=== PATIENT | female | born 1950 | race Caucasian/White ===

== ENCOUNTER → 2016-06-28 | Outpatient (CLI) | payer OTHER ==
[~2016-06-28] MED LIST: ACET325T96 PO; ALBU18002 INH; ASPI81TA28 PO; Armour Thyroid PO; CHOL2000 PO; CITA40TA4 PO; CLX20 PO; DOCU-94 PO; DULO60CA44 PO; FLUT0.15 NAE; HYDR-5688 PO; IBUP-103 PO; IBUP-1459 PO; JET ALERT PO; MOML PO; NRN/100 PO; NXM/40 PO; OXYC-106 PO; PRAV20TA PO; THY/30 PO; TRD10 PO
[2016-06-28 12:56] LABS: BASO % 0.4 %; BASO ABS # 0.02 K/uL (0-0.2); COMPLETE YES; EOS % 6.6 %; HEMATOCRIT 35.7 % (37-47); LYMPH ABS # 1.48 K/uL (1.2-3.4); MEAN CELL VOLUME 91.3 fL (80-100); MEAN CORPUSCULAR HEMOGLOBIN 30.9 pg (25-34); MEAN CORPUSCULAR HGB CONC 33.9 g/dl (32-36); MEAN PLATELET VOLUME 10.4 fL (7.4-10.4); MONO % 6.9 %; NEUT % 59.1 %; PLATELET COUNT 283 K/uL (130-400); RED BLOOD COUNT 3.91 M/uL (4.2-5.4); WHITE BLOOD COUNT 5.48 K/uL (4.8-10.8)
--- NOTE | 2016-07-03 13:16 | CODING QUERY MEDICAL NECESSITY ---
SUPPORTING DIAGNOSIS NEEDED A supporting diagnosis is required for the test/procedure performed on this patient in order for us to be reimbursed by the patient's insurance. Please provide a supporting diagnosis for the following test/procedure listed below next to the test name along with your signature. *If there is no additional diagnosis for this patient that would support the following test/procedure please document that below next to the test/procedure. Test(s)/Procedure(s) that require a supporting diagnosis: DOS 06/28/16 * Vitamin B12 DIAGNOSIS: Provider Signature: Date: Thank you Mitra Woodward Health Information Management Once completed, please kindly fax back to [phone] For questions please call [phone]
== END | disposition home or self-care (01) ==
LOC: C.LAB 12:01
PROVIDERS: ATTEND Family Medicine
DX: D64.9 Anemia, unspecified (principal)

== ENCOUNTER → 2016-08-24 | Outpatient (CLI) | payer OTHER ==
--- NOTE | 2016-08-24 15:37 | MAMMOGRAPHY REPORT ---
BILATERAL DIGITAL SCREENING MAMMOGRAM WITH CAD: 08/24/2016 CLINICAL HISTORY: Routine screening. Patient has no complaints. TECHNIQUE: Current study was also evaluated with a Computer Aided Detection (CAD) system. Bilatera l CC and MLO views were obtained. COMPARISON: Comparison is made to exams dated: 08/23/2015 mammogram, 08/17/2014 mammogram, 03/03/2015 ma mmogram, 08/14/2013 mammogram, 08/13/2012 mammogram, and 08/08/2011 mammogram - [facility] enter. BREAST COMPOSITION: The tissue of both breasts is almost entirely fatty. FINDINGS: No suspicious masses, calcifications, or areas of architectural distortion are noted in e ither breast. There has been no significant interval change compared to prior exams. Bilateral jeanine gn-appearing calcifications are again noted. IMPRESSION: ACR BI-RADS CATEGORY 2: BENIGN There is no mammographic evidence of malignancy. A 1 year screening mammogram is recommended. The p atient will receive written notification of the results. Approximately 10% of breast cancers are not detected with mammography. A negative mammographic repor t should not delay biopsy if a clinically suggestive mass is present. Demetria Collins M.D. ah/:08/24/2016 13:52:26 [employer] Agent: Marnie BURCIAGA(R)(M), [facility] letter sent: Normal 1/2 BI-RADS Code: ACR BI-RADS Category 2: Benign
== END | disposition home or self-care (01) ==
LOC: C.MAMM 12:57
PROVIDERS: ATTEND Obstetrics & Gynecology
DX: Z12.31 Encounter for screening mammogram for malignant neoplasm of breast (principal)

== ENCOUNTER → 2016-08-28 | Outpatient (CLI) | payer OTHER ==
[~2016-08-28] VITALS: Ht 172.7 cm; Wt 128.0 kg
[2016-08-28 13:07] VITALS: BP 129/85; PULSE 81; Ht 172.7 cm; Wt 128.0 kg
== END | disposition home or self-care (01) ==
LOC: C.NEUR 12:52
PROVIDERS: ATTEND Internal Medicine Pulmonary Disease
DX: G47.30 Sleep apnea, unspecified (principal)

== ENCOUNTER 2016-11-02 05:23 | Inpatient (IN) | payer OTHER ==
[2016-10-25 11:15] VITALS: BMI 43.0
--- NOTE | 2016-10-25 11:50 | PAT Medication Instructions ---
Service Date October 25, 2016. Current Home Medication List Albuterol Sulfate (Proair Respiclick), 1-2 PUFFS INH Q4-6H Aspirin (Aspirin Ec), 81 MG PO HS Cholecalciferol (Vitamin D3), 1 CAP PO QAM Citalopram (Celexa *), 40 MG PO HS Esomeprazole Magnesium (Nexium), 40 MG PO HS Fluticasone Propionate (Nasal) (Flonase Allergy Relief), 2 SPRAYS KATIANA PRN Hydrocodone/Acetaminophen 5MG/325MG ([place] 5MG/325MG), 1-2 TABLET PO Q4-6H PRN for Pain Ibuprofen Tab (Advil), 400 MG PO PRN Pravastatin (Pravachol ), 20 MG PO HS [[place] Thyroid], 30 MG PO DAILY [Jet Alert], 1 TAB PO PRN Medication Instructions For Your Scheduled Surgery Albuterol Sulfate (Proair Respiclick), 1-2 PUFFS INH Q4-6H (only takes with bronchitis) Aspirin (Aspirin Ec), 81 MG PO HS (patient self held 10 days prior to surgery- only takes prophylactically- can check with surgeon for instructions) Ibuprofen Tab (Advil), 400 MG PO PRN (patient will check with surgeon for instructions) - Hold the following medications the morning of surgery: Jet Alert 1 TAB PO PRN Cholecalciferol (Vitamin D3), 1 CAP PO QAM - Take the following medications the morning of surgery with a sip of water: [place] Thyroid 30 MG PO DAILY Hydrocodone/Acetaminophen 5MG/325MG ([place] 5MG/325MG), 1-2 TABLET PO Q4-6H PRN for Pain (can take up to four hours prior to surgery if needed) Fluticasone Propionate (Nasal) (Flonase Allergy Relief), 2 SPRAYS KATIANA PRN ( if needed) - Take the following medications as scheduled the night before surgery: Pravastatin (Pravachol ), 20 MG PO HS Hydrocodone/Acetaminophen 5MG/325MG ([place] 5MG/325MG), 1-2 TABLET PO Q4-6H PRN for Pain Esomeprazole Magnesium (Nexium), 40 MG PO HS Citalopram (Celexa *), 40 MG PO HS If you have any questions please call us at [phone] or [phone] ( [place]) or [phone]
--- NOTE | 2016-10-25 12:30 | DIAGNOSTIC IMAGING REPORT ---
CHEST PREADMISSION(PA/LAT) CLINICAL HISTORY: Preoperative evaluation. COMPARISON STUDY: Chest radiograph July 24, 2014. FINDINGS: A 1 level vertebral augmentation is noted within the thoracic spine. There is no pneumothorax or pleural effusion. Calcified right lung nodules are noted. There is no evidence of pulmonary edema. Cardiomediastinal silhouette is normal. There is no evidence of pulmonary edema. Left lower lobe nodular density is unchanged since CT of January 14, 2009. IMPRESSION: No acute cardiopulmonary findings. Electronically signed by: Paulo Blank M.D. 10/25/2016 12:29 PM Dictated Date/Time: 10/25/2016 12:27 PM
[2016-10-25 12:40] LABS: BASO % 0.6 %; BASO ABS # 0.03 K/uL (0-0.2); COMPLETE YES; EOS % 5.1 %; HEMATOCRIT 37.1 % (37-47); IG% 0.2 %; LYMPH ABS # 1.54 K/uL (1.2-3.4); MEAN CELL VOLUME 92.3 fL (80-100); MEAN CORPUSCULAR HEMOGLOBIN 30.6 pg (25-34); MEAN CORPUSCULAR HGB CONC 33.2 g/dl (32-36); MEAN PLATELET VOLUME 10.1 fL (7.4-10.4); MONO % 8.8 %; NEUT % 55.3 %; PLATELET COUNT 297 K/uL (130-400); RED BLOOD COUNT 4.02 M/uL (4.2-5.4); WHITE BLOOD COUNT 5.14 K/uL (4.8-10.8)
[2016-10-25 12:41] LABS: URINE APPEARANCE CLEAR (CLEAR); URINE BILIRUBIN NEG (NEG); URINE COLOR YELLOW; URINE NITRITE NEG (NEG); URINE PH 7.5 (4.5-7.5); URINE SPECIFIC GRAVITY 1.012 (1.000-1.030); UROBILINOGEN NEG (NEG)
[2016-10-25 12:45] LABS: MANUAL MICROSCOPIC REQUIRED? NO; REVIEW REQ? NO
[2016-10-25 12:53] LABS: PARTIAL THROMBOPLASTIN RATIO 1.2; PROTHROMBIN TIME (PATIENT) 11.1 SECONDS (9.0-12.0)
[2016-10-25 13:18] LABS: BUN/CREATININE RATIO 13.1 (10-20); CALCIUM 9.2 mg/dl (8.5-10.1); CREATININE 0.98 mg/dl (0.60-1.20); POTASSIUM 4.5 mmol/L (3.5-5.1)
--- NOTE | 2016-11-01 22:05 | HISTORY & PHYSICAL EXAMINATION ---
DATE OF ADMISSION: 11/02/2016 CHIEF COMPLAINT: Lower extremity difficulty, paresthesias, weakness to the quadriceps region and back pain, as well. She has a difficulty with a worked up for spinal stenosis that is legitimately tight at L3-4, and also at L2-3 to a modest degree. She has significant spinal stenosis. She has tried conservative care, she is failing miserably and needs some help. We have offered her surgical intervention. PAST SURGICAL HISTORY: Includes cholecystectomy, bilateral knee, carpal tunnel, plantar fascial release, lumbar spinal surgery. MEDICATIONS: Nexium, Celexa, pravastatin, aspirin. ALLERGIES: AMOXICILLIN. SOCIAL HISTORY: Nonsmoker, non-ETOH user. PAST MEDICAL HISTORY: She denies any kidney, liver disease. No history of carcinoma. No difficulty with anesthesia. Does have arthritis, spine and neck problems. She is hypothyroid. She does have some sleep apnea. She has high cholesterol. No myocardial infarction, diabetes mellitus. REVIEW OF SYSTEMS: She denies any blurred vision, double vision, tinnitus, vertigo. Denies any chest pain, angina. No asthma, wheezing, no shortness of breath. Denies nausea, vomiting constipation. No urgency, frequency, dysuria. Her major positive review is her lower extremity difficulty. OBJECTIVE: GENERAL: She is 5 feet 8 inches, she is 270 pounds. She is in distress. She has difficulty with ambulation. VITAL SIGNS: Blood pressure 130/80, pulse of 80, respiration rate 16, 97.7 temperature. HEENT: Pupils react to light and accommodation. Ear, nose and throat clear. CARDIAC: Normal S1, S2, no S3. LUNGS: Clear to auscultation. No asthma, wheezing, no rhonchi. ABDOMEN: Soft and nontender. She is obese, but good bowel sounds. NEUROLOGIC: No cranial nerve function abnormality, no upper motor neuron pathology. She has weakness of quadriceps bilaterally along with a decreased Achilles reflex bilaterally. IMPRESSION: Spinal stenosis, lumbar spine L2-3, L3-4. DISPOSITION: Includes a laminectomy and fusion, L2-3, L3-4 with removal of old implants, lumbar spine.
[~2016-11-02] VITALS: Ht 172.7 cm; Wt 127.7 kg
[2016-11-02] VITALS (9 sets, daily range): BP systolic 90–148; BP diastolic 55–78; PULSE 78–105; TEMP 36.3–36.8; O2SAT 92–98; Ht 172.7 cm; Wt 127.7 kg
[~2016-11-02 05:23] MED LIST changes: -ACET325T96 PO; -ALBU18002 INH; -ASPI81TA28 PO; -CHOL2000 PO; -CITA40TA4 PO; -DOCU-94 PO; -DULO60CA44 PO; -FLUT0.15 NAE; -IBUP-103 PO; -IBUP-1459 PO; -MOML PO; -NRN/100 PO; -NXM/40 PO; -OXYC-106 PO; -PRAV20TA PO; -THY/30 PO; -TRD10 PO
[2016-11-02] MEDS ORDERED: LACTATED RINGER'S 1000ML 1,000 ML IV SCH (06:00)
[2016-11-02] MEDS ORDERED: NSS 1000ML IV SCH (06:00)
[2016-11-02] MEDS ORDERED: CLINDAMYCIN 600 MG/54 ML D5W 54 ML IV SCH (06:00)
[2016-11-02] MEDS ORDERED: MIDAZOLAM HCL 1 MG/ML 2ML VIAL ONE (06:59)
[2016-11-02] MEDS ORDERED: FENTANYL CITRATE INJ 50 MCG/1 ML 2 ML VIAL ONE (06:59)
[2016-11-02] MEDS ORDERED: HYDROmorphone INJ 2 MG/ML SYR/VIAL ONE (07:00)
[2016-11-02] MEDS ORDERED: KETAMINE HCL INJ 50 MG/ML 10 ML VIAL ONE (07:00)
[2016-11-02] MEDS ORDERED: GELATIN SPONGE SZ 100 ONE ×3 (07:01→09:15)
[2016-11-02] MEDS ORDERED: THROMBIN FOR SOLN 20000 UNIT KIT ONE (07:01)
[2016-11-02] MEDS ORDERED: BACITRACIN 50000 UNIT VIAL ONE (07:02)
[2016-11-02] MEDS ORDERED: VANCOMYCIN HCL 1000MG/20ML VIAL ONE (07:02)
[2016-11-02] MEDS ORDERED: BUPIVACAINE/EPINEPHRINE 0.5% MPF 1:200,000 30 ML VIAL ONE (07:02)
--- NOTE | 2016-11-02 07:11 | History & Physical Bridge Note ---
H&P Re-Evaluation Bridge Note: I have examined the patient, reviewed the History & Physical and in the interval since the performance of the History & Physical I have noted the following changes of clinical significance: No changes noted
[2016-11-02] MEDS ORDERED: CISATRACURIUM BESYLATE IV SOLN 2 MG/ML 10 ML VIAL ONE (08:50)
[2016-11-02] MEDS ORDERED: PROPOFOL IV EMULSION 10 MG/ML 20 ML VIAL IV ONE (08:50)
[2016-11-02] MEDS ORDERED: CLINDAMYCIN PHOS 150 MG/ML 2 ML VIAL ONE (08:50)
[2016-11-02] MEDS ORDERED: EpHEDrine SULFATE 50MG/5ML SYR ONE (08:50)
[2016-11-02] MEDS ORDERED: ONDANSETRON INJ 2 MG/ML 2 ML VIAL ONE (08:50)
[2016-11-02] MEDS ORDERED: DEXAMETHASONE SOD INJ 4 MG/ML VIAL ONE (08:50)
[2016-11-02] MEDS ORDERED: LIDOCAINE HCL 2% 2 ML VIAL (20MG/ML) ONE (08:50)
[2016-11-02] MEDS ORDERED: SODIUM CHLORIDE 0.9% INJ 10 ML VIAL ONE (08:54)
[2016-11-02] MEDS ORDERED: NEOSTIGMINE METHYLSULFATE 5 MG/5 ML SYR ONE (10:02)
[2016-11-02] MEDS ORDERED: GLYCOPYRROLATE INJ 0.2 MG/ML VIAL ONE (10:02)
[2016-11-02] MEDS ORDERED: PHENYLEPHRINE HCL INJ 10 MG/ML VIAL ONE (10:02)
[2016-11-02] MEDS ORDERED: PROMETHAZINE HCL INJ 12.5 MG in SODIUM CHLORIDE 0.9% 50ML 50 ML IV PRN ×2 (11:15→11:45)
[2016-11-02] MEDS ORDERED: NALOXONE HCL 0.4 MG/1 ML VIAL/CARP IV PRN ×2 (11:15→11:45)
[2016-11-02] MEDS ORDERED: JET ALERT PO SCH (11:15)
[2016-11-02] MEDS ORDERED: SODIUM CHLORIDE 0.9% 1000ML 1,000 ML IV SCH (11:15)
[2016-11-02] MEDS ORDERED: LORAZEPAM 1 MG TAB PO PRN (11:15)
[2016-11-02] MEDS ORDERED: MAGNESIUM HYDROXIDE SUSP 30 ML UDC PO PRN (11:15)
[2016-11-02] MEDS ORDERED: METOCLOPRAMIDE HCL INJ 5 MG/ML 2 ML VIAL IV PRN (11:15)
[2016-11-02] MEDS ORDERED: FLUTICASONE PROPIONATE NA SPR 16 GM BTL NAE PRN (11:15)
[2016-11-02] MEDS ORDERED: ACETAMINOPHEN 325 MG TAB PO PRN (11:15)
[2016-11-02] MEDS ORDERED: LORAZEPAM INJ 1 MG in SYRINGE 0.5 ML IV PRN (11:15)
[2016-11-02] MEDS ORDERED: ONDANSETRON INJ 2 MG/ML 2 ML VIAL IV PRN ×2 (11:15→11:45)
--- NOTE | 2016-11-02 11:17 | [facility] Operative Report ---
Operative Report Operative Date November 02, 2016. Pre-Operative Diagnosis Spinal Stenosis Lumbar Spine L2-3, L3-4, Previous Fusion L4-L5, L5-S1 Procedure(s) Performed Laminectomy L204. Instrumentation and fusion L2-l5 Sur[address] Munguia Aboriginal Liaison Officer Surgeon(s) DELROY Ridley Estimated Blood Loss 700 ml Findings severe stenosis L2-L4, instability Specimens A. Removed Hardware L4-L5, L5-S1 Complication(s) None Disposition Recovery Room / PACU I attest to the content of the Intraoperative Record and any orders documented therein. Any exceptions are noted below.
--- NOTE | 2016-11-02 11:20 | DIAGNOSTIC IMAGING REPORT ---
INTRAOPERATIVE LUMBAR SPINE SINGLE VIEW CLINICAL HISTORY: L2-4 LAMINECTOMY/FUSION/REMOVE HARDWARE COMPARISON STUDY: No previous studies for comparison. FINDINGS: A single lateral fluoroscopic spot images provided for interpretation. 9.2 seconds of fluoroscopic time was utilized. Given the limited [id number], accurate numbering is not possible. Pedicle screws are visualized for consecutive levels. IMPRESSION: Intraoperative fluoroscopic spot image demonstrating pedicle screws at 4 consecutive levels Electronically signed by: Michael Jarquin M.D. 11/02/2016 11:19 AM Dictated Date/Time: 11/02/2016 11:18 AM
[2016-11-02] MEDS ORDERED: HYDROmorphone HCL 0.5MG/ML 50 ML CASSETTE ONE (11:30)
[2016-11-02] MEDS ORDERED: ATROPINE SULFATE 0.1 MG/ML 5ML SYR IV PRN (11:45)
[2016-11-02] MEDS ORDERED: EpHEDrine SULFATE INJ 50 MG/ML AMP IV PRN (11:45)
[2016-11-02] MEDS ORDERED: FLUMAZENIL 0.1 MG/1 ML 10 ML VIAL IV PRN (11:45)
[2016-11-02] MEDS ORDERED: LABETALOL HCL IV 5 MG/ML 20ML IV PRN (11:45)
[2016-11-02] MEDS ORDERED: HYDROmorphone INJ 1 MG/ML SYR IV PRN (11:45)
[2016-11-02 11:49] LABS: HEMATOCRIT 32.8 % (37-47)
--- NOTE | 2016-11-02 12:32 | Anesthesiology Progress Note ---
Anesthesia Post Op Note Date & Time November 02, 2016 at 12:31 Vital Signs Pain Intensity: 5 Vital Signs Past 12 Hours Date Time Temp Pulse Resp B/P Pulse Ox O2 Delivery O2 Flow Rate FiO2 11/02/16 12:21 103/56 11/02/16 12:20 78 13 11/02/16 12:20 77 13 96 11/02/16 12:17 36.4 90 16 103/56 93 Nasal Cannula 4 Arterial Line 11/02/16 12:16 101/48 11/02/16 12:15 89 13 33/-50 92 11/02/16 12:15 89 13 11/02/16 12:14 95 17 11/02/16 12:14 94 17 114/59 93 11/02/16 12:11 112/51 11/02/16 12:09 97 19 11/02/16 12:09 102 19 70/38 92 11/02/16 12:06 99/56 11/02/16 12:04 93 20 96/55 92 11/02/16 12:04 91 20 11/02/16 12:01 99/52 11/02/16 11:59 72 2 11/02/16 11:59 70 2 94/51 93 11/02/16 11:56 100/66 11/02/16 11:54 93 105/62 92 11/02/16 11:53 89 11 11/02/16 11:53 91 11 114/64 96 11/02/16 11:53 89 11 11/02/16 11:53 91 11 114/64 96 11/02/16 11:51 113/66 11/02/16 11:51 113/66 11/02/16 11:48 93 19 119/60 97 17 11:48 93 19 11/02/16 11:48 93 19 17 11:48 93 19 119/60 97 17 11:46 117/78 17 11:46 117/78 11/02/17 11:43 86 11 18/17 11:43 86 11 168/40 97 18/17 11:43 86 11 168/40 97 11/02/17 11:43 86 11 17 11:41 124/67 18/17 11:41 124/67 11/02/16 11:38 88 13 129/60 96 11/02/16 11:38 87 13 11/02/16 11:38 88 13 129/60 96 11/02/16 11:38 87 13 11/02/16 11:36 115/79 11/02/16 11:36 115/79 11/02/16 11:33 84 15 11/02/16 11:33 84 15 104/63 95 11/02/16 11:33 84 15 104/63 95 11/02/16 11:33 84 15 11/02/16 11:31 135/61 11/02/16 11:31 135/61 11/02/16 11:28 80 15 11/02/16 11:28 80 15 11/02/16 11:28 79 15 121/60 98 11/02/16 11:28 79 15 121/60 98 11/02/16 11:26 132/82 11/02/16 11:26 132/82 11/02/16 11:23 84 15 107/53 98 11/02/16 11:23 84 15 11/02/16 11:23 84 15 107/53 98 11/02/16 11:23 84 15 11/02/16 11:21 120/71 11/02/16 11:21 120/71 11/02/16 11:19 120/76 11/02/16 11:19 120/76 11/02/16 11:18 36.4 74 16 120/76 100 Mask 10 129/58 11/02/16 11:18 78 13 11/02/16 11:18 78 13 11/02/16 11:18 74 13 109/0 99 11/02/16 11:18 74 13 109/0 99 11/02/16 05:49 36.4 78 16 148/78 Room Air 96 Notes Mental Status: alert / awake / arousable, participated in evaluation Pt Amnestic to Procedure: Yes Nausea / Vomiting: adequately controlled Pain: adequately controlled Airway Patency, RR, SpO2: stable & adequate BP & HR: stable & adequate Hydration State: stable & adequate Anesthetic Complications: no major complications apparent
--- NOTE | 2016-11-02 12:34 | OPERATIVE REPORT ---
DATE OF OPERATION: 11/02/2016 PREOPERATIVE DIAGNOSIS: Severe stenosis lumbar spine L2-3, L3-4; instability L2-3, L3-4; old implants and old fusion L4 to the sacrum. SURGEON: Sorin Munguia DO VICE PRESIDENT OF BUSINESS DEVELOPMENT: Stanley Orona PA-C ANESTHESIA: General. COMPLICATIONS: Zero. BLOOD LOSS: 700 mL. PROCEDURE: Laminectomy L2-3, L3-4; fusion, instrumentation L2, L3, L4 and L5; posterior lateral fusion L2, L3 and L4. DESCRIPTION OF PROCEDURE: The patient was taken to the operating room and general intubated anesthetic provided to the patient, placed prone, prepped and draped sterile. We scrubbed her first with Betadine, prepped with DuraPrep and positioned her carefully. We used a skin incision from L2-5 of the lumbar spine dissecting the soft tissue in the same plane. We put in a deep self-retaining retractor. The patient was quite obese and the retractors were 4 inches in length just to get to the facet joints. We decompressed the neural elements safely getting pressure off the nerve root of severe stenosis using all sort of revision techniques to try to get rid of the bone encroachment and ligamentum flavum hypertrophy. I was pleased with the decompression. I was impressed with the amount of bone formation. Each nerve roots were probed free of obstruction. We then safely instrumented the spine. We were able to get pedicle screws in the L2, L3, L4, and L5 bilaterally, instrumenting the spine and stabilizing the spine. The instruments used were from the [employer]. We then bone grafted L2, L3 and L4 lumbar spine to complete the fusion. We irrigated with about a liter of fluid. We debrided any questionable soft tissue. We closed in a [id number] with #1 Vicryl over the Hemovac drain, 2-0 in the subcuticular layer, 3-0 nylon on the skin. Sterile dressings applied. We also closed over Hemovac drain and over vancomycin powder. There were no apparent interoperative complications. No apparent problems. Sponge and needle count correct at the close of the procedure. No surgical complications. I attest to the content of the Intraoperative Record and any orders documented therein. Any exceptio ns are noted below.
[2016-11-02] MEDS: HYDROmorphone HCL 0.5MG/ML 50 ML CASSETTE IV PRN ×3 (13:03→23:00)
[2016-11-02] MEDS: SODIUM CHLORIDE 0.9% 1000ML 1,000 ML IV SCH ×2 (13:25→23:22)
--- NOTE | 2016-11-02 14:46 | Medical Consult ---
Consultation Date of Consultation: November 02, 2016. Attending Physician: Sorin Munguia DO History of Present Illness 66 y/o F Hx Lumbar stenosis - post laminectomy and fusion, L2-3, L3-4 with removal of previous implants. Pt has some post-op discomfort - denies additional symptoms such as CP, SOB, N/V. 02 sat is occasionally marginal however she does not exhibit distress or related complaints and has a history of RADHA and obesity. We are asked to see her for post-operative medical management. Past Medical/Surgical History 1) HPL 2) RADHA - CPAP Surgical Problems: (1) Hx of cholecystectomy Status: Acute Family History Cancer Gallbladder disease Heart disease Hypertension Lung disease Social History Smoking Status: Never Smoker Marital Status: Housing Status: lives with significant other Occupation Status: unemployed Allergies Coded Allergies: Erythromycin (Verified Allergy, Unknown, per PCP note , 11/02/16) Fish Oil (Verified Allergy, Unknown, sweat, nausea, dizzy, 10/25/16) Penicillins (Verified Allergy, Unknown, RED RASH ITCHING, 10/25/16) Rofecoxib (Verified Allergy, Unknown, UNKNOWN, 10/25/16) Tramadol (Verified Allergy, Unknown, rash/hives, 10/25/16) Current Inpatient Medications Current Inpatient Medications Medications (Trade) Dose Ordered Sig/Emilie Route Start Time Stop Time Status Last Admin Dose Admin Clindamycin Phosphate (Cleocin 600mg/ 54ml D5W) 54 ml @ 100 mls/hr PREOP IV 11/02/16 06:00 11/02/16 18:00 11/02/16 07:29 100 MLS/HR Diphenhydramine HCl (Benadryl Cap) 25 mg Q6H PRN PO 11/02/16 11:15 12/02/16 11:14 Magnesium Hydroxide (Milk Of Magnesia Susp) 30 ml DAILY PRN PO 11/02/16 11:15 12/02/16 11:14 Bisacodyl (Dulcolax Supp) 10 mg DAILY PRN NM 11/03/16 06:00 12/03/16 05:59 Bisacodyl (Dulcolax Tab) 5 mg DAILY PRN PO 11/03/16 06:00 12/03/16 05:59 Polyethylene 17 gm 17 gm DAILY PO 11/03/16 09:00 12/03/16 08:59 Lorazepam/Syringe (Ativan Inj/ Syringe) 1 ml @ 1 mls/min Q6H PRN IV 11/02/16 11:15 12/02/16 11:14 Lorazepam (Ativan Tab) 1 mg Q6H PRN PO 11/02/16 11:15 12/02/16 11:14 Metoclopramide HCl (Reglan Inj) 10 mg Q6H PRN IV 11/02/16 11:15 12/02/16 11:14 Ondansetron HCl 4 mg 4 mg Q6H PRN IV 11/02/16 11:15 12/02/16 11:14 Promethazine HCl/ Sodium Chloride (Phenergan Inj/ Nss 50ml) 50.5 ml @ 202 mls/hr Q6H PRN IV 11/02/16 11:15 12/02/16 11:14 Ketorolac Tromethamine (Toradol Inj) 15 mg Q6H IV. 11/02/16 16:00 11/07/16 15:59 Hydromorphone HCl (Dilaudid Inj) 1.5 mg Q3H PRN IV 11/03/16 08:00 11/17/16 07:59 Oxycodone/ Acetaminophen (Percocet 5-325mg Tab) 2 tab Q4H PRN PO 11/03/16 08:00 11/17/16 07:59 Hydromorphone HCl (Dilaudid Inj) 1 mg Q3H PRN IV 11/03/16 08:00 11/17/16 07:59 Oxycodone/ Acetaminophen (Percocet 5-325mg Tab) 1 tab Q4H PRN PO 11/03/16 08:00 11/17/16 07:59 Miscellaneous Information (Discontinue MANAGER HEART FAILURE) 1 ea TODAY@0800 N/A 11/03/16 08:00 11/03/16 08:01 Acetaminophen 650 mg 650 mg Q6H PRN PO 11/02/16 11:15 12/02/16 11:14 Clindamycin Phosphate 600 mg/ Dextrose 54 ml @ 100 mls/hr Q8H IV 11/02/16 16:00 11/03/16 00:33 Dexamethasone Sodium Phosphate 10 mg/Syringe 2.5 ml @ 1 mls/min Q8H IV 11/02/16 17:00 11/04/16 01:03 Sodium Chloride (Nss 1000ml) 1,000 ml @ 80 mls/hr [id number] IV 11/02/16 11:15 12/02/16 11:14 11/02/16 13:25 80 MLS/HR Aspirin (Ecotrin Tab) 81 mg HS PO 11/02/16 21:00 12/02/16 20:59 Citalopram Hydrobromide (celeXA TAB) 40 mg HS PO 11/02/16 21:00 12/02/16 20:59 Fluticasone Propionate (Flonase Nasal [place]) 2 sprays DAILY PRN KATIANA 11/02/16 11:15 12/02/16 11:14 Pravastatin Sodium (Pravachol Tab) 20 mg HS PO 11/02/16 21:00 12/02/16 20:59 Cholecalciferol (Vitamin D Tab) 2,000 inter.unit QAM PO 11/03/16 09:00 12/03/16 08:59 Pantoprazole Sodium (Protonix Tab) 40 mg HS PO 11/02/16 21:00 12/02/16 20:59 Thyroid ([place] Thyroid Tab) 30 mg DAILYBB PO 11/03/16 06:00 12/03/16 06:59 Naloxone HCl (Narcan Inj) 0.1 mg Q5M PRN IV 11/02/16 11:15 11/03/16 08:00 Hydromorphone HCl 25 mg 25 mg PRN PRN IV 11/02/16 11:15 11/03/16 23:59 11/02/16 13:03 25 MG Sodium Chloride (Nss 1000ml) 1,000 ml @ 15 mls/hr Q24H IV 11/02/16 11:15 11/03/16 08:00 Hydromorphone HCl (Dilaudid Inj) 0.2 mg Q5M PRN IV 11/02/16 11:45 11/02/16 16:45 Naloxone HCl (Narcan Inj) 0.2 mg Q2M PRN IV 11/02/16 11:45 11/02/16 16:45 Flumazenil (Romazicon Inj) 0.2 mg Q2M PRN IV 11/02/16 11:45 11/02/16 16:45 Ondansetron HCl 4 mg 4 mg ONE PRN IV 11/02/16 11:45 11/02/16 16:45 Promethazine HCl/ Sodium Chloride (Phenergan Inj/ Nss 50ml) 50.5 ml @ 202 mls/hr ONE PRN IV 11/02/16 11:45 11/02/16 16:45 Labetalol HCl (Normodyne IV) 5 mg Q5M PRN IV 11/02/16 11:45 11/02/16 16:45 Ephedrine Sulfate (EpHEDrine SULFATE INJ) 5 mg Q5M PRN IV 11/02/16 11:45 11/02/16 16:45 Atropine Sulfate (Atropine Sulfate 0.1MG/Ml Inj) 0.5 mg Q1M PRN IV 11/02/16 11:45 11/02/16 16:45 Review of Systems Constitutional: No chills, No fever, No sweats Eyes: No eye pain, No worsening of vision ENT: No hearing loss, No nasal symptoms, No unusual epistaxis Respiratory: No cough, No sputum, No wheezing Cardiovascular: No PND, No chest pain, No orthopnea Abdomen: No nausea, No pain, No vomiting Musculoskeletal: + problem reported (post-op pain at the surgical site) Genitourinary - Female: No dysuria, No urinary frequency, No urinary urgency Neurologic: + weakness, No memory loss Psychiatric: No depression symptoms Endocrine: No fatigue Hematologic / Lymphatic: No abnormal bleeding/bruising Integumentary: No rash Allergic / Immunologic: No environmental allergies Physical Exam Date Time Temp Pulse Resp B/P Pulse Ox O2 Delivery O2 Flow Rate FiO2 11/02/16 14:03 80 16 90/61 96 4.0 11/02/16 13:44 92 Nasal Cannula 4.0 11/02/16 13:36 92 Nasal Cannula 4.0 11/02/16 13:29 36.4 83 18 90/55 93 Nasal Cannula 4.0 11/02/16 12:47 80 12 95 11/02/16 12:47 79 12 11/02/16 12:42 76 10 91 11/02/16 12:42 75 10 11/02/16 12:37 81 9 91 11/02/16 12:37 78 12 11/02/16 12:32 73 10 11/02/16 12:32 72 10 92 5/18/17 12:27 69 12 91 518/17 12:27 69 12 5/18/17 12:22 90 12 92 518/17 12:22 89 12 5/18/17 12:21 103/56 518/17 12:20 78 13 5/18/17 12:20 77 13 96 5/18/17 12:17 36.4 90 16 103/56 93 Nasal Cannula 4 Arterial Line 17 12:16 101/48 518/17 12:15 89 13 33/-50 92 518/17 12:15 89 13 518/17 12:14 95 17 518/17 12:14 94 17 114/59 93 518/17 12:11 112/51 518/17 12:09 97 19 518/17 12:09 102 19 70/38 92 518/17 12:06 99/56 518/17 12:04 93 20 96/55 92 518/17 12:04 91 20 518/17 12:01 99/52 518/17 11:59 72 2 5/18/17 11:59 70 2 94/51 93 5/18/17 11:56 100/66 5/18/17 11:54 93 105/62 92 5/18/17 11:53 89 11 5/18/17 11:53 91 11 114/64 96 5/18/17 11:53 89 11 5/18/17 11:53 91 11 114/64 96 5/18/17 11:51 113/66 5/18/17 11:51 113/66 5/18/17 11:48 93 19 119/60 97 5/18/17 11:48 93 19 5/18/17 11:48 93 19 5/18/17 11:48 93 19 119/60 97 5/18/17 11:46 117/78 5/18/17 11:46 117/78 5/18/17 11:43 86 11 5/18/17 11:43 86 11 168/40 97 5/18/17 11:43 86 11 168/40 97 5/18/17 11:43 86 11 5/18/17 11:41 124/67 5/18/17 11:41 124/67 5/18/17 11:38 88 13 129/60 96 5/18/17 11:38 87 13 11/02/16 11:38 88 13 129/60 96 11/02/16 11:38 87 13 11/02/16 11:36 115/79 11/02/16 11:36 115/79 11/02/16 11:33 84 15 11/02/16 11:33 84 15 104/63 95 11/02/16 11:33 84 15 104/63 95 11/02/16 11:33 84 15 11/02/16 11:31 135/61 11/02/16 11:31 135/61 11/02/16 11:28 80 15 11/02/16 11:28 80 15 11/02/16 11:28 79 15 121/60 98 11/02/16 11:28 79 15 121/60 98 11/02/16 11:26 132/82 11/02/16 11:26 132/82 11/02/16 11:23 84 15 107/53 98 11/02/16 11:23 84 15 11/02/16 11:23 84 15 107/53 98 11/02/16 11:23 84 15 11/02/16 11:21 120/71 11/02/16 11:21 120/71 11/02/16 11:19 120/76 11/02/16 11:19 120/76 11/02/16 11:18 36.4 74 16 120/76 100 Mask 10 129/58 11/02/16 11:18 78 13 11/02/16 11:18 78 13 11/02/16 11:18 74 13 109/0 99 11/02/16 11:18 74 13 109/0 99 11/02/16 05:49 36.4 78 16 148/78 Room Air 96 General Appearance: WD/WN, no apparent distress, + obese Head: normocephalic, atraumatic Eyes: normal inspection, EOMI ENT: normal ENT inspection, pharynx normal Neck: supple, no JVD Respiratory/Chest: chest non-tender, lungs clear, normal breath sounds, no respiratory distress, no accessory muscle use Cardiovascular: regular rate, rhythm, no edema, no gallop, no JVD, no murmur, normal peripheral pulses Abdomen/GI: normal bowel sounds, non tender, soft Back: + pertinent finding (A drain is in place - ROM not tested) Extremities/Musculoskelatal: normal inspection, no calf tenderness, normal capillary refill, + pedal edema Neurologic/Psych: + pertinent finding (exam is limited in the immeduate post- op period due t anesthetic effect) Skin: normal color, warm/dry, no rash Laboratory Results Last 24 Hours Test 11/02/16 05:45 11/02/16 11:42 Bedside Glucose 97 mg/dl Hemoglobin 10.9 g/dL Hematocrit 32.8 % Assessment & Plan 66 y/o F Hx Lumbar stenosis - post laminectomy and fusion, L2-3, L3-4 with removal of previous implants. Pt has some post-op discomfort - denies additional symptoms such as CP, SOB, N/V. 02 sat is occasionally marginal however she does not exhibit distress or related complaints and has a history of RADHA and obesity. 1) Post-op - pain control is currently adequate - maintain hydration - PT timing per ortho - Hb reflects expected blood loss - no discernible complications at present 2) RADHA - Pt has brought her CPAP - can be used daytime post-op as well if her sat is not adequately maintained 3) HPL - continue statin therapy Total time for this consult including review of ortho notes, labs, records - discussion with pt 28 min
[2016-11-02] MEDS: KETOROLAC TROMETHAMINE 15 MG/ML VIAL IV. SCH ×2 (16:11→21:49)
[2016-11-02] MEDS: CLINDAMYCIN IV 600 MG in DEXTROSE 5% ADD-VANTAGE 50ML 50 ML IV SCH ×2 (16:11→23:22)
[2016-11-02] MEDS: DEXAMETHASONE INJ 10 MG in SYRINGE 0 ML IV SCH (16:22)
[2016-11-02] MEDS: PRAVASTATIN SOD 20 MG TAB PO SCH (20:56)
[2016-11-02] MEDS: ASPIRIN 81 MG ECTAB PO SCH (20:56)
[2016-11-02] MEDS: PANTOprazole SOD 40 MG TAB PO SCH (20:56)
[2016-11-02] MEDS: CITALOPRAM 20 MG TAB PO SCH (20:56)
[2016-11-03] MEDS: DEXAMETHASONE INJ 10 MG in SYRINGE 0 ML IV SCH ×3 (01:24→19:50)
[2016-11-03 03:29] VITALS: BP 118/78; PULSE 87; TEMP 36.5; O2SAT 92
[2016-11-03] MEDS: KETOROLAC TROMETHAMINE 15 MG/ML VIAL IV. SCH ×4 (03:50→22:01)
[2016-11-03] MEDS: ARMOUR THYROID 30 MG TAB PO SCH (05:54)
[2016-11-03 05:56] LABS: HEMATOCRIT 27.4 % (37-47)
[2016-11-03] MEDS ORDERED: BISACODYL 10 MG SUPP PR PRN (06:00)
[2016-11-03] MEDS ORDERED: BISACODYL 5 MG TABEC PO PRN (06:00)
[2016-11-03 06:48] VITALS: BP 101/66; PULSE 90; TEMP 36.8; O2SAT 96
[2016-11-03] MEDS: HYDROmorphone HCL 0.5MG/ML 50 ML CASSETTE IV PRN (07:13)
--- NOTE | 2016-11-03 07:38 | Anesthesiology Progress Note ---
Anesthesia Post Op Note Date & Time November 03, 2016 at 07:37 Vital Signs Pain Intensity: 1.0 Vital Signs Past 12 Hours Date Time Temp Pulse Resp B/P Pulse Ox O2 Delivery O2 Flow Rate FiO2 11/03/16 06:48 36.8 90 16 101/66 96 Room Air 11/03/16 03:29 36.5 87 16 118/78 92 Room Air 11/02/16 23:15 36.8 88 16 125/57 92 CPAP 11/02/16 23:15 Room Air CPAP Notes Mental Status: alert / awake / arousable, participated in evaluation Pt Amnestic to Procedure: Yes Nausea / Vomiting: adequately controlled Pain: adequately controlled Airway Patency, RR, SpO2: stable & adequate BP & HR: stable & adequate Hydration State: stable & adequate Anesthetic Complications: no major complications apparent
[2016-11-03] MEDS ORDERED: HYDROmorphone INJ 1 MG/ML SYR IV PRN (08:00)
[2016-11-03] MEDS ORDERED: DC PCA SCH (08:00)
[2016-11-03] MEDS ORDERED: HYDROmorphone INJ 2 MG/ML SYR/VIAL IV PRN (08:00)
[2016-11-03] MEDS: POLYETHYLENE (MIRALAX) 17 GM PACK PO SCH (08:33)
[2016-11-03] MEDS: CHOLECALCIFEROL 1000 INTER.UNIT TAB PO SCH (08:33)
[2016-11-03] MEDS ORDERED: NURSING VERBAL MED ORDER ONE (10:30)
[2016-11-03] MEDS: OXYCODONE/ACETAMINOPHEN 5-325 TAB PO PRN ×3 (10:32→20:02)
[2016-11-03 12:06] VITALS: BP 116/72; PULSE 87; TEMP 36.6; O2SAT 94
[2016-11-03 12:11] VITALS: BP 133/82; PULSE 79; TEMP 36.6; O2SAT 99
[2016-11-03 15:20] VITALS: BP 111/71; PULSE 91; TEMP 36.6; O2SAT 94
--- NOTE | 2016-11-03 15:51 | Discharge Instructions ---
Discharge Instructions Date of Service November 03, 2016. Admission Reason for Admission: Spinal Stenosis Discharge Discharge Diagnosis / Problem: as above Discharge Goals Goal(s): Improve function Activity Recommendations Activity Limitations: as noted below Lifting Limitations: gradually increase as tolerated Exercise/Sports Limitations: until after follow-up appointment May Resume Sexual Activity: after follow-up appointment Shower/Bathe: keep incision dry . Instructions / Follow-Up Instructions / Follow-Up MEDICATIONS: Please take your prescriptions as instructed at your pre-op appointment. SPECIAL CARE: The following information is intended to answer some of the common questions and concerns regarding your surgery. Each patient is an individual and receives individual counselling throughout the course of treatment, from diagnosis to surgery all the way through recovery. What follows is not an exhaustive list, but should be a useful guide to some of the common questions and concerns patients have regarding their surgeries. These are not provided to keep you from calling us; rather, they give you something accurate and concrete to reference as you recover from your procedure. If you need us, we are available to you. As always, if you are not sure about something, call us at [phone]. MEDICAL EMERGENCIES: For these conditions, call 911 or go to your local hospital-based Emergency Department - not [facility] or equivalent. * Paralysis * Severe chest pain or difficulty breathing * Swelling or redness of either leg Spine procedures can be rather complex and though complications are rare, they do occur. In such cases, effective advice regarding emergency situations cannot always be addressed over the telephone. You may be referred to the emergency department for more effective management of your problem. Activity Limitations: It is important to give your body time to heal, so please limit your activities : * In general, don't do anything that moves your spine too much. You should avoid contact sports, twisting or heavy lifting while you recover. * 5-10 pounds is all you should attempt to lift. * You should not plan on driving for approximately 3 weeks and you should avoid traveling more than 30-45 minutes at a time. Longer trips should be broken down with walking breaks spaced appropriately. * Physical therapy is not usually required. * Walking and good posture practices will help you recover and regain your function. * Avoid straining or sudden changes in position. * In general, the goal is to take it easy and recover. Don't cause any new problems. Just relax. Showers: * Do not take a bath, use a Jacuzzi or hot tub or otherwise submerge your incision. * It is usually safe to take a shower 4-5 days after your surgery. * Your incision does not require any special creams or ointments. * Simply clean it with soap and water, dry and re-dress with a clean bandage afterwards. Incision: * Keep incision clean, dry and protected until your first follow-up appointment. * Some amount of drainage and redness is normal. Any drainage should be fairly clear and not have a foul odor. * If you feel anything is wrong or you have excessive drainage, please call us. * Your stitches and alexandra will be removed 10-14 days after your surgery. At the time of your first post-op visit. * Neck surgeries are typically closed with a suture underneath the skin. The steri-strips over the incision should be maintained until we see you in the office. Bracing: * You may be provided with a back or neck brace to encourage good posture and prevent injury. It will remind you not to do too much as you heal and will alert others to the fact that you have had a surgery. * Back braces may be removed for showers and when you are resting at home. They must be worn when you are walking around for any period of time or for travel. * For neck surgery, you will likely be provided with two cervical collars. The soft collar ([place] or foam rubber) is worn most commonly throughout the day and while sleeping. The plastic collar (provided at the hospital) is for showering/bathing. * Except while eating, collars should remain in place. More specifically, bracing is provided for a purpose and should be worn. * Please obtain your brace or collars prior to your operation and bring them to the hospital with you on the day of surgery. * You should also bring your collars to your post-op appointment with Dr. Munguia. You should always take good care of your body and practice healthy habits, especially following surgery. You should: * Follow your doctor's treatment plan * Sit and stand properly with good posture (ears over shoulders, shoulders over hips) Don't slouch * Learn to lift correctly * Exercise regularly (low-impact aerobic exercise is especially good, but check with your doctor first) * Generally, be up and walking for 5-10 minutes at a time at least 3-4 times per day from the day you get home * Increasing walking to tolerance until you can walk for 20-30 minutes at a time * Attain and maintain a healthy body weight * Eat healthy foods ( a well-balanced, low-fat diet rich in fruits and vegetables) and get enough calcium * Avoid excessive use of alcohol When to call our office - If you notice any of the following: * Increased pain not relieve by pain medicine * Fevers greater then 100 degrees F, chills or flu symptoms * Increased redness around incision * Drainage from the incision that is not clear * Any foul smelling drainage * Swelling or fluid collection beneath the skin Miscellaneous: * In the hospital, you may be given a walker or cane for support while walking. These are temporary needs and are intended to prevent injuries due to falls. You may discontinue them when you feel strong and steady enough on your feet. * Sleep in a comfortable position. We find that many patients find a lounge chair or recliner with several pillows to be beneficial in the early post-operative period. * The support stockings should be used for 7-10 days and may be discontinued when you are back to walking more and conducting usual household activities. No problem is insignificant. We are here to help you and get you well. Contact us at [phone]. Definitions: Foraminotomy: If part of the disc or a bone spur (osteophyte) is pressing on a nerve as it leaves the vertebra (through an exit called the foramen), a foraminotomy may be done. Otomy means "to make an opening." A foraminotomy is making the opening of the foramen larger, so the nerve can exit without being compressed. Laminotomy: Similar to the foraminotomy, a laminotomy makes a larger opening, this time in your bony plate protecting your spinal canal and spinal cord (the lamina). The lamina may be pressing on your nerve, so the surgeon may make more room for the nerves using a laminotomy. Laminectomy: Sometimes, a laminotomy is not sufficient. The surgeon may need to remove all or part of the lamina. This procedure is called a laminectomy. This can often be done at many levels without any harmful effects. Current Hospital Diet Patient's current hospital diet: Regular Diet Discharge Diet Recommended Diet: Regular Diet Procedures Procedures Performed: Laminectomy L2-L3, L3-L4 and Fusion L2-S1 with Removal of Hardware L4-L5, L5-S1 Pending Studies Studies pending at discharge: no Medical Emergencies . Who to Call and When: Medical Emergencies: If at any time you feel your situation is an emergency, please call 911 immediately. . Non-Emergent Contact Non-Emergency issues call your: Surgeon Call Non-Emergent contact if: your pain is not controlled, you have any medication questions . "Provider Documentation" section prepared by Sorin Munguia. . VTE Core Measure Inpt VTE Proph given/why not?: Treatment not indicated
--- NOTE | 2016-11-03 16:20 | OPERATIVE REPORT ---
DATE OF OPERATION: 11/03/2016 ADDENDUM From yesterday's surgery the . REASON FOR DICTATION: SECURITY CONTROLS ASSESSOR: Stanley Orona PA-C. Mr. Stanley Orona was absolutely needed for surgical intervention, he was instrumental in the positioning, retraction, protection of nerves and vascular structures on the spinal canal enclosing as well along with the 2-3 hours' surgical procedure, instrumental in every aspect of the case. I attest to the content of the Intraoperative Record and any orders documented therein. Any exceptio ns are noted below.
--- NOTE | 2016-11-03 16:53 | Progress Note ---
Subjective Date of Service: November 03, 2016. Subjective Pt evaluation today including: conversation w/ patient, physical exam, chart review, lab review, review of inpatient medication list seen in f/u not much of any pain no complaints in general feels like she's doing pretty well ros otherwise negative except for as above no weak/lightheaded/dizzy Problem List Surgical Problems: (1) Hx of cholecystectomy Status: Acute Review of Systems ros otherwise negative except for as above Objective Vital Signs Date Time Temp Pulse Resp B/P Pulse Ox O2 Delivery O2 Flow Rate FiO2 11/03/16 15:20 36.6 91 18 111/71 94 Room Air 11/03/16 12:11 36.6 79 16 133/82 99 Room Air 11/03/16 12:06 36.6 87 16 116/72 94 11/03/16 07:07 Room Air 11/03/16 06:48 36.8 90 16 101/66 96 Room Air 11/03/16 03:29 36.5 87 16 118/78 92 Room Air 11/02/16 23:15 36.8 88 16 125/57 92 CPAP 11/02/16 23:15 Room Air CPAP 11/02/16 19:30 36.5 88 16 91/60 98 Nasal Cannula 1.0 Physical Exam General Appearance: no apparent distress Eyes: EOMI ENT: hearing grossly normal Neck: trachea midline Respiratory/Chest: no respiratory distress, no accessory muscle use Extremities: normal range of motion 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
[2016-11-03] MEDS: PRAVASTATIN SOD 20 MG TAB PO SCH (20:39)
[2016-11-03] MEDS: CITALOPRAM 20 MG TAB PO SCH (20:39)
[2016-11-03] MEDS: PANTOprazole SOD 40 MG TAB PO SCH (20:39)
[2016-11-03] MEDS: ASPIRIN 81 MG ECTAB PO SCH (20:39)
[2016-11-03 23:36] VITALS: BP 148/81; PULSE 66; TEMP 36.4; O2SAT 96
[2016-11-04] MEDS: DEXAMETHASONE INJ 10 MG in SYRINGE 0 ML IV SCH (01:04)
[2016-11-04] MEDS: KETOROLAC TROMETHAMINE 15 MG/ML VIAL IV. SCH ×3 (03:36→10:55)
[2016-11-04 05:40] LABS: HEMATOCRIT 26.7 % (37-47)
[2016-11-04] MEDS: ARMOUR THYROID 30 MG TAB PO SCH (05:55)
[2016-11-04 06:32] VITALS: BP 144/82; PULSE 70; TEMP 36.6; O2SAT 98
[2016-11-04] MEDS: OXYCODONE/ACETAMINOPHEN 5-325 TAB PO PRN ×2 (07:38→10:59)
[2016-11-04] MEDS: CHOLECALCIFEROL 1000 INTER.UNIT TAB PO SCH (07:39)
[2016-11-04] MEDS: POLYETHYLENE (MIRALAX) 17 GM PACK PO SCH (07:40)
[2016-11-04 08:28] VITALS: BP 120/70; PULSE 90; TEMP 36.5; O2SAT 98
[2016-11-04] MEDS ORDERED: CHOLECALCIFEROL 1000 INTER.UNIT TAB PO SCH (09:00)
--- NOTE | 2016-11-04 09:24 | DISCHARGE SUMMARY ---
DATE OF DISCHARGE: 11/04/2016. SUBJECTIVE: Minimal complaints of pain. Alert, oriented. No chest pain, shortness of breath, confusion. OBJECTIVE: Afebrile 36.5 temperature, 120/70 blood pressure, 26.7 hematocrit HCT. ASSESSMENT: Status post reconstructive spine surgery, improved, stable. DISPOSITION: Will discharge her home later on this morning. She has a brace, prescriptions, walker all at home. Instructions and precautions provided.
[2016-11-04 10:30] VITALS: O2SAT 98
[2016-11-04 11:05] VITALS: BP 120/70; PULSE 90; TEMP 36.5; O2SAT 98
--- NOTE | 2016-11-04 16:00 | Progress Note ---
Subjective Date of Service: November 04, 2016. 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 pt denies Cp, SOB, dizziness, palpitation and LOC. pt denies fever, chills, rigors and sweats. Pt is medically clear for discharge. Problem List Surgical Problems: (1) Hx of cholecystectomy Status: Acute Review of Systems All Other Systems: Reviewed and Negative Objective Vital Signs Date Time Temp Pulse Resp B/P Pulse Ox O2 Delivery O2 Flow Rate FiO2 11/04/16 11:05 36.5 90 12 98 Room Air 11/04/16 10:30 98 Room Air 11/04/16 09:46 CPAP 11/04/16 08:28 36.5 90 12 120/70 98 Room Air 11/04/16 07:30 Room Air 11/04/16 06:32 36.6 70 19 144/82 98 Room Air 11/03/16 23:36 36.4 66 18 148/81 96 Room Air 11/03/16 22:00 Room Air CPAP Physical Exam General Appearance: WD/WN, no apparent distress Neck: supple Respiratory/Chest: lungs clear, normal breath sounds, no respiratory distress Cardiovascular: regular rate, rhythm, no edema, no murmur Abdomen: normal bowel sounds, soft Neurologic/Psychiatric: alert, normal mood/affect, oriented x 3 Lymphatic: no adenopathy Laboratory Results Last 24 Hours Test 11/04/16 05:12 Hemoglobin 8.8 g/dL Hematocrit 26.7 % Assessment and Plan s/p spine surgery - per ortho, pain control, discharge as per ortho.medically clear for discharge to follow with PCP as outpatient. DVT proph - per ortho vitamin D deficiency - replace hypothyroid - despite being on armour, her prior TSH's have been reviewed and almost all at goal - continue home meds and f/u as outpt hyperlipid - continue home meds GERD - continue home meds anemia - asymptomatic - continue to follow Discharge planning: home with home health
[2016-11-17] MEDS ORDERED: NXM/40 PO (01:35)
[2016-11-17] MEDS ORDERED: TRD10 PO (02:05)
[2016-11-17] MEDS ORDERED: CITA40TA4 PO (02:05)
[2016-11-17] MEDS ORDERED: THY/30 PO (02:06)
[2016-11-17] MEDS ORDERED: CHOL2000 PO (11:13)
[2016-11-17] MEDS ORDERED: ALBU18002 INH (11:13)
[2016-11-17] MEDS ORDERED: FLUT0.15 NAE (11:13)
[2016-11-17] MEDS ORDERED: IBUP-103 PO (11:14)
[2017-02-07] MEDS ORDERED: HYDR-5688 PO (08:38)
[2017-02-07] MEDS ORDERED: DULO60CA44 PO (08:38)
[2017-05-15] MEDS ORDERED: CITA40TA12 PO (09:44)
[2017-05-15] MEDS ORDERED: FERR143T5 PO (09:44)
[2017-05-23] MEDS ORDERED: ASPEC325 PO (21:16)
[2017-05-23] MEDS ORDERED: ACET-24 PO (21:16)
[2017-05-23] MEDS ORDERED: RXC5 PO (21:17)
== END 2016-11-04 11:30 | disposition home or self-care (01) | DRG 460 ==
LOC: ENRESERVDT → ENRESERVTM → C.ACU 05:23 → C.3E 08:00
PROVIDERS: ADMIT Orthopaedic Surgery Orthopaedic Surgery of the Spine; ATTEND Orthopaedic Surgery Orthopaedic Surgery of the Spine
PROC: 0SP004Z Removal of Internal Fixation Device from Lumbar Vertebral Joint, Open Approach (ICD-10-PCS; principal; 2016-11-02 07:30)
PROC: 0SG1071 Fusion of 2 or more Lumbar Vertebral Joints with Autologous Tissue Substitute, Posterior Approach, Posterior Column, Open Approach (ICD-10-PCS; principal; 2016-11-02 07:30)
PROC: 0SP304Z Removal of Internal Fixation Device from Lumbosacral Joint, Open Approach (ICD-10-PCS; principal; 2016-11-02 07:30)
DX: M48.06 Spinal stenosis, lumbar region (principal); Z68.41 Body mass index [BMI] 40.0-44.9, adult; M53.2X6 Spinal instabilities, lumbar region; E55.9 Vitamin D deficiency, unspecified; D64.9 Anemia, unspecified; J44.9 Chronic obstructive pulmonary disease, unspecified; E78.00 Pure hypercholesterolemia, unspecified; E78.5 Hyperlipidemia, unspecified; K21.9 Gastro-esophageal reflux disease without esophagitis; E03.9 Hypothyroidism, unspecified; R73.03 Prediabetes; M19.90 Unspecified osteoarthritis, unspecified site; F32.9 Major depressive disorder, single episode, unspecified; E66.01 Morbid (severe) obesity due to excess calories; G47.33 Obstructive sleep apnea (adult) (pediatric); Z99.89 Dependence on other enabling machines and devices; Z98.1 Arthrodesis status; Z79.82 Long term (current) use of aspirin; Z79.891 Long term (current) use of opiate analgesic; Z79.899 Other long term (current) drug therapy

== ENCOUNTER 2016-11-06 23:28 | Inpatient (IN) | payer OTHER ==
[~2016-11-06] VITALS: Ht 172.7 cm; Wt 126.0 kg
[2016-11-06] MEDS ORDERED: HYDROmorphone INJ 1 MG/ML SYR IV STA (23:47)
[2016-11-06] MEDS ORDERED: SODIUM CHLORIDE 0.9% 1000ML 1,000 ML IV STA (23:47)
--- NOTE | 2016-11-06 23:52 | EMERGENCY ROOM VISIT NOTE ---
History Report prepared by Keli: Haroon Rubin Under the Supervision of: Dr. Blayne Schmitt M.D. First contact with patient: 23:41 Chief Complaint: HIP PAIN Stated Complaint: LF HIP & RT HIP/DOWN LEG PAIN,SPINAL FUSION 11-02 History of Present Illness The patient is a 66 year old female who presents to the Emergency Room with complaints of bilateral hip pain that began 2 days ago. She rates her pain severe in severity. The patient has a history of a spinal fusion surgery that occurred give days ago. She was released two days ago. Whenever she tries to stand or walk, her pain worsens significantly. Her pain also radiates down her left leg when this occurs. Sitting alleviates some of her pain. She denies any fevers, loss of sensation in her legs, or loss of her bowels/bladder. She has been taking Vicodin and Toradol with no relief in her symptoms. Source of History: patient Onset: 2 days ago Position: other (Bilateral hip) Symptom Intensity: severe Quality: sharp Timing: constant Modifying Factors (Worsening): exertion, movement Modifying Factors (Relieving): rest Associated Symptoms: No fevers, No numbness, No urinary symptoms Note: She has unilateral leg pain. Review of Systems See HPI for pertinent positives & negatives. A total of 10 systems reviewed and were otherwise negative. Past Medical & Surgical Medical Problems: (1) Bone marrow fibrosis (2) Depressive Disorder Nec (3) Esophageal Reflux (4) Hyperlipidemia Nec/Nos (5) Lumbar stenosis (6) Osteoarthros Nos-Unspec (7) Spondylolisthesis (8) Thoracic Spondylosis (9) Tietze's Disease Family History Cancer Gallbladder disease Heart disease Hypertension Lung disease Social History Smoking Status: Never Smoker Alcohol Use: none Marital Status: Housing Status: lives with significant other Occupation Status: unemployed Current/Historical Medications Scheduled Aspirin (Aspirin Ec), 81 MG PO HS Cholecalciferol (Vitamin D3), 1 CAP PO QAM Citalopram (Citalopram Hydrobromide), 40 MG PO DAILY Esomeprazole Magnesium (Nexium), 40 MG PO HS Pravastatin (Pravachol ), 20 MG PO HS Thyroid ([place] Thyroid), 30 MG PO DAILY Scheduled PRN Albuterol Sulfate (Proair Respiclick), 1-2 PUFFS INH Q4-6H PRN for SOB/Wheezing Fluticasone Propionate (Nasal) (Flonase Allergy Relief), 2 SPRAYS KATIANA UD PRN for ALLERGY SX Hydrocodone/Acetaminophen 5MG/325MG ([place] 5MG/325MG), 1-2 TABLET PO Q4-6H PRN for Pain Ibuprofen Tab (Advil), 400 MG PO UD PRN for Pain Ketorolac Tromethamine (Ketorolac Tromethamine), 10 MG PO UD PRN for Pain Allergies Coded Allergies: Erythromycin (Verified Allergy, Unknown, per PCP note , 11/02/16) Fish Oil (Verified Allergy, Unknown, sweat, nausea, dizzy, 10/25/16) Penicillins (Verified Allergy, Unknown, RED RASH ITCHING, 10/25/16) Rofecoxib (Verified Allergy, Unknown, UNKNOWN, 10/25/16) Tramadol (Verified Allergy, Unknown, rash/hives, 10/25/16) Physical Exam Vital Signs Date Time Temp Pulse Resp B/P Pulse Ox O2 Delivery O2 Flow Rate FiO2 11/06/16 23:37 36.7 79 20 159/90 97 Room Air Physical Exam GENERAL: Patient is very uncomfortable appearing and in severe acute distress. Crying. HEENT: No acute trauma, normocephalic atraumatic, mucous membranes moist, no nasal congestion, no scleral icterus. NECK: No stridor, no adenopathy, no meningismus, trachea is midline. LUNGS: No dyspnea. Clear to auscultation and equal bilaterally. No wheeze, no rhonchi. HEART: Regular rate and rhythm. No murmurs, rubs, gallops appreciated. ABDOMEN: Soft, nontender, bowel sounds positive, no masses appreciated, no peritonitis. BACK: There is a large vertical lumbar incision scar, sutured, no drainage or erythema, no fluctuance appreciated. Tenderness to palpation of the left lower back extending onto the buttock. EXTREMITIES: Normal motion all extremities, no cyanosis, no edema. NEUROLOGIC: Alert and oriented, no acute motor or sensory deficits, no focal weakness, cranial nerves grossly intact. SKIN: No rash, no jaundice, no diaphoresis. Medical Decision & Procedures Laboratory Results 11/07/16 00:05 Red Blood Count 3.51, Mean Corpuscular Volume 92.3, Mean Corpuscular Hemoglobin 30.2, Mean Corpuscular Hemoglobin Concent 32.7, Mean Platelet Volume 10.0, Neutrophils (%) (Auto) 63.7, Lymphocytes (%) (Auto) 26.3, Monocytes (%) (Auto) 7.2, Eosinophils (%) (Auto) 1.8, Basophils (%) (Auto) 0.1, Neutrophils # (Auto) 6.36, Lymphocytes # (Auto) 2.63, Monocytes # (Auto) 0.72, Eosinophils # (Auto) 0.18, Basophils # (Auto) 0.01 11/07/16 00:05 Test 11/07/16 00:05 White Blood Count 9.99 K/uL (4.8-10.8) Red Blood Count 3.51 M/uL (4.2-5.4) Hemoglobin 10.6 g/dL (12.0-16.0) Hematocrit 32.4 % (37-47) Mean Corpuscular Volume 92.3 fL (80-100) Mean Corpuscular Hemoglobin 30.2 pg (25-34) Mean Corpuscular Hemoglobin Concent 32.7 g/dl (32-36) Platelet Count 357 K/uL (130-400) Mean Platelet Volume 10.0 fL (7.4-10.4) Neutrophils (%) (Auto) 63.7 % Lymphocytes (%) (Auto) 26.3 % Monocytes (%) (Auto) 7.2 % Eosinophils (%) (Auto) 1.8 % Basophils (%) (Auto) 0.1 % Neutrophils # (Auto) 6.36 K/uL (1.4-6.5) Lymphocytes # (Auto) 2.63 K/uL (1.2-3.4) Monocytes # (Auto) 0.72 K/uL (0.11-0.59) Eosinophils # (Auto) 0.18 K/uL (0-0.5) Basophils # (Auto) 0.01 K/uL (0-0.2) RDW Standard Deviation 47.0 fL (36.4-46.3) RDW Coefficient of Variation 14.2 % (11.5-14.5) Immature Granulocyte % (Auto) 0.9 % Immature Granulocyte # (Auto) 0.09 K/uL (0.00-0.02) Anion Gap 8.0 mmol/L (3-11) Est Creatinine Clear Calc Drug Dose 63.7 ml/min Estimated GFR () 54.2 Estimated GFR (Non- 46.7 BUN/Creatinine Ratio 17.7 (10-20) Calcium Level 8.6 mg/dl (8.5-10.1) Chemistry Specimen Hemolysis Laboratory results as reviewed by me. Medications Administered Medications (Trade) Dose Ordered Sig/Emilie Route Start Time Stop Time Status Last Admin Dose Admin Hydromorphone HCl 1 mg 1 mg NOW STAT IV 11/06/16 23:47 11/06/16 23:49 DC 11/07/16 00:12 1 MG Sodium Chloride (Nss 1000ml) 1,000 ml @ 75 mls/hr [id number] STAT IV 11/06/16 23:47 11/07/16 03:47 DC 11/06/16 00:12 75 MLS/HR ED Course 2341: The patient was evaluated in room B4B. A complete history and physical exam was performed. 2347: Ordered Sodium Chloride 1000 ml @ 75 mls/hr IV, Dilaudid Inj 1 mg IV 0030: The patient is still uncomfortable with movement. As long as she stays still, she states she is okay. She does not feel comfortable with going home. 0052: Upon reevaluation, the patient is resting. Discussed results and treatment plan with the patient. She verbalized understanding and agreement with the treatment plan. The patient will be evaluated by Dr. Munguia - Orthopedics, for further management. He requested a CT of her lumbar spine without contrast. 0102: Ordered Dilaudid Inj 1 mg IV Medical Decision Differentials include post op hemorrhage or infection, nerve inflammation, and intractable pain. 66 yr old female arrives with severe left low back pain radiating to left leg 5 days post op from extensive lumbar reconstructive surgery. Taking max therapy Vicodin as outpatient with rapidly worsening pain. No neuro deficits on examination. Labs look good. Surgical site looks good. Ordered CT Lumbar at request of surgeon. She is too uncomfortable to go home and is failing outpatient therapy for pain control. Dr Munguia to bring in for further management. Impression Primary Impression: Post-operative pain Scribe Attestation The scribe's documentation has been prepared under my direction and personally reviewed by me in its entirety. I confirm that the note above accurately reflects all work, treatment, procedures, and medical decision making performed by me. Departure Information Dispostion Being Evaluated By Hospitalist Referrals Lina Jones DO (PCP) Patient Instructions My [facility]
[2016-11-07 00:16] LABS: BASO % 0.1 %; BASO ABS # 0.01 K/uL (0-0.2); COMPLETE YES; EOS % 1.8 %; HEMATOCRIT 32.4 % (37-47); IG% 0.9 %; LYMPH % 26.3 %; LYMPH ABS # 2.63 K/uL (1.2-3.4); MEAN CELL VOLUME 92.3 fL (80-100); MEAN CORPUSCULAR HEMOGLOBIN 30.2 pg (25-34); MEAN CORPUSCULAR HGB CONC 32.7 g/dl (32-36); MONO % 7.2 %; NEUT % 63.7 %; PLATELET COUNT 357 K/uL (130-400); RED BLOOD COUNT 3.51 M/uL (4.2-5.4); WHITE BLOOD COUNT 9.99 K/uL (4.8-10.8)
[2016-11-07 00:44] LABS: BUN/CREATININE RATIO 17.7 (10-20); CALCIUM 8.6 mg/dl (8.5-10.1); CREATININE 1.2 mg/dl (0.60-1.20); POTASSIUM 4.2 mmol/L (3.5-5.1)
[2016-11-07] MEDS ORDERED: HYDROmorphone INJ 1 MG/ML SYR IV STA (01:02)
[2016-11-07] MEDS ORDERED: NURSING VERBAL MED ORDER ONE (01:15)
[2016-11-07 03:38] VITALS: BP 124/76; PULSE 93; TEMP 36.4; O2SAT 92
[2016-11-07 03:40] VITALS: BP 124/76; PULSE 93; TEMP 36.4; Ht 172.7 cm; Wt 126.0 kg
[2016-11-07] MEDS ORDERED: ONDANSETRON INJ 2 MG/ML 2 ML VIAL IV PRN (04:00)
[2016-11-07] MEDS: HYDROmorphone INJ 1 MG/ML SYR IV PRN ×2 (04:58→21:55)
[2016-11-07] MEDS: OXYCODONE/ACETAMINOPHEN 5-325 TAB PO PRN ×4 (06:07→21:48)
[2016-11-07] MEDS ORDERED: IV FLUIDS COMPLETED PRN (07:15)
[2016-11-07 07:36] VITALS: BP 111/57; PULSE 79; TEMP 36.9; O2SAT 97
--- NOTE | 2016-11-07 07:43 | DIAGNOSTIC IMAGING REPORT ---
CT LUMBAR SPINE WITHOUT CT DOSE: 1985.51 mGy.cm CLINICAL HISTORY: Low back pain status post fusion. TECHNIQUE: Axial images of the lumbar spine were obtained without IV contrast. Sagittal and coronal reconstructions were viewed. COMPARISON STUDY: Lumbar spine MRI June 28, 2016 and lumbar spine fluoroscopic images November 02, 2016. FINDINGS: For purposes of numbering on this exam, the L5-S1 disc space is assigned to axial image 294 of 347. Slight anterolisthesis of L4 and L5 is similar to MRI June 28, 2016. S1 pedicle screws have been removed. There is a posterior decompression with laminectomy with bilateral pedicle screws at the L2, L3, L4 and L5 levels. Hardware is intact. There is gas within the laminectomy bed as expected in the early postoperative setting. There is also a subcutaneous fluid collection of the lumbar spine. There may also be a laminectomy bed fluid collection which is difficult to assess on this exam given CT technique and artifact from hardware. Measurements of the collections are difficult to obtain given the artifact. There is a possible nondisplaced fracture through the left articulating facet of L5. This is difficult to assess due to artifact. No additional fractures are identified on since exam. The central canal and neural foramen are suboptimally assessed due to artifact. IMPRESSION: 1. Status post laminectomy and bilateral pedicle screw fusion from L2 through L5. Previous L4-L5 and L5-S1 discectomies. 2. Gas within the laminectomy bed. Subcutaneous fluid collection which is not unexpected in the early postoperative setting. Possible laminectomy bed fluid collection which is difficult to assess given CT technique and artifact from hardware. 3. Possible acute nondisplaced fracture of the left articular facet of L5. 4. Nondiagnostic evaluation of the lumbar canal given CT technique. Electronically signed by: Paulo Blank M.D. 11/07/2016 7:42 AM Dictated Date/Time: 11/07/2016 7:29 AM
[2016-11-07] MEDS ORDERED: HYDROCODONE/ACETAMOPHEN 5/325MG TAB PO PRN (08:00)
[2016-11-07] MEDS ORDERED: FLUTICASONE PROPIONATE NA SPR 16 GM BTL NAE PRN (08:00)
[2016-11-07] MEDS ORDERED: IBUPROFEN 200 MG TAB PO PRN (08:00)
[2016-11-07] MEDS: CITALOPRAM 40 MG TAB PO SCH (09:02)
[2016-11-07] MEDS: BISACODYL 5 MG TABEC PO SCH ×2 (09:02→21:47)
--- NOTE | 2016-11-07 09:07 | HISTORY & PHYSICAL EXAMINATION ---
DATE OF ADMISSION: 11/07/2016 CHIEF COMPLAINT: Left hip pain, radicular left lower extremity difficulty. HISTORY OF PRESENT ILLNESS: Juanita a delightful patient. She is 66. She had recent lumbar spinal stenosis surgery, correction of the deformity, revision strategies, approximately 3 hour 4 days ago. She was discharged home on Sunday, the 04 of November. She was improved, stable and had minimal complaints and over the weekend, she had increasing left hip pain that she described no pain with sitting, no pain with being supine, but increasing pain with standing. When she stands, she can somewhat ambulate. The pain escalated yesterday the . She called our office. We placed her on some medication. We are going to see her in the office this morning. Through the evening hours, her pain intensified. She made an emergency visit to the Emergency Room for evaluation and treatment. The patient had inability to stand, pain excruciating 10/10 on pain scale. Fortunately, no bowel and bladder complaints. We ordered a CT scan and I admitted her to my service for pain control for thorough evaluation. REVIEW OF SYSTEMS: Denies any blurred vision, double vision, tinnitus, vertigo. Denies chest pain, orthopnea. Denies nausea, vomiting, urgency, frequency. She has not had a bowel movement in approximately 1 week. Extremities demonstrate 5/5 motor strength, good sensation, motor ability, there is no deficit to motion. Her hip examination as well was normal. Good flexion and extension of the hip, side bending. No significant pain over the greater trochanter. Vascular structures intact. PHYSICAL EXAMINATION: VITAL SIGNS: Blood pressure 130/80, pulse of 80, respiratory rate 16. IMAGING DATA: CT scan was evaluated read off by the radiologist through the evening hours. She has post-laminectomy pedicle screws L2 through S1. There is some fluid collection which is not unexpected in the postoperative period. There is a possibility of a fracture of left articular facet at L5 which could be pressing on the associated nerve root. I looked at the images myself. There is possibility of the left L5 screw has broken through with may possibility of fracture and is not well contained in the vertebral body. ASSESSMENT: Nerve root irritation lumbar spine. DISPOSITION: We are going to get her medically optimized today and evaluated. I will be checking on her about every 12 hours. There is a possibility of surgical intervention. We will not wait long. If I was pushed into surgery, I would more than likely remove the old pedicle screw at L5 which is not totally needed at this point in time either. So we are optimistic that we have a nice expeditious solution for our patient; otherwise, we will medically manage. We are also going to get her bowel movement functioning appropriately as well. At this condition, she is stable and not in pain in the supine position. Her condition is somewhat tedious at this point in time and she is in no condition to go home.
[2016-11-07] MEDS: ARMOUR THYROID 30 MG TAB PO SCH (11:20)
[2016-11-07] MEDS ORDERED: BISACODYL 10 MG SUPP PR PRN (11:45)
--- NOTE | 2016-11-07 13:38 | DIAGNOSTIC IMAGING REPORT ---
LUMBAR SPINE 2 VIEWS CLINICAL HISTORY: Low back pain. History of lumbar spine surgery. FINDINGS: AP and lateral standing views of the lumbar spine are compared to study dated 04/05/[address] scan of lumbar spine performed the same day 11/07/2016. The skeletal structures are osteopenic. Vertebral body height and alignment are maintained throughout the lumbar spine. No fracture or malalignment is observed. Anterior osteophytes are seen throughout. There are postoperative changes from laminectomy and posterior fusion with interposition bone graft from L2 through L5. Interpedicular screws are present at all levels. The orthopedic hardware appears intact. There has been hardware removal at S1. There is evidence of discectomy at L4-L5 and L5-S1. Moderate disc space narrowing is seen at the remaining lumbar levels. The visualized bony pelvis appears intact. Sclerotic change is noted in the sacroiliac joints. Numerous phleboliths are observed in the pelvis. There is a nonobstructed abdominal bowel gas pattern. IMPRESSION: 1. No acute bony abnormality is seen involving the lumbosacral spine. 2. Osteopenia, postoperative change, and spondylotic change as above. Dictated: 11/07/2016 11:12 AM Transcribed: 11/07/2016 1:38 PM Frantz Electronically signed by: Mathew Heath M.D. 11/07/2016 2:32 PM Dictated Date/Time: 11/07/2016 11:12 AM
[2016-11-07 15:53] VITALS: BP 124/79; PULSE 80; TEMP 36.8; O2SAT 99
--- NOTE | 2016-11-07 19:27 | HISTORY & PHYSICAL EXAMINATION ---
DATE OF ADMISSION: 11/07/2016 SUBJECTIVE: Juanita remains about the same. She is ____ left lower extremity difficulty, buttock pain, leg pain, paresthesias. Pain free lying supine, some pain sitting, excruciating pain when standing. OBJECTIVE: NEUROLOGIC: Fortunately, intact with no deficits. IMAGES: Reviewed including a CT scan from earlier this morning ____ plain x-ray. Assessment: I think she has fracture of the pedicle, the L5 pedicle on the left hand side along with the facet joint on the left hand side. IMPRESSION: Facet fracture pedicle left hand side with nerve root compression from the L5 pedicle screw. DISPOSITION: I have explained this to our patient tonight and tomorrow as well. We are planning on screw removal tomorrow under general anesthetic. I studied the stability of her spine, I do not think she will need a reinsertion of the screw and I am optimistic that we can alleviate her significant pain. Surgery is scheduled for tomorrow around 3:00, should take approximately 60 minutes and probably get her home, and/or Sunday.
[2016-11-07] MEDS: ASPIRIN 81 MG ECTAB PO SCH (21:47)
[2016-11-07] MEDS: PRAVASTATIN SOD 20 MG TAB PO SCH (21:47)
[2016-11-07] MEDS ORDERED: CYCLOBENZAPRINE HCL 10 MG TAB PO ONE (23:00)
[2016-11-07 23:25] VITALS: BP 101/65; PULSE 90; TEMP 36.9; O2SAT 92
[2016-11-08] VITALS (9 sets, daily range): BP systolic 100–120; BP diastolic 62–77; PULSE 73–84; TEMP 36.4–37; O2SAT 92–100
[2016-11-08] MEDS: OXYCODONE/ACETAMINOPHEN 5-325 TAB PO PRN ×2 (06:36→11:06)
[2016-11-08] MEDS: ARMOUR THYROID 30 MG TAB PO SCH (07:01)
[2016-11-08] MEDS: BISACODYL 5 MG TABEC PO SCH ×2 (08:55→21:17)
[2016-11-08] MEDS: CITALOPRAM 40 MG TAB PO SCH (08:55)
[2016-11-08] MEDS ORDERED: SODIUM CHLOR 0.45% + 20MEQ KCL 1,000 ML IV SCH (09:00)
[2016-11-08] MEDS ORDERED: ROCURONIUM BROMIDE 10 MG/ML 5 ML VIAL ONE (12:30)
[2016-11-08] MEDS ORDERED: LIDOCAINE HCL 2% 2 ML VIAL (20MG/ML) ONE (12:30)
[2016-11-08] MEDS ORDERED: DEXAMETHASONE SOD INJ 4 MG/ML VIAL ONE (12:30)
[2016-11-08] MEDS ORDERED: PROPOFOL IV EMULSION 10 MG/ML 20 ML VIAL IV ONE (12:30)
[2016-11-08] MEDS ORDERED: ONDANSETRON INJ 2 MG/ML 2 ML VIAL ONE (12:30)
[2016-11-08] MEDS ORDERED: MIDAZOLAM HCL 1 MG/ML 2ML VIAL ONE (12:31)
[2016-11-08] MEDS ORDERED: FENTANYL CITRATE INJ 50 MCG/1 ML 2 ML VIAL ONE ×2 (12:31)
[2016-11-08] MEDS ORDERED: THROMBIN FOR SOLN 20000 UNIT KIT ONE (15:21)
[2016-11-08] MEDS ORDERED: GELATIN SPONGE SZ 100 ONE (15:21)
[2016-11-08] MEDS ORDERED: BACITRACIN 50000 UNIT VIAL ONE (15:22)
[2016-11-08] MEDS ORDERED: BUPIVACAINE/EPINEPHRINE 0.5% MPF 1:200,000 30 ML VIAL ONE (15:22)
[2016-11-08] MEDS ORDERED: VANCOMYCIN HCL 1000MG/20ML VIAL ONE (15:22)
[2016-11-08] MEDS ORDERED: CLINDAMYCIN 600 MG/54 ML D5W IV ONE (15:31)
[2016-11-08] MEDS ORDERED: NURSING VERBAL MED ORDER ONE (15:45)
[2016-11-08] MEDS ORDERED: CLINDAMYCIN IV 900 MG in DEXTROSE 5% ADD-VANTAGE 100ML 100 ML IV SCH (16:00)
[2016-11-08] MEDS ORDERED: CLINDAMYCIN PHOS 150 MG/ML 2 ML VIAL ONE (16:34)
[2016-11-08] MEDS ORDERED: EpHEDrine SULFATE 50MG/5ML SYR ONE (16:35)
[2016-11-08] MEDS ORDERED: ATROPINE SULFATE 0.1 MG/ML 5ML SYR IV PRN (16:45)
[2016-11-08] MEDS ORDERED: EpHEDrine SULFATE INJ 50 MG/ML AMP IV PRN (16:45)
[2016-11-08] MEDS ORDERED: ONDANSETRON INJ 2 MG/ML 2 ML VIAL IV PRN ×2 (16:45→17:30)
[2016-11-08] MEDS ORDERED: HYDROmorphone INJ 1 MG/ML SYR IV PRN ×2 (16:45→17:30)
[2016-11-08] MEDS ORDERED: METOCLOPRAMIDE HCL INJ 5 MG/ML 2 ML VIAL IV PRN (17:30)
[2016-11-08] MEDS ORDERED: KETOROLAC TROMETHAMINE 10 MG TAB PO PRN (17:30)
[2016-11-08] MEDS ORDERED: LORAZEPAM 1 MG TAB PO PRN (17:30)
[2016-11-08] MEDS ORDERED: HYDROmorphone INJ 2 MG/ML SYR/VIAL IV PRN (17:30)
[2016-11-08] MEDS ORDERED: OXYCODONE/ACETAMINOPHEN 5-325 TAB PO PRN (17:30)
[2016-11-08] MEDS ORDERED: PROMETHAZINE HCL INJ 12.5 MG in SODIUM CHLORIDE 0.9% 50ML 50 ML IV PRN (17:30)
[2016-11-08] MEDS ORDERED: MAGNESIUM HYDROXIDE SUSP 30 ML UDC PO PRN (17:30)
[2016-11-08] MEDS ORDERED: ACETAMINOPHEN 325 MG TAB PO PRN (17:30)
[2016-11-08] MEDS ORDERED: LORAZEPAM INJ 1 MG in SYRINGE 0 ML IV PRN (17:30)
--- NOTE | 2016-11-08 17:32 | [facility] Post Operative Brief Note ---
Immediate Operative Summary Operative Date November 08, 2016. Pre-Operative Diagnosis Fracture of Pedicle L2, L5. Post-Operative Diagnosis Incision and Drainage of Lumbar Spine Wound, Removal of Pedicle Screws L2, L5 bilaterally. Procedure(s) Performed Evacuation of Hematoma, Removal of L5 Pedicle Screw and L2 pedicle screws , bilaterally Surgeon Dr. Sorin Munguia Boilermaker Surgeon(s) Stanley Orona PA-C Estimated Blood Loss 50mL Findings Broken/fracture of L5 and L2 pedicles Specimens A. Explanted Hardware Complication(s) None Disposition Recovery Room / PACU
[2016-11-08] MEDS: FENTANYL CITRATE INJ 50 MCG/1 ML 2 ML VIAL IV PRN ×2 (17:43→17:56)
--- NOTE | 2016-11-08 18:05 | Anesthesiology Progress Note ---
Anesthesia Post Op Note Date & Time November 08, 2016 at 18:06 Vital Signs Pain Intensity: 3 Vital Signs Past 12 Hours Date Time Temp Pulse Resp B/P Pulse Ox O2 Delivery O2 Flow Rate FiO2 11/08/16 17:55 84 14 115/66 93 Nasal Cannula 3 11/08/16 17:45 89 15 103/67 98 Mask 10 11/08/16 17:35 94 22 111/72 97 Mask 10 11/08/16 17:29 36.5 99 20 138/76 96 Mask 10 11/08/16 15:10 36.8 72 16 136/74 95 Room Air 11/08/16 13:30 36.9 76 18 112/77 93 Room Air 11/08/16 08:00 Room Air 11/08/16 07:30 36.9 78 18 102/66 92 Room Air Notes Mental Status: alert / awake / arousable, participated in evaluation Pt Amnestic to Procedure: Yes Nausea / Vomiting: adequately controlled Pain: adequately controlled Airway Patency, RR, SpO2: stable & adequate BP & HR: stable & adequate Hydration State: stable & adequate Anesthetic Complications: no major complications apparent
[2016-11-08] MEDS: SODIUM CHLORIDE 0.9% 1000ML 1,000 ML IV SCH (19:49)
--- NOTE | 2016-11-08 20:27 | OPERATIVE REPORT ---
DATE OF OPERATION: 11/08/2016 PREOPERATIVE DIAGNOSIS: Lumbar spine radiculopathy with fracture of the facet and pedicle left hand side at L5 with nerve root impingement and severe pain. POSTOPERATIVE DIAGNOSES: Same and including possible fracture and a definitely loose pedicle L2, bilaterally. PROCEDURE: I\T\D of the wound which was more serosanguineous along with removal of the prior jacqueline, removal of the loose pedicle screw at 2 loose pedicle screw at L5 bilaterally. There was no reinsertion of any pedicle screws. We did reinsert a smaller jacqueline 45 mm in length between 4 and 3. SURGEON: Dr. Sorin Munguia. MARKETING DEVELOPMENT REPRESENTATIVE: Stanley Orona PA-C. DESCRIPTION OF PROCEDURE: The patient was taken to the operating room, a general intubated anesthetic provided to the patient, placed prone, scrubbed first, prepped second, and draped sterile. We made an old incision, opened up the skin incision, the subfascial layer, the fascial layer, subcuticular layer and we put in a deep self-retaining retractor. We could visualize all structures. Once again we were impressed with the size of the patient and the obesity of the patient. We then sequentially removed the caps on the pedicle screw in the jacqueline and removed the long jacqueline. It was evident to me that she had fractured out through the pedicle of L5 on the left and a very loose pedicle screw on the left at L2. I feel this was absolutely because of some of her nerve root pain. We probed the interspace. I looked at her CT scan, I felt that the right pedicle screw was questionable and I thought I was not needed for stability that was also removed. We then reinserted a small jacqueline securing the L3-L4 interspace. We then irrigated thoroughly of approximately 500 mL of fluid. We placed a Hemovac deep to the wound, Gelfoam over the dural structures, vancomycin as well. Closed fascia to fascia with #1 Vicryl suture, 2-0 on the subcuticular layer, 3-0 nylon on skin, sterile dressing applied. The patient returned to PACU in improved stable condition. Sponge count correct. Needle count correct as well. There were no apparent complications medical, surgical or anesthetic. ADDENDUM: Stanley Orona PA-C, EDC was instrumental in the entire case. He was needed for positioning, nerve root retraction and protection of neurovascular structures. I attest to the content of the Intraoperative Record and any orders documented therein. Any exceptio ns are noted below.
[2016-11-08] MEDS ORDERED: KETOROLAC TROMETHAMINE 15 MG/ML VIAL IV PRN (21:00)
[2016-11-08] MEDS: ASPIRIN 81 MG ECTAB PO SCH (21:17)
[2016-11-08] MEDS: PANTOprazole SOD 40 MG TAB PO SCH (21:17)
[2016-11-08] MEDS: PRAVASTATIN SOD 20 MG TAB PO SCH (21:17)
[2016-11-08] MEDS: CLINDAMYCIN IV 600 MG in DEXTROSE 5% ADD-VANTAGE 50ML 50 ML IV SCH (22:49)
[2016-11-08] MEDS: DEXAMETHASONE INJ 6 MG in SYRINGE 0 ML IV SCH (23:54)
[2016-11-09] MEDS: OXYCODONE/ACETAMINOPHEN 5-325 TAB PO PRN ×5 (00:51→23:50)
[2016-11-09 03:30] VITALS: BP 130/71; PULSE 83; TEMP 36.6; O2SAT 95
[2016-11-09 05:07] LABS: HEMATOCRIT 26.5 % (37-47)
[2016-11-09] MEDS ORDERED: BISACODYL 10 MG SUPP PR PRN (06:00)
[2016-11-09] MEDS ORDERED: BISACODYL 5 MG TABEC PO PRN (06:00)
[2016-11-09] MEDS: SODIUM CHLORIDE 0.9% 1000ML 1,000 ML IV SCH (06:11)
[2016-11-09] MEDS: CLINDAMYCIN IV 600 MG in DEXTROSE 5% ADD-VANTAGE 50ML 50 ML IV SCH ×2 (06:11→14:34)
[2016-11-09] MEDS: DEXAMETHASONE INJ 6 MG in SYRINGE 0 ML IV SCH ×4 (06:11→23:39)
[2016-11-09 07:30] VITALS: BP 159/77; PULSE 77; TEMP 36.6; O2SAT 99
[2016-11-09] MEDS: CITALOPRAM 40 MG TAB PO SCH (08:55)
[2016-11-09] MEDS: BISACODYL 5 MG TABEC PO SCH ×2 (08:56→20:49)
[2016-11-09] MEDS: CHOLECALCIFEROL 1000 INTER.UNIT TAB PO SCH (08:56)
[2016-11-09] MEDS: POLYETHYLENE (MIRALAX) 17 GM PACK PO SCH (09:04)
[2016-11-09] MEDS ORDERED: NURSING DECISION MEDICATION ORDER SCH (10:15)
[2016-11-09] MEDS: ARMOUR THYROID 30 MG TAB PO SCH (11:19)
[2016-11-09 11:45] VITALS: BP 101/61; PULSE 83; TEMP 36.7; O2SAT 94
[2016-11-09 14:49] VITALS: BP 109/66; PULSE 75; TEMP 37; O2SAT 95
--- NOTE | 2016-11-09 16:56 | Discharge Instructions ---
Discharge Instructions Date of Service November 09, 2016. Admission Reason for Admission: Intractable Back Pain Discharge Discharge Diagnosis / Problem: broken pedicle ,loose screw Discharge Goals Goal(s): Improve function Activity Recommendations Activity Limitations: as noted below Lifting Limitations: no more than 5 pounds Exercise/Sports Limitations: until after follow-up appointment May Resume Sexual Activity: after follow-up appointment Shower/Bathe: keep incision dry Driving or Machine Use: . Instructions / Follow-Up Instructions / Follow-Up MEDICATIONS: Please take your prescriptions as instructed at your pre-op appointment. SPECIAL CARE: The following information is intended to answer some of the common questions and concerns regarding your surgery. Each patient is an individual and receives individual counselling throughout the course of treatment, from diagnosis to surgery all the way through recovery. What follows is not an exhaustive list, but should be a useful guide to some of the common questions and concerns patients have regarding their surgeries. These are not provided to keep you from calling us; rather, they give you something accurate and concrete to reference as you recover from your procedure. If you need us, we are available to you. As always, if you are not sure about something, call us at [phone]. MEDICAL EMERGENCIES: For these conditions, call 911 or go to your local hospital-based Emergency Department - not [facility] or equivalent. * Paralysis * Severe chest pain or difficulty breathing * Swelling or redness of either leg Spine procedures can be rather complex and though complications are rare, they do occur. In such cases, effective advice regarding emergency situations cannot always be addressed over the telephone. You may be referred to the emergency department for more effective management of your problem. Activity Limitations: It is important to give your body time to heal, so please limit your activities : * In general, don't do anything that moves your spine too much. You should avoid contact sports, twisting or heavy lifting while you recover. * 5-10 pounds is all you should attempt to lift. * You should not plan on driving for approximately 3 weeks and you should avoid traveling more than 30-45 minutes at a time. Longer trips should be broken down with walking breaks spaced appropriately. * Physical therapy is not usually required. * Walking and good posture practices will help you recover and regain your function. * Avoid straining or sudden changes in position. * In general, the goal is to take it easy and recover. Don't cause any new problems. Just relax. Showers: * Do not take a bath, use a Jacuzzi or hot tub or otherwise submerge your incision. * It is usually safe to take a shower 4-5 days after your surgery. * Your incision does not require any special creams or ointments. * Simply clean it with soap and water, dry and re-dress with a clean bandage afterwards. Incision: * Keep incision clean, dry and protected until your first follow-up appointment. * Some amount of drainage and redness is normal. Any drainage should be fairly clear and not have a foul odor. * If you feel anything is wrong or you have excessive drainage, please call us. * Your stitches and alexandra will be removed 10-14 days after your surgery. At the time of your first post-op visit. * Neck surgeries are typically closed with a suture underneath the skin. The steri-strips over the incision should be maintained until we see you in the office. Bracing: * You may be provided with a back or neck brace to encourage good posture and prevent injury. It will remind you not to do too much as you heal and will alert others to the fact that you have had a surgery. * Back braces may be removed for showers and when you are resting at home. They must be worn when you are walking around for any period of time or for travel. * For neck surgery, you will likely be provided with two cervical collars. The soft collar (M[place]croft or foam rubber) is worn most commonly throughout the day and while sleeping. The plastic collar (provided at the hospital) is for showering/bathing. * Except while eating, collars should remain in place. More specifically, bracing is provided for a purpose and should be worn. * Please obtain your brace or collars prior to your operation and bring them to the hospital with you on the day of surgery. * You should also bring your collars to your post-op appointment with Dr. Munguia. You should always take good care of your body and practice healthy habits, especially following surgery. You should: * Follow your doctor's treatment plan * Sit and stand properly with good posture (ears over shoulders, shoulders over hips) Don't slouch * Learn to lift correctly * Exercise regularly (low-impact aerobic exercise is especially good, but check with your doctor first) * Generally, be up and walking for 5-10 minutes at a time at least 3-4 times per day from the day you get home * Increasing walking to tolerance until you can walk for 20-30 minutes at a time * Attain and maintain a healthy body weight * Eat healthy foods ( a well-balanced, low-fat diet rich in fruits and vegetables) and get enough calcium * Avoid excessive use of alcohol When to call our office - If you notice any of the following: * Increased pain not relieve by pain medicine * Fevers greater then 100 degrees F, chills or flu symptoms * Increased redness around incision * Drainage from the incision that is not clear * Any foul smelling drainage * Swelling or fluid collection beneath the skin Miscellaneous: * In the hospital, you may be given a walker or cane for support while walking. These are temporary needs and are intended to prevent injuries due to falls. You may discontinue them when you feel strong and steady enough on your feet. * Sleep in a comfortable position. We find that many patients find a lounge chair or recliner with several pillows to be beneficial in the early post-operative period. * The support stockings should be used for 7-10 days and may be discontinued when you are back to walking more and conducting usual household activities. No problem is insignificant. We are here to help you and get you well. Contact us at [phone]. Definitions: Foraminotomy: If part of the disc or a bone spur (osteophyte) is pressing on a nerve as it leaves the vertebra (through an exit called the foramen), a foraminotomy may be done. Otomy means "to make an opening." A foraminotomy is making the opening of the foramen larger, so the nerve can exit without being compressed. Laminotomy: Similar to the foraminotomy, a laminotomy makes a larger opening, this time in your bony plate protecting your spinal canal and spinal cord (the lamina). The lamina may be pressing on your nerve, so the surgeon may make more room for the nerves using a laminotomy. Laminectomy: Sometimes, a laminotomy is not sufficient. The surgeon may need to remove all or part of the lamina. This procedure is called a laminectomy. This can often be done at many levels without any harmful effects. Current Hospital Diet MEDICATIONS: Please take your prescriptions as instructed at your pre-op appointment. SPECIAL CARE: The following information is intended to answer some of the common questions and concerns regarding your surgery. Each patient is an individual and receives individual counselling throughout the course of treatment, from diagnosis to surgery all the way through recovery. What follows is not an exhaustive list, but should be a useful guide to some of the common questions and concerns patients have regarding their surgeries. These are not provided to keep you from calling us; rather, they give you something accurate and concrete to reference as you recover from your procedure. If you need us, we are available to you. As always, if you are not sure about something, call us at [phone]. MEDICAL EMERGENCIES: For these conditions, call 911 or go to your local hospital-based Emergency Department - not [facility] or equivalent. * Paralysis * Severe chest pain or difficulty breathing * Swelling or redness of either leg Spine procedures can be rather complex and though complications are rare, they do occur. In such cases, effective advice regarding emergency situations cannot always be addressed over the telephone. You may be referred to the emergency department for more effective management of your problem. Activity Limitations: It is important to give your body time to heal, so please limit your activities : * In general, don't do anything that moves your spine too much. You should avoid contact sports, twisting or heavy lifting while you recover. * 5-10 pounds is all you should attempt to lift. * You should not plan on driving for approximately 3 weeks and you should avoid traveling more than 30-45 minutes at a time. Longer trips should be broken down with walking breaks spaced appropriately. * Physical therapy is not usually required. * Walking and good posture practices will help you recover and regain your function. * Avoid straining or sudden changes in position. * In general, the goal is to take it easy and recover. Don't cause any new problems. Just relax. Showers: * Do not take a bath, use a Jacuzzi or hot tub or otherwise submerge your incision. * It is usually safe to take a shower 4-5 days after your surgery. * Your incision does not require any special creams or ointments. * Simply clean it with soap and water, dry and re-dress with a clean bandage afterwards. Incision: * Keep incision clean, dry and protected until your first follow-up appointment. * Some amount of drainage and redness is normal. Any drainage should be fairly clear and not have a foul odor. * If you feel anything is wrong or you have excessive drainage, please call us. * Your stitches and alexandra will be removed 10-14 days after your surgery. At the time of your first post-op visit. * Neck surgeries are typically closed with a suture underneath the skin. The steri-strips over the incision should be maintained until we see you in the office. Bracing: * You may be provided with a back or neck brace to encourage good posture and prevent injury. It will remind you not to do too much as you heal and will alert others to the fact that you have had a surgery. * Back braces may be removed for showers and when you are resting at home. They must be worn when you are walking around for any period of time or for travel. * For neck surgery, you will likely be provided with two cervical collars. The soft collar ([place]croft or foam rubber) is worn most commonly throughout the day and while sleeping. The plastic collar (provided at the hospital) is for showering/bathing. * Except while eating, collars should remain in place. More specifically, bracing is provided for a purpose and should be worn. * Please obtain your brace or collars prior to your operation and bring them to the hospital with you on the day of surgery. * You should also bring your collars to your post-op appointment with Dr. Munguia. You should always take good care of your body and practice healthy habits, especially following surgery. You should: * Follow your doctor's treatment plan * Sit and stand properly with good posture (ears over shoulders, shoulders over hips) Don't slouch * Learn to lift correctly * Exercise regularly (low-impact aerobic exercise is especially good, but check with your doctor first) * Generally, be up and walking for 5-10 minutes at a time at least 3-4 times per day from the day you get home * Increasing walking to tolerance until you can walk for 20-30 minutes at a time * Attain and maintain a healthy body weight * Eat healthy foods ( a well-balanced, low-fat diet rich in fruits and vegetables) and get enough calcium * Avoid excessive use of alcohol When to call our office - If you notice any of the following: * Increased pain not relieve by pain medicine * Fevers greater then 100 degrees F, chills or flu symptoms * Increased redness around incision * Drainage from the incision that is not clear * Any foul smelling drainage * Swelling or fluid collection beneath the skin Miscellaneous: * In the hospital, you may be given a walker or cane for support while walking. These are temporary needs and are intended to prevent injuries due to falls. You may discontinue them when you feel strong and steady enough on your feet. * Sleep in a comfortable position. We find that many patients find a lounge chair or recliner with several pillows to be beneficial in the early post-operative period. * The support stockings should be used for 7-10 days and may be discontinued when you are back to walking more and conducting usual household activities. No problem is insignificant. We are here to help you and get you well. Contact us at [phone]. Definitions: Foraminotomy: If part of the disc or a bone spur (osteophyte) is pressing on a nerve as it leaves the vertebra (through an exit called the foramen), a foraminotomy may be done. Otomy means "to make an opening." A foraminotomy is making the opening of the foramen larger, so the nerve can exit without being compressed. Laminotomy: Similar to the foraminotomy, a laminotomy makes a larger opening, this time in your bony plate protecting your spinal canal and spinal cord (the lamina). The lamina may be pressing on your nerve, so the surgeon may make more room for the nerves using a laminotomy. Laminectomy: Sometimes, a laminotomy is not sufficient. The surgeon may need to remove all or part of the lamina. This procedure is called a laminectomy. This can often be done at many levels without any harmful effects.Patient's current hospital diet: Regular Diet Discharge Diet Recommended Diet: Regular Diet Procedures Procedures Performed: Incision and Drainage of Lumbar Spine wound, Removal of Pedicle screws L2, L5 bilaterally. Pending Studies Studies pending at discharge: no Medical Emergencies . Who to Call and When: Medical Emergencies: If at any time you feel your situation is an emergency, please call 911 immediately. . Non-Emergent Contact Non-Emergency issues call your: Surgeon . "Provider Documentation" section prepared by Sorin Munguia. . VTE Core Measure Inpt VTE Proph given/why not?: Treatment not indicated
--- NOTE | 2016-11-09 17:43 | PROGRESS NOTE ---
DATE: 11/09/2016 SUBJECTIVE: Minimal to moderate complaints of pain. Lower extremity difficulties has been eradicated. She has no nausea, vomiting. She is alert, oriented. OBJECTIVE: Vital signs stable. 26.5 hematocrit. Wound protected. ASSESSMENT: Status post revision surgery for a fracture of the pedicle of the L5 screw on the left hand side and a dislodgement of the L2 pedicle screw on the left hand side as well. DISPOSITION: Instructions, precautions, education here today. We are still not out of the au so to speak. We still need to heal up, get drain removed and see how the patient performs. She needs a walker. She needs to get home. Hopefully get her discharged home tomorrow, which is Sunday. Instructions, precautions, education. She must be very careful to not reinjure herself.
[2016-11-09] MEDS: ASPIRIN 81 MG ECTAB PO SCH (20:49)
[2016-11-09] MEDS: PRAVASTATIN SOD 20 MG TAB PO SCH (20:49)
[2016-11-09] MEDS: PANTOprazole SOD 40 MG TAB PO SCH (20:49)
[2016-11-09 22:53] VITALS: BP 150/80; PULSE 71; TEMP 36.7; O2SAT 96
[2016-11-10] MEDS: DEXAMETHASONE INJ 6 MG in SYRINGE 0 ML IV SCH (05:44)
[2016-11-10] MEDS: OXYCODONE/ACETAMINOPHEN 5-325 TAB PO PRN ×2 (05:46→10:13)
[2016-11-10] MEDS ORDERED: ARMOUR THYROID 30 MG TAB PO SCH (06:00)
[2016-11-10 08:11] VITALS: BP 113/75; PULSE 69; TEMP 36.6; O2SAT 99
[2016-11-10] MEDS: CITALOPRAM 40 MG TAB PO SCH (09:00)
[2016-11-10] MEDS: BISACODYL 5 MG TABEC PO SCH (09:00)
[2016-11-10] MEDS: CHOLECALCIFEROL 1000 INTER.UNIT TAB PO SCH (09:01)
[2016-11-10] MEDS: POLYETHYLENE (MIRALAX) 17 GM PACK PO SCH (09:01)
[2016-11-10 10:19] VITALS: BP 113/75; PULSE 69; TEMP 36.6; O2SAT 99
--- NOTE | 2016-11-11 01:08 | DISCHARGE SUMMARY ---
SUBJECTIVE: Moderate complaints of back and buttock pain. No confusion, no shortness of breath, no radicular lower extremity difficulty. OBJECTIVE: Afebrile. Vital signs stable. Moves all 4 extremities. Wound protected. ASSESSMENT: Status post reconstructive spine surgery. DISPOSITION: Will discharge her home later on today. Her dressing will be removed. We just see her back in the office in approximately 10 days. She does have an appointment for this coming Sunday, but that should be moved out 1 week. She has prescriptions on her chart for Dulcolax for bowels along with Percocet for pain, Soma as a muscle relaxant. Instructions, precautions and education provided to our patient.
[2016-11-17] MEDS ORDERED: NXM/40 PO (01:35)
[2016-11-17] MEDS ORDERED: TRD10 PO (02:05)
[2016-11-17] MEDS ORDERED: CITA40TA4 PO (02:05)
[2016-11-17] MEDS ORDERED: THY/30 PO (02:06)
[2016-11-17] MEDS ORDERED: CHOL2000 PO (11:13)
[2016-11-17] MEDS ORDERED: FLUT0.15 NAE (11:13)
[2016-11-17] MEDS ORDERED: ALBU18002 INH (11:13)
[2016-11-17] MEDS ORDERED: IBUP-103 PO (11:14)
[2017-02-07] MEDS ORDERED: HYDR-5688 PO (08:38)
[2017-02-07] MEDS ORDERED: DULO60CA44 PO (08:38)
[2017-05-15] MEDS ORDERED: CITA40TA12 PO (09:44)
[2017-05-15] MEDS ORDERED: FERR143T5 PO (09:44)
[2017-05-23] MEDS ORDERED: ASPEC325 PO (21:16)
[2017-05-23] MEDS ORDERED: ACET-24 PO (21:16)
[2017-05-23] MEDS ORDERED: RXC5 PO (21:17)
== END 2016-11-10 10:45 | disposition home or self-care (01) | DRG 516 ==
LOC: ENRESERVDT → ENRESERVTM → C.EDB 23:29 → C.3E 11-07 00:58 → OBSVTOIN 11-07 11:35
PROVIDERS: ADMIT Orthopaedic Surgery Orthopaedic Surgery of the Spine; ATTEND Orthopaedic Surgery Orthopaedic Surgery of the Spine
PROC: 0SP004Z Removal of Internal Fixation Device from Lumbar Vertebral Joint, Open Approach (ICD-10-PCS; principal; 2016-11-08 07:30)
DX: M96.69 Fracture of other bone following insertion of orthopedic implant, joint prosthesis, or bone plate (principal); Z68.41 Body mass index [BMI] 40.0-44.9, adult; T84.038A Mechanical loosening of other internal prosthetic joint, initial encounter; Y83.4 Other reconstructive surgery as the cause of abnormal reaction of the patient, or of later complication, without mention of misadventure at the time of the procedure; Y79.2 Prosthetic and other implants, materials and accessory orthopedic devices associated with adverse incidents; J44.9 Chronic obstructive pulmonary disease, unspecified; K21.9 Gastro-esophageal reflux disease without esophagitis; D64.9 Anemia, unspecified; F32.9 Major depressive disorder, single episode, unspecified; G47.33 Obstructive sleep apnea (adult) (pediatric); E66.01 Morbid (severe) obesity due to excess calories; Z98.1 Arthrodesis status; Z99.89 Dependence on other enabling machines and devices; Z79.82 Long term (current) use of aspirin; Z79.891 Long term (current) use of opiate analgesic; Z79.899 Other long term (current) drug therapy

== ENCOUNTER 2016-11-17 14:46 | Emergency (ER) | payer OTHER ==
[~2016-11-17] VITALS: Ht 172.7 cm; Wt 129.1 kg
[~2016-11-17 14:46] MED LIST changes: +ALBU18002 INH; -Armour Thyroid PO; +CHOL2000 PO; +CITA40TA4 PO; -CLX20 PO; +FLUT0.15 NAE; +IBUP-103 PO; -JET ALERT PO; +NXM/40 PO; +THY/30 PO; +TRD10 PO
[2016-11-17 14:50] VITALS: TEMP 36.3; Ht 172.7 cm; Wt 129.1 kg
--- NOTE | 2016-11-17 15:36 | EMERGENCY ROOM VISIT NOTE ---
History Report prepared by Keli: Dm Fraire Under the Supervision of: Dr. Adrienne Orozco D.O. First contact with patient: 15:08 Chief Complaint: SWELLING TO EXTREMITY Stated Complaint: SWELLING L FOOT/ANKLE, BACK SX X2 IN 2 WKS History of Present Illness The patient is a 66 year old female who presents to the Emergency Room with complaints of persistent swelling of the left foot that she noticed when she woke up earlier today. The patient had hardware replaced on 11/02 as well as laminectomy. The patient was doing well initially after the surgery and was even able to ambulate without a walker. She started to develop pain in the left hip for which she came to the ED and was ultimately admitted. The patient required a second surgery because there were two loose screw. She also had an L5 fracture. The patient hasn't been able to ambulate without a walker since the second surgery. Today she noticed the swelling in the left foot. She called Dr. Munguia (Orthopedics), and was told to call her PCP and take a full strength aspirin. The patient called her PCP's office and was referred to the ED.The patient has Toradol, Percocet, and a muscle relaxer at home. She does not have Gabapentin. The patient denies fevers, chills, urinary symptoms, numbness, or tingling. She has been dealing with constipation since surgery but did have a small bowel movement today. Source of History: patient Onset: earlier today Position: foot (left) Quality: other (swelling) Timing: other (persistent) Associated Symptoms: No fevers, No chills, No urinary symptoms, No numbness Review of Systems See HPI for pertinent positives & negatives. A total of 10 systems reviewed and were otherwise negative. 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 Family History Cancer Gallbladder disease Heart disease Hypertension Lung disease Social History Smoking Status: Never Smoker Alcohol Use: none Marital Status: Housing Status: lives with significant other Occupation Status: unemployed Current/Historical Medications Scheduled Aspirin (Aspirin Ec), 81 MG PO HS Cholecalciferol (Vitamin D3), 1 CAP PO QAM Citalopram (Citalopram Hydrobromide), 40 MG PO HS Docusate Sodium (Colace), 1 CAP PO TID Esomeprazole Magnesium (Nexium), 40 MG PO HS Magnesium Hydroxide (Milk Of Magnesia), 30-45 ML PO PRN Pravastatin (Pravachol ), 20 MG PO HS Thyroid ([place] Thyroid), 30 MG PO DAILY Scheduled PRN Albuterol Sulfate (Proair Respiclick), 1-2 PUFFS INH Q4-6H PRN for SOB/Wheezing Fluticasone Propionate (Nasal) (Flonase Allergy Relief), 2 SPRAYS KATIANA UD PRN for ALLERGY SX Gabapentin (Neurontin), 100 MG PO TID PRN for Pain Ibuprofen Tab (Advil), 400 MG PO UD PRN for Pain Ketorolac Tromethamine (Ketorolac Tromethamine), 10 MG PO UD PRN for Pain Oxycodone/Acetaminophen 10MG/325MG (Percocet 10MG/325MG), 1 TAB PO Q4 PRN for Pain Allergies Coded Allergies: Erythromycin (Verified Allergy, Unknown, per PCP note , 11/02/16) Fish Oil (Verified Allergy, Unknown, sweat, nausea, dizzy, 10/25/16) Penicillins (Verified Allergy, Unknown, RED RASH ITCHING, 10/25/16) Rofecoxib (Verified Allergy, Unknown, UNKNOWN, 10/25/16) Tramadol (Verified Allergy, Unknown, rash/hives, 10/25/16) Physical Exam Vital Signs Date Time Temp Pulse Resp B/P (MAP) Pulse Ox O2 Delivery O2 Flow Rate FiO2 11/17/16 18:35 150/89 11/17/16 17:25 78 16 119/66 100 Room Air 11/17/16 14:50 36.3 75 18 147/85 98 Room Air Physical Exam GENERAL: alert, well appearing, well nourished, no distress, non-toxic EYE EXAM: normal conjunctiva. OROPHARYNX: no exudate, no erythema, lips, buccal mucosa, and tongue normal and mucous membranes are moist NECK: supple, no nuchal rigidity, no adenopathy, non-tender LUNGS: Clear to auscultation. Normal chest wall mechanics, no increased work of breathing., HEART: no murmurs, S1 normal and S2 normal ABDOMEN: abdomen soft, non-tender. BACK: Vertical incision lumbar spine, stitches in place, no erythema or drainage , appears to be well-healed. SKIN: no rashes and no bruising UPPER EXTREMITIES: upper extremities are grossly normal. LOWER EXTREMITIES: 1+ pedal edema bilaterally slightly worse on the right, normal pulses, good capillary refill, normal sensation. NEURO EXAM: Normal sensorium, cranial nerves II-XII grossly intact, normal speech, no gross weakness of arms, no gross weakness of legs. Gross sensation intact. Medical Decision & Procedures ER Provider Diagnostic Interpretation: Radiology results have been interpreted by the radiologist and reviewed by me. ULTRASOUND BILATERAL LOWER EXTREMITY VENOUS CLINICAL HISTORY: Lower extremity edema. COMPARISON STUDY: No priors. TECHNIQUE: Real-time, grayscale, and color Doppler sonography of the deep veins of the right and left lower extremity was performed from the inguinal crease to the calf. Compression and augmentation were utilized. FINDINGS: There is no sonographic evidence of deep venous thrombosis identified in the right or left lower extremity. The common femoral, superficial femoral, and popliteal veins are patent and normally compressible bilaterally. The greater saphenous vein and the profunda femoris vein at the junction with the common femoral vein are clear in both legs. The visualized calf veins are patent bilaterally. A right popliteal cyst measures 6.4 x 1.0 x 2.0 cm. IMPRESSION: 1. There is no sonographic evidence of deep venous thrombosis identified in the right or left lower extremity. 2. Right-sided Rey's cyst. Electronically signed by: Mathew Heath M.D. 11/17/2016 5:06 PM Dictated Date/Time: 11/17/2016 5:05 PM Laboratory Results 11/17/16 15:42 Red Blood Count 2.81, Mean Corpuscular Volume 94.3, Mean Corpuscular Hemoglobin 30.6, Mean Corpuscular Hemoglobin Concent 32.5, Mean Platelet Volume 8.7, Neutrophils (%) (Auto) 66.7, Lymphocytes (%) (Auto) 22.7, Monocytes (%) (Auto) 6.7, Eosinophils (%) (Auto) 3.4, Basophils (%) (Auto) 0.0, Neutrophils # (Auto) 5.07, Lymphocytes # (Auto) 1.73, Monocytes # (Auto) 0.51, Eosinophils # (Auto) 0.26, Basophils # (Auto) 0.00 11/17/16 15:42 Test 11/17/16 15:42 White Blood Count 7.61 K/uL (4.8-10.8) Red Blood Count 2.81 M/uL (4.2-5.4) Hemoglobin 8.6 g/dL (12.0-16.0) Hematocrit 26.5 % (37-47) Mean Corpuscular Volume 94.3 fL (80-100) Mean Corpuscular Hemoglobin 30.6 pg (25-34) Mean Corpuscular Hemoglobin Concent 32.5 g/dl (32-36) Platelet Count 308 K/uL (130-400) Mean Platelet Volume 8.7 fL (7.4-10.4) Neutrophils (%) (Auto) 66.7 % Lymphocytes (%) (Auto) 22.7 % Monocytes (%) (Auto) 6.7 % Eosinophils (%) (Auto) 3.4 % Basophils (%) (Auto) 0.0 % Neutrophils # (Auto) 5.07 K/uL (1.4-6.5) Lymphocytes # (Auto) 1.73 K/uL (1.2-3.4) Monocytes # (Auto) 0.51 K/uL (0.11-0.59) Eosinophils # (Auto) 0.26 K/uL (0-0.5) Basophils # (Auto) 0.00 K/uL (0-0.2) RDW Standard Deviation 48.9 fL (36.4-46.3) RDW Coefficient of Variation 14.2 % (11.5-14.5) Immature Granulocyte % (Auto) 0.5 % Immature Granulocyte # (Auto) 0.04 K/uL (0.00-0.02) Hypersegmented Polys 1+ Red Blood Cell Morphology Unremarkable D-Dimer 4070 ug/L FEU (0-500) Anion Gap 4.0 mmol/L (3-11) Est Creatinine Clear Calc Drug Dose 77.5 ml/min Estimated GFR () 67.5 Estimated GFR (Non- 58.3 BUN/Creatinine Ratio 10.3 (10-20) Calcium Level 8.2 mg/dl (8.5-10.1) Pro-B-Type Natriuretic Peptide 89 pg/ml (0-900) Laboratory results per my review. Medications Administered Medications (Trade) Dose Ordered Sig/Emilie Route Start Time Stop Time Status Last Admin Dose Admin Gabapentin (Neurontin Cap) 100 mg NOW STAT PO 11/17/16 17:50 11/17/16 17:51 DC 11/17/16 18:26 100 MG ECG Indication: other (edema) Rate (beats per minute): 80 Rhythm: normal sinus Findings: no acute ischemic change, no ectopy, other (normal axis normal intervals) ED Course 1520: The patient was evaluated in room C3. A complete history and physical exam was performed. 1750: Gabapentin 100 mg PO. 1744: Reassessed the patient. Discussed everything with her. She will be discharged. Medical Decision Differential diagnosis: Etiologies such as DVT, musculoskeletal, infection, joint effusion, trauma, lymphedema, idiopathic, CHF, as well as others were entertained. Blood pressure screening: Patient was found to have an elevated blood pressure and was referred to their primary doctor for recheck and further treatment. Medication Reconciliation: I attest that I have personally reviewed the patient' s current medication list. Anemia stable compared to prior. Pt with b/l LE edema, neg dopplers and reassuring labs. Dimer likely still elevated from two recent procedures. Pt concerned about constipation from narcotics also. Discussed bowel regimen, discussed use of gabapentin which she has taken previously. Discussed f/u with PCP despite negative evaluation here. Discussed sx to watch/return for, she verbalized understanding and was agreeable with plan. Pt with no current sx to suggest PE, mesenteric ischemia, dissection. Did not feel warranted additional imaging of chest/abd/pelvis at this time. No evidence of incisional infection, doubt epidural abscess/hematoma, hardware infection at this time. Impression Primary Impression: Bilateral lower extremity edema Additional Impression: Bakers cyst Scribe Attestation The scribe's documentation has been prepared under my direction and personally reviewed by me in its entirety. I confirm that the note above accurately reflects all work, treatment, procedures, and medical decision making performed by me. Departure Information Dispostion Home / Self-Care Prescriptions Gabapentin (Neurontin) 100 Mg Cap 100 MG PO TID Y for Pain, #30 CAP Prov: Adrienne Orozco, DO 11/17/16 Referrals No Doctor, Assigned (PCP) Forms HOME CARE DOCUMENTATION FORM, IMPORTANT VISIT INFORMATION, WORK / SCHOOL INSTRUCTIONS Patient Instructions My TwitChat Additional Instructions Please continue regular medications as prescribed. You may use the gabapentin as prescribed as needed also. Please follow-up with your Back Specialist and continue your postoperative instructions. Please: Follow up with her family doctor to regarding the swelling you have noted. Please continue taking her aspirin daily. If you develop any worsening swelling, develop fevers, chest pain, palpitations, trouble breathing, or you've any other new concerns, please return the emergency room. Problem Qualifiers Additional Impression: Bakers cyst Laterality: right Qualified Codes: M71.21 - Synovial cyst of popliteal space [Rey], right knee
[2016-11-17 15:54] LABS: EOS % 3.4 %; HEMATOCRIT 26.5 % (37-47); IG% 0.5 %; LYMPH % 22.7 %; LYMPH ABS # 1.73 K/uL (1.2-3.4); MEAN CELL VOLUME 94.3 fL (80-100); MEAN CORPUSCULAR HEMOGLOBIN 30.6 pg (25-34); MEAN CORPUSCULAR HGB CONC 32.5 g/dl (32-36); MEAN PLATELET VOLUME 8.7 fL (7.4-10.4); MONO % 6.7 %; NEUT % 66.7 %; PLATELET COUNT 308 K/uL (130-400); RED BLOOD COUNT 2.81 M/uL (4.2-5.4); WHITE BLOOD COUNT 7.61 K/uL (4.8-10.8)
[2016-11-17] MEDS ORDERED: OXYC-106 PO (15:56)
[2016-11-17] MEDS ORDERED: MOML PO (15:56)
[2016-11-17] MEDS ORDERED: DOCU-94 PO (15:56)
[2016-11-17] MEDS ORDERED: ASPI81TA28 PO (15:57)
[2016-11-17 16:11] LABS: BUN/CREATININE RATIO 10.3 (10-20); CALCIUM 8.2 mg/dl (8.5-10.1); POTASSIUM 3.9 mmol/L (3.5-5.1)
[2016-11-17 16:36] LABS: COMPLETE YES
--- NOTE | 2016-11-17 17:07 | DIAGNOSTIC IMAGING REPORT ---
ULTRASOUND BILATERAL LOWER EXTREMITY VENOUS CLINICAL HISTORY: Lower extremity edema. COMPARISON STUDY: No priors. TECHNIQUE: Real-time, grayscale, and color Doppler sonography of the deep veins of the right and left lower extremity was performed from the inguinal crease to the calf. Compression and augmentation were utilized. FINDINGS: There is no sonographic evidence of deep venous thrombosis identified in the right or left lower extremity. The common femoral, superficial femoral, and popliteal veins are patent and normally compressible bilaterally. The greater saphenous vein and the profunda femoris vein at the junction with the common femoral vein are clear in both legs. The visualized calf veins are patent bilaterally. A right popliteal cyst measures 6.4 x 1.0 x 2.0 cm. IMPRESSION: 1. There is no sonographic evidence of deep venous thrombosis identified in the right or left lower extremity. 2. Right-sided Rey's cyst. Electronically signed by: aMthew Heath M.D. 11/17/2016 5:06 PM Dictated Date/Time: 11/17/2016 5:05 PM
[2016-11-17 17:25] VITALS: PULSE 78; O2SAT 100
[2016-11-17] MEDS ORDERED: GABAPENTIN 100 MG CAP PO STA (17:50)
[2016-11-17] MEDS ORDERED: NRN/100 PO (18:05)
[2016-11-17 18:35] VITALS: BP 150/89
[2016-11-17] MEDS ORDERED: PRAV20TA PO (19:19)
[2016-11-18 08:04] LABS: HYPERSEGMENTED POLYS 1+
[2017-02-07] MEDS ORDERED: DULO60CA44 PO (08:38)
[2017-02-07] MEDS ORDERED: HYDR-5688 PO (08:38)
[2017-05-15] MEDS ORDERED: FERR143T5 PO (09:44)
[2017-05-15] MEDS ORDERED: CITA40TA12 PO (09:44)
[2017-05-23] MEDS ORDERED: ASPEC325 PO (21:16)
[2017-05-23] MEDS ORDERED: ACET-24 PO (21:16)
[2017-05-23] MEDS ORDERED: RXC5 PO (21:17)
== END 2016-11-17 18:29 | disposition home or self-care (01) ==
LOC: C.EDB 14:48 → C.EDC 18:29
DX: R60.0 Localized edema (principal); M71.21 Synovial cyst of popliteal space [Baker], right knee; E78.5 Hyperlipidemia, unspecified; M99.73 Connective tissue and disc stenosis of intervertebral foramina of lumbar region; M19.90 Unspecified osteoarthritis, unspecified site; M43.10 Spondylolisthesis, site unspecified; M47.894 Other spondylosis, thoracic region; M94.0 Chondrocostal junction syndrome [Tietze]; Z82.49 Family history of ischemic heart disease and other diseases of the circulatory system; Z79.82 Long term (current) use of aspirin

== ENCOUNTER → 2017-01-17 | Outpatient (CLI) | payer OTHER ==
[~2017-01-17] MED LIST changes: +ASPI81TA28 PO; +DOCU-94 PO; +DULO60CA44 PO; +MOML PO; +NRN/100 PO; +OXYC-106 PO; +PRAV20TA PO
[2017-01-17 12:51] LABS: BASO % 0.6 %; BASO ABS # 0.03 K/uL (0-0.2); COMPLETE YES; EOS % 5.7 %; HEMATOCRIT 34.2 % (37-47); IG% 0.2 %; LYMPH % 32.9 %; LYMPH ABS # 1.68 K/uL (1.2-3.4); MEAN CELL VOLUME 91.4 fL (80-100); MEAN CORPUSCULAR HEMOGLOBIN 29.1 pg (25-34); MEAN CORPUSCULAR HGB CONC 31.9 g/dl (32-36); MEAN PLATELET VOLUME 10.3 fL (7.4-10.4); MONO % 9.2 %; NEUT % 51.4 %; PLATELET COUNT 327 K/uL (130-400); RED BLOOD COUNT 3.74 M/uL (4.2-5.4)
[2017-01-17 13:06] LABS: ALT/SGPT 15 U/L (12-78); AST/SGOT 13 U/L (15-37); BLOOD UREA NITROGEN 14 mg/dl (7-18); BUN/CREATININE RATIO 14.6 (10-20); CALCIUM 8.8 mg/dl (8.5-10.1); CARBON DIOXIDE 26 mmol/L (21-32); CHLORIDE 111 mmol/L (98-107); CREATININE 0.93 mg/dl (0.60-1.20); GLUCOSE 96 mg/dl (70-99); POTASSIUM 3.8 mmol/L (3.5-5.1); SODIUM 143 mmol/L (136-145)
[2017-01-17 13:15] LABS: ALB/GLOB RATIO 1.1 (0.9-2); ALKALINE PHOSPHATASE 102 U/L (45-117); CHOLESTEROL 165 mg/dl (0-200); CHOLESTEROL/HDL RATIO 4.3; HDL CHOLESTEROL 38 mg/dl; LDL CHOLESTEROL CALCULATED 78 mg/dl; TRIGLYCERIDES 244 mg/dl (0-150); VERY LOW DENSITY LIPOPROT CALC 49 mg/dl
[2017-01-17 13:35] LABS: ESTIMATED AVERAGE GLUCOSE 111 mg/dl; HA1C FLAG Normal (Normal)
== END | disposition home or self-care (01) ==
LOC: C.LABPBG 08:00
PROVIDERS: ATTEND Family Medicine
DX: Z00.00 Encounter for general adult medical examination without abnormal findings (principal); E78.00 Pure hypercholesterolemia, unspecified; R73.03 Prediabetes; E03.9 Hypothyroidism, unspecified

== ENCOUNTER → 2017-02-13 | Day surgery (SDC) | payer OTHER ==
[2017-02-07 08:40] VITALS: BMI 41.0
[~2017-02-13] VITALS: Ht 172.7 cm; Wt 123.2 kg
[~2017-02-13] MED LIST changes: -CITA40TA4 PO; -DOCU-94 PO; +LIDOCAINE HCL 2% 2 ML VIAL (20MG/ML) ONE; -MOML PO; -NRN/100 PO; -OXYC-106 PO; +PROPOFOL IV EMULSION 10 MG/ML 20 ML VIAL IV ONE; +SODIUM CHLORIDE 0.9% 500ML 500 ML IV ONE; -TRD10 PO
[2017-02-13 11:53] VITALS: Ht 172.7 cm; Wt 123.2 kg
[2017-02-13 12:09] VITALS: TEMP 36.7
--- NOTE | 2017-02-13 12:35 | Endo History and Physical ---
History & Physical Date of Service: Feb 13, 2017. Chief Complaint: anemia, gerd Referring Physician: Dr. Jones History of Present Illness 66 yo CF who presents for EGD and Colonoscopy secondary to GERD and Anemia. Past Surgical History Hx Cardiac Surgery: No Hx Internal Defibrillator: No Hx Pacemaker: No Hx Abdominal Surgery: Yes (ISIDRO, APPY) Hx of Implantable Prosthesis: No Hx Post-Op Nausea and Vomiting: No Hx Cancer Surgery: No Hx Thoracic Surgery: No Hx Orthopedic: Yes (LUMBAR FUSION, RT/LT CTR, BLT PLANTAR FASCITIITIS, LAMINECTOMY REVISION X2) Hx Urinary Tract Surgery: No Family History None Social History Smoking Status: Never Smoker Hx Substance Use: No Hx Alcohol Use: No Allergies Coded Allergies: Erythromycin (Verified Allergy, Unknown, RASH, 02/07/17) Fish Oil (Verified Allergy, Unknown, sweat, nausea, dizzy, 02/07/17) Penicillins (Verified Allergy, Unknown, RED RASH ITCHING, 02/07/17) Tramadol (Verified Allergy, Unknown, rash/hives, 02/07/17) Current Medications Reported Home Medications Medications Dose Route/Sig Max Daily Dose Days Date Category Dose Instructions [place] 5MG/325MG (Acetaminophen/Hydrocodone Bitart) Tab 1 Tablet PO Q4 PRN 02/07/17 Reported PRN PAIN Cymbalta (Duloxetine Hcl) 60 Mg Cap 60 Mg PO HS 02/07/17 Reported [place] Thyroid (Thyroid) 30 Mg Tab 30 Mg PO QAM 11/07/16 Reported Advil (Ibuprofen) 200 Mg Tab 400 Mg PO UD PRN 10/25/16 Reported Proair Respiclick (Albuterol Sulfate) 108 Mcg/Act Aer 1-2 Puffs INH Q4-6H PRN 10/25/16 Reported Vitamin D3 (Cholecalciferol) 2,000 Unit Cap 1 Cap PO QAM 10/25/16 Reported Flonase Allergy Relief (Fluticasone Propionate (Nasal)) 50 Mcg/Act Spr 2 Sprays KATIANA UD PRN 10/25/16 Reported Aspirin Ec (Aspirin) 81 Mg Tab 81 Mg PO HS 08/03/14 Reported Pravachol (Pravastatin Sodium) 20 Mg Tab 20 Mg PO HS 06/11/11 Reported Nexium (Esomeprazole Magnesium) 40 Mg Capcr 40 Mg PO HS 01/17/09 Reported Vital Signs Weight (Kilograms): 123.18 Height (Feet): 5 Height (Inches): 8 Date Time Temp Pulse Resp B/P (MAP) Pulse Ox O2 Delivery O2 Flow Rate FiO2 02/13/17 12:09 36.7 85 18 /134 (90) 97 Room Air Physical Exam General Appearance: WD/WN, no apparent distress Respiratory/Chest: Auscultation: breath sounds normal Cardiovascular: Heart Auscultation: RRR Abdomen: Bowel Sounds: normal Inspection & Palpation: soft, non-distended, no tenderness, guarding & rebound Assessment and Plan Assessment: 66 yo CF who presents for EGD and Colonoscopy secondary to GERD and Anemia. Plan: Proceed with colonoscopy.
--- NOTE | 2017-02-13 13:59 | GI REPORT ---
Procedure Date: 02/13/2017 1:27 PM Procedure: Upper GI endoscopy Indications: Gastro-esophageal reflux disease Medicines: Monitored Anesthesia Care Complications: No immediate complications. Estimated Blood Loss: Estimated blood loss: none. Procedure: Pre-Anesthesia Assessment: - Prior to the procedure, a History and Physical was performed, and patient medications and allergies were reviewed. The patient's tolerance of previous anesthesia was also reviewed. The risks and benefits of the procedure and the sedation options and risks were discussed with the patient. All questions were answered, and informed consent was obtained. Prior Anticoagulants: The patient has taken no previous anticoagulant or antiplatelet agents. ASA Grade Assessment: III - A patient with severe systemic disease. After reviewing the risks and benefits, the patient was deemed in satisfactory condition to undergo the procedure. After obtaining informed consent, the endoscope was passed under direct vision. Throughout the procedure, the patient's blood pressure, pulse, and oxygen saturations were monitored continuously. The On-site loaner was introduced through the mouth, and advanced to the second part of duodenum. The upper GI endoscopy was accomplished without difficulty. The patient tolerated the procedure well. Findings: The esophagus was normal. A medium-sized hiatus hernia was present. The examined duodenum was normal. Impression: - Normal esophagus. - Medium-sized hiatus hernia. - Normal examined duodenum. - No specimens collected. Recommendation: - Resume previous diet. - Continue present medications. - Return to primary care physician as previously scheduled. Jose Arvizu, DO 02/13/2017 1:58:20 PM This report has been signed electronically. Note Initiated On: 02/13/2017 1:27 PM I attest to the content of the Intraoperative Record and orders documented therein, exceptions below
--- NOTE | 2017-02-13 14:03 | GI REPORT ---
Procedure Date: 02/13/2017 1:41 PM Procedure: Colonoscopy Indications: Iron deficiency anemia Medicines: Monitored Anesthesia Care Complications: No immediate complications. Estimated Blood Loss: Estimated blood loss: none. Procedure: Pre-Anesthesia Assessment: - Prior to the procedure, a History and Physical was performed, and patient medications and allergies were reviewed. The patient's tolerance of previous anesthesia was also reviewed. The risks and benefits of the procedure and the sedation options and risks were discussed with the patient. All questions were answered, and informed consent was obtained. Prior Anticoagulants: The patient has taken no previous anticoagulant or antiplatelet agents. ASA Grade Assessment: III - A patient with severe systemic disease. After reviewing the risks and benefits, the patient was deemed in satisfactory condition to undergo the procedure. After I obtained informed consent, the scope was passed under direct vision. Throughout the procedure, the patient's blood pressure, pulse, and oxygen saturations were monitored continuously. The On-site loaner was introduced through the anus and advanced to the terminal ileum. The colonoscopy was performed without difficulty. The patient tolerated the procedure well. The quality of the bowel preparation was good. The terminal ileum, ileocecal valve, appendiceal orifice, and rectum were photographed. Findings: Multiple small-mouthed diverticula were found in the sigmoid colon. Non-bleeding internal hemorrhoids were found during retroflexion. The hemorrhoids were small. Impression: - Diverticulosis in the sigmoid colon. - Non-bleeding internal hemorrhoids. - No specimens collected. Recommendation: - Resume previous diet. - Continue present medications. - Repeat colonoscopy in 10 years for surveillance. - Return to primary care physician as previously scheduled. Jose Arvizu, 02/13/2017 2:02:06 PM This report has been signed electronically. Note Initiated On: 02/13/2017 1:41 PM I attest to the content of the Intraoperative Record and orders documented therein, exceptions below
--- NOTE | 2017-02-13 14:16 | Discharge Instructions ---
Endoscopy Patient Instructions Date / Procedure(s) Performed Feb 13, 2017. Colonoscopy, EGD Allergy Information Coded Allergies: Erythromycin (Verified Allergy, Unknown, RASH, 02/07/17) Fish Oil (Verified Allergy, Unknown, sweat, nausea, dizzy, 02/07/17) Penicillins (Verified Allergy, Unknown, RED RASH ITCHING, 02/07/17) Tramadol (Verified Allergy, Unknown, rash/hives, 02/07/17) Discharge Date / Findings Feb 13, 2017. EGD: Hiatal hernia Colonoscopy: Diverticulosis and Internal hemorrhoids Medication Instructions OK to resume all medications today as prescribed Reported Home Medications Medications Dose Route/Sig Max Daily Dose Days Date Category Dose Instructions [place] 5MG/325MG (Acetaminophen/Hydrocodone Bitart) Tab 1 Tablet PO Q4 PRN 02/07/17 Reported PRN PAIN Cymbalta (Duloxetine Hcl) 60 Mg Cap 60 Mg PO HS 02/07/17 Reported [place] Thyroid (Thyroid) 30 Mg Tab 30 Mg PO QAM 11/07/16 Reported Advil (Ibuprofen) 200 Mg Tab 400 Mg PO UD PRN 10/25/16 Reported Proair Respiclick (Albuterol Sulfate) 108 Mcg/Act Aer 1-2 Puffs INH Q4-6H PRN 10/25/16 Reported Vitamin D3 (Cholecalciferol) 2,000 Unit Cap 1 Cap PO QAM 10/25/16 Reported Flonase Allergy Relief (Fluticasone Propionate (Nasal)) 50 Mcg/Act Spr 2 Sprays KATIANA UD PRN 10/25/16 Reported Aspirin Ec (Aspirin) 81 Mg Tab 81 Mg PO HS 08/03/14 Reported Pravachol (Pravastatin Sodium) 20 Mg Tab 20 Mg PO HS 06/11/11 Reported Nexium (Esomeprazole Magnesium) 40 Mg Capcr 40 Mg PO HS 01/17/09 Reported Provider Instructions Activity Restrictions - No exercising or heavy lifting for 24 hours. - Do not drink alcohol the day of the procedure. - Do not drive a car or operate machinery until the day after the procedure. - Do not make any important decisions or sign important papers in 24 hours after the procedure. Following Day: - Return to full activity which may include returning to work/school. Diet Start your diet with liquids and light foods (jello, soup, juice, toast). Then eat your usual diet if not nauseated. Treatment For Common After Affects For mild abdominal pain, bloating, or excessive gas: - Rest - Eat lightly - Lie on right side Follow-Up Information Follow-up with Dr. Jones as scheduled Anesthesia Information What You Should Know You have had a procedure that required some medicine to reduce anxiety and discomfort. This treatment is called moderate sedation. After receiving the treatment, you may be sleepy, but you will be able to breathe on your own. The effects of the treatment may last for several hours. Follow these instructions along with Activity/Diet recommendations noted above: * Do NOT do anything where dizziness or clumsiness would be dangerous. * Rest quietly at home today, then you can be up and about tomorrow. * Have a responsible person stay with you the rest of today. * You may have had an I.V. today. If so, you may take the dressing off later today. Recommendations Call your doctor if: * Trouble breathing * Continuous vomiting for more than 24 hours * Temperature above 101 degrees * Severe abdominal pain or bloating * Pain not relieved by pain medicine ordered * There is increased drainage or redness from any incision * A large amount of rectal bleeding greater than 2-3 tablespoons. (If you had a polyp/s removed or have hemorrhoids, a small amount of blood - from the rectum is to be expected.) * You have any unanswered questions or concerns. IN THE EVENT OF A SERIOUS EMERGENCY, GO TO THE NEAREST EMERGENCY ROOM Your discharge instructions were prepared by provider Jose Arvizu. Patient Instructions Signature Page Juanita Hawley Patient (or Guardian) Signature/Date: I have read and understand the instructions given to me by my caregivers. Caregiver/RN/Doctor Signature/Date: The above-named patient and/or guardian has received patient instructions on this date. + Original Patient Signature Page (only) stays with chart. Please make copy for patient.
[2017-02-13 14:30] VITALS: BP 134/90; PULSE 79; O2SAT 97
--- NOTE | 2017-02-13 14:38 | Anesthesiology Progress Note ---
Anesthesia Post Op Note Date & Time Feb 13, 2017 at 14:38 Vital Signs Pain Intensity: 0 Vital Signs Past 12 Hours Date Time Temp Pulse Resp B/P (MAP) Pulse Ox O2 Delivery O2 Flow Rate FiO2 02/13/17 14:30 79 18 134/90 (105) 97 Room Air 02/13/17 14:15 84 18 132/91 (105) 99 Room Air 02/13/17 14:00 85 18 127/80 (96) 96 Room Air 02/13/17 12:09 36.7 85 18 /134 (90) 97 Room Air Notes Mental Status: alert / awake / arousable, participated in evaluation Pt Amnestic to Procedure: Yes Nausea / Vomiting: adequately controlled Pain: adequately controlled Airway Patency, RR, SpO2: stable & adequate BP & HR: stable & adequate Hydration State: stable & adequate Anesthetic Complications: no major complications apparent
== END | disposition home or self-care (01) ==
LOC: C.GI 11:33
PROVIDERS: ATTEND Internal Medicine
DX: D50.9 Iron deficiency anemia, unspecified (principal); K21.9 Gastro-esophageal reflux disease without esophagitis; K57.30 Diverticulosis of large intestine without perforation or abscess without bleeding; K64.8 Other hemorrhoids; K44.9 Diaphragmatic hernia without obstruction or gangrene; Z90.49 Acquired absence of other specified parts of digestive tract; Z90.89 Acquired absence of other organs; Z98.1 Arthrodesis status; Z79.82 Long term (current) use of aspirin; J45.909 Unspecified asthma, uncomplicated; G47.33 Obstructive sleep apnea (adult) (pediatric); M19.90 Unspecified osteoarthritis, unspecified site; E03.9 Hypothyroidism, unspecified; F32.9 Major depressive disorder, single episode, unspecified; E66.9 Obesity, unspecified

== ENCOUNTER → 2017-02-20 | Outpatient (CLI) | payer OTHER ==
[~2017-02-20] MED LIST changes: -LIDOCAINE HCL 2% 2 ML VIAL (20MG/ML) ONE; -PROPOFOL IV EMULSION 10 MG/ML 20 ML VIAL IV ONE; -SODIUM CHLORIDE 0.9% 500ML 500 ML IV ONE
[2017-02-20 12:12] LABS: BASO % 0.2 %; BASO ABS # 0.01 K/uL (0-0.2); COMPLETE YES; HEMATOCRIT 35.1 % (37-47); IG% 0.2 %; LYMPH % 28.6 %; LYMPH ABS # 1.36 K/uL (1.2-3.4); MEAN CELL VOLUME 87.8 fL (80-100); MEAN CORPUSCULAR HEMOGLOBIN 28.5 pg (25-34); MEAN CORPUSCULAR HGB CONC 32.5 g/dl (32-36); MEAN PLATELET VOLUME 10.8 fL (7.4-10.4); MONO % 8.2 %; NEUT % 57.8 %; PLATELET COUNT 334 K/uL (130-400); WHITE BLOOD COUNT 4.76 K/uL (4.8-10.8)
--- NOTE | 2017-02-26 09:58 | CODING QUERY MEDICAL NECESSITY ---
SUPPORTING DIAGNOSIS NEEDED Dr. Jones, A supporting diagnosis is required for the test/procedure performed on this patient in order for us to be reimbursed by the patient's insurance. Please provide a supporting diagnosis for the following test/procedure listed below next to the test name along with your signature. *If there is no additional diagnosis for this patient that would support the following test/procedure please document that below next to the test/procedure. Test(s)/Procedure(s) that require a supporting diagnosis: * ([id number]) B12 VITAMIN LEVEL DIAGNOSIS: DATE OF SERVICE: 02/20/17 Provider Signature: Date: Thank you [facility] Information Management Once completed, please kindly fax back to [phone] For questions please call [phone]
== END | disposition home or self-care (01) ==
LOC: C.LABPBG 08:56
PROVIDERS: ATTEND Family Medicine
DX: D64.9 Anemia, unspecified (principal)

== ENCOUNTER → 2017-03-12 | Outpatient (CLI) | payer OTHER ==
[2017-03-12 17:49] LABS: BASO % 0.2 %; BASO ABS # 0.01 K/uL (0-0.2); COMPLETE YES; EOS % 2.1 %; HEMATOCRIT 38.1 % (37-47); IG% 0.3 %; LYMPH ABS # 1.91 K/uL (1.2-3.4); MEAN CELL VOLUME 88.2 fL (80-100); MEAN CORPUSCULAR HEMOGLOBIN 28.2 pg (25-34); MEAN PLATELET VOLUME 10.9 fL (7.4-10.4); MONO % 8.5 %; NEUT % 59.9 %; PLATELET COUNT 324 K/uL (130-400); RED BLOOD COUNT 4.32 M/uL (4.2-5.4); WHITE BLOOD COUNT 6.58 K/uL (4.8-10.8)
[2017-03-12 18:00] LABS: ALT/SGPT 18 U/L (12-78); AST/SGOT 10 U/L (15-37); BLOOD UREA NITROGEN 13 mg/dl (7-18); CALCIUM 8.8 mg/dl (8.5-10.1); CARBON DIOXIDE 26 mmol/L (21-32); CHLORIDE 109 mmol/L (98-107); CREATININE 0.84 mg/dl (0.60-1.20); GLUCOSE 105 mg/dl (70-99); POTASSIUM 3.7 mmol/L (3.5-5.1); SODIUM 142 mmol/L (136-145)
[2017-03-12 18:10] LABS: ALKALINE PHOSPHATASE 120 U/L (45-117)
== END | disposition home or self-care (01) ==
LOC: C.LABPBG 12:17
PROVIDERS: ATTEND Family Medicine
DX: E03.9 Hypothyroidism, unspecified (principal); R10.9 Unspecified abdominal pain; R11.0 Nausea

== ENCOUNTER → 2017-03-15 | Outpatient (CLI) | payer OTHER ==
[2017-03-15 18:15] LABS: ALKALINE PHOSPHATASE 113 U/L (45-117); ALT/SGPT 19 U/L (12-78); AST/SGOT 17 U/L (15-37)
== END | disposition home or self-care (01) ==
LOC: C.LABPBG 13:39
PROVIDERS: ATTEND Family Medicine
DX: R74.8 Abnormal levels of other serum enzymes (principal)

== ENCOUNTER → 2017-03-16 | Outpatient (CLI) | payer OTHER ==
--- NOTE | 2017-03-16 10:51 | DIAGNOSTIC IMAGING REPORT ---
ABDOMINAL ULTRASOUND, RIGHT UPPER QUADRANT HISTORY: R10.9 generalized Abdominal painR11.0 [id number]. COMPARISON: Abdomen and pelvis CT 08/03/2014. FINDINGS: Pancreas: The pancreatic tail is obscured by overlying bowel gas. The remaining portions of the pancreas are within normal limits. Liver: The liver is echogenic consistent with fatty change. Gallbladder: The gallbladder is surgically absent. CBD: 1 cm. Right kidney: No hydronephrosis. Mild cortical renal scarring/thinning. A 9 x 8 x 5 mm hyperechoic focus within the right kidney. This favors a small angiomyolipoma IMPRESSION: 1. Cholecystectomy. 2. Hepatic steatosis. 3. A 9 x 8 x 5 mm hyperechoic focus within the right kidney. This favors a small angiomyolipoma. Electronically signed by: Vj Hutchinson M.D. 03/16/2017 10:50 AM Dictated Date/Time: 03/16/2017 10:45 AM
== END | disposition home or self-care (01) ==
LOC: C.ULTR 09:59
PROVIDERS: ATTEND Family Medicine
DX: R11.0 Nausea (principal); R10.9 Unspecified abdominal pain

== ENCOUNTER → 2017-05-18 | Outpatient (CLI) | payer OTHER ==
[~2017-05-18] MED LIST changes: +ACET-24 PO; +ASPEC325 PO; +CITA40TA12 PO; -DULO60CA44 PO; +FERR143T5 PO; -HYDR-5688 PO; +RXC5 PO
[2017-05-18 17:15] LABS: BASO % 0.5 %; BASO ABS # 0.03 K/uL (0-0.2); COMPLETE YES; EOS % 4.2 %; HEMATOCRIT 36.5 % (37-47); IG% 0.2 %; LYMPH % 33.7 %; LYMPH ABS # 1.92 K/uL (1.2-3.4); MEAN CELL VOLUME 91.3 fL (80-100); MEAN CORPUSCULAR HEMOGLOBIN 29.3 pg (25-34); MEAN CORPUSCULAR HGB CONC 32.1 g/dl (32-36); MEAN PLATELET VOLUME 10.4 fL (7.4-10.4); MONO % 8.3 %; NEUT % 53.1 %; PLATELET COUNT 309 K/uL (130-400); WHITE BLOOD COUNT 5.69 K/uL (4.8-10.8)
[2017-05-18 17:38] LABS: ALT/SGPT 16 U/L (12-78); BLOOD UREA NITROGEN 15 mg/dl (7-18); BUN/CREATININE RATIO 13.8 (10-20); CALCIUM 8.9 mg/dl (8.5-10.1); CARBON DIOXIDE 26 mmol/L (21-32); CHLORIDE 106 mmol/L (98-107); CREATININE 1.05 mg/dl (0.60-1.20); GLUCOSE 110 mg/dl (70-99); POTASSIUM 3.4 mmol/L (3.5-5.1); SODIUM 140 mmol/L (136-145)
[2017-05-18 17:42] LABS: ALB/GLOB RATIO 1.1 (0.9-2); ALKALINE PHOSPHATASE 101 U/L (45-117); AST/SGOT 13 U/L (15-37); FERRITIN 23.3 ng/ml (8.0-388.0)
== END | disposition home or self-care (01) ==
LOC: C.LABPBG 15:46
PROVIDERS: ATTEND Family Medicine
DX: D50.9 Iron deficiency anemia, unspecified (principal)

== ENCOUNTER 2017-05-22 08:32 | Inpatient (IN) | payer OTHER ==
[2017-05-15 09:44] VITALS: Ht 171.4 cm; Wt 119.0 kg
--- NOTE | 2017-05-15 10:19 | PAT Medication Instructions ---
Service Date May 15, 2017. Current Home Medication List Albuterol Sulfate (Proair Respiclick), 1-2 PUFFS INH Q4-6H PRN for SOB/Wheezing Aspirin (Aspirin Ec), 81 MG PO HS Cholecalciferol (Vitamin D3), 1 CAP PO QAM Citalopram Hydrobromide (Celexa), 40 MG PO HS Esomeprazole Magnesium (Nexium), 40 MG PO HS Ferrous Sulfate (Iron Slow Release), 1 TAB PO QAM Fluticasone Propionate (Nasal) (Flonase Allergy Relief), 2 SPRAYS KATIANA UD PRN for ALLERGY SX Ibuprofen Tab (Advil), 400 MG PO UD PRN for Pain Pravastatin (Pravachol ), 20 MG PO HS Thyroid ([place] Thyroid), 30 MG PO QAM Medication Instructions For Your Scheduled Surgery - Hold the following medications 10 days prior to surgery: Ibuprofen Tab (Advil), 400 MG PO UD PRN for Pain - Hold the following medications the morning of surgery: Ferrous Sulfate (Iron Slow Release), 1 TAB PO QAM Cholecalciferol (Vitamin D3), 1 CAP PO QAM - Take the following medications the morning of surgery with a sip of water: Thyroid ([place] Thyroid), 30 MG PO QAM Fluticasone Propionate (Nasal) (Flonase Allergy Relief), 2 SPRAYS KATIANA UD PRN for ALLERGY SX (if needed) Albuterol Sulfate (Proair Respiclick), 1-2 PUFFS INH Q4-6H PRN for SOB/Wheezing (if needed) - Take the following medications as scheduled the night before surgery: Pravastatin (Pravachol ), 20 MG PO HS Fluticasone Propionate (Nasal) (Flonase Allergy Relief), 2 SPRAYS KATIANA UD PRN for ALLERGY SX (if needed) Citalopram Hydrobromide (Celexa), 40 MG PO HS Esomeprazole Magnesium (Nexium), 40 MG PO HS Albuterol Sulfate (Proair Respiclick), 1-2 PUFFS INH Q4-6H PRN for SOB/Wheezing (if needed) Aspirin (Aspirin Ec), 81 MG PO HS If you have any questions please call us at [phone] or [phone] or [phone]
[2017-05-15 10:42] LABS: BASO % 0.4 %; BASO ABS # 0.02 K/uL (0-0.2); COMPLETE YES; EOS % 4.9 %; HEMATOCRIT 35.2 % (37-47); IG% 0.2 %; LYMPH % 27.8 %; LYMPH ABS # 1.48 K/uL (1.2-3.4); MEAN CELL VOLUME 91.4 fL (80-100); MEAN CORPUSCULAR HEMOGLOBIN 29.9 pg (25-34); MEAN CORPUSCULAR HGB CONC 32.7 g/dl (32-36); MEAN PLATELET VOLUME 9.9 fL (7.4-10.4); MONO % 8.3 %; NEUT % 58.4 %; PLATELET COUNT 247 K/uL (130-400); RED BLOOD COUNT 3.85 M/uL (4.2-5.4); WHITE BLOOD COUNT 5.33 K/uL (4.8-10.8)
[2017-05-15 10:54] LABS: PARTIAL THROMBOPLASTIN RATIO 1.2; PROTHROMBIN TIME (PATIENT) 11.1 SECONDS (9.0-12.0)
[2017-05-15 14:02] LABS: BUN/CREATININE RATIO 14.5 (10-20); CALCIUM 8.7 mg/dl (8.5-10.1); CREATININE 0.96 mg/dl (0.60-1.20)
--- NOTE | 2017-05-19 09:13 | HISTORY & PHYSICAL EXAMINATION ---
DATE OF ADMISSION: 05/22/2017 CHIEF COMPLAINT: Bilateral knee pain, left side greater than right. 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 She has got a long history of bilateral knee pain and discomfort, left side greater than right. The pain has just gradually gotten worse and at this time, it is going on. She describes a global pain in both knees. It is increased with walking and particularly going up and down stairs. She has been through extensive conservative treatment over the years including injections, which helped initially, but it became less successful over time. Knees are limiting her activity level. She would like to proceed with surgical treatment. Of note, the patient did recently have some back surgery by Dr. Munguia and she recovered from that pretty nicely and doing well. PAST MEDICAL HISTORY: Includes: 1. Elevated cholesterol. 2. Sleep apnea with CPAP machine. 3. Hypothyroidism. 4. Arthritis. 5. Hiatal hernia. 6. Gastroesophageal reflux disease. 7. Obesity with a BMI of 41. PAST SURGICAL HISTORY: Includes: 1. Spinal fusion x2. 2. Cholecystectomy. 3. Knee arthroscopy. 4. Carpal tunnel release x2. 5. Plantar fascia surgery. ALLERGIES: 1. AMOXICILLIN, WHICH CAUSES RASH ONLY. No respiratory problems. 2. FISH OIL. 3. ERYTHROMYCIN. CURRENT MEDICATIONS: 1. Nexium 40 mg a day. 2. Celexa 40 mg a day. 3. Pravastatin 40 mg a day. 4. Aspirin 81 mg a day. SOCIAL HISTORY: A 67-year-old white female. 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 She is . Rare alcohol intake. Does not smoke. FAMILY HISTORY: Significant for COPD and heart disease. REVIEW OF SYSTEMS: Negative for diabetes. Denies any shortness of breath. No history of DVT or PE. No known bleeding problems. PHYSICAL EXAMINATION: GENERAL: Reveals a healthy pleasant, middle-aged female. She looks to be in reasonably good health. HEENT: Benign. NECK: Supple. No lymphadenopathy. LUNGS: Clear to auscultation. HEART: Regular rate and rhythm. ABDOMEN: Soft, nontender, nondistended. EXTREMITIES: Grossly neurovascularly intact except as follows: Examination of both knees reveals the patient walks with a little bit of a waddling gait. Examination of both knees reveals minimal knee effusion, but pretty symmetric. Range of motion is symmetric with full extension and 125 degrees of flexion. She does have crepitance with knee motion. She is tender over the medial joint line and anterior medial aspect of the knee diffusely. No pain with hip motion on either side. X-RAYS: X-rays of both knees were reviewed. It shows advanced bilateral knee patellofemoral arthritis and moderate tibiofemoral arthritis. She does have some chondrocalcinosis. ASSESSMENT: A 67-year-old white female with bilateral knee pain and discomfort, unresponsive to conservative care with advanced patellofemoral arthritis. She has left advanced tibiofemoral disease. She has failed conservative treatment. PLAN: We talked about treatment options. She has failed conservative care. She would like to have her knees replaced. With her patellofemoral disease, we talked about treatment and the predictability of knee arthroplasty. I told her it is a 70% chance knee replacement will help her significantly and a 30% chance it may not help a whole lot. She would like to proceed with left knee replacement. I do not think it is a good idea to do both knees at the same time. I would like to do one and make sure she is happy with that before proceeding with any other. We will take her to the operating room and do a left total knee replacement. The risks and benefits of this procedure were explained to the patient including but not limited to DVT, PE, , infection, neurological injury, vascular injury, bleeding problem, pain, limited range of motion, stiffness, failure to relieve symptoms, incomplete relief of symptoms, need for further surgery in the future, fracture, leg length inequality, nerve palsy, etc. I did tell her specifically that knee replacement is less predictable for patellofemoral arthritis than tibiofemoral arthritis and she is aware and would like to proceed. We did talk about bringing her CPAP machine to the hospital. She has PENICILLIN ALLERGY, but it is not a true anaphylaxis, we will give her Ancef. She is planning to be discharged to home using [facility] home health program.
[~2017-05-22] VITALS: Ht 171.4 cm; Wt 119.0 kg
[~2017-05-22 08:32] MED LIST changes: -ACET-24 PO; +ACETAMINOPHEN 500 MG TAB PO SCH; -ASPEC325 PO; +BUPIVACAINE 0.25% 30 ML VIAL ONE; +BUPIVACAINE 0.5 % 5 MG/1 ML PF 10ML VIAL ONE; +BUPIVACAINE LIPOSOME 266 MG, BUPIVACAINE/EPINEPHRINE INJ 50 ML, SODIUM CHLORIDE 0.9% PF... INFIL SCH; +CEFAZOLIN 2000MG IV PUSH 10 ML IV SCH; +DEXAMETHASONE SOD INJ 4 MG/ML VIAL ONE; +EpINEphrine INJ 1MG/ML AMP 1 MG/ML AMP ONE; +FAMOTIDINE 20 MG TAB PO SCH; +GABAPENTIN 300 MG CAP PO SCH; +LACTATED RINGER'S 1000ML 1,000 ML IV SCH; +LACTATED RINGER'S 1000ML 500 ML IV ONE; +LACTATED RINGER'S 1000ML IV SCH; +METOCLOPRAMIDE HCL 10 MG TAB PO SCH; -RXC5 PO; +SCOPOLAMINE 1.5 MG TDSY TD SCH; +TRANEXAMIC ACID INJ 1,000 MG in SYRINGE 0 ML IV SCH
[2017-05-22 09:17] VITALS: BP 143/93; PULSE 72; TEMP 36.6; O2SAT 95
[2017-05-22] MEDS ORDERED: FENTANYL CITRATE INJ 50 MCG/1 ML 2 ML VIAL ONE (09:41)
[2017-05-22] MEDS ORDERED: MIDAZOLAM HCL 1 MG/ML 2ML VIAL ONE (09:42)
[2017-05-22] MEDS ORDERED: PROPOFOL IV EMULSION 10 MG/ML 20 ML VIAL IV ONE (10:40)
[2017-05-22] MEDS ORDERED: BACITRACIN 50000 UNIT VIAL ONE (11:00)
[2017-05-22] MEDS ORDERED: BUPIVACAINE/EPINEPHRINE 0.25% 1:200,000 30 ML VIAL ONE (11:00)
[2017-05-22] MEDS ORDERED: BUPIVACAINE LIPOSOME 1/3% 266 MG/20 ML VIAL INFIL ONE (11:00)
[2017-05-22] MEDS ORDERED: SODIUM CHLORIDE 0.9% PF 50 ML VIAL ONE (11:00)
[2017-05-22] MEDS ORDERED: EpHEDrine SULFATE INJ 50 MG/ML AMP IV PRN (11:30)
[2017-05-22] MEDS ORDERED: ATROPINE SULFATE 0.1 MG/ML 5ML SYR IV PRN (11:30)
[2017-05-22] MEDS ORDERED: FENTANYL CITRATE INJ 50 MCG/1 ML 2 ML VIAL IV PRN (11:30)
[2017-05-22] MEDS ORDERED: ONDANSETRON INJ 2 MG/ML 2 ML VIAL IV PRN ×2 (11:30→13:00)
[2017-05-22] MEDS ORDERED: ONDANSETRON INJ 2 MG/ML 2 ML VIAL ONE (12:04)
[2017-05-22] MEDS ORDERED: DEXAMETHASONE SOD INJ 4 MG/ML VIAL ONE (12:04)
[2017-05-22] MEDS ORDERED: ZOLPIDEM TARTRATE 5 MG TAB PO PRN (13:00)
[2017-05-22] MEDS ORDERED: METOCLOPRAMIDE HCL INJ 5 MG/ML 2 ML VIAL IV PRN (13:00)
[2017-05-22] MEDS ORDERED: SILVER SULFADIAZINE 1% CR 50 GM JAR EXT PRN (13:00)
[2017-05-22] MEDS ORDERED: BISACODYL 10 MG SUPP PR PRN (13:00)
[2017-05-22] MEDS ORDERED: FLUTICASONE PROPIONATE NA SPR 16 GM BTL NAE PRN (13:00)
[2017-05-22] MEDS ORDERED: ALUMINUM/MAGNESIUM/SIMETH (MAALOX MAX) 30 ML UDC PO PRN (13:00)
[2017-05-22] MEDS ORDERED: CEFAZOLIN IV 2,000 MG in DEXTROSE 5% 50ML 50 ML IV SCH (13:00)
[2017-05-22] MEDS ORDERED: ALBUTEROL SULFATE INH PRN (13:00)
[2017-05-22] MEDS ORDERED: MAGNESIUM HYDROXIDE SUSP 30 ML UDC PO PRN (13:00)
--- NOTE | 2017-05-22 13:00 | [facility] Post Operative Brief Note ---
Immediate Operative Summary Operative Date May 22, 2017. Pre-Operative Diagnosis Advanced Left Knee DJD Patellofemoral Arthritis Left Knee Post-Operative Diagnosis Advanced Left Knee DJD Patellofemoral Arthritis Left Knee Procedure(s) Performed Left Total Knee Arthroplasty Surgeon Dr. Murguia Worship Pastor Surgeon(s) DELROY Dos Santos Estimated Blood Loss 50 ml Findings Left Knee DJD Fluids (cc crystalloids) 1600 cc Specimens A. Left Knee Bone and Tissue Drains None Anesthesia Spinal Complication(s) None Disposition Recovery Room / PACU
[2017-05-22] MEDS ORDERED: HYDROmorphone INJ 0.5 MG/0.5 ML SYR IV PRN (13:15)
--- NOTE | 2017-05-22 13:46 | Anesthesiology Progress Note ---
Anesthesia Post Op Note Date & Time May 22, 2017 at 13:46 Vital Signs Pain Intensity: 0 Vital Signs Past 12 Hours Date Time Temp Pulse Resp B/P (MAP) Pulse Ox O2 Delivery O2 Flow Rate FiO2 05/22/17 13:35 36.4 74 15 135/73 98 Nasal Cannula 2 05/22/17 13:25 68 14 114/66 96 Nasal Cannula 2 05/22/17 13:15 71 14 118/75 96 Nasal Cannula 2 05/22/17 13:05 36.0 77 12 111/66 94 Nasal Cannula 2 05/22/17 09:17 36.6 72 18 143/93 95 Room Air Notes Mental Status: alert / awake / arousable, participated in evaluation Pt Amnestic to Procedure: Yes Nausea / Vomiting: adequately controlled Pain: adequately controlled Airway Patency, RR, SpO2: stable & adequate BP & HR: stable & adequate Hydration State: stable & adequate Neuraxial Anesthesia: was administered, sensory block is resolving Anesthetic Complications: no major complications apparent
--- NOTE | 2017-05-22 13:51 | DIAGNOSTIC IMAGING REPORT ---
L KNEE 1 OR 2 VIEWS ROUTINE CLINICAL HISTORY: Left knee degenerative joint disease. COMPARISON: Left knee radiographs April 30, 2017. FINDINGS: Alignment of the total left knee arthroplasty is anatomic. There is no periprosthetic fracture or unexpected radiopaque foreign body. Skin alexandra are present. Tibial component is cemented. IMPRESSION: Expected findings following total left knee arthroplasty. Electronically signed by: Paulo Blank M.D. 05/22/2017 1:50 PM Dictated Date/Time: 05/22/2017 1:49 PM
[2017-05-22 14:00] VITALS: BP 123/78; PULSE 71; TEMP 36.6; O2SAT 99
[2017-05-22 15:00] VITALS: BP 117/76; PULSE 70; O2SAT 98
[2017-05-22] MEDS ORDERED: ALBUTEROL HFA 8 GM INHALER INH PRN (15:30)
[2017-05-22] MEDS: D5W AND 1/2NSS + 20MEQ KCL 1,000 ML IV SCH ×2 (15:33→21:14)
[2017-05-22] MEDS: CHECK SCOPOLAMINE PATCH PLACEMENT SCH ×2 (15:34→23:13)
[2017-05-22] MEDS: ACETAMINOPHEN 500 MG TAB PO SCH ×2 (15:36→23:13)
[2017-05-22] MEDS: KETOROLAC TROMETHAMINE 15 MG/ML VIAL IV. SCH ×2 (15:36→21:14)
[2017-05-22 16:00] VITALS: BP 127/80; PULSE 75; TEMP 36.5; O2SAT 98
[2017-05-22] MEDS ORDERED: KETOROLAC TROMETHAMINE 30 MG/ML VIAL IV. SCH (16:00)
[2017-05-22 17:04] VITALS: BP 108/69; PULSE 73; TEMP 36.8; O2SAT 95
[2017-05-22] MEDS: FERROUS GLUCONATE 324 MG TAB PO SCH (17:50)
[2017-05-22] MEDS ORDERED: TRANEXAMIC ACID INJ 1,000 MG in SODIUM CHLORIDE 0.9% 100ML 100 ML IV SCH (19:00)
[2017-05-22] MEDS: CEFAZOLIN IV 2,000 MG in SYRINGE 0 ML IV SCH (20:11)
--- NOTE | 2017-05-22 20:22 | OPERATIVE REPORT ---
DATE OF OPERATION: 05/22/2017 SURGEON: Lavon Murguia MD. RISK CONTROL PRODUCT LIABILITY DIRECTOR: DELROY Gresham. PREOPERATIVE DIAGNOSIS: Left knee degenerative joint disease. POSTOPERATIVE DIAGNOSIS: Same. PROCEDURE PERFORMED: Left cemented posterior stabilized total knee arthroplasty. COMPLICATIONS: None. ESTIMATED BLOOD LOSS: 50 mL. FLUID REPLACEMENT: 1600 mL crystalloid fluid replacement. TOURNIQUET TIME: 53 minutes at 300 mmHg. ANESTHESIA: Spinal with adductor canal blocks. DRAINS: None. SPECIMENS: Left knee sent for pathology. 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 She has been through extensive conservative care which became minimally effective over time. X-rays revealed advanced knee arthritis primarily in the patellofemoral compartment, but also with significant change in the tibial femoral compartment. She elected to do total knee arthroplasty. I did explain to her in depth that knee arthroplasty for more patellofemoral disease is less predictable but her only real option. We elected to proceed along this course. OPERATIVE FINDINGS: Operative findings revealed advanced left knee DJD. She had extensive grade 4 changes of the patella and trochlea with eburnation on both surfaces. She had grade 3 changes throughout the medial and lateral compartments. She had a large knee joint effusion. She has large osteophytes in the patellofemoral compartment. OPERATIVE IMPLANTS: Operative implants consisted of: 1. Biomet Vanguard size 67.5 left posterior stabilized femoral component. 2. Biomet size 71 tibial tray. 3. A 10 mm posterior stabilized polyethylene insert. 4. A 31 x 8 all poly patella. OPERATIVE PROCEDURE: The patient was taken to the operating room, identified and placed on the operating table in supine position. All contact areas were appropriately padded. IV antibiotics were provided by the anesthesia team. A spinal anesthetic and adductor canal block had been provided in the holding area. Carbajal catheter was placed in sterile fashion. A left thigh tourniquet was then placed and left lower extremity was then prepped and draped in the usual sterile fashion. The left leg was elevated and exsanguinated with Esmarch and tourniquet was placed at 300 mmHg. An anterior approach to the left knee was then performed through a longitudinal incision centered over the patella. Sharp dissection was carried out through the subcutaneous tissues down to the level of the extensor mechanism. A medial parapatellar arthrotomy incision was made. Some subperiosteal dissection was carried out medially. The fat pad was resected from beneath the patellar tendon. The lateral patellofemoral ligament was released. The patella was everted and the knee was flexed. The osteophytes were taken off the distal femur. The ACL and PCL were then released from the distal femur and the tibia subluxated anteriorly. The external tibial alignment jig was then placed in the anterior face of the tibia and adjusted 14 mm medially. Proximal tibial cut was made to remove about 3-4 mm of bone from the medial side. We did take a little more bone as there was not excessive wear. The tibia was then sized to a size 71. Attention was then drawn to the femur. The distal femur was entered with a sharp drill bit. Intramedullary canal was suctioned. A left 5 degree valgus cutting guide was placed. Distal femoral cutting block was pinned in place. Distal femoral cut was made to take an additional 3 mm of bone off the distal femur. The femur was then sized to a size 67.5. The AP cutting block was pinned parallel to the epicondylar axis, which was 7 degrees of external rotation. The anterior cut, anterior chamfer cut, posterior cut, posterior chamfer cuts were made. Box cutting guide was placed and adjusted slightly lateral and the box cut was made. The knee was flexed. The remnants of the medial and lateral menisci were excised. I did release the popliteus in order to equalize the flexion gap. The trial femoral component was placed. Tibial tray was pinned in maximum external rotation and drill and stem punch were used to create defect in proximal tibia for the tibial tray. The knee was then trialed and the 10 mm insert fit most appropriately. Attention was then drawn to the patella. The patella was cleaned of all soft tissues. Patella was quite thin and measured at 20 mm in thickness. It was cut down to 13. It was sized to a size 31 patella. The lug holes were drilled for a 31 patella. Lateral osteophyte was removed. Patella button was placed. Knee was taken through range of motion and the patella tracked nicely with no thumbs test. Attention was then drawn toward placement of the permanent components. All trial components were removed. Bone plug was placed in the distal femur to limit blood loss. A double batch of Palacos G cement was mixed. A left size 67.5 posterior stabilized femoral component, size 71 tibial tray, 10 mm posterior stabilized polyethylene insert, and a 31 x 8 all poly patella were then cemented in place. The knee was brought out into full extension until the cement hardened. A final cement check was then performed. Pericapsular tissues were injected with total of 100 mL of a combination of 20 mL of Exparel, 30 mL of normal saline, 50 mL of 0.25% Marcaine with epinephrine. The patient did receive 1 gram of tranexamic acid. The tourniquet was then let down for final tourniquet time of 53 minutes. Hemostasis was assured using electrocautery. The wound was once again irrigated. The extensor mechanism was then closed with a combination of #1 PDS suture and #1 Vicryl suture in a [id number] fashion. Extensor mechanism was checked and found to be intact. Subcutaneous tissues were then closed with 2-0 Dexon suture in a buried interrupted fashion. Skin was closed with skin alexandra. The leg was then cleaned and dried and a sterile dressing with Xeroform, 4 x 4, sterile cast padding and Paul bandage were applied. The patient was then transferred to the recovery room in stable condition. The patient tolerated the procedure well without complications. All needle and sponge counts were correct at the end of the operation. I attest to the content of the Intraoperative Record and any orders documented therein. Any exception s are noted below.
[2017-05-22] MEDS ORDERED: NON-FORMULARY MEDICATION (Esomeprazole Magnesium (Nexium) 40 MG) PO SCH (21:00)
[2017-05-22] MEDS: TAPENTADOL ER 50 MG TABCR PO SCH (21:13)
[2017-05-22] MEDS: CITALOPRAM 40 MG TAB PO SCH (21:13)
[2017-05-22] MEDS: DOCUSATE SODIUM 100 MG CAP PO SCH (21:14)
[2017-05-22] MEDS: SENNA 8.6 MG TAB PO SCH (21:14)
[2017-05-22] MEDS: PRAVASTATIN SOD 20 MG TAB PO SCH (21:14)
[2017-05-22] MEDS: ASPIRIN 325 MG ECTAB PO SCH (21:14)
[2017-05-22 22:55] VITALS: BP 102/53; PULSE 76; TEMP 36.6; O2SAT 99
[2017-05-23] VITALS (8 sets, daily range): BP systolic 107–146; BP diastolic 62–86; PULSE 63–84; TEMP 36.4–36.7; O2SAT 92–99
[2017-05-23] MEDS: CEFAZOLIN IV 2,000 MG in SYRINGE 0 ML IV SCH (03:36)
[2017-05-23] MEDS: KETOROLAC TROMETHAMINE 15 MG/ML VIAL IV. SCH ×4 (03:37→22:43)
[2017-05-23] MEDS: D5W AND 1/2NSS + 20MEQ KCL 1,000 ML IV SCH ×2 (03:37→11:33)
[2017-05-23 06:32] LABS: HEMATOCRIT 31.4 % (37-47); MEAN CELL VOLUME 91.5 fL (80-100); MEAN CORPUSCULAR HEMOGLOBIN 29.7 pg (25-34); MEAN CORPUSCULAR HGB CONC 32.5 g/dl (32-36); PLATELET COUNT 245 K/uL (130-400); RED BLOOD COUNT 3.43 M/uL (4.2-5.4); WHITE BLOOD COUNT 12.86 K/uL (4.8-10.8)
[2017-05-23 07:10] LABS: BUN/CREATININE RATIO 14.3 (10-20); CALCIUM 8.6 mg/dl (8.5-10.1); CREATININE 1.07 mg/dl (0.60-1.20); POTASSIUM 4.4 mmol/L (3.5-5.1)
[2017-05-23] MEDS: CHECK SCOPOLAMINE PATCH PLACEMENT SCH ×2 (08:26→16:27)
[2017-05-23] MEDS: FERROUS GLUCONATE 324 MG TAB PO SCH ×3 (08:26→17:45)
[2017-05-23] MEDS: ACETAMINOPHEN 500 MG TAB PO SCH ×2 (08:26→16:29)
[2017-05-23] MEDS: MULTIVITAMIN TAB PO SCH (08:28)
[2017-05-23] MEDS: DOCUSATE SODIUM 100 MG CAP PO SCH ×2 (08:28→21:34)
[2017-05-23] MEDS: ASPIRIN 325 MG ECTAB PO SCH ×2 (08:28→21:34)
[2017-05-23] MEDS: ARMOUR THYROID 30 MG TAB PO SCH (08:29)
[2017-05-23] MEDS: PANTOprazole SOD 40 MG TAB PO SCH (08:29)
[2017-05-23] MEDS: CHOLECALCIFEROL 1000 INTER.UNIT TAB PO SCH (08:30)
[2017-05-23] MEDS: TAPENTADOL ER 50 MG TABCR PO SCH ×2 (08:32→21:35)
--- NOTE | 2017-05-23 13:19 | PROGRESS NOTE ---
DATE: 05/23/2017 DATE: 05/23/2017 SUBJECTIVE: A 67-year-old white female postop day 1 from a left knee replacement. She is doing pretty well. Pain has been manageable. She is getting around pretty well and therapy went well this morning. No chest pain or shortness of breath. Not feeling dizzy or lightheaded. OBJECTIVE: VITAL SIGNS: Temperature 36.6. Vital signs stable. PHYSICAL EXAMINATION: GENERAL: Reveals a pleasant, middle-aged female. She was walking to and from the bathroom when I visited her this morning. She is doing pretty well with a walker. LUNGS: Clear to auscultation. HEART: Regular rate and rhythm. ABDOMEN: Soft, nontender, nondistended. EXTREMITY EXAMINATION: Grossly neurovascularly intact except as follows: Examination of the left leg reveals the dressing to be clean, dry and intact. She can dorsiflex and plantarflex her foot appropriately. Her dressing is clean, dry and intact. LABORATORY DATA: Hemoglobin is 10.2. Hematocrit 31.4. White cell count 12.86. Electrolytes are stable. ASSESSMENT: A 67-year-old white female postop day 1 from left knee replacement, doing pretty well. Pain is controlled. She is neurologically intact. PLAN: 1. DVT prophylaxis including thigh-high TEDs, SCDs, and aspirin twice a day. 2. PT/OT. Weight bear as tolerated. Left total knee protocol. 3. Pain control. Doing well with current pain regimen. 4. Disposition. Plan to discharge to home likely with some home health once adequately recovered.
--- NOTE | 2017-05-23 14:18 | Anesthesiology Progress Note ---
Anesthesia Post Op Note Date & Time May 23, 2017 at 14:17 Vital Signs Vital Signs Past 12 Hours Date Time Temp Pulse Resp B/P (MAP) Pulse Ox O2 Delivery O2 Flow Rate FiO2 05/23/17 11:30 36.6 84 16 110/78 (89) 97 Room Air 05/23/17 10:37 81 98 05/23/17 08:22 92 Room Air 05/23/17 07:44 36.6 78 16 128/86 (100) 92 Room Air 05/23/17 07:20 Room Air 05/23/17 06:40 36.7 63 18 107/62 (77) 93 Room Air 05/23/17 03:55 36.5 68 16 107/67 (80) 96 Room Air Notes Mental Status: alert / awake / arousable, participated in evaluation Pt Amnestic to Procedure: Yes Nausea / Vomiting: adequately controlled Pain: adequately controlled Airway Patency, RR, SpO2: stable & adequate BP & HR: stable & adequate Hydration State: stable & adequate Neuraxial Anesthesia: was administered, sensory block resolved Anesthetic Complications: no major complications apparent
[2017-05-23] MEDS ORDERED: ACET-24 PO (21:16)
[2017-05-23] MEDS ORDERED: ASPEC325 PO (21:16)
[2017-05-23] MEDS ORDERED: RXC5 PO (21:17)
--- NOTE | 2017-05-23 21:20 | Discharge Instructions ---
Discharge Instructions Date of Service May 23, 2017. Admission Reason for Admission: Left Knee Degenerative Joint Disease Discharge Discharge Diagnosis / Problem: Left Knee Replacement Discharge Goals Goal(s): Decrease discomfort, Improve function, Increase independence, Improve disease control, Therapeutic intervention Activity Recommendations Activity Limitations: per Instructions/Follow-up section . Instructions / Follow-Up Instructions / Follow-Up ACTIVITY RECOMMENDATIONS: Physical Therapy: * You will go to physical therapy three times each week for four to six weeks after your surgery in order to regain your knee range of motion and to retrain your knee to work properly. * It is just as important to make sure you are getting your knee perfectly straight as it is to regain your knee bend. * Taking a pain pill an hour before therapy can help you have a more productive and comfortable therapy session. Home Exercise: * You were shown a series of exercises (heel props, heel slides, etc.) in the hospital. Do these exercises three to four times each day including the exercises you were shown in physical therapy. Walking: * Get up and walk several times each day. For the first four weeks, try not to stand or walk for more than one hour at a time. If you do stand or walk for more than one hour, you will not hurt anything, but your knee and leg will likely swell. * As you feel comfortable, you may change from the walker or crutches to a cane and then to independent walking. MEDICATIONS: New Medicine: * You will likely be taking one or more of these medications: 1. Oxycodone - A quick and shorter-acting pain medication. Take one to two tablets every four to six hours to lessen your pain. 2. Iron Sulfate - Take to help you replace the blood lost during surgery. 3. Aspirin - Thins your blood to lessen the chance of forming a blood clot. * The most common side effects of pain medicine and iron are nausea and constipation. If nausea or constipation is too much of a problem or if you have any questions about your new medicines or doses, call [facility] at [phone]. We will try to help you manage these issues. VERY IMPORTANT TO READ AND REVIEW" Pain: * The immediate post-operative period after knee replacement surgery is often quite painful. * You are given a prescription for pain medicine. You should take it, as directed, when you need it, especially before physical therapy and before going to bed. Pain that interferes with sleep is very common and can last several months. * You will likely need pain medicine for the first four to six weeks. It will not stop all of the pain. The pain will lessen and as you feel better, you may change to milder pain medicine such as Tylenol. * The most common side effects of pain medicine are nausea and constipation, so don't take more than you need. SPECIAL CARE INSTRUCTIONS: TEDs/Elastic Stockings: * The white elastic stockings help limit swelling and prevent blood clots from forming in your legs. The more you wear them, the more they work. * Wear them for six weeks after knee replacement surgery and four weeks after partial knee replacement. Prevention of Infection: * Take antibiotics one hour before any dental cleaning, dental work, urological procedure, gastrointestinal procedure or any invasive surgery in order to prevent your new joint from getting infected. * You may get the antibiotics from the doctor performing the procedure or you may call our office at before and we will call in a prescription to the pharmacy of your choice. Things to Watch For: * Drainage from the incision site that occurs more than one week after your surgery. * Severely increased knee/leg pain or swelling. * Increased redness at the incision site. * Fever above 102 degrees Fahrenheit. * Unusual chest pain or shortness of breath. * Unusual pain or burning with urination. Call [facility] at with any of the above problems or if you have any questions about your medicines or recovery. FOLLOW UP VISIT: Make an appointment to see your doctor for approximately two weeks after surgery for a progress check and staple removal by calling the office at . Current Hospital Diet Patient's current hospital diet: Regular Diet Discharge Diet Recommended Diet: Regular Diet Procedures Procedures Performed: Left Total Knee Arthroplasty Pending Studies Studies pending at discharge: no Medical Emergencies . Who to Call and When: Medical Emergencies: If at any time you feel your situation is an emergency, please call [phone] immediately. . Non-Emergent Contact Non-Emergency issues call your: Surgeon . "Provider Documentation" section prepared by Lavon Murguia. . VTE Core Measure Inpt VTE Proph given/why not?: Other Anticoagulation, T.E.D. Stockings, SCD's
[2017-05-23] MEDS: PRAVASTATIN SOD 20 MG TAB PO SCH (22:37)
[2017-05-23] MEDS: OXYCODONE HCL IR 5 MG TAB (IMMEDIATE RELEASE) PO PRN (22:37)
[2017-05-23] MEDS: CITALOPRAM 40 MG TAB PO SCH (22:38)
[2017-05-23] MEDS: SENNA 8.6 MG TAB PO SCH (22:38)
[2017-05-24] MEDS: ACETAMINOPHEN 500 MG TAB PO SCH ×2 (01:21→08:45)
[2017-05-24] MEDS: KETOROLAC TROMETHAMINE 15 MG/ML VIAL IV. SCH ×2 (04:08→09:53)
[2017-05-24 07:14] VITALS: BP 112/75; PULSE 79; TEMP 37.2; O2SAT 97
--- NOTE | 2017-05-24 07:58 | PROGRESS NOTE ---
DATE: 05/24/2017 SUBJECTIVE: A 67-year-old white female postop day 2 from a left knee replacement. The knee is a little bit more sore this morning after therapy yesterday. She denies any new chest pain or shortness of breath. Not feeling dizzy or lightheaded. OBJECTIVE: VITAL SIGNS: Temperature 37.2. Vital signs stable. GENERAL: Reveals a pleasant middle-aged female patient. She is lying in bed, looks pretty comfortable. EXTREMITIES: Examination of the left leg reveals the leg to be well aligned. Dressing is clean, dry and intact. Fairly minimal swelling. Calf is soft and supple. She is neurologically intact. ASSESSMENT: A 67-year-old white female postop day 2 from a left knee replacement, doing pretty well. A little bit more pain today, but not out of the ordinary. PLAN: 1. DVT prophylaxis including thigh-high TEDs, SCDs, and aspirin twice a day. 2. PT and OT. Weight bear as tolerated. Left total knee protocol. 3. Pain control. She has done reasonably well with current pain regimen. 4. Disposition: Plan to discharge to home with some home health later today.
[2017-05-24] MEDS: CHECK SCOPOLAMINE PATCH PLACEMENT SCH ×2 (08:00)
[2017-05-24] MEDS: FERROUS GLUCONATE 324 MG TAB PO SCH (08:30)
[2017-05-24] MEDS: PANTOprazole SOD 40 MG TAB PO SCH (08:46)
[2017-05-24] MEDS: MULTIVITAMIN TAB PO SCH (08:46)
[2017-05-24] MEDS: ARMOUR THYROID 30 MG TAB PO SCH (08:46)
[2017-05-24] MEDS: CHOLECALCIFEROL 1000 INTER.UNIT TAB PO SCH (08:47)
[2017-05-24] MEDS: TAPENTADOL ER 50 MG TABCR PO SCH (08:53)
[2017-05-24] MEDS: DOCUSATE SODIUM 100 MG CAP PO SCH (09:19)
[2017-05-24] MEDS: ASPIRIN 325 MG ECTAB PO SCH (09:19)
[2017-05-24] MEDS: OXYCODONE HCL IR 5 MG TAB (IMMEDIATE RELEASE) PO PRN (09:52)
[2017-05-24 11:15] VITALS: BP 112/75; PULSE 79; TEMP 37.2; O2SAT 97
== END 2017-05-24 12:07 | disposition home health service (06) | DRG 470 ==
LOC: C.ACU 08:32 → C.3E 09:00 → ENRESERV 13:38
PROVIDERS: ADMIT Orthopaedic Surgery Sports Medicine; ATTEND Orthopaedic Surgery Sports Medicine
PROC: 0SRD0J9 Replacement of Left Knee Joint with Synthetic Substitute, Cemented, Open Approach (ICD-10-PCS; principal; 2017-05-22 10:50)
DX: M17.12 Unilateral primary osteoarthritis, left knee (principal); Z68.41 Body mass index [BMI] 40.0-44.9, adult; D50.9 Iron deficiency anemia, unspecified; E78.00 Pure hypercholesterolemia, unspecified; G47.33 Obstructive sleep apnea (adult) (pediatric); E03.9 Hypothyroidism, unspecified; K21.9 Gastro-esophageal reflux disease without esophagitis; F32.9 Major depressive disorder, single episode, unspecified; E66.01 Morbid (severe) obesity due to excess calories; Z98.1 Arthrodesis status; Z79.82 Long term (current) use of aspirin; Z79.899 Other long term (current) drug therapy; Z88.0 Allergy status to penicillin; Z88.1 Allergy status to other antibiotic agents; Z82.5 Family history of asthma and other chronic lower respiratory diseases; Z82.49 Family history of ischemic heart disease and other diseases of the circulatory system

== ENCOUNTER → 2017-06-14 | Outpatient (CLI) | payer OTHER ==
[~2017-06-14] MED LIST changes: +ACET-24 PO; -ACETAMINOPHEN 500 MG TAB PO SCH; +ASPEC325 PO; -ASPI81TA28 PO; -BUPIVACAINE 0.25% 30 ML VIAL ONE; -BUPIVACAINE 0.5 % 5 MG/1 ML PF 10ML VIAL ONE; -BUPIVACAINE LIPOSOME 266 MG, BUPIVACAINE/EPINEPHRINE INJ 50 ML, SODIUM CHLORIDE 0.9% PF... INFIL SCH; -CEFAZOLIN 2000MG IV PUSH 10 ML IV SCH; -DEXAMETHASONE SOD INJ 4 MG/ML VIAL ONE; -EpINEphrine INJ 1MG/ML AMP 1 MG/ML AMP ONE; -FAMOTIDINE 20 MG TAB PO SCH; -GABAPENTIN 300 MG CAP PO SCH; -LACTATED RINGER'S 1000ML 1,000 ML IV SCH; -LACTATED RINGER'S 1000ML 500 ML IV ONE; -LACTATED RINGER'S 1000ML IV SCH; -METOCLOPRAMIDE HCL 10 MG TAB PO SCH; +RXC5 PO; -SCOPOLAMINE 1.5 MG TDSY TD SCH; -TRANEXAMIC ACID INJ 1,000 MG in SYRINGE 0 ML IV SCH
--- NOTE | 2017-06-14 15:59 | DIAGNOSTIC IMAGING REPORT ---
VENOUS DOPP LOWER EXT UNILAT CLINICAL HISTORY: 67 years-old Female presenting with CALF PAIN AND SWELLING. TECHNIQUE: Real-time grayscale and color and spectral Doppler ultrasound imaging of the veins of the left lower extremity was performed. Compression and augmentation were also utilized. COMPARISON: 11/17/2016. FINDINGS: Left: Common femoral vein: Patent. Greater saphenous vein: Patent. Deep femoral vein: Patent. Femoral vein: Patent. Popliteal vein: Patent. Calf veins: Limited visualization. Other: None. IMPRESSION: No evidence of deep venous thrombosis. Electronically signed by: Vini Marina M.D. 06/14/2017 3:58 PM Dictated Date/Time: 06/14/2017 3:57 PM
== END | disposition home or self-care (01) ==
LOC: C.ULTR 14:52
PROVIDERS: ATTEND Orthopaedic Surgery Sports Medicine
DX: Z96.652 Presence of left artificial knee joint (principal); M79.662 Pain in left lower leg; M79.89 Other specified soft tissue disorders

== ENCOUNTER → 2017-07-27 | Outpatient (CLI) | payer OTHER ==
[2017-07-27 13:04] LABS: HEMATOCRIT 37.1 % (37-47); HEMOGLOBIN 12.1 g/dL (12.0-16.0); MEAN CELL VOLUME 93.5 fL (80-100); MEAN CORPUSCULAR HEMOGLOBIN 30.5 pg (25-34); MEAN CORPUSCULAR HGB CONC 32.6 g/dl (32-36); MEAN PLATELET VOLUME 10.3 fL (7.4-10.4); PLATELET COUNT 292 K/uL (130-400); RED CELL DISTRIBUTION WIDTH SD 47.9 fL (36.4-46.3)
[2017-07-27 13:32] LABS: HEMOGLOBIN A1C 5.6 % (4.5-5.6)
[2017-07-27 14:05] LABS: ALBUMIN 3.6 gm/dl (3.4-5.0); ALT/SGPT 14 U/L (12-78); AST/SGOT 12 U/L (15-37); BLOOD UREA NITROGEN 18 mg/dl (7-18); CALCIUM 8.8 mg/dl (8.5-10.1); CARBON DIOXIDE 27 mmol/L (21-32); CREATININE 0.99 mg/dl (0.60-1.20); GLUCOSE 92 mg/dl (70-99); POTASSIUM 4.1 mmol/L (3.5-5.1); SODIUM 141 mmol/L (136-145)
[2017-07-27 14:17] LABS: ALKALINE PHOSPHATASE 85 U/L (45-117); CHOLESTEROL 170 mg/dl (0-200); LDL CHOLESTEROL CALCULATED 92 mg/dl; TOTAL PROTEIN 7.3 gm/dl (6.4-8.2)
== END | disposition home or self-care (01) ==
LOC: C.LABPBG 08:55
PROVIDERS: ATTEND Family Medicine
DX: E78.00 Pure hypercholesterolemia, unspecified (principal); R73.03 Prediabetes; E03.9 Hypothyroidism, unspecified; E53.8 Deficiency of other specified B group vitamins

== ENCOUNTER → 2017-08-27 | Outpatient (CLI) | payer OTHER ==
--- NOTE | 2017-08-28 15:15 | MAMMOGRAPHY REPORT ---
BILATERAL DIGITAL SCREENING MAMMOGRAM TOMOSYNTHESIS WITH CAD: 08/27/2017 CLINICAL HISTORY: Routine screening examination. TECHNIQUE: Breast tomosynthesis in addition to standard 2D mammography was performed. Current study was also evaluated with a Computer Aided Detection (CAD) system. COMPARISON: Comparison is made to exams dated: 08/24/2016 mammogram, 08/23/2015 mammogram, 03/03/2015 [place], 08/25/2014 mammogram, 08/17/2014 mammogram, and 08/14/2013 mammogram - [facility]. BREAST COMPOSITION: The tissue of both breasts is almost entirely fatty. FINDINGS: There are benign coarse calcifications in the 11:00 and 12:00 right breast. No suspicious mass, architectural distortion or cluster of microcalcifications is seen. IMPRESSION: ACR BI-RADS CATEGORY 1: NEGATIVE There is no mammographic evidence of malignancy. A 1 year screening mammogram is recommended. The pa tient will receive written notification of the results. Approximately 10% of breast cancers are not detected with mammography. A negative mammographic report should not delay biopsy if a clinically suggestive mass is present. Grace Chester M.D. ay/:08/27/2017 16:50:47 Extension Service Supervisor: Marnie BURCIAGA(Najma)(M), [facility] letter sent: Normal 1/2 BI-RADS Code: ACR BI-RADS Category 1: Negative
== END | disposition home or self-care (01) ==
LOC: C.MAMM 11:43
PROVIDERS: ATTEND Family Medicine
DX: Z12.31 Encounter for screening mammogram for malignant neoplasm of breast (principal)

== ENCOUNTER → 2017-09-10 | Outpatient (CLI) | payer OTHER ==
[2017-09-10 14:10] LABS: BASO % 0.4 %; BASO ABS # 0.03 K/uL (0-0.2); EOS % 3.8 %; EOS ABS # 0.28 K/uL (0-0.5); HEMOGLOBIN 13.6 g/dL (12.0-16.0); IG# 0.03 K/uL (0.00-0.02); LYMPH % 25.6 %; LYMPH ABS # 1.88 K/uL (1.2-3.4); MEAN CELL VOLUME 91.1 fL (80-100); MEAN CORPUSCULAR HEMOGLOBIN 30.2 pg (25-34); MEAN CORPUSCULAR HGB CONC 33.2 g/dl (32-36); MEAN PLATELET VOLUME 10.6 fL (7.4-10.4); MONO % 10.2 %; MONO ABS # 0.75 K/uL (0.11-0.59); NEUT % 59.6 %; NEUT ABS # 4.36 K/uL (1.4-6.5); PLATELET COUNT 318 K/uL (130-400); RED CELL DISTRIBUTION WIDTH CV 14.1 % (11.5-14.5); RED CELL DISTRIBUTION WIDTH SD 47.3 fL (36.4-46.3); WHITE BLOOD COUNT 7.33 K/uL (4.8-10.8)
[2017-09-10 14:36] LABS: ALBUMIN 3.7 gm/dl (3.4-5.0); ALT/SGPT 23 U/L (12-78); BLOOD UREA NITROGEN 21 mg/dl (7-18); CALCIUM 8.8 mg/dl (8.5-10.1); CARBON DIOXIDE 25 mmol/L (21-32); CREATININE 0.97 mg/dl (0.60-1.20); GLUCOSE 87 mg/dl (70-99); POTASSIUM 3.7 mmol/L (3.5-5.1); SODIUM 139 mmol/L (136-145)
[2017-09-10 14:41] LABS: ALKALINE PHOSPHATASE 96 U/L (45-117); AST/SGOT 13 U/L (15-37); TOTAL PROTEIN 7.3 gm/dl (6.4-8.2)
== END | disposition home or self-care (01) ==
LOC: C.LABPBG 10:56
PROVIDERS: ATTEND Internal Medicine Hematology & Oncology
DX: D50.9 Iron deficiency anemia, unspecified (principal)

== ENCOUNTER → 2017-09-24 | Outpatient (CLI) | payer OTHER ==
--- NOTE | 2017-09-26 16:58 | POLYSOMNOGRAPH REPORT ---
CLINICAL DATA: A 67-year-old female with history of sleep apnea. She lost 25 pounds and wanted reevaluation for sleep apnea. Her [place] sleepiness scale score is 5/24. On the evening of 09/24/2017 a home sleep apnea test was performed using Jose type 3 monitor. Her BMI is 42.12. RECORDING RESULTS: Total recording time was 7 hours. The patient's monitoring time and estimated sleep time was 6.9 hours. RESPIRATORY DATA: Mild sleep apnea was documented. The JANET was 10.1. There were 13 obstructive apneic episodes and 57 hypopneic episodes. The longest respiratory event was 30 seconds. OXIMETRY DATA: Nocturnal hypoxemia was seen. Oxygen ashly was 82%. Mean saturation was 92%. Time below 89% was 13 minutes. HEART RATE DATA: Heart rates ranged from 63-71 beats per minute. SNORING DATA: Snoring was recorded intermittently throughout the night. IMPRESSION: Mild sleep apnea/hypopnea with JANET of 10.1 with mild nocturnal hypoxemia. RECOMMENDATIONS: The patient may benefit from reinstitution of CPAP or use of an oral appliance if symptomatic. Clinical correlation is needed. MARIA FERNANDA
== END | disposition home or self-care (01) ==
LOC: C.NEUR 10:16
PROVIDERS: ATTEND Physician Assistant Medical
DX: G47.30 Sleep apnea, unspecified (principal); E66.9 Obesity, unspecified

== ENCOUNTER → 2018-01-22 | Outpatient (CLI) | payer OTHER ==
[~2018-01-22] MED LIST changes: +GABA-1219 PO
[2018-01-22 16:49] LABS: BASO % 0.4 %; BASO ABS # 0.02 K/uL (0-0.2); EOS % 4.1 %; HEMATOCRIT 37.3 % (37-47); HEMOGLOBIN 12.5 g/dL (12.0-16.0); IG# 0.01 K/uL (0.00-0.02); LYMPH % 32.1 %; LYMPH ABS # 1.58 K/uL (1.2-3.4); MEAN CELL VOLUME 92.3 fL (80-100); MEAN CORPUSCULAR HEMOGLOBIN 30.9 pg (25-34); MEAN CORPUSCULAR HGB CONC 33.5 g/dl (32-36); MEAN PLATELET VOLUME 10.2 fL (7.4-10.4); MONO % 7.9 %; MONO ABS # 0.39 K/uL (0.11-0.59); NEUT % 55.3 %; NEUT ABS # 2.72 K/uL (1.4-6.5); PLATELET COUNT 252 K/uL (130-400); WHITE BLOOD COUNT 4.92 K/uL (4.8-10.8)
== END | disposition home or self-care (01) ==
LOC: C.LABPBG 15:26
PROVIDERS: ATTEND Internal Medicine Hematology & Oncology
DX: D50.9 Iron deficiency anemia, unspecified (principal)

== ENCOUNTER 2019-01-10 14:52 | Inpatient (IN) ==
[2019-01-10] MEDS ORDERED: ONDANSETRON INJ 2 MG/ML 2 ML VIAL IV STA (15:13)
[2019-01-10] MEDS ORDERED: OXYCODONE HCL IR 5 MG TAB (IMMEDIATE RELEASE) PO STA (15:13)
[2019-01-10] MEDS ORDERED: ACETAMINOPHEN 500 MG TAB PO STA (15:13)
[2019-01-10 15:39] LABS: Basophils # (auto) 0.01 K/uL (0-0.2); Basophils % (auto) 0.1 %; Eosinophils # (auto) 0.28 K/uL (0-0.5); Hematocrit (blood only) 35.1 % (37-47); Hemoglobin 11.6 g/dL (12.0-16.0); Immature Granulocytes # (auto) 0.05 K/uL (0.00-0.02); Immature Granulocytes % (auto) 0.5 %; Lymphocytes # (auto) 1.77 K/uL (1.2-3.4); Lymphocytes % (auto) 19.2 %; Mean Corpuscular Volume 91.2 fL (80-100); Mean Platelet Volume 10.2 fL (7.4-10.4); Monocytes # (auto) 0.75 K/uL (0.11-0.59); Monocytes % (auto) 8.1 %; Neutrophils # (auto) 6.35 K/uL (1.4-6.5); Neutrophils % (auto) 69.1 %; Platelet Count 265 K/uL (130-400); RDW Coefficient of Variation 13.1 % (11.5-14.5); RDW Standard Deviation 43.6 fL (36.4-46.3); Red Blood Count 3.85 M/uL (4.2-5.4); White Blood Count 9.21 K/uL (4.8-10.8)
[2019-01-10 15:46] LABS: BUN Creatinine Ratio 15.3 (10-20); Calcium 8.8 mg/dl (8.5-10.1); Creatinine Clr Calc Pharmacy 74.3 ml/min; Est GFR (African American) 67.4; Est GFR (Non-African American) 58.1; Potassium 3.5 mmol/L (3.5-5.1)
[2019-01-10] MEDS ORDERED: MoRPHine SULFATE 4 MG/ML 1 ML CARP\\VIAL ONE (15:49)
--- NOTE | 2019-01-10 16:37 | XRay Report ---
XR chest 1V portable HISTORY: 68 years-old Female weakness acute weakness status post fall COMPARISON: Chest radiographs 10/25/2016 TECHNIQUE: Portable AP view of the chest FINDINGS: Cardiac silhouette is enlarged, unchanged. Calcified granulomata of the lung bases again noted.. No p neumothorax, pleural effusion, focal airspace consolidation or overt pulmonary edema. Degenerative ch anges of the shoulders and spine. IMPRESSION: No acute process. The above report was generated using voice recognition software. It may contain grammatical, syntax o r spelling errors. Electronically signed by: Angel Delgado M.D. 01/10/2019 4:36 PM
--- NOTE | 2019-01-10 16:39 | CT Scan Report ---
CT SCAN OF THE LUMBAR SPINE WITHOUT IV CONTRAST CLINICAL HISTORY: Fall. Low back pain. COMPARISON STUDY: CT of the lumbar spine dated 02/06/2018. TECHNIQUE: CT scan of the lumbar spine is performed from the lower thoracic spine to the sacrum. Imag es are reviewed in the axial, sagittal, and coronal planes. IV contrast was not administered for this examination. A dose lowering technique was utilized adhering to the principles of ALARA. The examina tion is degraded by streak artifact from metallic spinal orthopedic hardware. CT DOSE: 1021.20 mGy.cm FINDINGS: The skeletal structures are heterogeneously osteopenic. There is a horizontally oriented fr acture through the superior endplate of T12, with widening between the anterior aspect of the T11 and T12 vertebral bodies. Fracture involves the T11-T12 disc space, and also involves the right pedicle of T12 (axial image #74). Fracture also extends through the spinous processes of T11 and T12. There a re nondistracted right transverse process fractures of L1 and L2. Paravertebral edema is noted. Verte bral body height is maintained throughout the lumbar spine. There is minimal anterolisthesis at L4-L5 . Alignment is otherwise preserved. Anterior and lateral marginal osteophytes are seen throughout. Th ere is postoperative change from laminectomy and posterior fusion seen from L3 -S1. Interpedicular sc rews are present at L3 and L4. Orthopedic hardware has been removed at L5 and S1. There has been disc ectomy at L4-L5 and L5-S1. There is moderate disc space narrowing seen at L2-L3 and L3-L4. There is n o evidence of large disc herniation or high-grade central canal stenosis by CT. There is no spondylol ysis. No lytic or blastic lesion is seen. The visualized sacrum and bony pelvis appear intact. There is a nondisplaced right posterior 12th rib fractures seen on image #125. There is fatty atrophy of t he paraspinous and iliopsoas musculature. Mild atherosclerotic calcification is noted in the abdomina l aorta. No retroperitoneal lymphadenopathy is identified. IMPRESSION: 1. There is a horizontally oriented fracture through the superior aspect of the T12 vertebral body. T his extends through the T11-T12 disc space, and also involves the posterior elements (right pedicle o f T12, spinous processes of T11 and T12). There is widening anteriorly between the bodies of T11 and T12 indicating ligamentous injury, and this fracture is likely unstable. 2. There are nondistracted right transverse process fractures of L1 and L2. 3. There is a nondistracted fracture of the right posterior 12th rib. 4. No additional fracture is identified. 5. Osteopenia with spondylotic and postoperative changes as above. Findings were discussed with Dr. Hall in the emergency department at the time of interpretation. Electronically signed by: Mathew Heath M.D. 01/10/2019 4:37 PM
[2019-01-10] MEDS ORDERED: DIAZEPAM 5 MG/ML INJ 10ML VIAL IV STA (16:49)
[2019-01-10] MEDS ORDERED: HYDROmorphone INJ 1 MG/ML SYRINGE IV STA (18:08)
[2019-01-10] MEDS ORDERED: HYDROmorphone INJ 2 MG/ML SYR/VIAL IV PRN (18:54)
--- NOTE | 2019-01-10 18:59 | Emergency Department Note ---
Entered by Reema Villarreal acting as a scribe for Ganesh Hall MD History of Present Illness General Chief complaint: Fall Time Seen by Provider: 01/10/19 14:59 Source: patient History of Present Illness Provider complaint: Fall Onset (ago): hour(s) (1.5) Location: back Pain Consistency: + constant Maximum Pain Intensity: 3 Quality: + aching Associated symptoms: + nausea/vomiting (nausea) and + other (Positive: Back claire n) The patient is a 68 year old white female w/ PMHx of cervicalgia, cervical disc herniation, sleep apnea, hyperlipidemia, depression, EGD, who presents to the ED w/ CC of an episode of a fall beginning an hour and a half ago. The patient repots she was at a medical center when her shoes got caught on the rug leading her to trip and fall forward. She notes she has lower back pain that she describes as achy. The patient states she got fentanyl in route. She reports she has history of back surgery. The patient notes she is nauseas Home Medications Home Medications Medication Instructions Recorded Confirmed Type ProAir RespiClick 1 - 2 inh INHALATION Q4 PRN 03/07/18 01/10/19 History acetaminophen [Acetaminophen Extra 1,000 mg PO DAILY PRN 03/07/18 01/10/19 History Strength] aspirin [Aspirin Low Dose] 81 mg PO HS 03/07/18 01/10/19 History hydrocodone 5 mg-acetaminophen 325 1 tab PO Q6H PRN #20 tab 11/18/18 01/10/19 Rx mg tablet citalopram 40 mg tablet 40 mg PO DAILY #90 tab 11/29/18 01/10/19 Rx esomeprazole magnesium 20 mg 20 mg PO HS #30 cap 12/03/18 01/10/19 Rx capsule,delayed release fluticasone propionate 50 2 spray INTRANASAL UD PRN #16 gm 12/03/18 01/10/19 Rx mcg/actuation nasal spray,suspension thyroid (pork) 60 mg tablet 60 mg PO QAM #90 tab 12/03/18 01/10/19 Rx calcium carbonate 600 mg calcium 1,200 mg PO QAM tab 12/06/18 01/10/19 History (1,500 mg) tablet pravastatin 20 mg tablet 20 mg PO HS #90 tab 12/09/18 01/10/19 Rx Allergies Allergy/AdvReac Type Severity Reaction Status Date / Time erythromycin base Allergy Unknown RASH Verified 01/10/19 15:42 fish oil Allergy Unknown sweat, Verified 01/10/19 15:42 nausea, dizzy Penicillins Allergy Unknown RED RASH Verified 01/10/19 15:42 ITCHING tramadol Allergy Unknown rash/hives Verified 01/10/19 15:42 Past Med/Surg History Medical History Sleep apnea (Chronic) NO DEVICES Hyperlipidemia (Chronic) Depression (Chronic) Hypothyroidism (Chronic) GERD (gastroesophageal reflux disease) (Chronic) Spinal stenosis (Chronic) Osteoarthritis (Chronic) Periodic limb movement disorder (Chronic) Allergic rhinitis (Chronic) Anxiety (Chronic) B12 deficiency (Chronic) Cervical disc disease (Chronic) Chronic back pain (Chronic) Degeneration, intervertebral disc, thoracic (Chronic) Depression with anxiety (Chronic) Diverticulosis (Chronic) GERD without esophagitis (Chronic) Hypercholesterolemia (Chronic) Iron deficiency anemia (Chronic) Mild sleep apnea (Chronic) Nocturnal hypoxia (Chronic) Prediabetes (Chronic) Primary osteoarthritis, unspecified hand (Chronic) Thoracic disc disease (Chronic) Vitamin D deficiency (Chronic) Surgical History History of tooth extraction (Resolved) ALL TEETH History of appendectomy (Resolved) History of cholecystectomy (Resolved) History of esophagogastroduodenoscopy (EGD) (Resolved) History of colonoscopy (Resolved) History of lumbar spinal fusion (Resolved) X2 History of back surgery (Resolved) REPAIR OF FUSION--REMOVED 2 SCREWS History of kyphoplasty (Resolved) History of total left knee replacement (TKR) (Resolved) History of arthroplasty of left knee (Resolved) History of arthroplasty of right knee (Resolved) S/P foot surgery, right (Resolved) RELEASE OF PLANTAR FASCIITIS S/P foot surgery, left (Resolved) RELEASE OF PLANTAR FASCIITIS History of carpal tunnel release of both wrists (Resolved) History of dilatation and curettage (Resolved) Family History Other Cancer Hypertension Social History Preferred Language: Croatian Communication Ability: Effective Beliefs That Will Affect Care: None Current Living Situation: Spouse Feels Safe at Home: Yes Smoking Status: Never smoker Second Hand Exposure: Yes (PARENTS SMOKED) Hx Alcohol Use: No Hx Substance Use: No Review of Systems See HPI for pertinent positives & negatives. and A total of 10 systems reviewed and were otherwise negative Physical Exam Vital Signs Vital Signs - 24 hr 01/10/19 15:00 Temperature 36.7 C Temperature Source Oral Sepsis Recent Fever Within 48 Hours No Sepsis Action Taken by Nursing No Action Required Pulse Rate 60 Pulse Rhythm Regular Pulse Strength Normal Respiratory Rate 16 Respiratory Effort / Characteristics Non-Labored Respiratory Depth Normal Respiratory Pattern Regular Blood Pressure 125/79 Blood Pressure Mean 94 Blood Pressure Position Lying Pulse Oximetry 95 Oxygen Delivery Method Room Air GENERAL: Mildly uncomfortable in appearance, well nourished, non-toxic. EYE EXAM: Normal conjunctiva. PERRL, no anisocoria and EOM's grossly intact w/o pain. OROPHARYNX: Moist mucous membranes. Grossly normal dentition. NECK: Supple, no nuchal rigidity, no adenopathy, non-tender. No signs of meningismus. LUNGS: Clear to auscultation. Normal chest wall mechanics. HEART: NSR, no MRG. ABDOMEN: Abdomen soft, non-tender, normo-active bowel sounds, no masses, no rebound or guarding. Multiple well-heeled surgical scars. BACK: No CVA TTP. Paraspinal lower lumbar pain. Midline well-heeled lower back scar SKIN: No rashes and no bruising. UPPER EXTREMITIES: Upper extremities are grossly normal. LOWER EXTREMITIES: No pitting edema. No calf pain. in distal. Good flection and extension to hips, knees, and ankles. No sata anesthesia NEURO EXAM: A&O x3, cranial nerves II-XII grossly intact, normal speech, moves all 4 extremities on command w/o issue. Course 1506: The patient was evaluated in room A9B. A complete history and physical exam was performed. 1645: I checked on the patient. 1648: I discussed the patient's case with Dr. Munguia, Orthopedic Surgery. He will evaluate the patient for further management. 1658: Upon reevaluation, the patient is resting comfortably. I discussed laboratory and radiographic results with her. The patient verbalized agreement of the treatment plan. The patient will be evaluated for further management and care. Administered Medications Discontinued Medications Acetaminophen (Tylenol) 1,000 mg PO NOW STA Stop: 01/10/19 15:14 Last Admin: 01/10/19 15:25 Dose: 1,000 mg Documented by: [id number] Diazepam (Valium) 5 mg IV NOW STA Stop: 01/10/19 16:50 Last Admin: 01/10/19 17:14 Dose: 5 mg Documented by: [id number] Hydromorphone HCl (Dilaudid) 1 mg IV NOW STA Stop: 01/10/19 18:09 Last Admin: 01/10/19 18:14 Dose: 1 mg Documented by: [id number] Morphine Sulfate (Morphine Sulfate) Confirm Administered Dose 4 mg .ROUTE .[facility] Stop: 01/10/19 15:50 Last Admin: 01/10/19 16:04 Dose: 4 mg Documented by: [id number] Ondansetron HCl (Zofran) 4 mg IV NOW STA Stop: 01/10/19 15:14 Last Admin: 01/10/19 15:25 Dose: 4 mg Documented by: [id number] Oxycodone HCl (Roxicodone Immediate Rel) 5 mg PO NOW STA Stop: 01/10/19 15:14 Last Admin: 01/10/19 15:24 Dose: 5 mg Documented by: [id number] Medical Decision Making Differential Diagnosis Differential diagnosis: Etiologies such as muscular strain, fracture, metastatic disease, disc herniation, sciatica, epidural abscess, vertebral osteomyelitis, discitis, spinal epidural hematoma, cord compression, cauda equina/conus medullaris syndrome, aortic disease, infection, shingles, renal colic, gastrointestinal, acute exacerbation of chronic back pain, as well as others were entertained. Medical Records Attestation: I reviewed the patient's medical records. Home Medications Current Medication List: was personally reviewed by me Laboratory Data Attestation: I reviewed the patient's lab results. Result diagrams: 01/10/19 15:08 01/10/19 15:08 Lab Results 01/10/19 01/10/19 Range/Units 15:08 15:08 WBC 9.21 (4.8-10.8) K/uL RBC 3.85 L (4.2-5.4) M/uL Hgb 11.6 L (12.0-16.0) g/dL Hct 35.1 L (37-47) % MCV 91.2 (80-100) fL MCH 30.1 (25-34) pg MCHC 33.0 (32-36) g/dL RDW Std Deviation 43.6 (36.4-46.3) fL RDW Coeff of Too 13.1 (11.5-14.5) % Plt Count 265 (130-400) K/uL MPV 10.2 (7.4-10.4) fL Immature Gran % (Auto) 0.5 % Neut % (Auto) 69.1 % Lymph % (Auto) 19.2 % Castro % (Auto) 8.1 % Eos % (Auto) 3.0 % Baso % (Auto) 0.1 % Immature Gran # (Auto) 0.05 H (0.00-0.02) K/uL Neut # (Auto) 6.35 (1.4-6.5) K/uL Lymph # (Auto) 1.77 (1.2-3.4) K/uL Castro # (Auto) 0.75 H (0.11-0.59) K/uL Eos # (Auto) 0.28 (0-0.5) K/uL Baso # (Auto) 0.01 (0-0.2) K/uL Sodium 143 (136-145) mmol/L Potassium 3.5 (3.5-5.1) mmol/L Chloride 111 H (98-107) mmol/L Carbon Dioxide 25 (21-32) mmol/L Anion Gap 7.0 (3-11) BUN 15 (7-18) mg/dl Creatinine 0.99 (0.6-1.2) mg/dl Est Cr Clr Drug Dosing 74.3 ml/min Est GFR ( Amer) 67.4 Est GFR (Non-Af Amer) 58.1 BUN/Creatinine Ratio 15.3 (10-20) Glucose 114 H (70-99) mg/dl Calcium 8.8 (8.5-10.1) mg/dl Imaging Data Radiologist's Impression: Radiology results as stated below per my review and the radiologist's interpretation: XR chest 1V portable HISTORY: 68 years-old Female weakness acute weakness status post fall COMPARISON: Chest radiographs 10/25/2016 TECHNIQUE: Portable AP view of the chest FINDINGS: Cardiac silhouette is enlarged, unchanged. Calcified granulomata of the lung bases again noted.. No pneumothorax, pleural effusion, focal airspace consolidation or overt pulmonary edema. Degenerative changes of the shoulders and spine. IMPRESSION: No acute process. The above report was generated using voice recognition software. It may contain grammatical, syntax or spelling errors. Electronically signed by: Angel Delgado M.D. 01/10/2019 4:[address] SCAN OF THE LUMBAR SPINE WITHOUT IV CONTRAST CLINICAL HISTORY: Fall. Low back pain. COMPARISON STUDY: CT of the lumbar spine dated 02/06/2018. TECHNIQUE: CT scan of the lumbar spine is performed from the lower thoracic spine to the sacrum. Images are reviewed in the axial, sagittal, and coronal planes. IV contrast was not administered for this examination. A dose lowering technique was utilized adhering to the principles of ALARA. The examination is degraded by streak artifact from metallic spinal orthopedic hardware. CT DOSE: 1021.20 mGy.cm FINDINGS: The skeletal structures are heterogeneously osteopenic. There is a horizontally oriented fracture through the superior endplate of T12, with widening between the anterior aspect of the T11 and T12 vertebral bodies. Fracture involves the T11-T12 disc space, and also involves the right pedicle of T12 (axial image #74). Fracture also extends through the spinous processes of T11 and T12. There are nondistracted right transverse process fractures of L1 and L2. Paravertebral edema is noted. Vertebral body height is maintained throughout the lumbar spine. There is minimal anterolisthesis at L4-L5. Alignment is otherwise preserved. Anterior and lateral marginal osteophytes are seen throughout. There is postoperative change from laminectomy and posterior fusion seen from L3 -S1. Interpedicular screws are present at L3 and L4. Orthopedic hardware has been removed at L5 and S1. There has been discectomy at L4-L5 and L5-S1. There is moderate disc space narrowing seen at L2-L3 and L3-L4. There is no evidence of large disc herniation or high-grade central canal stenosis by CT. There is no spondylolysis. No lytic or blastic lesion is seen. The visualized sacrum and bony pelvis appear intact. There is a nondisplaced right posterior 12th rib fractures seen on image #125. There is fatty atrophy of the paraspinous and iliopsoas musculature. Mild atherosclerotic calcification is noted in the abdominal aorta. No retroperitoneal lymphadenopathy is identified. IMPRESSION: 1. There is a horizontally oriented fracture through the superior aspect of the T12 vertebral body. This extends through the T11-T12 disc space, and also involves the posterior elements (right pedicle of T12, spinous processes of T11 and T12). There is widening anteriorly between the bodies of T11 and T12 indicating ligamentous injury, and this fracture is likely unstable. 2. There are nondistracted right transverse process fractures of L1 and L2. 3. There is a nondistracted fracture of the right posterior 12th rib. 4. No additional fracture is identified. 5. Osteopenia with spondylotic and postoperative changes as above. Findings were discussed with Dr. Hall in the emergency department at the time of interpretation. Electronically signed by: Mathew Heath M.D. 01/10/2019 4:37 PM Blood Pressure Blood Pressure Findings: Normal blood pressure Blood Pressure Disposition: did not require urgent referral MDM Narrative The patient is a 68 year old white female w/ PMHx of cervicalgia, cervical disc herniation, sleep apnea, hyperlipidemia, depression, EGD, who presents to the ED w/ CC of an episode of a fall beginning an hour and a half ago. Patient was seen and evaluated the bedside. The patient did suffer a mechanical fall to where she fell forward and essentially experienced a hyper extension injury of her lower back. The patient does have pain. The patient is able to move her bilateral lower extremities and does not any sensory deficits. The patient did have blood work completed along with CT of the lumbar spine. I did receive a call from radiology was concerned concerned about the possibility of an unstable T11-T12 fracture. There may be some associated ligamentous injury. The patient did receive additional pain medication. I did speak with the on- call orthopedic casework specialist Dr. Munguia who did know the patient and subsequently would admit the patient. Patient's pain was mildly improved. The patient's blood work did show some mild anemia. The patient has a stable blood pressure and heart rate. I do not believe that she requires additional imaging given the fairly low height of the fall and reassuring vital signs. I believe the reason that the trauma was caused was due to the fact that the patient had fallen with her rate going forward to being stop by the door causing her hyperextension type injury. Patient was admitted to Dr. Munguia's service. Impression & Plan Closed T12 fracture, Right rib fracture, Fracture of transverse process of lumbar vertebra, Fall Discharge Plan Visit Data *Final* Discharge Date/Time: 01/10/19 18:51 Chief Complaint: Fall ED Provider: Ganesh Hall Discharge Problem: Closed T12 fracture, Right rib fracture, Fracture of transverse process of lumbar vertebra, Fall Patient Disposition: Admitted As Inpatient Discharge Instructions Interventions: ED Discharge Assessment Last Done: 01/10/19 18:51 Discharge Problem: Closed T12 fracture Qualifiers: Encounter type: initial encounter Fracture morphology: unspecified fracture morphology Qualified Code(s): S22.089A - Unspecified fracture of T11-T12 vertebra, initial encounter for closed fracture Right rib fracture Qualifiers: Encounter type: initial encounter Rib fracture type: single rib Fracture type: closed Qualified Code(s): S22.31XA - Fracture of one rib, right side, initial encounter for closed fracture Fracture of transverse process of lumbar vertebra Qualifiers: Encounter type: initial encounter Fracture type: closed Qualified Code(s): S32.009A - Unspecified fracture of unspecified lumbar vertebra, initial encounter for closed fracture Fall Qualifiers: Encounter type: initial encounter Qualified Code(s): W19.XXXA - Unspecified fall, initial encounter The scribe's documentation has been prepared under my direction and personally reviewed by me in its entirety. I confirm that the note above accurately reflects all work, treatment, procedures, and medical decision making performed by me.
[2019-01-10] MEDS ORDERED: FLUTICASONE PROPIONATE NA SPR 16 GM BTL PRN (19:30)
[2019-01-10] MEDS ORDERED: Nursing to Pharmacy Communication ONE (19:37)
[2019-01-10] MEDS ORDERED: ONDANSETRON INJ 2 MG/ML 2 ML VIAL IV SCH (20:00)
[2019-01-10] MEDS ORDERED: ONDANSETRON INJ 2 MG/ML 2 ML VIAL IV PRN (20:17)
[2019-01-10] MEDS ORDERED: ACETAMINOPHEN 500 MG TAB PO PRN (20:17)
[2019-01-10] MEDS: PANTOprazole 40 MG TAB PO SCH (20:58)
[2019-01-10] MEDS: PRAVASTATIN SOD 20 MG TAB PO SCH (20:58)
[2019-01-10] MEDS: ASPIRIN 81 MG ECTAB PO SCH (20:58)
[2019-01-10] MEDS: KETOROLAC TROMETHAMINE 15 MG/ML VIAL IV SCH (20:58)
[2019-01-11] MEDS: HYDROCODONE/ACETAMOPHEN 5/325MG TAB PO PRN ×2 (00:38→06:32)
[2019-01-11] MEDS: KETOROLAC TROMETHAMINE 15 MG/ML VIAL IV SCH ×2 (01:45→09:14)
[2019-01-11] MEDS: ARMOUR THYROID 30 MG TAB PO SCH (06:09)
--- NOTE | 2019-01-11 08:51 | History and Physical Report ---
DATE OF ADMISSION: 01/10/2019 HISTORY OF PRESENT ILLNESS: Juanita is delightful. I have known her for several years. She had a fall, suffered an injury yesterday at a medical center up in [place]. She fell, tripped forward, hit a door, fell back, suffered an assortment of injuries to her ribs and thoracolumbar spine. PAST MEDICAL HISTORY: Positive for sleep apnea, depression, hypothyroid, GERD, stenosis, arthritis, obesity. PAST SURGICAL HISTORY: Includes colonoscopy, tooth extraction, appendectomy, cholecystectomy, spinal surgery, kyphoplasty, knee replacements and foot surgery. FAMILY HISTORY: Carcinoma, hypertension. SOCIAL HISTORY: She lives with her spouse at home. Feels safe. No smoking, no alcohol. REVIEW OF SYSTEMS: She denies any blurred vision, double vision, head trauma. Denies any fevers, sweats, chills. Admits to occasional chest pain with inhalation. Denies any palpitations. Denies nausea, vomiting, urgency, frequency, dysuria. PHYSICAL EXAMINATION: GENERAL: She is 5 feet 7 inches, 120 kilograms, BMI 41.4. VITAL SIGNS: Blood pressure 132/73, pulse 70, respiratory rate 16, afebrile, 94% on O2 sat. HEENT: Pupils react to light and accommodation. Ear, nose and throat clear. CARDIAC: Normal S1, S2. No S3. LUNGS: Clear. ABDOMEN: Soft, nontender. NEUROLOGICAL: Intact. Does move all extremities. No weakness. No associated paresthesias, numbness, or tingling. She does have mechanical back pain and pain with palpation, pain with percussion, pain with log rolling. IMAGING: Images reviewed. There was a CT scan ordered. I could not it perfectly, but the radiologist did a great job of interpreting it. Appears to be a fracture horizontal through the superior endplate of T12. There are some spinous process issues. There is some ligamentous possibility as well, it is likely an unstable injury. She has a nondisplaced transverse process fractures and some rib fractures. IMPRESSION: Delightful patient with a T11-T12 fracture and some rib fractures with assortment of other comorbidities dictated upon. PLAN: 1. At this point in time, risk on log roll her and control her pain. 2. I am ordering some plain films to get a better delineation of her pathology. There is an outside chance of surgery. I think we will able to brace her and get her stabilized. There would not be anything done urgently over the weekend, we will try to get her pain under control.
[2019-01-11] MEDS ORDERED: CITALOPRAM 40 MG TAB PO SCH (09:00)
--- NOTE | 2019-01-11 09:11 | XRay Report ---
THORACIC SPINE 3 VIEWS CLINICAL HISTORY: Fall. Thoracic back pain. FINDINGS: AP, lateral, and swimmer's views of the thoracic spine are compared to study dated 5 and correlated with lumbar spine CT dated 01/10/2019. The skeletal structures are osteopenic. There is a mild compression deformity of T7 with evidence of previous vertebroplasty. Vertebral body height is otherwise maintained throughout the imaged thoracic spine. Small anterior osteophytes are seen th roughout. T12 is not visualized on this examination. The transverse processes and pedicles are grossl y intact as seen on the frontal view. Multilevel degenerative disc space narrowing is noted. The lung parenchyma is clear as imaged. IMPRESSION: 1. No acute bony abnormality is identified. 2. T12 and the patient's known fracture are not visualized on this examination. 3. There is a mild chronic compression wedging of T7 with evidence of previous vertebroplasty. Electronically signed by: Mathew Heath M.D. 01/11/2019 9:10 AM
[2019-01-11] MEDS: CALCIUM 600MG + VIT D 400 IU TAB PO SCH (09:12)
--- NOTE | 2019-01-11 09:15 | XRay Report ---
LUMBAR SPINE 3 VIEWS CLINICAL HISTORY: Fracture. FINDINGS: AP, lateral, and cone-down views of the lumbar spine are compared to study dated 11/07/2016 and correlated with lumbar spine CT dated 01/10/2019. The skeletal structures are osteopenic. Again se en is a horizontally oriented fracture through the superior endplate of T12. There is widening anteri nancy between the bodies of T11 and T12. Vertebral body height and alignment are maintained throughout the lumbar spine. Anterior and lateral marginal osteophytes are seen throughout. Again seen is posto perative change from laminectomy and posterior fusion from L3 -S1. Interpedicular screws are present at L2 and L3. The orthopedic hardware appears intact. There has been discectomy at L4-L5 and L5-S1. D egenerative disc space narrowing seen at the remaining lumbar levels. The subtle transverse and spino us process fractures seen by CT are not apparent on x-ray. The bony pelvis is intact as imaged. There is no bowel obstruction. Moderate colonic fecal retention is observed. IMPRESSION: 1. There is unchanged alignment of a horizontally oriented fracture through the vertebral body of T12 and the T11-T12 disc space. 2. There is persistent widening between the anterior bodies of T11 and T12. 3. Additional small transverse and spinous process fractures seen by CT are not apparent by x-ray. 4. Osteopenia with postoperative and spondylotic change as above. Electronically signed by: Mathew Heath M.D. 01/11/2019 9:14 AM
[2019-01-11] MEDS: HYDROCODONE/ACETAMINOPHEN 10/325 TAB PO PRN ×2 (13:51→21:40)
[2019-01-11] MEDS: KETOROLAC TROMETHAMINE 10 MG TABLET PO SCH ×3 (16:12→18:02)
[2019-01-11] MEDS ORDERED: Nursing to Pharmacy Communication ONE (16:51)
[2019-01-11] MEDS ORDERED: ALBUTEROL HFA 8 GM INHALER INH PRN (20:21)
[2019-01-11] MEDS: DOCUSATE SODIUM 100 MG CAP PO SCH (21:37)
[2019-01-11] MEDS: CITALOPRAM 40 MG TAB PO SCH (21:38)
[2019-01-11] MEDS: PRAVASTATIN SOD 20 MG TAB PO SCH (21:38)
[2019-01-11] MEDS: PANTOprazole 40 MG TAB PO SCH (21:38)
[2019-01-11] MEDS: ASPIRIN 81 MG ECTAB PO SCH (21:38)
[2019-01-12] MEDS: KETOROLAC TROMETHAMINE 10 MG TABLET PO SCH ×4 (00:39→23:43)
[2019-01-12] MEDS: ARMOUR THYROID 30 MG TAB PO SCH (06:10)
--- NOTE | 2019-01-12 08:59 | Progress Note ---
DATE: 01/12/2019 SUBJECTIVE: She is alert, oriented. Pain is slightly better. OBJECTIVE: Vital signs stable. Neurologically intact. Taking p.o. Carbajal catheter still in place. X-rays reviewed. ASSESSMENT: She does have a closed fracture, T12 vertebrae, it is an interesting cervical distraction type injury and hyperextension. She has a lot of bony canal support and osteophyte formation. It placed into the fact and I believe it is relatively stable enough to be treated without surgical intervention. PLAN: We will get her fitted for a thoracolumbosacral orthosis brace. I think an [id number] variety would be appropriate. We will try to advance her activity. Optimistically, we can get her home in 24-48 hours.
[2019-01-12] MEDS: CALCIUM 600MG + VIT D 400 IU TAB PO SCH (09:20)
[2019-01-12] MEDS: SENNA 8.6 MG TAB PO SCH (09:21)
[2019-01-12] MEDS: DOCUSATE SODIUM 100 MG CAP PO SCH ×2 (09:21→20:12)
[2019-01-12] MEDS: HYDROCODONE/ACETAMINOPHEN 10/325 TAB PO PRN (11:17)
[2019-01-12] MEDS: HYDROmorphone INJ 0.5 MG/0.5 ML SYR IV PRN ×3 (12:37→20:05)
[2019-01-12] MEDS: ASPIRIN 81 MG ECTAB PO SCH (20:12)
[2019-01-12] MEDS: CITALOPRAM 40 MG TAB PO SCH (20:12)
[2019-01-12] MEDS: PRAVASTATIN SOD 20 MG TAB PO SCH (20:12)
[2019-01-12] MEDS: PANTOprazole 40 MG TAB PO SCH (20:12)
[2019-01-13] MEDS: ARMOUR THYROID 30 MG TAB PO SCH (05:42)
[2019-01-13] MEDS: HYDROCODONE/ACETAMINOPHEN 10/325 TAB PO PRN ×2 (05:43→15:53)
[2019-01-13] MEDS: SENNA 8.6 MG TAB PO SCH (08:54)
[2019-01-13] MEDS: DOCUSATE SODIUM 100 MG CAP PO SCH ×2 (08:54→20:20)
[2019-01-13] MEDS: KETOROLAC TROMETHAMINE 10 MG TABLET PO SCH ×3 (08:54→23:26)
[2019-01-13] MEDS: CALCIUM 600MG + VIT D 400 IU TAB PO SCH (08:54)
[2019-01-13] MEDS: HYDROmorphone INJ 0.5 MG/0.5 ML SYR IV PRN ×2 (13:19→13:49)
--- NOTE | 2019-01-13 15:10 | Progress Note ---
DATE: 01/13/2019 SUBJECTIVE: She is alert, oriented this afternoon, seen on rounds approximately 2:00 p.m. on 13 of January. She is about the same, says that her major complaint today is more of abdominal discomfort than low back pain. She has been out of bed to dangle her feet. OBJECTIVE: She is neurologically intact. Her abdomen, although obese is slightly distended. She also complains of nose difficulty and nasal pain. X-rays demonstrate a relatively stable T12 distraction fracture. Abdominal distention, depression, sleep apnea, obesity and possible nasal fracture. PLAN: We will order an x-ray of her nose to make sure there is no associated fracture. We are getting our medicine on board because of her abdominal distention. We are re-writing for a brace for support. She will be managed nonoperatively. We are getting a brace called a thoracolumbar sacral orthosis that should be worn when sitting, ambulatory, out of bed, does not need to be worn when stationary and supine and I will follow her daily, hopefully get her home next 24-48 hours.
--- NOTE | 2019-01-13 17:15 | Hospitalist Consultation ---
Date of Consultation January 13, 2019 Assessment & Plan (1) Abdominal pain: Her abdominal pain started immediately following her fall. Her 11th/12th rib fractures on the right are likely causing much of her pain. I ordered CT abd/pelvis this evening and no solid organ injury was seen. She does have constipation and perhaps a minimal amount of ileus which could be contributing to her pain. However, again, much of her pain is RUQ and thus the rib fractures are the likely big players. See below in "Rib fracture" re: Rx plan. Present on Admission?: Yes (2) Right rib fracture: I believe that the 12th rib Fx on right is the cause of much of her upper abdominal discomfort. An additional 11th rib Fx was seen on CT abd/pelvis tonight and could also be contributing to her pain. CT abd/pelvis did NOT demonstrate any solid organ injury (no liver lac, splenic injury, etc was seen). Add k-pad heating pad. Add lidoderm patches. Agree w/ toradol TID and narcotics prn pain. Present on Admission?: Yes (3) Constipation: acute/chronic. agree with senna daily. add miralax daily. dulcolax suppos x 1 now. Present on Admission?: Yes (4) Ileus: minimal/mild - likely related more so to constipation and narcotic usage. check K/mag in am. bowel regimen. ambulate. limit narcotics, if possible. (5) Hypothyroidism: TSH early 2018 was normal. Cont current thyroid med. Present on Admission?: Yes (6) Hyperlipidemia: Cont statin agent. Present on Admission?: Yes (7) Sleep apnea: Caution with narcotic usage especially since her RADHA is not treated as she would be at risk of CO2 retention. Present on Admission?: Yes (8) Fall: accidental. no preceding syncope, presyncope, or other CV symptoms. B12 level in recent past normal. PT, OT evals. Present on Admission?: Yes (9) B12 deficiency: h/o such, but B12 level in 07/2018 was about 600. resolved. Thank you for this consult. Will follow with you. Present on Admission?: No History of Present Illness Reason for Consultation: abdominal distension & pain Requesting Physician: Dr. Sorin Munguia Attending Physician: Sorin Munguia, DO History of Present Illness 68yo female with history of morbid obesity, hypothyroidism, prediabetes, and RADHA who presented after having had a fall at a medical office in [place] on 01/10/19. Patient states she was walking across the lobby and tripped on the carpet. She fell forwards into a door, striking her head (eyes/chin/etc) on the door, and then falling backwards. She did not lose consciousness. As a result of the fall she fractured her T12 vertebrae. Since the fall she has also had abdominal discomfort in multiple locations but particularly the RUQ region. Movement makes the pain worse. Eating does not make it worse. She has not had a bowel movement since Sunday. She is passing flatus. Had nausea Sunday and Sunday but this has resolved. Appetite has been poor since the fall. No vomiting. No chest pain. No dyspnea. She reports all of the various pain meds she is taking are not helpful. Has history of cervical herniated disc but denies any worsening of her pain and denies radicular symptoms in her arms. Allergies Allergy/AdvReac Type Severity Reaction Status Date / Time erythromycin base Allergy Unknown RASH Verified 01/10/19 15:42 fish oil Allergy Unknown sweat, Verified 01/10/19 15:42 nausea, dizzy Penicillins Allergy Unknown RED RASH Verified 01/10/19 15:42 ITCHING tramadol Allergy Unknown rash/hives Verified 01/10/19 15:42 Home Medications Home Medications Medication Instructions Recorded Confirmed Type ProAir RespiClick 1 - 2 inh INHALATION Q4 PRN 03/07/18 01/10/19 History acetaminophen [Acetaminophen Extra 1,000 mg PO DAILY PRN 03/07/18 01/10/19 History Strength] aspirin [Aspirin Low Dose] 81 mg PO HS 03/07/18 01/10/19 History hydrocodone 5 mg-acetaminophen 325 1 tab PO Q6H PRN #20 tab 11/18/18 01/10/19 Rx mg tablet citalopram 40 mg tablet 40 mg PO DAILY #90 tab 11/29/18 01/10/19 Rx esomeprazole magnesium 20 mg 20 mg PO HS #30 cap 12/03/18 01/10/19 Rx capsule,delayed release fluticasone propionate 50 2 spray INTRANASAL UD PRN #16 gm 12/03/18 01/10/19 Rx mcg/actuation nasal spray,suspension thyroid (pork) 60 mg tablet 60 mg PO QAM #90 tab 12/03/18 01/10/19 Rx calcium carbonate 600 mg calcium 1,200 mg PO QAM tab 12/06/18 01/10/19 History (1,500 mg) tablet pravastatin 20 mg tablet 20 mg PO HS #90 tab 12/09/18 01/10/19 Rx Patient History Medical History Sleep apnea (Chronic) NO DEVICES Hyperlipidemia (Chronic) Depression (Chronic) Hypothyroidism (Chronic) GERD (gastroesophageal reflux disease) (Chronic) Spinal stenosis (Chronic) Osteoarthritis (Chronic) Periodic limb movement disorder (Chronic) Allergic rhinitis (Chronic) Anxiety (Chronic) B12 deficiency (Chronic) Cervical disc disease (Chronic) Chronic back pain (Chronic) Degeneration, intervertebral disc, thoracic (Chronic) Depression with anxiety (Chronic) Diverticulosis (Chronic) GERD without esophagitis (Chronic) Hypercholesterolemia (Chronic) Iron deficiency anemia (Chronic) Mild sleep apnea (Chronic) Nocturnal hypoxia (Chronic) Prediabetes (Chronic) Primary osteoarthritis, unspecified hand (Chronic) Thoracic disc disease (Chronic) Vitamin D deficiency (Chronic) Surgical History History of tooth extraction (Resolved) ALL TEETH History of appendectomy (Resolved) History of cholecystectomy (Resolved) open History of esophagogastroduodenoscopy (EGD) (Resolved) History of colonoscopy (Resolved) History of lumbar spinal fusion (Resolved) X2 History of back surgery (Resolved) REPAIR OF FUSION--REMOVED 2 SCREWS History of kyphoplasty (Resolved) History of total left knee replacement (TKR) (Resolved) History of arthroplasty of left knee (Resolved) History of arthroplasty of right knee (Resolved) S/P foot surgery, right (Resolved) RELEASE OF PLANTAR FASCIITIS S/P foot surgery, left (Resolved) RELEASE OF PLANTAR FASCIITIS History of carpal tunnel release of both wrists (Resolved) History of dilatation and curettage (Resolved) Family History Mother , age 84 Pulmonary fibrosis Cancer of kidney Father , age 80 COPD (chronic obstructive pulmonary disease) Other Cancer Hypertension Social History Preferred Language: Maltese Communication Ability: Effective Stamper Blocker Required: No Beliefs That Will Affect Care: None marital status: marital status details: lives in [place] Current Living Situation: Spouse current occupational status: retired current occupation: worked at [employer] Other Information That Helps Us Care for You: No other: 2 daughters Feels Safe at Home: Yes Safety Concerns: Feels Safe At This Time Smoking Status: Never smoker Second Hand Exposure: Yes (PARENTS SMOKED) Hx Alcohol Use: No Hx Substance Use: No Review of Systems Constitutional: + anorexia; no fever, no chills and no weight loss Eyes: no worsening vision Ear, Nose, Mouth, Throat: no sore throat Respiratory: no cough and no dyspnea Cardiovascular: no chest pain Gastrointestinal: + abdominal pain, + nausea and + constipation; no vomiting Genitourinary: no dysuria Musculoskeletal: + back pain Integumentary: no rash Neurologic: + falls (had another fall 1 month ago fracturing left foot & right elbow); no paralysis and no numbness Psychiatric: + depression (but controlled) Endocrine: no diabetes Physical Exam Constitutional: + acute distress (uncomfortable in back) and + morbidly obese; no altered mental status Eyes: PERRL ENMT: external ear and nose normal, oropharynx normal Neck: trachea midline, no thyromegaly Respiratory: normal respiratory effort, lungs clear to auscultation Cardiovascular: Rate/Rhythm: regular rate and regular rhythm Heart Sounds: normal S1 and normal S2; no murmur Vessels: posterior tibial pulses present and dorsalis pedis pulses present; no JVD Extremities: no edema Gastrointestinal (Abdomen): Inspection/Auscultation: + abdomen distended (mild) and normal bowel sounds; Pugh-Carmona sign absent Percussion/Palpation: + abdomen tender (RUQ - near costal margin; minimal LUQ discomfort); no guarding, abdomen not rigid, no hepatosplenomegaly and not tympanic to percussion Musculoskeletal: Spine: thoracic spine normal to inspection, + thoracic spinal tenderness (lower T-spine) and + paraspinal tenderness; no cervical muscular tenderness and + lumbar spine abnormal to inspection (scar present) Skin: 2 small ecchymoses over abdominal wall; ecchymoses over both eyes/orbits Neurologic: deep tendon reflexes 2+ bilaterally and moves all extremities; no focal motor deficits Psychiatric: A+Ox3, euthymic affect Lymphatic: no cervical lymphadenopathy Results & Data Vital Signs (Past 12 Hours) Vital Signs Temp Pulse Pulse Resp BP BP Pulse Ox 01/13/19 15:27 36.5 C 72 20 144/84 H 98 01/13/19 08:12 37.5 C 71 19 126/82 93 Diagnostic Findings recent L-spine imaging noted. nasal bone imaging noted. abd x-rays noted. PG Care Time/CCT Total # of Minutes Spent Total Time Spent with Patient: Total time spent is greater than 50% in c oordination of care (as documented) at patient's floor/unit and/or counseling patient: (1) Right rib fracture Encounter type: initial encounter Fracture type: closed Rib fracture type: single rib Qualified Code(s): S22.31XA - Fracture of one rib, right side, initial encounter for closed fracture (2) Constipation Constipation type: other constipation type Qualified Code(s): K59.09 - Other constipation (3) Abdominal pain Abdominal location: right upper quadrant Qualified Code(s): R10.11 - Right upper quadrant pain (4) Hypothyroidism Hypothyroidism type: acquired Qualified Code(s): E03.9 - Hypothyroidism, unspecified (5) Hyperlipidemia Hyperlipidemia type: mixed hyperlipidemia Qualified Code(s): E78.2 - Mixed hyperlipidemia (6) Sleep apnea Sleep apnea type: unspecified type Qualified Code(s): G47.30 - Sleep apnea, unspecified (7) Fall Encounter type: initial encounter Qualified Code(s): W19.XXXA - Unspecified fall, initial encounter
--- NOTE | 2019-01-13 17:40 | XRay Report ---
XR nasal bones min 3V CLINICAL HISTORY: nasal pain / nasal deformity COMPARISON STUDY: No previous studies for comparison. FINDINGS: No nasal bone fractures are visualized. There is mild S-shaped nasal septal deviation. IMPRESSION: No nasal bone fractures identified on conventional radiographic imaging Electronically signed by: Michael Jarquin M.D. 01/13/2019 5:39 PM
--- NOTE | 2019-01-13 17:44 | XRay Report ---
XR abdomen min 2V CLINICAL HISTORY: Abdominal distention COMPARISON STUDY: None FINDINGS: There are gas filled colonic and small bowel loops. There are no transition zones to indica te bowel obstruction. No free air is visualized. There are scattered air-fluid levels on the decubitu s study. Postsurgical changes are present within the spine. There are moderate degenerative changes. IMPRESSION: No conventional radiographic evidence of bowel obstruction or free air. Possible mild il eus. Electronically signed by: Michael Jarquin M.D. 01/13/2019 5:43 PM
[2019-01-13] MEDS: ASPIRIN 81 MG ECTAB PO SCH (20:19)
[2019-01-13] MEDS: PANTOprazole 40 MG TAB PO SCH (20:19)
[2019-01-13] MEDS: PRAVASTATIN SOD 20 MG TAB PO SCH (20:20)
[2019-01-13] MEDS: CITALOPRAM 40 MG TAB PO SCH (20:20)
--- NOTE | 2019-01-13 20:21 | CT Scan Report ---
CT SCAN OF THE ABDOMEN AND PELVIS WITHOUT CONTRAST CLINICAL HISTORY: Abdominal pain status post trauma. Question liver laceration. Question rib fracture . COMPARISON STUDY: August 03, 2014 TECHNIQUE: CT scan of the abdomen and pelvis was performed from the lung bases to the proximal femurs . Images are reviewed in the axial, sagittal, and coronal planes. IV contrast was not administered fo r this examination. A dose lowering technique was utilized adhering to the principles of ALARA. CT DOSE: 1582.81 mGy.cm FINDINGS: Lower chest: There are bilateral calcified granulomas. There are [id number] bilateral pleural effusions. Liver: There is no evidence for acute hepatic injury given the limitations of a noncontrast examinati on. Gallbladder: Not visualized and presumed surgically absent Spleen: Normal in size and attenuation. Pancreas: Unremarkable. Adrenal glands: Unremarkable. Kidneys: No renal, ureteral, or bladder calculi are visualized. There are no perinephric fluid collec tions. Bowel: There are no transition zones indicate bowel obstruction. There is colonic diverticulosis. The re are no acute peridiverticular inflammatory changes. There is moderate right colonic stool. By hist ory the appendix is surgically absent. Peritoneum: There is no free air. There is trace free pelvic fluid. Vasculature: The abdominal aorta is normal in course and caliber. Adenopathy: None. Pelvic viscera: There is a 33 mm cystic left ovarian lesion. There is an indwelling Carbajal catheter. Skeletal structures: There is bilateral SI joint sclerosis. There are postsurgical changes present wi thin the lumbar spine. There is a right L2 transverse process fracture. There are age-indeterminate f ractures of the right 11th and 12th ribs IMPRESSION: 1. No evidence of solid organ injury, given the limitations of a noncontrast study 2. Age-indeterminate fractures of the right L2 transverse process, and right 11th and 12th ribs 3. 33 mm cystic left ovarian lesion 4. No evidence of bowel obstruction. No evidence of free air 5. Bilateral pleural effusions Electronically signed by: Michael Jarquin M.D. 01/13/2019 8:18 PM
[2019-01-13] MEDS ORDERED: BISACODYL 10 MG SUPP PR ONE (21:15)
[2019-01-13] MEDS: LIDOCAINE 5% 1 PATCH TD SCH (21:54)
[2019-01-14] MEDS: ARMOUR THYROID 30 MG TAB PO SCH (05:48)
[2019-01-14] MEDS: HYDROCODONE/ACETAMINOPHEN 10/325 TAB PO PRN ×3 (07:19→21:33)
[2019-01-14 07:22] LABS: Hematocrit (blood only) 30.8 % (37-47); Hemoglobin 10.5 g/dL (12.0-16.0); Mean Corpuscular Hgb Conc 34.1 g/dL (32-36); Mean Corpuscular Volume 89.3 fL (80-100); Mean Platelet Volume 9.6 fL (7.4-10.4); Platelet Count 230 K/uL (130-400); RDW Coefficient of Variation 12.6 % (11.5-14.5); RDW Standard Deviation 40.8 fL (36.4-46.3); Red Blood Count 3.45 M/uL (4.2-5.4); White Blood Count 5.07 K/uL (4.8-10.8)
[2019-01-14 07:53] LABS: BUN Creatinine Ratio 15.2 (10-20); Calcium 8.7 mg/dl (8.5-10.1); Creatinine Clr Calc Pharmacy 87.9 ml/min; Est GFR (African American) 85.9; Est GFR (Non-African American) 74.1; Magnesium 2.1 mg/dl (1.8-2.4)
[2019-01-14] MEDS: CALCIUM 600MG + VIT D 400 IU TAB PO SCH (08:48)
[2019-01-14] MEDS: DOCUSATE SODIUM 100 MG CAP PO SCH ×2 (08:48→21:52)
[2019-01-14] MEDS: SENNA 8.6 MG TAB PO SCH (08:48)
[2019-01-14] MEDS: KETOROLAC TROMETHAMINE 10 MG TABLET PO SCH ×3 (08:48→23:37)
[2019-01-14] MEDS ORDERED: POLYETHYLENE (MIRALAX) 17 GM PACK PO SCH (09:00)
[2019-01-14] MEDS: CHOLECALCIFEROL 1,000 UNITS TAB PO SCH (10:42)
[2019-01-14] MEDS ORDERED: BISACODYL 10 MG SUPP PR STA (17:51)
--- NOTE | 2019-01-14 19:59 | Hospitalist Progress Note ---
Date of Service January 14, 2019 Assessment & Plan (1) Abdominal pain: Her abdominal pain started immediately following her fall. Her 11th/12th rib fractures on the right are the cause of the RUQ pain. CT abd/pelvis without solid organ injury. She does have constipation and perhaps a minimal amount of ileus which could be contributing to her pain but doubt. Eating well. Bowel regimen. Treat rib pain. (2) Right rib fracture: 11, 12 on right. Cont k-pad heating pad, lidoderm patches, toradol TID and narcotics prn pain. (3) Constipation: acute/chronic. cont senna daily. increase miralax to BID dosing. dulcolax suppos x 1 now (she skipped the dose last pm). (4) Ileus: doubtful. eating fine w/o nausea, emesis. passing flatus. this is more so chronic/ severe constipation. (5) Hypothyroidism: TSH early 2018 was normal. Cont current thyroid med. (6) Hyperlipidemia: Cont statin agent. (7) Sleep apnea: Caution with narcotic usage especially since her RADHA is not treated as she would be at risk of CO2 retention. (8) Fall: accidental. no preceding syncope, presyncope, or other CV symptoms. B12 level in recent past normal. PT, OT evals. may need rehab. (9) B12 deficiency: h/o such, but B12 level in 07/2018 was about 600. resolved. (10) Vitamin D insufficiency: start vitamin D 2000 IU daily needs DEXA as outpatient in light of fractures Subjective feels better today. was able to ambulate a bit more. does not like brace - it is too constricting. rib pain same or slightly better. still no bowel movement but passing lots of flatus. no nausea. eating well. she is considering rehab. Review of Systems Constitutional: no fever Respiratory: no cough and no dyspnea Cardiovascular: no chest pain Physical Exam Constitutional: + morbidly obese; no altered mental status ENMT: external ear and nose normal, oropharynx normal Respiratory: normal respiratory effort, lungs clear to auscultation Cardiovascular: Rate/Rhythm: regular rate and regular rhythm Heart Sounds: normal S1 and normal S2; no murmur Vessels: posterior tibial pulses present and dorsalis pedis pulses present; no JVD Extremities: no edema Gastrointestinal (Abdomen): Inspection/Auscultation: normal bowel sounds; abdomen not distended Percussion/Palpation: + abdomen tender (RUQ - near costal margin - improved today); no guarding, abdomen not rigid and no hepatosplenomegaly Neurologic: moves all extremities; no focal motor deficits Psychiatric: A+Ox3, euthymic affect Results & Data Vital Signs (Past 12 Hours) Vital Signs Temp Pulse Resp BP Pulse Ox 01/14/19 15:08 36.7 C 75 17 119/79 92 Laboratory Results Laboratory Results - last 24 hr 01/14/19 01/14/19 01/14/19 07:04 07:04 07:04 WBC 5.07 RBC 3.45 L Hgb 10.5 L Hct 30.8 L MCV 89.3 MCH 30.4 MCHC 34.1 RDW Std Deviation 40.8 RDW Coeff of Too 12.6 Plt Count 230 MPV 9.6 Sodium 137 Potassium 4.0 Chloride 103 Carbon Dioxide 29 Anion Gap 5.0 BUN 12 Creatinine 0.81 Est Cr Clr Drug Dosing 87.9 Est GFR ( Amer) 85.9 Est GFR (Non-Af Amer) 74.1 BUN/Creatinine Ratio 15.2 Glucose 99 Calcium 8.7 Magnesium 2.1 25-OH Vitamin D Total 23.5 L PG Care Time/CCT Total # of Minutes Spent Total Time Spent with Patient: Total time spent is greater than 50% in coordination of care (as documented) at patient's floor/unit and/or counseling patient: (1) Right rib fracture Encounter type: initial encounter Fracture type: closed Rib fracture type: single rib Qualified Code(s): S22.31XA - Fracture of one rib, right side, initial encounter for closed fracture (2) Sleep apnea Sleep apnea type: unspecified type Qualified Code(s): G47.30 - Sleep apnea, unspecified (3) Hyperlipidemia Hyperlipidemia type: mixed hyperlipidemia Qualified Code(s): E78.2 - Mixed hyperlipidemia (4) Hypothyroidism Hypothyroidism type: acquired Qualified Code(s): E03.9 - Hypothyroidism, unspecified (5) Abdominal pain Abdominal location: right upper quadrant Qualified Code(s): R10.11 - Right upper quadrant pain (6) Constipation Constipation type: other constipation type Qualified Code(s): K59.09 - Other constipation (7) Fall Encounter type: initial encounter Qualified Code(s): W19.XXXA - Unspecified fall, initial encounter
[2019-01-14] MEDS: POLYETHYLENE (MIRALAX) 17 GM PACK PO SCH (21:34)
[2019-01-14] MEDS: ASPIRIN 81 MG ECTAB PO SCH (21:53)
[2019-01-14] MEDS: CITALOPRAM 40 MG TAB PO SCH (21:53)
[2019-01-14] MEDS: LIDOCAINE 5% 1 PATCH TD SCH (21:53)
[2019-01-14] MEDS: PANTOprazole 40 MG TAB PO SCH (21:54)
[2019-01-14] MEDS: PRAVASTATIN SOD 20 MG TAB PO SCH (21:54)
[2019-01-15] MEDS: ARMOUR THYROID 30 MG TAB PO SCH (05:38)
[2019-01-15] MEDS: KETOROLAC TROMETHAMINE 10 MG TABLET PO SCH ×3 (07:42→23:24)
[2019-01-15] MEDS: CALCIUM 600MG + VIT D 400 IU TAB PO SCH (09:00)
[2019-01-15] MEDS: CHOLECALCIFEROL 1,000 UNITS TAB PO SCH (09:01)
[2019-01-15] MEDS: SENNA 8.6 MG TAB PO SCH (09:01)
[2019-01-15] MEDS: POLYETHYLENE (MIRALAX) 17 GM PACK PO SCH ×4 (09:02→20:53)
[2019-01-15] MEDS: HYDROCODONE/ACETAMOPHEN 5/325MG TAB PO PRN (09:04)
[2019-01-15] MEDS: DOCUSATE SODIUM 100 MG CAP PO SCH ×2 (09:05→20:52)
[2019-01-15] MEDS: HYDROCODONE/ACETAMINOPHEN 10/325 TAB PO PRN ×2 (09:09→23:27)
[2019-01-15] MEDS: HYDROmorphone INJ 0.5 MG/0.5 ML SYR IV PRN ×2 (13:12→19:34)
--- NOTE | 2019-01-15 15:06 | Discharge Summary ---
SUBJECTIVE: She is alert, oriented, out of bed to chair, taking p.o. Still some abdominal discomfort and some low back pain, but she is functional. Alert, oriented, no chest pain, shortness of breath. OBJECTIVE: Vital signs also stable; blood pressure, pulse, respirations and temperature. ASSESSMENT: Fracture of the T12 vertebrae relatively stable with osteoporosis and significant arthritis along with sleep apnea, hyperlipidemia, depression, obesity and arthritis. PLAN: We will have her up and ambulatory with a brace today. I think that is certainly appropriate. Medications are on her chart. I recommend strongly she goes to rehab center for 3-7 days. She will need help with hygiene, eating, and I do not think she is really safe to go home. I put an order for discharge planning. She is stable to go any time later today.
[2019-01-15] MEDS ORDERED: BISACODYL 5 MG TABEC PO ONE (18:54)
[2019-01-15] MEDS: CITALOPRAM 40 MG TAB PO SCH (20:52)
[2019-01-15] MEDS: PRAVASTATIN SOD 20 MG TAB PO SCH (20:53)
[2019-01-15] MEDS: ASPIRIN 81 MG ECTAB PO SCH (20:53)
[2019-01-15] MEDS: PANTOprazole 40 MG TAB PO SCH (20:54)
[2019-01-15] MEDS: LIDOCAINE 5% 1 PATCH TD SCH (20:54)
--- NOTE | 2019-01-15 22:17 | Hospitalist Progress Note ---
Date of Service January 15, 2019 Assessment & Plan (1) Abdominal pain: Her abdominal pain started immediately following her fall. Her 11th/12th rib fractures on the right are the cause of the RUQ pain. CT abd/pelvis without solid organ injury. She does have constipation which could be contributing to pain as well. Cont various meds ordered for rib pain. Cont aggressive bowel regimen. (2) Right rib fracture: 11, 12 on right. Cont k-pad heating pad, lidoderm patches, toradol TID and narcotics prn pain. (3) Constipation: acute/chronic. cont senna daily. cont miralax BID. milk of molasses enema x 1 now (at pt's request). if MOM enema is not effective -- then miralax x 2 extra doses along with dulcolax PO x 1. no evidence of ileus or obstruction. (4) Ileus: ruled out. eating fine w/o nausea, emesis. passing flatus. symptoms most c/w severe constipation (see above). (5) Hypothyroidism: TSH early 2018 was normal. Cont current thyroid med. (6) Hyperlipidemia: Cont statin agent. (7) Sleep apnea: is not on Rx at home (8) Fall: accidental. no preceding syncope, presyncope, or other CV symptoms. B12 level in recent past normal. PT, OT evals. rehab recommended. (9) B12 deficiency: h/o such, but B12 level in 07/2018 was about 600. resolved. (10) Vitamin D insufficiency: cont vitamin D 2000 IU daily recent outpatient DEXA showed osteopenia daughter updated at bedside today Subjective patient is moving much better today than yesterday. however still having considerable back, flank, and RUQ/right lower chest wall pain. still w/ considerable constipation - did not have BM with the dulcolax suppos yesterday. eating 100% of meals. no new issues. still willing to attend inpatient rehab. Review of Systems Constitutional: no fever Respiratory: no cough and no dyspnea Cardiovascular: as per Subjective / HPI and + chest pain (right lower chest); no dyspnea at rest, no dyspnea on exertion and no edema Gastrointestinal: no nausea and no vomiting Physical Exam Constitutional: + morbidly obese; no acute distress and no altered mental status ENMT: external ear and nose normal, oropharynx normal Respiratory: normal respiratory effort, lungs clear to auscultation Cardiovascular: Rate/Rhythm: regular rate and regular rhythm Heart Sounds: normal S1 and normal S2; no murmur Vessels: posterior tibial pulses present and dorsalis pedis pulses present; no JVD Extremities: no edema Gastrointestinal (Abdomen): Inspection/Auscultation: normal bowel sounds; abdomen not distended Percussion/Palpation: + abdomen tender (RUQ - near costal margin - minimal today); no guarding, abdomen not rigid and no hepa tosplenomegaly Neurologic: moves all extremities; no focal motor deficits Psychiatric: A+Ox3, euthymic affect Results & Data Vital Signs (Past 12 Hours) Vital Signs Temp Pulse Resp BP Pulse Ox 01/15/19 16:28 36.7 C 70 20 151/83 H 95 PG Care Time/CCT Total # of Minutes Spent Total Time Spent with Patient: Total time spent is greater than 50% in coordination of care (as documented) at patient's floor/unit and/or counseling patient: (1) Abdominal pain Abdominal location: right upper quadrant Qualified Code(s): R10.11 - Right upper quadrant pain (2) Right rib fracture Encounter type: initial encounter Fracture type: closed Rib fracture type: single rib Qualified Code(s): S22.31XA - Fracture of one rib, right side, initial encounter for closed fracture (3) Constipation Constipation type: other constipation type Qualified Code(s): K59.09 - Other constipation (4) Hypothyroidism Hypothyroidism type: acquired Qualified Code(s): E03.9 - Hypothyroidism, unspecified (5) Hyperlipidemia Hyperlipidemia type: mixed hyperlipidemia Qualified Code(s): E78.2 - Mixed hyperlipidemia (6) Sleep apnea Sleep apnea type: unspecified type Qualified Code(s): G47.30 - Sleep apnea, unspecified (7) Fall Encounter type: initial encounter Qualified Code(s): W19.XXXA - Unspecified fall, initial encounter
[2019-01-16] MEDS: ARMOUR THYROID 30 MG TAB PO SCH (05:43)
[2019-01-16] MEDS: CALCIUM 600MG + VIT D 400 IU TAB PO SCH (09:05)
[2019-01-16] MEDS: CHOLECALCIFEROL 1,000 UNITS TAB PO SCH (09:06)
[2019-01-16] MEDS: DOCUSATE SODIUM 100 MG CAP PO SCH ×2 (09:06→19:42)
[2019-01-16] MEDS: HYDROCODONE/ACETAMINOPHEN 10/325 TAB PO PRN ×2 (09:06→17:58)
[2019-01-16] MEDS: SENNA 8.6 MG TAB PO SCH ×2 (09:06→16:58)
[2019-01-16] MEDS: POLYETHYLENE (MIRALAX) 17 GM PACK PO SCH ×2 (09:11→19:42)
[2019-01-16] MEDS: HYDROmorphone INJ 0.5 MG/0.5 ML SYR IV PRN (14:35)
--- NOTE | 2019-01-16 21:09 | Hospitalist Progress Note ---
Date of Service January 16, 2019 Assessment & Plan (1) Abdominal pain: Her 11th/12th rib fractures on the right are the cause of the RUQ pain. CT abd/pelvis without solid organ injury. Constipation probably contributed to pain as well. OVERALL IMPROVED PAIN TODAY. Cont various meds ordered for rib pain. Cont aggressive bowel regimen. (2) Right rib fracture: 11, 12 on right. Cont k-pad heating pad, lidoderm patches, toradol TID and narcotics prn pain. Pain improved today. (3) Constipation: acute/chronic. cont senna but increase to BID dosing. cont miralax BID. finally improved today. (4) Ileus: ruled out. eating fine w/o nausea, emesis. passing flatus. symptoms most c/w severe constipation (see above). (5) Hypothyroidism: TSH early 2018 was normal. Cont current thyroid med. (6) Hyperlipidemia: Cont statin agent. (7) Sleep apnea: is not on Rx at home consider repeat sleep study as outpatient. (8) Fall: accidental. no preceding syncope, presyncope, or other CV symptoms. B12 level in recent past normal. PT, OT evals. rehab recommended. (9) B12 deficiency: h/o such, but B12 level in 07/2018 was about 600. resolved. (10) Vitamin D insufficiency: cont vitamin D 2000 IU daily recent outpatient DEXA showed osteopenia (11) Morbid obesity with BMI of 40.0-44.9, adult: BMI 41 (12) Discharge planning issues: patient was denied [facility] by [facility]. patient then denied placement at [facility] for rehab by [facility]. Today I was informed by the case management social worker just prior to 2pm that patient had been denied placement by [facility] and that I could pursue "peer to peer" interview with medical assembly. I called at 4:40pm to [facility]. I spoke directly to an employee at [facility]. I was informed that I could not request a peer to peer because our window of opportunity at 4:30pm. I expressed considerable disgust with this process and asked why we would only have 2 1/2 hours to call the peer to peer line. I was given multiple explanations for this including "these are Medicare Guidelines." I asked to speak to the woman's telephone clerks supervisor but was not given that opportunity. I was placed on hold for 5-10 minutes and the employee returned stating that if a denial is communicated to us PRIOR to 1pm we have to respond by 4:30pm that business day (to request peer to peer). If Jose calls AFTER 1pm then we have until the next business day to request the peer to peer. I explained that I was only told at 2pm today that we found out the denial. She then stated Tony Zapata was called at 12:30pm w/ the denial and that "we would have told you [Tony Zapata] what the expiration time/deadline would have been to request the peer to peer." I finished the call by stating I would be letting our administration know the wrongfulness of the above process. She offered then to connect me to the appeals department and I declined such. Total time of this phone call - at least 20-25 minutes Subjective patient feeling a bit better today with improved pain in her back and abdomen. FINALLY had bowel movement this AM. eating well. mobility still limited by pain. awaiting auth for rehab. Review of Systems Constitutional: + fatigue; no fever, no chills and no anorexia Respiratory: no cough and no dyspnea Cardiovascular: no chest pain Gastrointestinal: + constipation; no abdominal pain, no nausea and no vomiting Physical Exam Constitutional: + morbidly obese; no acute distress and no altered mental status ENMT: external ear and nose normal, oropharynx normal Respiratory: normal respiratory effort, lungs clear to auscultation Cardiovascular: Rate/Rhythm: regular rate and regular rhythm Heart Sounds: normal S1 and normal S2; no murmur Vessels: posterior tibial pulses present and dorsalis pedis pulses present; no JVD Extremities: no edema Gastrointestinal (Abdomen): Inspection/Auscultation: + abdomen distended and normal bowel sounds Percussion/Palpation: abdomen nontender, no guarding, abdomen not rigid and no hepatosplenomegaly Neurologic: moves all extremities; no focal motor deficits Psychiatric: A+Ox3, euthymic affect Results & Data Vital Signs (Past 12 Hours) Vital Signs Temp Pulse Pulse Pulse Resp BP BP 01/16/19 15:35 36.8 C 71 18 123/79 01/16/19 10:36 36.8 C 78 78 83 19 140/76 145/85 H Pulse Ox 01/16/19 15:35 95 01/16/19 10:36 95 PG Care Time/CCT Total # of Minutes Spent Total Time Spent with Patient: Total time spent is greater than 50% in coordination of care (as documented) at patient's floor/unit and/or counseling patient: (1) Right rib fracture Encounter type: initial encounter Fracture type: closed Rib fracture type: single rib Qualified Code(s): S22.31XA - Fracture of one rib, right side, initial encounter for closed fracture (2) Sleep apnea Sleep apnea type: unspecified type Qualified Code(s): G47.30 - Sleep apnea, unspecified (3) Hyperlipidemia Hyperlipidemia type: mixed hyperlipidemia Qualified Code(s): E78.2 - Mixed hyperlipidemia (4) Hypothyroidism Hypothyroidism type: acquired Qualified Code(s): E03.9 - Hypothyroidism, unspecified (5) Abdominal pain Abdominal location: right upper quadrant Qualified Code(s): R10.11 - Right upper quadrant pain (6) Constipation Constipation type: other constipation type Qualified Code(s): K59.09 - Other constipation (7) Fall Encounter type: initial encounter Qualified Code(s): W19.XXXA - Unspecified fall, initial encounter
[2019-01-16] MEDS: PRAVASTATIN SOD 20 MG TAB PO SCH (21:13)
[2019-01-16] MEDS: PANTOprazole 40 MG TAB PO SCH (21:13)
[2019-01-16] MEDS: ASPIRIN 81 MG ECTAB PO SCH (21:13)
[2019-01-16] MEDS: CITALOPRAM 40 MG TAB PO SCH (21:13)
[2019-01-16] MEDS: LIDOCAINE 5% 1 PATCH TD SCH (21:14)
[2019-01-17] MEDS: ARMOUR THYROID 30 MG TAB PO SCH (05:59)
[2019-01-17] MEDS: HYDROCODONE/ACETAMINOPHEN 10/325 TAB PO PRN ×2 (08:18→15:39)
[2019-01-17] MEDS: DOCUSATE SODIUM 100 MG CAP PO SCH ×2 (08:20→15:43)
[2019-01-17] MEDS: CALCIUM 600MG + VIT D 400 IU TAB PO SCH (08:20)
[2019-01-17] MEDS: POLYETHYLENE (MIRALAX) 17 GM PACK PO SCH ×7 (08:20→21:32)
[2019-01-17] MEDS: SENNA 8.6 MG TAB PO SCH ×2 (08:21→15:43)
[2019-01-17] MEDS: CHOLECALCIFEROL 1,000 UNITS TAB PO SCH (08:21)
--- NOTE | 2019-01-17 08:26 | Progress Note ---
DATE: 01/17/2019 SUBJECTIVE: She is alert, oriented, still has some abdominal pain, still has not had a bowel movement. Fortunately, no nausea, vomiting. She is taking p.o. ASSESSMENT: Multiple medical problems, morbid obesity with a BMI over 40, compression and fracture of the T12 vertebrae, ileus. PLAN: She is an ideal candidate for rehab placement. I think it is little unsafe for her to go home. We will push for a rehab bed again today. The team has been working very diligently on getting her a bed. Insurance has been uncooperative.
[2019-01-17] MEDS: HYDROmorphone INJ 0.5 MG/0.5 ML SYR IV PRN (13:19)
--- NOTE | 2019-01-17 17:51 | XRay Report ---
XR abdomen 2V w PA chest HISTORY: 68 years-old Female severe constipation; please quantitate fecal load acute areas abdominal pain with constipation COMPARISON: CT abdomen and pelvis 01/13/2019, chest radiograph 01/10/2019 TECHNIQUE: PA view of the chest with erect and supine views of the abdomen FINDINGS: Trace right and small left pleural effusions. Cardiac silhouette is mildly enlarged, unchanged. There is no pneumothorax or overt pulmonary edema. Subsegmental left basilar opacities. Degenerative myers es of the shoulders and spine. Air-fluid level noted about the right hemicolon. No significant stool volume throughout the colon sug gests constipation. Mild gaseous distention of the colon. Nonobstructive bowel gas pattern. No pneuma tosis or pneumoperitoneum. No urolith. Fusion hardware noted about the lower lumbar spine. IMPRESSION: 1. Mild gaseous distention of the colon with air-fluid levels. Correlate clinically to exclude diarrh eal illness. 2. Nonobstructive bowel gas pattern. 3. Trace right and small left pleural effusions. 4. Left basilar opacities suggest probable atelectasis. 5. No evidence of significant constipation. The above report was generated using voice recognition software. It may contain grammatical, syntax o r spelling errors. Electronically signed by: Angel Delgado M.D. 01/17/2019 5:50 PM
[2019-01-17] MEDS: CITALOPRAM 40 MG TAB PO SCH (21:31)
[2019-01-17] MEDS: ASPIRIN 81 MG ECTAB PO SCH (21:32)
[2019-01-17] MEDS: LIDOCAINE 5% 1 PATCH TD SCH (21:32)
[2019-01-17] MEDS: PRAVASTATIN SOD 20 MG TAB PO SCH (21:32)
[2019-01-17] MEDS: PANTOprazole 40 MG TAB PO SCH (21:32)
--- NOTE | 2019-01-17 21:46 | Hospitalist Progress Note ---
Date of Service January 17, 2019 Assessment & Plan (1) Closed T12 fracture: management per Dr Munguia. appreciate his assistance. cont brace. encouraged her to minimize her narcotic usage, if possible, since it will compound her constipation issue. cont lidoderms. cont tylenol. rehab/PT/OT. (2) Right rib fracture: 11, 12 on right. Cont k-pad heating pad, lidoderm patches, toradol TID and narcotics prn pain. Pain slowly improving. (3) Constipation: acute/chronic. ongoing issue. this is most pressing issue. gave 5 doses of miralax in series today (much like a bowel prep for colonoscopy). cont senna BID. cont miralax BID for maintenance. if no results with this - relistor?? (4) Ileus: ruled out. eating fine w/o nausea, emesis. passing flatus. symptoms most c/w severe constipation (see above). abd x-rays today without ileus or SBO. (5) Hypothyroidism: TSH early 2018 was normal. Cont current thyroid med. (6) Hyperlipidemia: Cont statin agent. (7) Sleep apnea: is not on Rx at home consider repeat sleep study as outpatient. (8) Fall: accidental. no preceding syncope, presyncope, or other CV symptoms. B12 level in recent past normal. PT, OT evals. rehab recommended. (9) B12 deficiency: h/o such, but B12 level in 07/2018 was about 600. resolved. (10) Vitamin D insufficiency: cont vitamin D 2000 IU daily recent outpatient DEXA showed osteopenia (11) Morbid obesity with BMI of 40.0-44.9, adult: BMI 41 (12) Discharge planning issues: patient was denied [facility] by [facility]. patient then denied placement at [facility] for rehab by [facility]. did finally speak to certified medical asst via peer to peer line at [facility] today. rehab WAS approved at [facility]. (13) DVT prophylaxis: if patient's stay gets any further delayed then add lovenox 40mg daily Subjective overall her pain in back and ribs is better but still need IV/PO narcotics constipation continues - she states that following an orthopedic surgery she didn't have BM for 7+ days she denies nausea, emesis or inability to eat passing copious flatus still wanting to go to rehab eating 100% of meals no dyspnea Review of Systems Constitutional: no fever Respiratory: no cough and no dyspnea Cardiovascular: no chest pain Gastrointestinal: + bloating; no abdominal pain Physical Exam Constitutional: + morbidly obese; no acute distress and no altered mental status wearing back brace ENMT: external ear and nose normal, oropharynx normal Respiratory: normal respiratory effort, lungs clear to auscultation Cardiovascular: Rate/Rhythm: regular rate and regular rhythm Heart Sounds: normal S1 and normal S2; no murmur Vessels: posterior tibial pulses present and dorsalis pedis pulses present; no JVD Extremities: no edema Gastrointestinal (Abdomen): Inspection/Auscultation: + abdomen distended (minimal - upper abdomen) and normal bowel sounds Percussion/Palpation: abdomen nontender, no guarding, abdomen not rigid and no hepatosplenomegaly Skin: ulceration/abrasion left knee region Neurologic: moves all extremities; no focal motor deficits Psychiatric: A+Ox3, euthymic affect Results & Data Vital Signs (Past 12 Hours) Vital Signs Temp Pulse Pulse Resp BP Pulse Ox 01/17/19 18:42 72 78 20 148/73 H 99 01/17/19 14:59 36.8 C 72 17 131/75 97 Diagnostic Findings abd x-rays - my reading - only mild stool throughout, some distal. no ileus (maybe mild colon gaseous distension). no obstruction. PG Care Time/CCT Total # of Minutes Spent Total Time Spent with Patient: Total time spent is greater than 50% in coordination of care (as documented) at patient's floor/unit and/or counseling patient: (1) Right rib fracture Encounter type: initial encounter Fracture type: closed Rib fracture type: single rib Qualified Code(s): S22.31XA - Fracture of one rib, right side, initial encounter for closed fracture (2) Sleep apnea Sleep apnea type: unspecified type Qualified Code(s): G47.30 - Sleep apnea, unspecified (3) Hyperlipidemia Hyperlipidemia type: mixed hyperlipidemia Qualified Code(s): E78.2 - Mixed hyperlipidemia (4) Hypothyroidism Hypothyroidism type: acquired Qualified Code(s): E03.9 - Hypothyroidism, unspecified (5) Constipation Constipation type: other constipation type Qualified Code(s): K59.09 - Other constipation (6) Fall Encounter type: initial encounter Qualified Code(s): W19.XXXA - Unspecified fall, initial encounter (7) Closed T12 fracture Encounter type: initial encounter Fracture morphology: unspecified fracture morphology Qualified Code(s): S22.089A - Unspecified fracture of T11-T12 vertebra, initial encounter for closed fracture
[2019-01-18] MEDS: HYDROCODONE/ACETAMINOPHEN 10/325 TAB PO PRN ×2 (03:01→10:02)
[2019-01-18] MEDS: ARMOUR THYROID 30 MG TAB PO SCH (05:45)
[2019-01-18 07:16] LABS: BUN Creatinine Ratio 10.5 (10-20); Calcium 8.6 mg/dl (8.5-10.1); Est GFR (African American) 87.2; Est GFR (Non-African American) 75.2
[2019-01-18] MEDS ORDERED: MAGNESIUM CITRATE 296 ML/BTL PO STA (08:10)
[2019-01-18] MEDS: HYDROmorphone INJ 0.5 MG/0.5 ML SYR IV PRN (08:47)
[2019-01-18] MEDS: SENNA 8.6 MG TAB PO SCH (08:50)
[2019-01-18] MEDS: CHOLECALCIFEROL 1,000 UNITS TAB PO SCH (08:50)
[2019-01-18] MEDS: POLYETHYLENE (MIRALAX) 17 GM PACK PO SCH (08:50)
[2019-01-18] MEDS: CALCIUM 600MG + VIT D 400 IU TAB PO SCH (08:50)
[2019-01-18] MEDS: DOCUSATE SODIUM 100 MG CAP PO SCH (09:21)
--- NOTE | 2019-01-18 17:42 | History & Physical Bridge Note ---
Date of Service January 18, 2019 During chart rounds early this AM I noted that the pt's labs were normal and her vitals were stable & acceptable. She still had not had a bowel movement per the flowsheets. Therefore I ordered 1/2 bottle of mag citrate in addition to her usual bowel regimen. By the time I had gotten to the med/surg unit for bedside rounds she had already been discharged to SNF. She will need to continue an aggressive bowel regimen for her severe constipation. I had suggested to the patient earlier this week to consult with GI as an outpa tient for consideration of linzess. Seth Lemon MD
--- NOTE | 2019-01-18 23:32 | Discharge Summary ---
ADMITTING DIAGNOSES AND DISCHARGE DIAGNOSES: T12 fracture, brace treatment, rib fractures, constipation, ileus, hypothyroidism, sleep apnea and morbid obesity. Juanita was admitted to my service 1 week ago for a fall where she suffered a fracture of the T12 vertebral body. I deemed it to be relatively stable. It appears that it is well treated in a brace, although she has significant pain and still fairly significant amount of abdominal discomfort. She is finally getting a bowel movement here this morning. She is alert, oriented. She is overall stable. Neurologically intact and mentally stable. Medications adjusted well. I believe she is fully stable to be discharged home today, and a bed has been found at [facility]. She will be discharged there. Her activity should be up with a rolling walker in bathroom daily, I will try to get her walking at least 3 times a day. She does seem independent on her own, so she does not need a lot of physical therapy, some therapy is helpful with walking but she needs to really get up and ambulate. I should see her back in the office in approximately 3 weeks. The brace should be worn as much as possible. It is uncomfortable, it is not perfect. If it can be worn when she is up, ambulatory and even out of bed to chair that is great if she ____ wear it. There is no big problem with that either. Important thing I think is her abdominal discomfort in her bowel program. Please call if there are any problems and should not be any significant issues going forward.
== END 2019-01-18 10:44 | DRG 552 ==
LOC: ED 14:52 → 3W 17:21

== ENCOUNTER 2021-05-25 12:40 | Inpatient (IN) ==
[2021-05-25] MEDS ORDERED: dexAMETHasone**PF** 10 MG/ML VIAL IM ONE (16:06)
--- NOTE | 2021-05-25 17:10 | Emergency Department Note ---
Impression & Plan Lumbar radiculopathy ED Provider Note CHIEF COMPLAINT: Lower back pain HISTORY OF PRESENT ILLNESS: Juanita Hawley is a 71 year old female with history of lumbar spinal stenosis s/p fusion with chronic back pain who presents to the Emergency Department for evaluation of an exacerbation of pain to her lower back radiating into her bilateral buttocks, hips and legs over the past several weeks. Currently, she rates her discomfort as a 5/10 which worsens with attempts of movement and weight bearing activity. The patient is currently being followed by pain management and recently had an epidural last week. The patient noted only mild and temporary relief after receiving the injection and went back to the clinic 2 days ago. During her appointment, she did have additional x-rays of her sacrum and coccyx without acute findings and was given a new prescription for Toradol 10 mg Q6H. Since then, the patient has been taking the Toradol as prescribed, however her pain has continued. She does also note intermittent numbness/tingling to her right leg which is slightly above baseline and has been having increased difficulty walking secondary to her pain. She has been using 2 canes to get around, otherwise she cannot walk due to the pain when placing weight on her legs. She denies specific weakness, saddle paresthesias or loss of continence of her bowels or bladder. She also denies new pains to her neck or upper back and does not have any pain, weakness or paresthesias in her arms. The patient denies recent injuries or falls prior to the onset of exacerbation. The patient does have old prescriptions for Vicodin, Dilaudid and Flexeril left over and has attempted to take a few doses of these medications without relief. She states that they only make her tired and she does not wish to take them. Due to her ongoing symptoms, the patient contacted the pain management clinic today who then referred her to the ED for further evaluation. REVIEW OF SYSTEMS: 10 systems were reviewed and were negative unless otherwise stated in HPI as above PHYSICAL EXAM: VITALS: Vitals are noted on the nurse's note and reviewed by myself. Hypertensive, vital signs otherwise stable. General: Resting in bed, appears uncomfortable but no acute distress HEENT: Normocephalic, atraumatic, PERRL, EOMI, oropharynx clear Neck: No significant midline c-spine tenderness above baseline, ROM intact Resp: Good inspiratory effort on room air, lung sounds clear bilaterally CV: Regular rate and rhythm, peripheral pulses palpated Back: No significant tenderness to palpation of the midline thoracic spine, notes tenderness along the midline lumbar spine into the bilateral buttocks and hips but not significantly changed to palpation, no obvious step-offs or deformities Abd: Soft, non-tender MSK/Neuro: No tenderness to palpation of the BUE, FROM strength 5/5, sensation intact. Notes pain to the bilateral upper legs but not significantly increased to palpation. Hip flexion 3/5 bilaterally, otherwise strength 5/5 throughout, sensation intact. Integumentary: No appreciable rash Neuro: Awake, alert and oriented x 3, interacting and answering questions appropriately Differential diagnosis includes exacerbation of chronic pain, degenerative disc disease, spinal stenosis, spinal cord injury, spinal cord contusion, abscess, fracture, radiculopathy, among others were considered EMERGENCY DEPARTMENT COURSE: Physical exam and history were performed. Nursing triage notes, EMR, and medication list were personally reviewed. Patient with history of lumbar spinal stenosis s/p fusion with chronic back pain presents for evaluation of an exacerbation of pain to her lower back radiating into her bilateral buttocks, hips and legs over the past several weeks with ambulatory dysfunction as described above. She follows with pain management. She did receive an epidural last week without improvement. She was seen again on Sunday and was then prescribed Toradol which she has been taking without relief. She did contact pain management regarding her ongoing symptoms and was referred to the ED for further evaluation. The patient did note intermittent numbness/tingling to her right leg slightly above baseline, no specific weakness, saddle paresthesias or loss of continence of her bowels or bladder. On exam, she did have tenderness to her midline lumbar spine radiating into her bilateral buttocks, hips and upper legs but not significantly changed to palpation. Noted to have 3/5 strength with hip flexion but otherwise strength 5/5 throughout, sensation intact throughout. The patient was offered medication. She did agree for a dose of Dexamethasone 10 mg but did not want any additional pain medications at this time. I did contact Stephanie Serrano PA-C from the [facility] to discuss the patient's case. She stated that she was concerned about the patient's significant pain not relieved after receiving the epidural last week and was requesting an MRI for further evaluation. I updated the patient on my discussion with pain management. She agreed for MRI L spine for further evaluation. MRI L spine was obtained and reviewed by radiologist and myself as below. This did show unchanged post-surgical changes. Moderate spinal stenosis at the level of T12. Re-demonstration of moderate canal stenosis at L3-4 and moderate to severe neuroforaminal stenosis at L2-L3. After the patient returned from MRI, she was still in a lot of pain and now agreed for additional pain medication. IV access was established and she was given Dilaudid 1 mg. The patient stated that she did not think that she would be able to go home secondary to significant pain leading to ambulatory dy sfunction. She is afraid of falling with lack of additional help other than her . I did contact Dr. Joiner of orthopedic spine surgery regarding the patient's case. He suggested speaking with the hospitalist for possible admission and stated that he would consult if needed. I did contact the [facility] hospitalist. They agreed to evaluate the patient. The patient verbalized her understanding and agreement with the treatment plan. The chart was completed utilizing [employer] Speech Voice Recognition Software. Grammatical errors, random word insertions, pronoun errors, and incomplete sentences are an occasional consequence of this system due to software limitations, ambient noise, and hardware issues. Any formal questions or concerns about the content, text, or information contained within the body of this dictation should be directly addressed to the provider for clarification. Past Med/Surg History Medical History Allergic rhinitis B12 deficiency Cervical disc disease Cervical disc herniation Cervical dystonia Cervical facet syndrome Cervical radiculopathy Cervicalgia Cervicogenic headache Chronic back pain Closed T12 fracture Degeneration, intervertebral disc, thoracic Depression with anxiety Diverticulosis Fracture of transverse process of lumbar vertebra GERD (gastroesophageal reflux disease) Hyperlipidemia Hypothyroidism Iron deficiency anemia Lumbar radiculopathy Lumbar stenosis Nocturnal hypoxia Obesity Osteoarthritis Periodic limb movement disorder Postlaminectomy syndrome of lumbosacral region Prediabetes Right rib fracture Sacroiliitis Sleep apnea NO DEVICES Vitamin D deficiency Surgical History History of appendectomy History of arthroplasty of left knee (05/2017) History of arthroplasty of right knee History of back surgery REPAIR OF FUSION--REMOVED 2 SCREWS History of carpal tunnel release of both wrists b/l wrists History of cholecystectomy open History of dilatation and curettage History of esophagogastroduodenoscopy (EGD) History of kyphoplasty History of lumbar spinal fusion X2 History of tooth extraction ALL TEETH S/P foot surgery, left RELEASE OF PLANTAR FASCIITIS S/P foot surgery, right RELEASE OF PLANTAR FASCIITIS Family History Mother , age 84 Pulmonary fibrosis Cancer of kidney Hypertension Father , age 80 COPD (chronic obstructive pulmonary disease) Daughter Non-Hodgkin lymphoma Brother Non-Hodgkin lymphoma Denies family history of Ovarian cancer Prostate cancer Myocardial infarction Breast cancer Colorectal cancer Social History Smoking Status: Never smoker Second Hand Exposure: Yes (PARENTS SMOKED); Hx Alcohol Use: No Hx Substance Use: No Preferred Language: British Communication Ability: Effective Visual Impairment: No Limitations Hearing Ability: Normal Director Web Required: No Beliefs That Will Affect Care: None marital status: marital status details: lives in [place] Current Living Situation: Spouse current occupational status: retired current occupation: worked at [employer] other: 2 daughters Feels Safe at Home: Yes Childhood Exposure to Second-Hand Smoke: Yes caffeine: Yes during the past year weight has: increased > 10 lbs Dental Care, Regularly: No Physical Activity Frequency: Daily Seatbelt Use: always Sunscreen Use: No Assistive Devices: Walker Allergies Allergies Allergy/AdvReac Type Severity Reaction Status Date / Time erythromycin base Allergy Unknown RASH Verified 05/23/21 14:21 fish oil Allergy Unknown sweat, Verified 05/23/21 14:21 nausea, dizzy Penicillins Allergy Unknown RED RASH Verified 05/23/21 14:21 ITCHING tramadol Allergy Unknown rash/hives Verified 05/23/21 14:21 Home Meds Home Medications Medication Instructions Recorded Confirmed calcium carbonate 600 mg calcium 600 mg PO QAM tab 12/06/18 05/25/21 (1,500 mg) tablet (Calcium) cholecalciferol (vitamin D3) 50 2,000 unit PO DAILY cap 11/01/20 05/25/21 mcg (2,000 unit) capsule (Vitamin D3) albuterol sulfate 90 mcg/actuation 2 puff INHALATION Q6H PRN 12/08/21 12/08/21 aerosol inhaler Previous Rx's Medication Instructions Recorded thyroid (pork) 15 mg tablet 15 mg PO .COMPLEX #90 tab 10/15/20 (Centenary Thyroid) esomeprazole magnesium 20 mg 20 mg PO HS #90 cap 12/29/20 capsule,delayed release (Nexium) hydrocodone 10 mg-acetaminophen 1 tab PO Q6H PRN #28 tab 04/11/21 325 mg tablet fluticasone propionate 50 2 spray INTRANASAL UD PRN #16 gm 04/26/21 mcg/actuation nasal spray,suspension (Flonase Allergy Relief) mirtazapine 15 mg tablet (Remeron) 15 mg PO HS PRN #30 tab 05/06/21 citalopram 40 mg tablet 40 mg PO DAILY #90 tab 05/16/21 pravastatin 20 mg tablet 20 mg PO HS #90 tab 05/16/21 ketorolac 10 mg tablet 10 mg PO Q6H PRN 5 Days #20 tab 05/23/21 Results & Data (ED) Vital Signs Vital Signs - 24 hr 05/25/21 13:12 05/25/21 20:26 05/25/21 23:01 Temperature 36.5 C Temperature Source Temporal Artery Scan Pulse Rate 79 80 Pulse Rate [Right Finger] 70 Respiratory Rate 20 22 22 Respiratory Effort / Characteristics Non-Labored Spontaneous Respiratory Depth Normal Respiratory Pattern Regular Blood Pressure 144/75 H Blood Pressure Mean 98 Pulse Oximetry 99 90 90 Oxygen Delivery Method Room Air Room Air Room Air Sepsis Recent Fever Within 48 Hours No Sepsis New/Unexplained Change in Mental Status No Sepsis Action Taken by Nursing No Action Required Laboratory Data Result diagrams: 05/25/21 20:57 05/25/21 20:57 Lab Results 05/25/21 05/25/21 05/25/21 Range/Units 20:57 20:57 20:57 WBC 8.94 (4.8-10.8) K/uL RBC 3.65 L (4.2-5.4) M/uL Hgb 11.8 L (12.0-16.0) g/dL Hct 35.5 L (37-47) % MCV 97.3 (80-100) fL MCH 32.3 (25-34) pg MCHC 33.2 (32-36) g/dL RDW Std Deviation 51.3 H (36.4-46.3) fL RDW Coeff of Too 14.3 (11.5-14.5) % Plt Count 317 (130-400) K/uL MPV 9.3 (7.4-10.4) fL Immature Gran % (Auto) 1.1 % Neut % (Auto) 88.4 % Lymph % (Auto) 7.4 % Nuckolls % (Auto) 2.0 % Eos % (Auto) 0.9 % Baso % (Auto) 0.2 % Neut # (Auto) 7.90 H (1.4-6.5) K/uL Lymph # (Auto) 0.66 L (1.2-3.4) K/uL Nuckolls # (Auto) 0.18 (0.11-0.59) K/uL Eos # (Auto) 0.08 (0-0.5) K/uL Baso # (Auto) 0.02 (0-0.2) K/uL Immature Gran # (Auto) 0.10 H (0.00-0.02) K/uL PT 10.2 (9.0-12.0) Seconds INR 1.0 (0.9-1.1) APTT 28.5 (21.0-31.0) Seconds PTT Ratio 1.1 Sodium 142 (136-145) mmol/L Potassium 4.3 (3.5-5.1) mmol/L Chloride 110 H (98-107) mmol/L Carbon Dioxide 27 (21-32) mmol/L Anion Gap 5.0 (3-11) BUN 16 (7-18) mg/dl Creatinine 0.87 (0.6-1.2) mg/dl Est Cr Clr Drug Dosing 74.8 ml/min Est GFR ( Amer) 77.1 ml/min Est GFR (Non-Af Amer) 66.6 ml/min BUN/Creatinine Ratio 18.0 (10-20) Glucose 150 H (70-99) mg/dl Calcium 8.9 (8.5-10.1) mg/dl Total Bilirubin 0.3 (0.2-1) mg/dl AST 11 L (15-37) U/L ALT 20 (12-78) Alkaline Phosphatase 169 H D (45-117) U/L Total Protein 6.7 (6.4-8.2) gm/dl Albumin 3.1 L (3.4-5.0) gm/dl Globulin 3.6 (2.5-4.0) gm/dl Albumin/Globulin Ratio 0.9 (0.9-2) SARS-CoV-2, RNA, NAAT (NEGATIVE) 05/25/21 Range/Units Unknown WBC (4.8-10.8) K/uL RBC (4.2-5.4) M/uL Hgb (12.0-16.0) g/dL Hct (37-47) % MCV (80-100) fL MCH (25-34) pg MCHC (32-36) g/dL RDW Std Deviation (36.4-46.3) fL RDW Coeff of Too (11.5-14.5) % Plt Count (130-400) K/uL MPV (7.4-10.4) fL Immature Gran % (Auto) % Neut % (Auto) % Lymph % (Auto) % Nuckolls % (Auto) % Eos % (Auto) % Baso % (Auto) % Neut # (Auto) (1.4-6.5) K/uL Lymph # (Auto) (1.2-3.4) K/uL Nuckolls # (Auto) (0.11-0.59) K/uL Eos # (Auto) (0-0.5) K/uL Baso # (Auto) (0-0.2) K/uL Immature Gran # (Auto) (0.00-0.02) K/uL PT (9.0-12.0) Seconds INR (0.9-1.1) APTT (21.0-31.0) Seconds PTT Ratio Sodium (136-145) mmol/L Potassium (3.5-5.1) mmol/L Chloride (98-107) mmol/L Carbon Dioxide (21-32) mmol/L Anion Gap (3-11) BUN (7-18) mg/dl Creatinine (0.6-1.2) mg/dl Est Cr Clr Drug Dosing ml/min Est GFR ( Amer) ml/min Est GFR (Non-Af Amer) ml/min BUN/Creatinine Ratio (10-20) Glucose (70-99) mg/dl Calcium (8.5-10.1) mg/dl Total Bilirubin (0.2-1) mg/dl AST (15-37) U/L ALT (12-78) Alkaline Phosphatase (45-117) U/L Total Protein (6.4-8.2) gm/dl Albumin (3.4-5.0) gm/dl Globulin (2.5-4.0) gm/dl Albumin/Globulin Ratio (0.9-2) SARS-CoV-2, RNA, NAAT NEGATIVE (NEGATIVE) Administered Medications Discontinued Medications Dexamethasone Sodium Phosphate (DexamethasonePf 10 Mg/Ml Vial) 10 mg IM NOW ONE Stop: 05/25/21 16:07 Last Admin: 05/25/21 16:19 Dose: 10 mg Documented by: [id number] Hydromorphone HCl (Hydromorphone Inj 1 Mg/Ml Syringe) 1 mg IV NOW STA Stop: 05/25/21 18:18 Last Admin: 05/25/21 18:44 Dose: 1 mg Documented by: [id number] Imaging Data Radiologist's Impression: Lumbar Spine MRI 05/25/21 16:05 MR lumbar spine wo con CLINICAL HISTORY: lower back pain radiating into bilateral legs TECHNIQUE: Multiplanar sequences through the lumbar spine were obtained, without intravenous contrast. Comparison: None available at the time of this dictation. FINDINGS: The alignment is anatomical. Multilevel degenerative changes are seen. Vertebral plana of T12 is noted. Posterior fixation hardware is seen spanning L3-L4. L1-L2: No significant disc bulge. No canal stenosis. No neuroforaminal stenosis. L2-L3: Bilateral facet arthropathy is seen. No canal stenosis. Moderate to severe neuroforaminal stenosis. L3-L4: Facet arthropathy and posterior disc bulge is seen. Moderate canal stenosis. Mild neuroforaminal stenosis. L4-L5: No significant disc bulge. No canal stenosis. No neuroforaminal stenosis. L5-S1: No significant disc bulge. No canal stenosis. No neuroforaminal stenosis. The spinal ligaments are intact, without evidence of disruption or abnormal signal intensity. The spinal cord is normal in signal intensity and there is no evidence of cord contusion. There is no evidence of an extradural, intradural, extramedullary or intramedullary lesion. Visualized soft tissues are normal. IMPRESSION: 1. Postsurgical changes are unchanged. Old vertebral plana of T12 is again seen. A not entirely evaluated with view of this image, there is noted to be moderate spinal stenosis at this level. 2. Redemonstration of moderate canal stenosis at L3-L4 and moderate to severe neuroforaminal stenosis at L2-L3. ACT 112: Negative or not required by law. Electronically signed by: Rick Paige M.D. 05/25/2021 5:50 PM Discharge Plan Visit Data Chief Complaint: Back Injury/Pain Stated Complaint: LOWER BACK PAIN, HIP/LEG PAIN ED Provider: Jerrell Mead ED Midlevel Provider: Ghazala Matute Patient Disposition: Being Evaluated by Hospitalist Prescriptions Prescriptions: No Action calcium carbonate [Calcium 600] 600 mg calcium (1,500 mg) tablet 600 mg PO QAM RF: 0 ketorolac 10 mg tablet 10 mg PO Q6H PRN (Reason: pain) 5 Days Qty: 20 RF: 0 thyroid (pork) [Centenary Thyroid] 15 mg tablet 15 mg PO .COMPLEX Qty: 90 RF: 1 esomeprazole magnesium [Nexium] 20 mg capsule,delayed release(DR/EC) 20 mg PO HS Qty: 90 RF: 1 hydrocodone-acetaminophen 10-325 mg tablet 1 tab PO Q6H PRN (Reason: pain) Qty: 28 RF: 0 fluticasone propionate [Flonase Allergy Relief] 50 mcg/actuation spray,suspension 2 spray INTRANASAL UD PRN (Reason: Allergy Symptoms) Qty: 16 RF: 5 citalopram 40 mg tablet 40 mg PO DAILY Qty: 90 RF: 1 pravastatin 20 mg tablet 20 mg PO HS Qty: 90 RF: 1 cholecalciferol (vitamin D3) [Vitamin D3] 50 mcg (2,000 unit) capsule 2,000 unit PO DAILY RF: 0 mirtazapine [Remeron] 15 mg tablet 15 mg PO HS PRN (Reason: sleep) Qty: 30 RF: 3 albuterol sulfate 90 mcg/actuation Hfa Aerosol Inhaler 2 puff INHALATION Q6H PRN (Reason: Shortness Of Breath) RF: 0
--- NOTE | 2021-05-25 17:51 | Magnetic Resonance Report ---
MR lumbar spine wo con CLINICAL HISTORY: lower back pain radiating into bilateral legs TECHNIQUE: Multiplanar sequences through the lumbar spine were obtained, without intravenous contrast . Comparison: None available at the time of this dictation. FINDINGS: The alignment is anatomical. Multilevel degenerative changes are seen. Vertebral plana of T12 is not ed. Posterior fixation hardware is seen spanning L3-L4. L1-L2: No significant disc bulge. No canal stenosis. No neuroforaminal stenosis. L2-L3: Bilateral facet arthropathy is seen. No canal stenosis. Moderate to severe neuroforaminal sten osis. L3-L4: Facet arthropathy and posterior disc bulge is seen. Moderate canal stenosis. Mild neuroforamin al stenosis. L4-L5: No significant disc bulge. No canal stenosis. No neuroforaminal stenosis. L5-S1: No significant disc bulge. No canal stenosis. No neuroforaminal stenosis. The spinal ligaments are intact, without evidence of disruption or abnormal signal intensity. The spi nal cord is normal in signal intensity and there is no evidence of cord contusion. There is no eviden ce of an extradural, intradural, extramedullary or intramedullary lesion. Visualized soft tissues are normal. IMPRESSION: 1. Postsurgical changes are unchanged. Old vertebral plana of T12 is again seen. A not entirely eval uated with view of this image, there is noted to be moderate spinal stenosis at this level. 2. Redemonstration of moderate canal stenosis at L3-L4 and moderate to severe neuroforaminal stenosi s at L2-L3. ACT 112: Negative or not required by law. Electronically signed by: Rick Paige M.D. 05/25/2021 5:50 PM
[2021-05-25] MEDS ORDERED: HYDROmorphone INJ 1 MG/ML SYRINGE IV STA (18:17)
--- NOTE | 2021-05-25 19:12 | Emergency Department Note ---
ED Visit Note Patient presents to the ED with chief complaint of low back pain. Exam reveals no focal neurologic deficits. Vital signs are stable. I have personally seen and evaluated the patient with the physician manufacturing assistant. I agree with the diagnostic/management decisions and have personally been involved in these decisions and agree with the diagnosis. .
[2021-05-25 21:13] LABS: Basophils # (auto) 0.02 K/uL (0-0.2); Basophils % (auto) 0.2 %; Eosinophils # (auto) 0.08 K/uL (0-0.5); Eosinophils % (auto) 0.9 %; Hematocrit (blood only) 35.5 % (37-47); Hemoglobin 11.8 g/dL (12.0-16.0); Immature Granulocytes % (auto) 1.1 %; Lymphocytes # (auto) 0.66 K/uL (1.2-3.4); Lymphocytes % (auto) 7.4 %; Mean Corpuscular Hemoglobin 32.3 pg (25-34); Mean Corpuscular Hgb Conc 33.2 g/dL (32-36); Mean Corpuscular Volume 97.3 fL (80-100); Mean Platelet Volume 9.3 fL (7.4-10.4); Monocytes # (auto) 0.18 K/uL (0.11-0.59); Neutrophils % (auto) 88.4 %; Platelet Count 317 K/uL (130-400); RDW Coefficient of Variation 14.3 % (11.5-14.5); RDW Standard Deviation 51.3 fL (36.4-46.3); Red Blood Count 3.65 M/uL (4.2-5.4); White Blood Count 8.94 K/uL (4.8-10.8)
--- NOTE | 2021-05-25 21:22 | History & Physical Report ---
Date of Service May 25, 2021 Assessment & Plan (1) Intractable low back pain: Plan: 71 year old female past medical history of lumbar spinal stenosis s/p fusion, hypothyroidism, GERD, osteoarthritis, and sleep apnea admitted for intractable lower back pain. Intractable low back pain: -MRI with re-demonstration moderate canal stenosis L3-L4, severe neuroforaminal stenosis L2-L3 -Chronic back pain exacerbation possibly 2/2 chronic stenosis at lumbar spine vs spasm. -Manage pain with Tylenol, Dilaudid PRN. -Orthopedic consulted. -Continue to monitor vitals and pain. Hypothyroidism: -Last TSH 2.3 on 05/02/21. -Continue home [place] Thyroid Prediabetes: -Last A1c 6.3 on 05/02/21. -Started on type 2 diabetic diet. Monitor glucose. GERD: -Continued pantoprazole home medication. Iron deficiency anemia: -Hemoglobin 11.8, continue to monitor CBC and symptoms of lightheaded/dizziness. Hyperlipidemia: -Continue home pravastatin. Depression with anxiety: -Continued home citalopram and mirtazapine. (2) Hypothyroidism: (3) Prediabetes: (4) Iron deficiency anemia: (5) Hyperlipidemia: History of Present Illness Primary Care Provider: Lina Jones DO 71 year old female with past medical history of lumbar spinal stenosis s/p fusion, hypothyroidism, GERD, osteoarthritis, and sleep apnea presenting to the ED with exacerbation of her chronic lower back pain. Patient has had a history of multiple surgeries to her back in the past. In 2008 she had L4-L5 and S1 fusion and in 2017 had multiple screws at the level of around L2-L3. After the L2-L3 surgery a screw or two fell out of place and her L5 became fractured causing her a lot of pain. She went back for surgery to fix this and had temporary resolution. She has had recurring issues with back pain over the past few months with worsening of the pain over the past few weeks. She currently sees pain management for the pain where she has received steroid injections and trial of oral steroid without relief. Last Sunday she went to get an epidural and found slight relief for a few days but the pain came back. Sunday she was given Toradol with no relief. She called the office back today and was told to come to the ED for the worsening pain. Her pain upon entering the ED was an 8/10 at the bilateral gluteus muscles and radiated down to the right knee. After receiving Dilaudid her pain had mildly let up to where it was bearable and the pain at the right leg had regressed to proximal anterior thigh. Denies fevers, chills, shortness of breath, numbness or tingling or loss of sensation, bowel incontinence, muscle spasm sensation. Patient says she has had urinary incontinence for a couple weeks where upon standing to go to the bathroom she can't stop the urine from coming out. She wears pads to help with this and finds by the time she makes it to the bathroom her pad and pants are soaked. Patient denies loss of control of bowel movements or loss of sensation. Allergies Allergy/AdvReac Type Severity Reaction Status Date / Time erythromycin base Allergy Unknown RASH Verified 05/23/21 14:21 fish oil Allergy Unknown sweat, Verified 05/23/21 14:21 nausea, dizzy Penicillins Allergy Unknown RED RASH Verified 05/23/21 14:21 ITCHING tramadol Allergy Unknown rash/hives Verified 05/23/21 14:21 Home Medications Medication Instructions Recorded Confirmed Type calcium carbonate 600 mg calcium 600 mg PO QAM tab 12/06/18 05/25/21 History (1,500 mg) tablet (Calcium) thyroid (pork) 15 mg tablet 15 mg PO .COMPLEX #90 tab 10/15/20 05/25/21 Rx ([place] Thyroid) cholecalciferol (vitamin D3) 50 2,000 unit PO DAILY cap 11/01/20 05/25/21 History mcg (2,000 unit) capsule (Vitamin D3) esomeprazole magnesium 20 mg 20 mg PO HS #90 cap 12/29/20 05/25/21 Rx capsule,delayed release (Nexium) hydrocodone 10 mg-acetaminophen 1 tab PO Q6H PRN #28 tab 04/11/21 05/25/21 Rx 325 mg tablet fluticasone propionate 50 2 spray INTRANASAL UD PRN #16 gm 04/26/21 05/25/21 Rx mcg/actuation nasal spray,suspension (Flonase Allergy Relief) mirtazapine 15 mg tablet (Remeron) 15 mg PO HS PRN #30 tab 05/06/21 05/25/21 Rx citalopram 40 mg tablet 40 mg PO DAILY #90 tab 05/16/21 05/25/21 Rx pravastatin 20 mg tablet 20 mg PO HS #90 tab 05/16/21 05/25/21 Rx ketorolac 10 mg tablet 10 mg PO Q6H PRN 5 Days #20 tab 05/23/21 05/25/21 Rx albuterol sulfate 90 mcg/actuation 2 puff INHALATION Q6H PRN 05/25/21 05/25/21 History aerosol inhaler Past Med/Surg History Medical History Allergic rhinitis B12 deficiency Cervical disc disease Cervical disc herniation Cervical dystonia Cervical facet syndrome Cervical radiculopathy Cervicalgia Cervicogenic headache Chronic back pain Closed T12 fracture Degeneration, intervertebral disc, thoracic Depression with anxiety Diverticulosis Fracture of transverse process of lumbar vertebra GERD (gastroesophageal reflux disease) Hyperlipidemia Hypothyroidism Iron deficiency anemia Lumbar radiculopathy Lumbar stenosis Nocturnal hypoxia Obesity Osteoarthritis Periodic limb movement disorder Postlaminectomy syndrome of lumbosacral region Prediabetes Right rib fracture Sacroiliitis Sleep apnea NO DEVICES Vitamin D deficiency Surgical History History of appendectomy History of arthroplasty of left knee (05/2017) History of arthroplasty of right knee History of back surgery REPAIR OF FUSION--REMOVED 2 SCREWS History of carpal tunnel release of both wrists b/l wrists History of cholecystectomy open History of dilatation and curettage History of esophagogastroduodenoscopy (EGD) History of kyphoplasty History of lumbar spinal fusion X2 History of tooth extraction ALL TEETH S/P foot surgery, left RELEASE OF PLANTAR FASCIITIS S/P foot surgery, right RELEASE OF PLANTAR FASCIITIS Family History Mother , age 84 Pulmonary fibrosis Cancer of kidney Hypertension Father , age 80 COPD (chronic obstructive pulmonary disease) Daughter Non-Hodgkin lymphoma Brother Non-Hodgkin lymphoma Denies family history of Ovarian cancer Prostate cancer Myocardial infarction Breast cancer Colorectal cancer Social History Smoking Status: Never smoker Second Hand Exposure: No; Do You Dip or Chew Tobacco: No; Hx Alcohol Use: No Hx Substance Use: No Preferred Language: Croatian Communication Ability: Effective Visual Impairment: No Limitations Hearing Ability: Normal Dry Food Products Mixer Required: No Beliefs That Will Affect Care: None marital status: marital status details: lives in [place] Current Living Situation: Spouse current occupational status: retired current occupation: worked at [employer] Other Information That Helps Us Care for You: No other: 2 daughters Feels Safe at Home: Yes Safety Concerns: Feels Safe At This Time Childhood Exposure to Second-Hand Smoke: Yes caffeine: Yes during the past year weight has: increased > 10 lbs Dental Care, Regularly: No Physical Activity Frequency: Daily Seatbelt Use: always Sunscreen Use: No Assistive Devices: Cane Review of Systems Musculoskeletal: + back pain and + radicular pain Physical Exam Constitutional: WD/WN, vitals as above Eyes: PERRL, conjunctivae normal, anicteric sclerae Respiratory: normal respiratory effort, lungs clear to auscultation Cardiovascular: RRR, no murmur, no edema Gastrointestinal (Abdomen): normal bowel sounds, soft, nontender, no hepatosplenomegaly Musculoskeletal: Passive range of motion in tact bilaterally at lower extremities. Moderate pain to flexion at lower back and anterior right thigh. Gluteus muscles on the right with increased hypertonicity. Neurologic: normal touch/pain/proprioception Psychiatric: A+Ox3, euthymic affect Results & Data Results & Data ([facility]) Vital Signs (Past 12 Hours) Vital Signs Temp Pulse Pulse Resp BP Pulse Ox 05/25/21 20:26 70 22 90 05/25/21 13:12 36.5 C 79 20 144/75 H 99 Supervising Physician Co-Signing Physician Notes Attending addendum: I have physically seen this patient, have supervised the medical residents activities, and agree with the H&P unless as otherwise noted. Assessment and Plan: Intractable low back pain- Acute on chronic lumbar pain MRI: Moderate canal stenosis L3-L4, severe neuroforaminal stenosis L2-L3 Acetaminophen 650 mg p.o. every 6 hours as needed mild pain or fever Dilaudid 0.5 mg IV every 3 hours as needed moderate pain Dilaudid 1 mg IV every 3 hours as needed severe pain Consult her orthopedic surgeon Dr. Joiner Remaining orders and notations as noted Resident Activity Tracking Resident Involvement: Resident Care Provided Care Provided: Adult Hospital Medicine (1) Hyperlipidemia Hyperlipidemia type: mixed hyperlipidemia Qualified Code(s): E78.2 - Mixed hyperlipidemia (2) Hypothyroidism Hypothyroidism type: acquired Qualified Code(s): E03.9 - Hypothyroidism, unspecified
[2021-05-25 21:23] LABS: Partial Thromboplastin Ratio 1.1; Partial Thromboplastin Time 28.5 Seconds (21.0-31.0); Prothrombin Time 10.2 Seconds (9.0-12.0)
[2021-05-25 21:33] LABS: Albumin Level 3.1 gm/dl (3.4-5.0); Calcium 8.9 mg/dl (8.5-10.1); Creatinine Clr Calc Pharmacy 74.8 ml/min; Est GFR (African American) 77.1 ml/min; Est GFR (Non-African American) 66.6 ml/min; Potassium 4.3 mmol/L (3.5-5.1)
[2021-05-25 21:36] LABS: Albumin Globulin Ratio 0.9 (0.9-2); Bilirubin,Total 0.3 mg/dl (0.2-1); Globulin 3.6 gm/dl (2.5-4.0); Total Protein 6.7 gm/dl (6.4-8.2)
[2021-05-25] MEDS ORDERED: ACETAMINOPHEN 325 MG TAB PO PRN (21:59)
[2021-05-25] MEDS ORDERED: KETOROLAC TROMETHAMINE 10 MG TABLET PO PRN (23:14)
[2021-05-25] MEDS ORDERED: HYDROmorphone INJ 0.5 MG/0.5 ML SYR IV PRN ×2 (23:14)
[2021-05-25] MEDS ORDERED: ALBUTEROL HFA 8 GM INHALER INH PRN (23:14)
[2021-05-25] MEDS ORDERED: CITALOPRAM 40 MG TAB PO SCH (23:45)
[2021-05-26] MEDS: PRAVASTATIN SOD 20 MG TAB PO SCH ×2 (00:01→20:13)
[2021-05-26] MEDS ORDERED: Nursing to Pharmacy Communication SCH (00:30)
[2021-05-26] MEDS: MIRTAZAPINE TAB 15 MG TAB PO PRN ×2 (00:44→21:49)
[2021-05-26] MEDS: CALCIUM CARBONATE 1250MG TAB PO SCH (07:22)
--- NOTE | 2021-05-26 08:47 | Hospitalist Progress Note ---
Date of Service May 26, 2021 Assessment & Plan (1) Intractable low back pain: (2) Lumbar radiculopathy: (3) Postlaminectomy syndrome of lumbosacral region: (4) Hyperlipidemia: (5) Hypothyroidism: (6) GERD (gastroesophageal reflux disease): (7) Depression with anxiety: Plan: #back pain -likely due to both spinal stenosis as well as MSK involvement; red flag signs/symptoms are absent -support for MSK involvement: paraspinal muscle tenderness/hypertonicity -support for spinal stenosis: MRI evidence, radicular distribution of pain (L2- L4) region, +shopping cart sign -continue PRN acetaminophen, ketorolac -her epidural injection from 8 days ago may take more time to reach maximum effect -outpatient management could include trials of OMT, spinal decompression w/ traction #GERD -continue home dose pantoprazole 40 mg po hs #hypothyroidism -continue home dose thyroid armour 15 mg po #hyperlipidemia -continue home dose pravastatin 20 mg po hs #depression w/ anxiety -continue home dose citalopram 40 mg po hs Admission and Anticipated Discharge Date Admission Date: May 25, 2021 Supervising Physician Co-Signing Physician Notes I personally examined the patient and verified all garcia points of history and exam, discussed case, and agree with decision making with Najma Wills MS2 back pain radiates to legs. also hurts in back. notes ortho expressed likely will need surgical decompression vitals noted nad heent nc at mmm breathing unlabored no accessory muscles good effort skin no rashes no pallor or icterus back pain - spinal stenosis and likely overlying muscle spasm. pain control, for surgery likely soon, outpt management for muscular pain unless (in an unlikely turn of good luck) the pain all resolves post op SCDs for DVT proph since may have spine surgery tomorrow Subjective Carol is a 71 y/o woman w/ PMHx of spinal stenosis (L2-L4) s/p lumbar spinal surgeries in 2008 (L4/L5 + S1 fusion) and 2016 (L2-L3). 8 days ago in the [place] ER she received a steroid epidural injection. ED workup 05/25: -afebrile, WBC WNL -pain was 8/10, localized to the bilateral gluteal muscles as well as the R knee and R anterior thigh. -Lumbar spine MRI 1. Postsurgical changes are unchanged. Old vertebral plana of T12 is again seen. A not entirely evaluated with view of this image, there is noted to be moderate spinal stenosis at this level. 2. Redemonstration of moderate canal stenosis at L3-L4 and moderate to severe neuroforaminal stenosis at L2-L3. Today Carol denies fever, chills, night sweats, loss of sensation in the UE/LE, numbness in genital region, and bladder/bowel incontinence. No history of spinal abscesses. She has had back spasms in the past but they are not present today. Bending forward somewhat relieves her pain. Walking exacerbates her pain to 9/10, sitting upright is more comfortable than lying supine. (She is seen regularly by pain management and has trailed several epidural/SI joint injections, oral steroid tapers. 3 days ago pain management prescribed Toradol. Home meds for pain relief include hydrocodone-acetaminophen 10-325 once daily, ketorolac 10mg. At baseline she walks with 1 cane but in the past several weeks became dependent on 2 canes.) Review of Systems Review of Systems: All systems reviewed & are unremarkable except as noted in Subjective Physical Exam Cardiovascular: RRR, no murmur, no edema Musculoskeletal: Spine: lumbar spine normal to inspection (+surgical scar in lumbosacral area), + lumbar spinal tenderness, + paraspinal tenderness (lumbosacral region), + straight leg raise positive (supine and seated SLR elicits back in the R buttock/anterior thigh regions) and + buttock tenderness Neurologic: CN II-XII intact Sensory -sensation to light touch intact in the UE/LE bilaterally Motor -active flexion of R hip is 4/5 compared to 5/5 on the L; pt says this is painful -following are 5/5 bilaterally: SCM, biceps, triceps, jewel sawyer strength, knee flexion/extension, plantar flexion, dorsiflexion Reflexes -following reflexes are 2/4 bilaterally: biceps, brachioradialis, patellar, Achilles Results & Data Results & Data ([facility]) Vital Signs (Past 12 Hours) Vital Signs Temp Pulse Pulse Resp BP Pulse Ox 05/25/21 23:21 162/95 H 05/25/21 23:01 80 22 90 05/25/21 22:45 36.6 C 68 16 167/104 H 95 05/25/21 20:26 70 22 90 (1) Hyperlipidemia Hyperlipidemia type: mixed hyperlipidemia Qualified Code(s): E78.2 - Mixed hyperlipidemia (2) Hypothyroidism Hypothyroidism type: acquired Qualified Code(s): E03.9 - Hypothyroidism, unspecified
[2021-05-26] MEDS ORDERED: CITALOPRAM 40 MG TAB PO SCH (09:00)
--- NOTE | 2021-05-26 13:22 | XRay Report ---
XR lumbar spine flex/ext only CLINICAL HISTORY: standing films, leg pain. Low back pain. COMPARISON STUDY: Lumbar spine MRI 05/25/2021. Lumbar spine radiographs 01/11/2019. FINDINGS: There is L3-L4 posterior decompression and fusion with pedicle screws and rods. The hardwar e appears intact. Disc spacers are again noted at L4-5 and L5-S1 mild disc space narrowing at L2-L3, unchanged. Vertebral plana deformity at T12 is again noted. This demonstrates up to 4 mm of retropuls ion the posterior superior corner with moderate central canal narrowing at this level. No acute fract ures identified within the lumbar spine. The sacrum appears intact. The alignment remains intact thro ughout flexion and extension. IMPRESSION: 1. Alignment remains intact throughout flexion and extension. 2. Old T12 severe compression deformity with 4 mm of retropulsion and moderate central canal narrowin g. This remains unchanged. 3. Postoperative changes as described above. The hardware is intact. ACT 112: Negative or not required by law. Electronically signed by: Vj Hutchinson M.D. 05/26/2021 1:21 PM
--- NOTE | 2021-05-26 19:15 | Billing Data ---
Date of Service May 26, 2021 Coding Level of Care Code 89307 Subseq Obs Care Lvl 3
--- NOTE | 2021-05-26 19:50 | Billing Data ---
Date of Service May 26, 2021 Coding Level of Care Code INT OBSERVATION CARE 70M LVL 3
[2021-05-26] MEDS: PANTOprazole 40 MG TAB PO SCH ×2 (20:13)
[2021-05-26] MEDS: CITALOPRAM 40 MG TAB PO SCH (20:13)
[2021-05-26] MEDS ORDERED: PRAVASTATIN SOD 20 MG TAB PO SCH (21:00)
--- NOTE | 2021-05-26 21:59 | Electrocardiogram Report ---
Test Reason : Blood Pressure : / mmHG Vent. Rate : 067 BPM Atrial Rate : 067 BPM P-R Int : 154 ms QRS Dur : 094 ms QT Int : 430 ms P-R-T Axes : 060 030 048 degrees QTc Int : 454 ms Normal sinus rhythm Possible Inferior infarct When compared with ECG of 17-NOV-2016 15:38, No significant change was found Confirmed by Abhay Kirkpatrick ([id number]) on 05/26/2021 9:59:09 PM Referred By: Danny Burgess Confirmed By:Abhay Kirkpatrick
[2021-05-27] MEDS: ARMOUR THYROID 30 MG TAB PO SCH (05:55)
[2021-05-27 07:14] LABS: Alanine Aminotransferase 18 (12-78); Albumin Level 2.9 gm/dl (3.4-5.0); Alkaline Phosphatase 156 U/L (45-117); Aspartate Aminotransferase 13 U/L (15-37); Bilirubin Direct < 0.1 mg/dl (0-0.2); Bilirubin,Total 0.6 mg/dl (0.2-1); Total Protein 6.1 gm/dl (6.4-8.2)
[2021-05-27] MEDS: CALCIUM CARBONATE 1250MG TAB PO SCH (07:48)
[2021-05-27] MEDS: HYDROcodone/ACETAMINOPHEN 10/325 TAB PO PRN ×2 (07:48→20:41)
--- NOTE | 2021-05-27 13:30 | Orthopedic Progress Note ---
Date of Service May 27, 2021 Assessment & Plan (1) Lumbar radiculopathy: Plan: Assessment lumbar spinal stenosis with radiculopathy. Plan at this time x-rays of the lumbar spine demonstrate marked to space collapse retrolisthesis neuroforaminal disease at the L2-L3 level. This is consistent with MRI findings. She clearly has an L2 radiculopathy limiting her ability to stand and ambulate quadricep function. She is failed extensive course of nonoperative c are including multiple injections and therapy and would like to pursue surgery. I would recommend lumbar decompression fusion L2-L3 with removal instrumentation L3-L4. We will seek medical clearance and plan for surgery as soon as possible. Admission and Anticipated Discharge Date Admission Date: May 25, 2021 Subjective Patient's continues to have severe back pain rating into her right anterior thigh. She is unable to ambulate. She does note weakness in the right leg with ambulation. Physical Exam Physical Exam: On exam patient prefers to stay in bed. She is markedly uncomfortable when trying to stand. She has good strength with plantar flexion dorsiflexion is with breakaway weakness to the right quadricep. Results & Data ([facility]) Vital Signs (Past 12 Hours) Vital Signs Temp Pulse Resp BP Pulse Ox 05/27/21 07:23 36.3 C L 70 16 160/93 H 97
--- NOTE | 2021-05-27 15:07 | Hospitalist Progress Note ---
Date of Service May 27, 2021 Assessment & Plan (1) Intractable low back pain: Plan: 71 year old female past medical history of lumbar spinal stenosis s/p fusion, hypothyroidism, GERD, osteoarthritis, and sleep apnea admitted for intractable lower back pain. Intractable low back pain: -MRI with re-demonstration moderate canal stenosis L3-L4, severe neuroforaminal stenosis L2-L3 -Chronic back pain exacerbation possibly 2/2 chronic stenosis at lumbar spine vs decompression. -Orthopedic consulted; plan to have decompressive surgery on Sunday. Patient will remain admitted until then. -Otherwise, continue to manage pain with Tylenol, Toradol PRN. -Continue to monitor with labs Hypothyroidism: -Last TSH 2.3 on 05/02/21. -Continue home [place] Thyroid Prediabetes: -Last A1c 6.3 on 05/02/21. -Started on type 2 diabetic diet. Monitor glucose. GERD: -Continued pantoprazole home medication. Iron deficiency anemia: -Hemoglobin 11.8, continue to monitor CBC and symptoms of lightheaded/dizziness. Hyperlipidemia: -Continue home pravastatin. Depression with anxiety: -Continued home citalopram and mirtazapine. (2) Hypothyroidism: (3) Prediabetes: (4) Iron deficiency anemia: (5) Hyperlipidemia: Admission and Anticipated Discharge Date Admission Date: May 27, 2021 Supervising Physician Co-Signing Physician Notes I personally examined the patient and verified all garcia points of history and exam, discussed case, and agree with decision making with Dr Teodora girard about the same. d/w ortho - for surgery - probably will be able to do so sunday vitals noted nad heent nc at mmm breathing unlabored no accessory muscles good effort skin no rashes no pallor or icterus back pain - spinal stenosis and likely overlying muscle spasm. pain control, for surgery likely soon (sunday), outpt management for muscular pain unless (in an unlikely turn of good luck) the pain all resolves post op lovenox tomorrow, sunday - then hold for anticipated surgery sunday Subjective Patient is sitting at the bedside, eating breakfast. She reports she slept fine. She still reports pain in her anterior thigh and lower back, worsened with movement. She reports that the Toradol is not working well enough for her, though it does provide minimal relief. She reports that she is used her walker to go to the bathroom a couple times since yesterday. Physical Exam Constitutional: WD/WN, vitals as above Eyes: PERRL, conjunctivae normal, anicteric sclerae ENMT: external ear and nose normal, oropharynx normal Respiratory: normal respiratory effort, lungs clear to auscultation Cardiovascular: RRR, no murmur, no edema Gastrointestinal (Abdomen): normal bowel sounds, soft, nontender, no hepatosplenomegaly Musculoskeletal: Spine: + limited thoraco-lumbar ROM; no lumbar spinal tenderness, no paraspinal tenderness, no buttock ecchymosis, no buttock tenderness, no buttock swelling, no sacral tenderness and no coccyx tenderness Results & Data Results & Data ([facility]) Vital Signs (Past 12 Hours) Vital Signs Temp Pulse Resp BP Pulse Ox 05/27/21 07:23 36.3 C L 70 16 160/93 H 97 Resident Activity Tracking Resident Involvement: Resident Care Provided Care Provided: Adult Hospital Medicine (1) Hyperlipidemia Hyperlipidemia type: mixed hyperlipidemia Qualified Code(s): E78.2 - Mixed hyperlipidemia (2) Hypothyroidism Hypothyroidism type: acquired Qualified Code(s): E03.9 - Hypothyroidism, unspecified
--- NOTE | 2021-05-27 18:14 | Billing Data ---
Date of Service May 27, 2021 Coding Level of Care Code 56199 Subseq Hosp Care Lvl 2
[2021-05-27] MEDS: CITALOPRAM 40 MG TAB PO SCH (20:41)
[2021-05-27] MEDS: PANTOprazole 40 MG TAB PO SCH (20:41)
[2021-05-27] MEDS: PRAVASTATIN SOD 20 MG TAB PO SCH (20:41)
[2021-05-27] MEDS: MIRTAZAPINE TAB 15 MG TAB PO PRN (21:28)
[2021-05-28] MEDS: ENOXAPARIN INJ 40 MG/0.4 ML SYR SQ SCH (08:46)
[2021-05-28] MEDS: CALCIUM CARBONATE 1250MG TAB PO SCH (08:46)
[2021-05-28] MEDS: HYDROcodone/ACETAMINOPHEN 10/325 TAB PO PRN ×2 (09:03→21:02)
--- NOTE | 2021-05-28 18:35 | Hospitalist Progress Note ---
Date of Service May 28, 2021 Assessment & Plan (1) Intractable low back pain: Plan: 71 year old female past medical history of lumbar spinal stenosis s/p fusion, hypothyroidism, GERD, osteoarthritis, and sleep apnea admitted for intractable lower back pain. Intractable low back pain: -MRI with re-demonstration moderate canal stenosis L3-L4, severe neuroforaminal stenosis L2-L3 -Chronic back pain exacerbation possibly 2/2 chronic stenosis at lumbar spine vs decompression. -Orthopedic consulted; plan to have decompressive surgery on Sunday. Patient will remain admitted until then. A.m. labs. N.p.o. tomorrow at midnight -Otherwise, continue to manage pain with Tylenol, Toradol PRN. -Continue to monitor with labs -Patient can easily achieve at least 4 METS prior to admission but going up and down stairs without angina. No recent or remote cardiac issues. ECG with possible old inferior infarct but no evidence of CHF clinically. She is at average perioperative cardiovascular risk to undergo this intermediate risk surgery and should proceed with surgery as planned if desired Elevated alkaline phosphatase-likely secondary to bony source as had normal liver on imaging of the liver in the last couple of years-we will follow Hypothyroidism: -Last TSH 2.3 on 05/02/21. -Continue home [place] Thyroid Prediabetes: -Last A1c 6.3 on 05/02/21. -Started on type 2 diabetic diet. Monitor glucose. GERD: -Continued pantoprazole home medication. Iron deficiency anemia: -Hemoglobin 11.8, continue to monitor CBC and symptoms of lightheaded/dizziness. Hyperlipidemia: -Continue home pravastatin. Depression with anxiety: -Continued home citalopram and mirtazapine. (2) Hypothyroidism: (3) Prediabetes: (4) Iron deficiency anemia: (5) Hyperlipidemia: Admission and Anticipated Discharge Date Admission Date: May 27, 2021 Supervising Physician Co-Signing Physician Notes I personally examined the patient and verified all garcia points of history and exam, discussed case, and agree with decision making with Dr. Araiza with the following additions/exceptions: Patient reports pain in the back and down the right thigh only with movement, but was able to walk to the bathroom and back with a walker today. Denies any chest pain with walking up and down stairs prior to worsening back pain when she was able to walk up and down stairs. No cardiac issues. Otherwise has no complaints today. Vitals reviewed Gen: AAOx3, NAD HEENT: Anicteric sclerae, EOMI CV: RRR no mgr nl S1S2 Pulm: CTAB no wcr Abd: +BS soft NT ND no masses or hernias Ext: No edema, 2+ DP pulses Skin: No rashes, warm/dry Neuro: Full strength throughout but pain with testing of right lower extremity 71-year-old female here with intractable back pain with L2 lumbar radiculopathy, in need of repeat decompression of L2-L3 which is planned for Sunday She is medically optimized for surgery and as above, noted to be at average perioperative cardiovascular risk for this intermediate risk procedure and should proceed with surgery as planned. Plan to hold Lovenox starting tomorrow Discontinue ketorolac as well for bleeding risk although she has not received a dose since 05/26 Subjective Patient sitting up in bed comfortably watching television. Reports no back pain in the current position. Able to ambulate to the bathroom using her walker. Pain continues to be minimally to moderately controlled on Toradol, Tylenol as needed. She is aware of the plan by Ortho to perform decompressive surgery on Sunday. She has no other questions or concerns. Review of Systems Review of Systems: All systems reviewed & are unremarkable except as noted in HPI & below Physical Exam Constitutional: WD/WN, vitals as above Eyes: PERRL, conjunctivae normal, anicteric sclerae Respiratory: normal respiratory effort, lungs clear to auscultation Cardiovascular: RRR, no murmur, no edema Gastrointestinal (Abdomen): normal bowel sounds, soft, nontender, no hepatosplenomegaly Musculoskeletal: Spine: + limited thoraco-lumbar ROM; straight leg raise negative bilaterally Results & Data Results & Data ([facility]) Vital Signs (Past 12 Hours) Vital Signs Temp Pulse Resp BP BP Pulse Ox 05/28/21 16:37 36.8 C 75 16 125/76 96 05/28/21 07:54 36.3 C L 79 16 166/95 H 99 Resident Activity Tracking Resident Involvement: Resident Care Provided Care Provided: Adult Hospital Medicine (1) Hyperlipidemia Hyperlipidemia type: mixed hyperlipidemia Qualified Code(s): E78.2 - Mixed hyperlipidemia (2) Hypothyroidism Hypothyroidism type: acquired Qualified Code(s): E03.9 - Hypothyroidism, unspecified
[2021-05-28] MEDS: MIRTAZAPINE TAB 15 MG TAB PO PRN (20:58)
[2021-05-28] MEDS: PRAVASTATIN SOD 20 MG TAB PO SCH (20:58)
[2021-05-28] MEDS: CITALOPRAM 40 MG TAB PO SCH (20:58)
[2021-05-28] MEDS: PANTOprazole 40 MG TAB PO SCH (20:59)
--- NOTE | 2021-05-28 23:26 | Billing Data ---
Date of Service May 28, 2021 Coding Level of Care Code 32330 Subseq Hosp Care Lvl 2
[2021-05-29 06:40] LABS: Basophils # (auto) 0.03 K/uL (0-0.2); Basophils % (auto) 0.4 %; Eosinophils # (auto) 0.16 K/uL (0-0.5); Hematocrit (blood only) 35.5 % (37-47); Hemoglobin 11.3 g/dL (12.0-16.0); Immature Granulocytes # (auto) 0.12 K/uL (0.00-0.02); Immature Granulocytes % (auto) 1.5 %; Lymphocytes # (auto) 2.24 K/uL (1.2-3.4); Lymphocytes % (auto) 28.5 %; Mean Corpuscular Hemoglobin 31.9 pg (25-34); Mean Corpuscular Hgb Conc 31.8 g/dL (32-36); Mean Corpuscular Volume 100.3 fL (80-100); Mean Platelet Volume 9.3 fL (7.4-10.4); Monocytes % (auto) 10.2 %; Neutrophils # (auto) 4.52 K/uL (1.4-6.5); Neutrophils % (auto) 57.4 %; Platelet Count 306 K/uL (130-400); RDW Coefficient of Variation 14.7 % (11.5-14.5); RDW Standard Deviation 53.7 fL (36.4-46.3); Red Blood Count 3.54 M/uL (4.2-5.4); White Blood Count 7.87 K/uL (4.8-10.8)
[2021-05-29 07:00] LABS: BUN Creatinine Ratio 16.8 (10-20); Calcium 8.9 mg/dl (8.5-10.1); Creatinine Clr Calc Pharmacy 63.2 ml/min; Est GFR (African American) 62.9 ml/min; Est GFR (Non-African American) 54.3 ml/min; Potassium 4.4 mmol/L (3.5-5.1)
[2021-05-29] MEDS: CALCIUM CARBONATE 1250MG TAB PO SCH (08:37)
[2021-05-29] MEDS: ENOXAPARIN INJ 40 MG/0.4 ML SYR SQ SCH (08:46)
--- NOTE | 2021-05-29 08:50 | Orthopedic Progress Note ---
Date of Service May 29, 2021 Assessment & Plan (1) Lumbar radiculopathy: Plan: And with tentative surgical intervention tomorrow. Patient is made made n.p.o. after midnight tonight. All questions have been answered in detail. Admission and Anticipated Discharge Date Admission Date: May 27, 2021 Subjective Patient continues to struggle with limiting pain with any type of activity. She has trialed and failed conservative therapy including pain management over the past several months. Current tentative plan is proceeding with surgical intervention tomorrow in the form of posterior lumbar decompression and instrumented fusion of L2-3, hard removal L3-4. Review of Systems 2 Review of Systems: All systems reviewed & are unremarkable except as noted in HPI & below Physical Exam Physical Exam: Alert and oriented x3 Exam unchanged Strength unchanged Lumbar incisions well-healed Results & Data ([facility]) Vital Signs (Past 12 Hours) Vital Signs Temp Pulse Resp BP BP Pulse Ox 05/29/21 07:19 36.6 C 81 16 165/97 H 95 05/28/21 22:57 36.7 C 73 16 135/74 91
--- NOTE | 2021-05-29 09:17 | Hospitalist Progress Note ---
Date of Service May 29, 2021 Assessment & Plan (1) Intractable low back pain: Plan: 71 year old female past medical history of lumbar spinal stenosis s/p fusion, hypothyroidism, GERD, osteoarthritis, and sleep apnea admitted for intractable lower back pain. Intractable low back pain: -MRI with re-demonstration moderate canal stenosis L3-L4, severe neuroforam inal stenosis L2-L3 -Chronic back pain exacerbation possibly 2/2 chronic stenosis at lumbar spine vs decompression. -Orthopedic consulted; plan to have decompressive surgery tomorrow on Sunday. A.m. labs. N.p.o. tonight at midnight; Lovenox held. -Otherwise, continue to manage pain with Tylenol, Toradol PRN. -Continue to monitor with labs Hypothyroidism: -Last TSH 2.3 on 05/02/21. -Continue home [place] Thyroid Prediabetes: -Last A1c 6.3 on 05/02/21. -On regular diet. Continue glucose checks. GERD: -Continued pantoprazole home medication. Iron deficiency anemia: -Hemoglobin 11.8, continue to monitor CBC and symptoms of lightheaded/dizziness. Hyperlipidemia: -Continue home pravastatin. Depression with anxiety: -Continued home citalopram and mirtazapine. DVT prophylaxis: None, Lovenox held prior to surgery Dispo: Pending recuperation from decompressive surgery (2) Hypothyroidism: (3) Prediabetes: (4) Iron deficiency anemia: (5) Hyperlipidemia: Admission and Anticipated Discharge Date Admission Date: May 27, 2021 Supervising Physician Co-Signing Physician Notes I personally examined the patient and verified all garcia points of history and exam, discussed case, and agree with decision making with Dr. Araiza with the following additions/exceptions: Patient anxious to get her surgery done tomorrow and begin her recovery. Still has pain from the right hip through the right thigh. No chest pain or shortness of breath. Vitals reviewed Gen: AAOx3, NAD HEENT: Anicteric sclerae, EOMI CV: RRR no mgr nl S1S2 Pulm: CTAB no wcr Abd: +BS soft NT ND no masses or hernias Ext: No edema Skin: No rashes, warm/dry Neuro: Full strength throughout but pain with testing of right lower extremity 71-year-old female here with intractable back pain with L2 lumbar radiculopathy, in need of repeat decompression of L2-L3 which is planned for Sunday She is medically optimized for surgery and as above, noted to be at average perioperative cardiovascular risk for this intermediate risk procedure and should proceed with surgery as planned. Watch for hyperglycemia if dexamethasone is utilized in the postoperative setting given her history of prediabetes. Subjective Patient is seated at the bedside eating breakfast this morning. She continues to report pain down her anterior right thigh and lower back with movement. Otherwise, she is comfortable when she finds a new resting position and is usually symptom-free until she has to move. She denies fevers, chills, shortness of breath, chest pain etc. Review of Systems Review of Systems: All systems reviewed & are unremarkable except as noted in HPI & below Physical Exam Constitutional: WD/WN, vitals as above Eyes: PERRL, conjunctivae normal, anicteric sclerae ENMT: external ear and nose normal, oropharynx normal Respiratory: normal respiratory effort, lungs clear to auscultation Cardiovascular: RRR, no murmur, no edema Gastrointestinal (Abdomen): normal bowel sounds, soft, nontender, no hepatosplenomegaly Musculoskeletal: Spine: + limited thoraco-lumbar ROM; no lumbar spinal tenderness, no paraspinal tenderness, straight leg raise negative bilaterally, no buttock ecchymosis, no buttock tenderness, no buttock swelling, no sacral tenderness and no coccyx tenderness Results & Data Results & Data ([facility]) Vital Signs (Past 12 Hours) Vital Signs Temp Pulse Resp BP BP Pulse Ox 05/29/21 07:19 36.6 C 81 16 165/97 H 95 05/28/21 22:57 36.7 C 73 16 135/74 91 Laboratory Results 05/29/21 06:23 05/29/21 06:23 Resident Activity Tracking Resident Involvement: Resident Care Provided Care Provided: Adult Hospital Medicine (1) Hyperlipidemia Hyperlipidemia type: mixed hyperlipidemia Qualified Code(s): E78.2 - Mixed hyperlipidemia (2) Hypothyroidism Hypothyroidism type: acquired Qualified Code(s): E03.9 - Hypothyroidism, unspecified
[2021-05-29] MEDS: HYDROcodone/ACETAMINOPHEN 10/325 TAB PO PRN ×2 (11:41→20:54)
[2021-05-29] MEDS: PANTOprazole 40 MG TAB PO SCH (20:55)
[2021-05-29] MEDS: MIRTAZAPINE TAB 15 MG TAB PO PRN (20:55)
[2021-05-29] MEDS: PRAVASTATIN SOD 20 MG TAB PO SCH (20:55)
[2021-05-29] MEDS: CITALOPRAM 40 MG TAB PO SCH (20:55)
--- NOTE | 2021-05-29 21:31 | Billing Data ---
Date of Service May 29, 2021 Coding Level of Care Code 74164 Subseq Hosp Care Lvl 2
[2021-05-30] MEDS: ARMOUR THYROID 30 MG TAB PO SCH (05:37)
[2021-05-30] MEDS ORDERED: CLINDAMYCIN 600 MG/54 ML BAG IV SCH (06:00)
--- NOTE | 2021-05-30 07:57 | Hospitalist Progress Note ---
Date of Service May 30, 2021 Assessment & Plan (1) Intractable low back pain: Plan: 71 year old female past medical history of lumbar spinal stenosis s/p fusion, hypothyroidism, GERD, osteoarthritis, and sleep apnea admitted for intractable lower back pain. Intractable low back pain: -MRI with re-demonstration moderate canal stenosis L3-L4, severe neuroforaminal stenosis L2-L3 -Chronic back pain exacerbation possibly 2/2 chronic stenosis at lumbar spine vs decompression. -Orthopedic consulted; decompressive L2-L3 surgery scheduled for Sunday at 12 PM; surgery postponed due to insurance authorization; likely rescheduled for t omorrow -Patient advance to regular diet at lunch, n.p.o. at midnight.; Follow-up with OR schedulers about insurance authorization. -Otherwise, continue to manage pain with Tylenol, Toradol PRN. -Daily labs Hypothyroidism: -Last TSH 2.3 on 05/02/21. -Continue home [place] Thyroid Prediabetes: -Last A1c 6.3 on 05/02/21. -On regular diet. Continue glucose checks. GERD: -Continued pantoprazole home medication. Iron deficiency anemia: -Hemoglobin 11.8, continue to monitor CBC and symptoms of lightheaded/dizziness. Hyperlipidemia: -Continue home pravastatin. Depression with anxiety: -Continued home citalopram and mirtazapine. DVT prophylaxis: None, Lovenox held prior to surgery Dispo: Pending recuperation from decompressive surgery FEN/GI: N.p.o. midnight (2) Hypothyroidism: (3) Prediabetes: (4) Iron deficiency anemia: (5) Hyperlipidemia: Admission and Anticipated Discharge Date Admission Date: May 27, 2021 Supervising Physician Co-Signing Physician Notes Resident Physician Supervision Note: I independently interviewed and examined the patient and verified the garcia history and physical, reviewed labs and image studies and agree with resident Dr. Araiza findings and care plan. Subjective Patient is resting in bed comfortably this morning. She has no questions or concerns this morning. Review of Systems Review of Systems: All systems reviewed & are unremarkable except as noted in HPI & below Physical Exam Constitutional: WD/WN, vitals as above Eyes: PERRL, conjunctivae normal, anicteric sclerae Respiratory: normal respiratory effort, lungs clear to auscultation Cardiovascular: RRR, no murmur, no edema Gastrointestinal (Abdomen): normal bowel sounds, soft, nontender, no hepatosplenomegaly Results & Data Results & Data ([facility]) Vital Signs (Past 12 Hours) Vital Signs Temp Pulse Resp BP Pulse Ox 05/29/21 22:09 36.7 C 87 18 118/67 95 Resident Activity Tracking Resident Involvement: Resident Care Provided Care Provided: Adult Hospital Medicine (1) Hyperlipidemia Hyperlipidemia type: mixed hyperlipidemia Qualified Code(s): E78.2 - Mixed hyperlipidemia (2) Hypothyroidism Hypothyroidism type: acquired Qualified Code(s): E03.9 - Hypothyroidism, unspecified
[2021-05-30 08:49] LABS: Basophils # (auto) 0.01 K/uL (0-0.2); Basophils % (auto) 0.1 %; Eosinophils # (auto) 0.16 K/uL (0-0.5); Eosinophils % (auto) 2.3 %; Hematocrit (blood only) 34.3 % (37-47); Hemoglobin 11.1 g/dL (12.0-16.0); Immature Granulocytes # (auto) 0.08 K/uL (0.00-0.02); Immature Granulocytes % (auto) 1.1 %; Lymphocytes # (auto) 1.97 K/uL (1.2-3.4); Lymphocytes % (auto) 28.1 %; Mean Corpuscular Hemoglobin 32.2 pg (25-34); Mean Corpuscular Hgb Conc 32.4 g/dL (32-36); Mean Corpuscular Volume 99.4 fL (80-100); Mean Platelet Volume 9.4 fL (7.4-10.4); Monocytes # (auto) 0.61 K/uL (0.11-0.59); Monocytes % (auto) 8.7 %; Neutrophils # (auto) 4.17 K/uL (1.4-6.5); Neutrophils % (auto) 59.7 %; Platelet Count 300 K/uL (130-400); RDW Coefficient of Variation 14.5 % (11.5-14.5); RDW Standard Deviation 52.5 fL (36.4-46.3); Red Blood Count 3.45 M/uL (4.2-5.4)
[2021-05-30] MEDS: CALCIUM CARBONATE 1250MG TAB PO SCH (08:56)
--- NOTE | 2021-05-30 09:00 | Anesthesiology Consultation ---
Date of Service May 30, 2021 Assessment & Plan (1) Encounter for pre-operative examination: Chart Review Chart Review: Acceptable Risk for Surgery History Surgery Operation Date: 05/30/21 12:00 Proposed Procedures p L2-L3 Decompression Fusion - David Joiner DO Height/Weight Height: 5 ft 6 in Weight: 113.63 kg Allergies Allergy/AdvReac Type Severity Reaction Status Date / Time erythromycin base Allergy Unknown RASH Verified 05/23/21 14:21 fish oil Allergy Unknown sweat, Verified 05/23/21 14:21 nausea, dizzy Penicillins Allergy Unknown RED RASH Verified 05/23/21 14:21 ITCHING tramadol Allergy Unknown rash/hives Verified 05/23/21 14:21 Medications Home Medications Medication Instructions Recorded Confirmed Last Taken calcium carbonate 600 mg calcium 600 mg PO QAM tab 12/06/18 05/25/21 05/24/21 (1,500 mg) tablet (Calcium) thyroid (pork) 15 mg tablet 15 mg PO .COMPLEX #90 tab 10/15/20 05/25/21 05/25/21 ([place] Thyroid) cholecalciferol (vitamin D3) 50 2,000 unit PO DAILY cap 11/01/20 05/25/21 05/24/21 mcg (2,000 unit) capsule (Vitamin D3) esomeprazole magnesium 20 mg 20 mg PO HS #90 cap 12/29/20 05/25/21 05/24/21 capsule,delayed release (Nexium) hydrocodone 10 mg-acetaminophen 1 tab PO Q6H PRN #28 tab 04/11/21 05/25/21 Unknown 325 mg tablet fluticasone propionate 50 2 spray INTRANASAL UD PRN #16 gm 04/26/21 05/25/21 05/24/21 mcg/actuation nasal spray,suspension (Flonase Allergy Relief) mirtazapine 15 mg tablet (Remeron) 15 mg PO HS PRN #30 tab 05/06/21 05/25/21 Unknown citalopram 40 mg tablet 40 mg PO DAILY #90 tab 05/16/21 05/25/21 05/24/21 pravastatin 20 mg tablet 20 mg PO HS #90 tab 05/16/21 05/25/21 Unknown ketorolac 10 mg tablet 10 mg PO Q6H PRN 5 Days #20 tab 05/23/21 05/25/21 Unknown albuterol sulfate 90 mcg/actuation 2 puff INHALATION Q6H PRN 05/25/21 05/25/21 Unknown aerosol inhaler Active Medications Generic Name Dose Route Start Last Admin Trade Name Kaiserq PRN Reason Stop Dose Admin Acetaminophen 650 mg 05/25/21 21:59 05/26/21 07:23 Acetaminophen 325 Mg Tab PO 06/24/21 21:58 650 mg Q6 PRN Administration Pain Hydrocodone Bitart/Acetaminophen 1 tab 05/25/21 23:14 05/29/21 20:54 Hydrocodone/Acetaminophen 10/325 Tab PO 06/08/21 23:13 1 tab Q6H PRN Administration pain Calcium Carbonate 1,250 mg 05/26/21 09:00 05/30/21 08:56 Calcium Carbonate 1250mg Tab PO 06/25/21 08:59 Not Given QAM [place] Citalopram Hydrobromide 40 mg 05/26/21 21:00 05/29/21 20:55 Citalopram 40 Mg Tab PO 06/25/21 20:59 40 mg HS [place] Administration Mirtazapine 15 mg 05/25/21 23:14 05/29/21 20:55 Mirtazapine Tab 15 Mg Tab PO 06/24/21 23:13 15 mg HS PRN Administration sleep Pantoprazole Sodium 40 mg 05/25/21 23:45 05/29/21 20:55 Pantoprazole 40 Mg Tab PO 06/24/21 23:44 40 mg HS [place] Administration Pravastatin Sodium 20 mg 05/25/21 23:45 05/29/21 20:55 Pravastatin Sod 20 Mg Tab PO 06/24/21 23:44 20 mg HS [place] Administration Thyroid 15 mg 05/27/21 06:30 05/30/21 05:37 [place] Thyroid 30 Mg Tab PO 06/26/21 06:29 15 mg [email or web address] [place] Administration Past Medical History Medical History Allergic rhinitis B12 deficiency Cervical disc disease Cervical disc herniation Cervical dystonia Cervical facet syndrome Cervical radiculopathy Cervicalgia Cervicogenic headache Chronic back pain Closed T12 fracture Degeneration, intervertebral disc, thoracic Depression with anxiety Diverticulosis Fracture of transverse process of lumbar vertebra GERD (gastroesophageal reflux disease) Hyperlipidemia Hypothyroidism Iron deficiency anemia Lumbar radiculopathy Lumbar stenosis Nocturnal hypoxia Obesity Osteoarthritis Periodic limb movement disorder Postlaminectomy syndrome of lumbosacral region Prediabetes Right rib fracture Sacroiliitis Sleep apnea NO DEVICES Vitamin D deficiency Past Family History Family History Mother , age 84 Pulmonary fibrosis Cancer of kidney Hypertension Father , age 80 COPD (chronic obstructive pulmonary disease) Daughter Non-Hodgkin lymphoma Brother Non-Hodgkin lymphoma Denies family history of Ovarian cancer Prostate cancer Myocardial infarction Breast cancer Colorectal cancer Past Surgical History Surgical History History of appendectomy History of arthroplasty of left knee (05/2017) History of arthroplasty of right knee History of back surgery REPAIR OF FUSION--REMOVED 2 SCREWS History of carpal tunnel release of both wrists b/l wrists History of cholecystectomy open History of dilatation and curettage History of esophagogastroduodenoscopy (EGD) History of kyphoplasty History of lumbar spinal fusion X2 History of tooth extraction ALL TEETH S/P foot surgery, left RELEASE OF PLANTAR FASCIITIS S/P foot surgery, right RELEASE OF PLANTAR FASCIITIS Social History Smoking Status: Never smoker Do You Dip or Chew Tobacco: No Hx Alcohol Use: No Hx Substance Use: No substance use type: does not use Physical Exam Vital Signs Last Vital Signs Temp 36.7 C 05/29/21 22:09 Pulse 87 05/29/21 22:09 Resp 18 05/29/21 22:09 BP 118/67 05/29/21 22:09 Pulse Ox 95 05/29/21 22:09 Testing Laboratory Results 05/30/21 08:20 PT 10.2 Seconds (9.0-12.0) 05/25/21 20:57 INR 1.0 (0.9-1.1) 05/25/21 20:57 APTT 28.5 Seconds (21.0-31.0) 05/25/21 20:57 Laboratory Tests 05/02/21 05/29/21 11:03 06:23 Potassium 4.4 Creatinine 1.03 Hemoglobin A1c 6.3 H negative COVID test 05/25 Electrocardiogram Date: 05/25/21 Findings: + NSR @ (67), + [place] (possible inferior) and + no change from (November 2016)
[2021-05-30 09:16] LABS: BUN Creatinine Ratio 14.6 (10-20); Calcium 8.7 mg/dl (8.5-10.1); Creatinine Clr Calc Pharmacy 70.7 ml/min; Est GFR (African American) 72.1 ml/min; Est GFR (Non-African American) 62.2 ml/min
[2021-05-30 09:29] LABS: Potassium 3.7 mmol/L (3.5-5.1)
--- NOTE | 2021-05-30 14:01 | Orthopedic Progress Note ---
Date of Service May 30, 2021 Assessment & Plan (1) Lumbar radiculopathy: Plan: Assessment foraminal stenosis with progressive neuro deficit involving the right quadricep. Plan at this time we are still waiting authorization from her insurance company to address her pathology. I am concerned that she has continued to decline and is relegated to bed rest. We will make her n.p.o. again this evening in hopes of being able to help her tomorrow. Admission and Anticipated Discharge Date Admission Date: May 27, 2021 Subjective Patient continues to have incapacitating right anterior thigh pain and inability to ambulate. Physical Exam Physical Exam: On exam she is able to sit up on the side of the bed. She has good plantar flexion dorsiflexion with weakness to the right quadricep.
[2021-05-30] MEDS: HYDROcodone/ACETAMINOPHEN 10/325 TAB PO PRN (19:55)
[2021-05-30] MEDS: CITALOPRAM 40 MG TAB PO SCH (20:01)
[2021-05-30] MEDS: PANTOprazole 40 MG TAB PO SCH (20:01)
[2021-05-30] MEDS: PRAVASTATIN SOD 20 MG TAB PO SCH (20:01)
[2021-05-30] MEDS: MIRTAZAPINE TAB 15 MG TAB PO PRN (21:23)
--- NOTE | 2021-05-31 08:29 | Orthopedic Progress Note ---
Date of Service May 31, 2021 Assessment & Plan (1) Neurogenic claudication due to lumbar spinal stenosis: Plan: This time are still waiting approval for surgery. She clearly has spinal stenosis neuroforaminal neurocompression L2-L3 with neuro deficit affecting the right leg. We planned decompress and fuse this region as soon as possible. Admission and Anticipated Discharge Date Admission Date: May 27, 2021 Subjective Patient still essentially bedbound with severe right anterior thigh radiculopathy with activity. Physical Exam Physical Exam: Patient is comfortable in bed. Strength deficits to the right quadricep. Results & Data ([facility]) Vital Signs (Past 12 Hours) Vital Signs Temp Pulse Resp BP Pulse Ox 05/31/21 07:44 36.7 C 84 16 145/81 H 94 05/30/21 23:42 36.4 C L 77 15 127/82 94
[2021-05-31 08:47] LABS: Basophils # (auto) 0.02 K/uL (0-0.2); Basophils % (auto) 0.3 %; Eosinophils # (auto) 0.18 K/uL (0-0.5); Eosinophils % (auto) 2.3 %; Hematocrit (blood only) 34.7 % (37-47); Hemoglobin 11.4 g/dL (12.0-16.0); Immature Granulocytes # (auto) 0.07 K/uL (0.00-0.02); Immature Granulocytes % (auto) 0.9 %; Lymphocytes % (auto) 25.6 %; Mean Corpuscular Hemoglobin 32.5 pg (25-34); Mean Corpuscular Hgb Conc 32.9 g/dL (32-36); Mean Corpuscular Volume 98.9 fL (80-100); Mean Platelet Volume 9.4 fL (7.4-10.4); Monocytes # (auto) 0.65 K/uL (0.11-0.59); Monocytes % (auto) 8.3 %; Neutrophils % (auto) 62.6 %; Platelet Count 303 K/uL (130-400); RDW Coefficient of Variation 14.7 % (11.5-14.5); RDW Standard Deviation 52.7 fL (36.4-46.3); Red Blood Count 3.51 M/uL (4.2-5.4); White Blood Count 7.82 K/uL (4.8-10.8)
[2021-05-31 09:33] LABS: BUN Creatinine Ratio 16.7 (10-20); Calcium 9.3 mg/dl (8.5-10.1); Creatinine Clr Calc Pharmacy 69.2 ml/min; Est GFR (African American) 70.2 ml/min; Est GFR (Non-African American) 60.6 ml/min; Potassium 3.6 mmol/L (3.5-5.1)
[2021-05-31] MEDS: CALCIUM CARBONATE 1250MG TAB PO SCH (12:17)
[2021-05-31] MEDS: HYDROcodone/ACETAMINOPHEN 10/325 TAB PO PRN (13:44)
--- NOTE | 2021-05-31 19:28 | Hospitalist Progress Note ---
Date of Service May 31, 2021 Assessment & Plan (1) Intractable low back pain: Plan: 71 year old female past medical history of lumbar spinal stenosis s/p fusion, hypothyroidism, GERD, osteoarthritis, and sleep apnea admitted for intractable lower back pain. Intractable low back pain: -MRI with re-demonstration moderate canal stenosis L3-L4, severe neuroforaminal stenosis L2-L3 -Chronic back pain exacerbation 2/2 chronic stenosis at lumbar spine vs decompression. -Orthopedic consulted; decompressive L2-L3 surgery postponed again today due to pending insurance authorization; rescheduled for tomorrow, 06/01/2021. -Patient advance to regular diet at lunch, n.p.o. at midnight.; Reached out to case maker about insurance authorization. -Otherwise, continue to manage pain with Tylenol, Toradol PRN. -Morning labs Hypothyroidism: -Last TSH 2.3 on 05/02/21. -Continue home [place] Thyroid Prediabetes: -Last A1c 6.3 on 05/02/21. -On regular diet. Continue glucose checks. GERD: -Continued pantoprazole home medication. Iron deficiency anemia: -continue to monitor CBC and symptoms of lightheaded/dizziness. Hyperlipidemia: -Continue home pravastatin. Depression with anxiety: -Continued home citalopram and mirtazapine. DVT prophylaxis: None, Lovenox held prior to surgery Dispo: Pending recuperation from decompressive surgery FEN/GI: N.p.o. midnight (2) Hypothyroidism: (3) Prediabetes: (4) Iron deficiency anemia: (5) Hyperlipidemia: Admission and Anticipated Discharge Date Admission Date: May 27, 2021 Supervising Physician Co-Signing Physician Notes Resident Physician Supervision Note: I independently interviewed and examined the patient and verified the garcia history and physical, reviewed labs and image studies and agree with resident Dr. Araiza findings and care plan. Subjective Patient lying in bed this morning. No questions or concerns at this time. Review of Systems Review of Systems: All systems reviewed & are unremarkable except as noted in HPI & below Physical Exam Constitutional: WD/WN, vitals as above Eyes: PERRL, conjunctivae normal, anicteric sclerae ENMT: external ear and nose normal, oropharynx normal Respiratory: normal respiratory effort, lungs clear to auscultation Cardiovascular: RRR, no murmur, no edema Gastrointestinal (Abdomen): normal bowel sounds, soft, nontender, no hepatosplenomegaly Musculoskeletal: Spine: + limited thoraco-lumbar ROM; no lumbar spinal tenderness, no paraspinal tenderness, straight leg raise negative bilaterally, no buttock ecchymosis, no buttock tenderness, no buttock swelling, no sacral tenderness and no coccyx tenderness Results & Data Results & Data ([facility]) Vital Signs (Past 12 Hours) Vital Signs Temp Pulse Resp BP BP Pulse Ox 05/31/21 15:39 36.8 C 79 16 122/71 96 05/31/21 07:44 36.7 C 84 16 145/81 H 94 Resident Activity Tracking Resident Involvement: Resident Care Provided Care Provided: Adult Hospital Medicine (1) Hyperlipidemia Hyperlipidemia type: mixed hyperlipidemia Qualified Code(s): E78.2 - Mixed hyperlipidemia (2) Hypothyroidism Hypothyroidism type: acquired Qualified Code(s): E03.9 - Hypothyroidism, unspecified
[2021-05-31] MEDS: PRAVASTATIN SOD 20 MG TAB PO SCH (20:22)
[2021-05-31] MEDS: MIRTAZAPINE TAB 15 MG TAB PO PRN (20:22)
[2021-05-31] MEDS: CITALOPRAM 40 MG TAB PO SCH (20:22)
[2021-05-31] MEDS: PANTOprazole 40 MG TAB PO SCH (20:22)
[2021-06-01] MEDS: ARMOUR THYROID 30 MG TAB PO SCH (05:33)
[2021-06-01 07:32] LABS: Basophils # (auto) 0.02 K/uL (0-0.2); Basophils % (auto) 0.2 %; Eosinophils # (auto) 0.23 K/uL (0-0.5); Eosinophils % (auto) 2.7 %; Hematocrit (blood only) 35.3 % (37-47); Hemoglobin 11.7 g/dL (12.0-16.0); Immature Granulocytes % (auto) 1.2 %; Lymphocytes # (auto) 2.09 K/uL (1.2-3.4); Lymphocytes % (auto) 24.4 %; Mean Corpuscular Hemoglobin 32.4 pg (25-34); Mean Corpuscular Hgb Conc 33.1 g/dL (32-36); Mean Corpuscular Volume 97.8 fL (80-100); Mean Platelet Volume 9.2 fL (7.4-10.4); Monocytes # (auto) 0.67 K/uL (0.11-0.59); Monocytes % (auto) 7.8 %; Neutrophils # (auto) 5.44 K/uL (1.4-6.5); Neutrophils % (auto) 63.7 %; Platelet Count 263 K/uL (130-400); RDW Coefficient of Variation 14.4 % (11.5-14.5); RDW Standard Deviation 51.8 fL (36.4-46.3); Red Blood Count 3.61 M/uL (4.2-5.4); White Blood Count 8.55 K/uL (4.8-10.8)
[2021-06-01] MEDS: CALCIUM CARBONATE 1250MG TAB PO SCH (08:01)
[2021-06-01 08:07] LABS: BUN Creatinine Ratio 15.9 (10-20); Calcium 8.8 mg/dl (8.5-10.1); Creatinine Clr Calc Pharmacy 67.8 ml/min; Est GFR (African American) 68.5 ml/min; Est GFR (Non-African American) 59.1 ml/min; Potassium 3.8 mmol/L (3.5-5.1)
[2021-06-01] MEDS: HYDROcodone/ACETAMINOPHEN 10/325 TAB PO PRN ×2 (12:43→20:12)
[2021-06-01] MEDS: CITALOPRAM 40 MG TAB PO SCH (20:14)
[2021-06-01] MEDS: PANTOprazole 40 MG TAB PO SCH (20:14)
[2021-06-01] MEDS: MIRTAZAPINE TAB 15 MG TAB PO PRN (20:14)
[2021-06-01] MEDS: PRAVASTATIN SOD 20 MG TAB PO SCH (20:14)
--- NOTE | 2021-06-01 21:14 | Hospitalist Progress Note ---
Date of Service June 01, 2021 Assessment & Plan (1) Intractable low back pain: Plan: 71 year old female past medical history of lumbar spinal stenosis s/p fusion, hypothyroidism, GERD, osteoarthritis, and sleep apnea admitted for intractable lower back pain. Intractable low back pain: -MRI with re-demonstration of moderate canal stenosis L3-L4, severe neuroforaminal stenosis L2-L3 -Chronic back pain exacerbation 2/2 chronic stenosis at lumbar spine vs decompression. -Orthopedic consulted; awaiting decompressive L2-L3 surgery pending - insurance authorization -Patient advanced to regular diet at lunch after surgery postponement; n.p.o. again at midnight; -Follow-up with employment case manager about insurance authorization timeline, as patient may not need to stay in the hospital while authorization is being sorted out. -Otherwise, continue to manage pain with Tylenol, Toradol, hydrocodone PRN. -Morning labs Hypothyroidism: -Last TSH 2.3 on 05/02/21. -Continue home [place] Thyroid Prediabetes: -Last A1c 6.3 on 05/02/21. -On regular diet. Continue glucose checks. GERD: -Continued pantoprazole home medication. Iron deficiency anemia: -continue to monitor CBC and symptoms of lightheaded/dizziness. Hyperlipidemia: -Continue home pravastatin. Depression with anxiety: -Continued home citalopram and mirtazapine. DVT prophylaxis: None: Lovenox held prior to surgery x4 days Dispo: Pending recuperation from decompressive surgery FEN/GI: N.p.o. midnight (2) Hypothyroidism: (3) Prediabetes: (4) Iron deficiency anemia: (5) Hyperlipidemia: Admission and Anticipated Discharge Date Admission Date: May 27, 2021 Supervising Physician Co-Signing Physician Notes Resident Physician Supervision Note: I independently interviewed and examined the patient and verified the garcia history and physical, reviewed labs and image studies and agree with resident Dr. Araiza findings and care plan. Subjective Patient lying in bed this morning. She reports some lingering back pain, for which she has taken some hydrocodone. She reports some constipation, having not had a bowel movement since Sunday. She denies any abdominal pain. With the exception of the status of her insurance authorization, she has no other questions or concerns at this time. Review of Systems Review of Systems: All systems reviewed & are unremarkable except as noted in HPI & below Physical Exam Constitutional: WD/WN, vitals as above Respiratory: normal respiratory effort, lungs clear to auscultation Cardiovascular: RRR, no murmur, no edema Gastrointestinal (Abdomen): normal bowel sounds, soft, nontender, no hepatosplenomegaly Results & Data Results & Data ([facility]) Vital Signs (Past 12 Hours) Vital Signs Temp Pulse Resp BP Pulse Ox 06/01/21 15:04 36.8 C 77 16 117/72 94 Resident Activity Tracking Resident Involvement: Resident Care Provided Care Provided: Adult Hospital Medicine (1) Hyperlipidemia Hyperlipidemia type: mixed hyperlipidemia Qualified Code(s): E78.2 - Mixed hyperlipidemia (2) Hypothyroidism Hypothyroidism type: acquired Qualified Code(s): E03.9 - Hypothyroidism, unspecified
[2021-06-02 06:02] LABS: Basophils # (auto) 0.02 K/uL (0-0.2); Basophils % (auto) 0.3 %; Eosinophils # (auto) 0.18 K/uL (0-0.5); Eosinophils % (auto) 2.6 %; Hematocrit (blood only) 34.2 % (37-47); Hemoglobin 11.4 g/dL (12.0-16.0); Immature Granulocytes # (auto) 0.07 K/uL (0.00-0.02); Lymphocytes % (auto) 25.6 %; Mean Corpuscular Hemoglobin 32.8 pg (25-34); Mean Corpuscular Hgb Conc 33.3 g/dL (32-36); Mean Corpuscular Volume 98.3 fL (80-100); Mean Platelet Volume 9.5 fL (7.4-10.4); Monocytes # (auto) 0.68 K/uL (0.11-0.59); Monocytes % (auto) 9.7 %; Neutrophils # (auto) 4.29 K/uL (1.4-6.5); Neutrophils % (auto) 60.8 %; Platelet Count 263 K/uL (130-400); RDW Coefficient of Variation 14.5 % (11.5-14.5); RDW Standard Deviation 51.6 fL (36.4-46.3); Red Blood Count 3.48 M/uL (4.2-5.4); White Blood Count 7.04 K/uL (4.8-10.8)
[2021-06-02 06:27] LABS: BUN Creatinine Ratio 17.5 (10-20); Calcium 8.9 mg/dl (8.5-10.1); Creatinine Clr Calc Pharmacy 65.7 ml/min; Est GFR (Non-African American) 56.9 ml/min; Potassium 3.9 mmol/L (3.5-5.1)
[2021-06-02] MEDS: CALCIUM CARBONATE 1250MG TAB PO SCH (09:44)
--- NOTE | 2021-06-02 12:50 | Orthopedic Progress Note ---
Date of Service June 02, 2021 Assessment & Plan (1) Neurogenic claudication due to lumbar spinal stenosis: Plan: This time we are still waiting authorization for what is obvious gross neural compression and severe spinal stenosis limiting this patient's ability to stand and ambulate. She does require decompression fusion L2-L3. Admission and Anticipated Discharge Date Admission Date: May 27, 2021 Subjective Patient continues to complain of bilateral anterior thigh pain regarding the left. Significantly exacerbated with standing and ambulation. She can only stand and ambulate for short distances secondary to pain and breakaway weakness. Physical Exam Physical Exam: Patient is in bed at this time. This is her most comfortable position. She does demonstrate 4-/5 right quadriceps with a 5 5 bilateral plantar flexion dorsiflexion. Results & Data ([facility]) Vital Signs (Past 12 Hours) Vital Signs Temp Pulse Resp BP Pulse Ox 06/02/21 07:22 36.7 C 83 16 163/91 H 97
[2021-06-02] MEDS: POLYETHYLENE (MIRALAX) 17 GM PACK PO PRN (13:16)
--- NOTE | 2021-06-02 17:55 | Hospitalist Progress Note ---
Date of Service June 02, 2021 Assessment & Plan (1) Intractable low back pain: Plan: 71 year old female past medical history of lumbar spinal stenosis s/p fusion, hypothyroidism, GERD, osteoarthritis, and sleep apnea admitted for intractable lower back pain. Intractable low back pain: -MRI with re-demonstration of moderate canal stenosis L3-L4, severe neuroforaminal stenosis L2-L3 -Chronic back pain exacerbation 2/2 chronic stenosis at lumbar spine vs decompression. -Orthopedic consulted; awaiting decompressive L2-L3 surgery pending - insurance authorization -Patient advanced to regular diet at lunch after surgery postponement; n.p.o. again at midnight; -Follow-up with correctional casework specialist about insurance authorization timeline, as patient may not need to stay in the hospital while authorization is being sorted out. -Otherwise, continue to manage pain with Tylenol, Toradol, hydrocodone PRN. -Morning labs Hypothyroidism: -Last TSH 2.3 on 05/02/21. -Continue home [place] Thyroid Prediabetes: -Last A1c 6.3 on 05/02/21. -On regular diet. Continue glucose checks. GERD: -Continued pantoprazole home medication. Iron deficiency anemia: -continue to monitor CBC and symptoms of lightheaded/dizziness. Hyperlipidemia: -Continue home pravastatin. Depression with anxiety: -Continued home citalopram and mirtazapine. DVT prophylaxis: None: Lovenox held prior to surgery Dispo: Pending recuperation from decompressive surgery FEN/GI: N.p.o. midnight (2) Hypothyroidism: (3) Prediabetes: (4) Iron deficiency anemia: (5) Hyperlipidemia: Admission and Anticipated Discharge Date Admission Date: May 27, 2021 Subjective No change this am pain in buttock same and also in right thigh no fever, chest pain, shortness of breath Physical Exam Constitutional: WD/WN, vitals as above Respiratory: No respiratory distress Cardiovascular: heart rate regular Psychiatric: A+Ox3, euthymic affect Results & Data Results & Data ([facility]) Vital Signs (Past 12 Hours) Vital Signs Temp Pulse Resp BP Pulse Ox 06/02/21 15:42 36.9 C 99 H 16 112/71 97 06/02/21 07:22 36.7 C 83 16 163/91 H 97 (1) Hypothyroidism Hypothyroidism type: acquired Qualified Code(s): E03.9 - Hypothyroidism, unspecified (2) Hyperlipidemia Hyperlipidemia type: mixed hyperlipidemia Qualified Code(s): E78.2 - Mixed hyperlipidemia
[2021-06-02] MEDS: HYDROcodone/ACETAMINOPHEN 10/325 TAB PO PRN (20:23)
[2021-06-02] MEDS: PANTOprazole 40 MG TAB PO SCH (20:24)
[2021-06-02] MEDS: PRAVASTATIN SOD 20 MG TAB PO SCH (20:25)
[2021-06-02] MEDS: CITALOPRAM 40 MG TAB PO SCH (20:25)
[2021-06-02] MEDS: MIRTAZAPINE TAB 15 MG TAB PO PRN (20:25)
[2021-06-03] MEDS: ARMOUR THYROID 30 MG TAB PO SCH (05:22)
[2021-06-03] MEDS: CALCIUM CARBONATE 1250MG TAB PO SCH (08:15)
--- NOTE | 2021-06-03 08:42 | Orthopedic Progress Note ---
Date of Service June 03, 2021 Assessment & Plan (1) Neurogenic claudication due to lumbar spinal stenosis: Plan: At this time we will have physical therapy hopefully evaluate her this morning. I am planning a [id number] discussion with her insurance carrier today. Hopefully will make some progress in regards to this patient's care and allow her to have the surgery necessary to return to a reasonable quality of life. Admission and Anticipated Discharge Date Admission Date: May 27, 2021 Subjective Patient continues to describe bilateral leg pain exacerbated with standing and walking. Does not feel safe going home secondary to her pain and strength deficits. Physical Exam 2 Physical Exam: Patient is supine in bed. She is comfortable disposition. She continues demonstrate weakness to testing bilateral quadriceps. Results & Data ([facility]) Vital Signs (Past 12 Hours) Vital Signs Temp Pulse Resp BP Pulse Ox 06/03/21 08:06 36.6 C 74 12 158/102 H 98 06/02/21 22:15 36.9 C 80 16 106/66 92
[2021-06-03] MEDS: SENNA 8.6 MG TAB PO SCH (10:50)
--- NOTE | 2021-06-03 18:11 | Hospitalist Progress Note ---
Date of Service June 03, 2021 Assessment & Plan (1) Intractable low back pain: Plan: 71 year old female past medical history of lumbar spinal stenosis s/p fusion, hypothyroidism, GERD, osteoarthritis, and sleep apnea admitted for intractable lower back pain. Intractable low back pain: -MRI with re-demonstration of moderate canal stenosis L3-L4, severe neuroforaminal stenosis L2-L3 -Chronic back pain exacerbation 2/2 chronic stenosis at lumbar spine vs decompression. -Orthopedic consulted; awaiting decompressive L2-L3 surgery pending - insurance authorization -Patient informed this morning by Dr. Joiner that the surgery has been canceled; advanced back to regular diet. -Unclear at this time when insurance authorization will happen; however, patient is in too much pain to go home. -Otherwise, continue to manage pain with Tylenol, Toradol, hydrocodone PRN. Hypothyroidism: -Last TSH 2.3 on 05/02/21. -Continue home [place] Thyroid Prediabetes: -Last A1c 6.3 on 05/02/21. -On regular diet. Continue glucose checks. GERD: -Continued pantoprazole home medication. Iron deficiency anemia: -continue to monitor CBC and symptoms of lightheaded/dizziness. Hyperlipidemia: -Continue home pravastatin. Depression with anxiety: -Continued home citalopram and mirtazapine. DVT prophylaxis: None: Lovenox held prior to surgery x4 days Dispo: Pending recuperation from decompressive surgery FEN/GI: Regular diet (2) Hypothyroidism: (3) Prediabetes: (4) Iron deficiency anemia: (5) Hyperlipidemia: Admission and Anticipated Discharge Date Admission Date: May 27, 2021 Supervising Physician Co-Signing Physician Notes Resident Physician Supervision Note: I independently interviewed and examined the patient and verified the garcia history and physical, reviewed labs and image studies and agree with resident Dr. Araiza findings and care plan. Subjective Patient is resting in bed comfortably this morning. She is waiting to hear from Dr. Joiner about his meeting with the insurance review board. She is still constipated, having had her last bowel movement on Sunday. She has no other questions or concerns at this time. Review of Systems Review of Systems: All systems reviewed & are unremarkable except as noted in HPI & below Physical Exam Constitutional: WD/WN, vitals as above Respiratory: normal respiratory effort, lungs clear to auscultation Cardiovascular: RRR, no murmur, no edema Gastrointestinal (Abdomen): normal bowel sounds, soft, nontender, no hepatosplenomegaly Results & Data Results & Data ([facility]) Vital Signs (Past 12 Hours) Vital Signs Temp Pulse Pulse Resp BP Pulse Ox 06/03/21 15:45 36.6 C 54 L 18 101/68 94 06/03/21 09:19 128/83 06/03/21 08:06 36.6 C 74 12 158/102 H 98 Resident Activity Tracking Resident Involvement: Resident Care Provided Care Provided: Adult Hospital Medicine (1) Hyperlipidemia Hyperlipidemia type: mixed hyperlipidemia Qualified Code(s): E78.2 - Mixed hyperlipidemia (2) Hypothyroidism Hypothyroidism type: acquired Qualified Code(s): E03.9 - Hypothyroidism, unspecified
[2021-06-03] MEDS: POLYETHYLENE (MIRALAX) 17 GM PACK PO PRN (18:30)
[2021-06-03] MEDS: HYDROcodone/ACETAMINOPHEN 10/325 TAB PO PRN (20:12)
[2021-06-03] MEDS: PANTOprazole 40 MG TAB PO SCH (20:15)
[2021-06-03] MEDS: MIRTAZAPINE TAB 15 MG TAB PO PRN (20:15)
[2021-06-03] MEDS: PRAVASTATIN SOD 20 MG TAB PO SCH (20:15)
[2021-06-03] MEDS: CITALOPRAM 40 MG TAB PO SCH (20:15)
[2021-06-04] MEDS: SENNA 8.6 MG TAB PO SCH (07:47)
[2021-06-04] MEDS: CALCIUM CARBONATE 1250MG TAB PO SCH (07:47)
--- NOTE | 2021-06-04 07:50 | Hospitalist Progress Note ---
Date of Service June 04, 2021 Assessment & Plan (1) Intractable low back pain: Plan: 71 year old female past medical history of lumbar spinal stenosis s/p fusion, hypothyroidism, GERD, osteoarthritis, and sleep apnea admitted for intractable lower back pain. Intractable low back pain: -MRI with re-demonstration of moderate canal stenosis L3-L4, severe neuroforaminal stenosis L2-L3 -Chronic back pain exacerbation 2/2 chronic stenosis at lumbar spine vs decompression. -Orthopedic consulted; awaiting decompressive L2-L3 surgery. -Dr. Joiner had success with getting surgery approved, surgery to take place potentially Sunday. NPO midnight 06/06. -Otherwise, continue to manage pain with Tylenol, Toradol, hydrocodone PRN. Constipation: -Patient with difficulty having bowel movement. -On Dilaudid for pain, may be contributing to difficulty with bowel movement. -On Miralax. added Senna. Hypothyroidism: -Last TSH 2.3 on 05/02/21. -Continue home [place] Thyroid Prediabetes: -Last A1c 6.3 on 05/02/21. -On regular diet. Continue glucose checks. GERD: -Continued pantoprazole home medication. Iron deficiency anemia: -stable h/h. Hyperlipidemia: -Continue home pravastatin. Depression with anxiety: -Continued home citalopram and mirtazapine. DVT prophylaxis: None: Lovenox held prior to surgery x4 days Dispo: Pending recuperation from decompressive surgery FEN/GI: Regular diet (2) Hypothyroidism: (3) Prediabetes: (4) Iron deficiency anemia: (5) Hyperlipidemia: Admission and Anticipated Discharge Date Admission Date: May 27, 2021 Supervising Physician Co-Signing Physician Notes Resident Physician Supervision Note: I independently interviewed and examined the patient and verified the garcia history and physical, reviewed labs and image studies and agree with resident Dr. Venegas findings and care plan. Subjective Patient seen at the bedside this morning. Patient feeling same as yesterday, no new developments, just awaiting surgery. Patient still constipated with last bowel movement last Sunday. Denies fevers, chills, shortness of breath, palpitations. Physical Exam Eyes: PERRL, conjunctivae normal, anicteric sclerae Respiratory: normal respiratory effort, lungs clear to auscultation Cardiovascular: RRR, no murmur, no edema Gastrointestinal (Abdomen): normal bowel sounds, soft, nontender, no hepatosplenomegaly Musculoskeletal: Pain with motion at bilateral buttocks/gluteal muscles that goes down right proximal leg. Results & Data Results & Data ([facility]) Vital Signs (Past 12 Hours) Vital Signs Temp Pulse Resp BP Pulse Ox 06/03/21 22:40 36.9 C 85 16 94/61 L 92 Resident Activity Tracking Resident Involvement: Resident Care Provided Care Provided: Adult Hospital Medicine (1) Hyperlipidemia Hyperlipidemia type: mixed hyperlipidemia Qualified Code(s): E78.2 - Mixed hyperlipidemia (2) Hypothyroidism Hypothyroidism type: acquired Qualified Code(s): E03.9 - Hypothyroidism, unspecified
--- NOTE | 2021-06-04 10:24 | Orthopedic Progress Note ---
Date of Service June 04, 2021 Assessment & Plan (1) Neurogenic claudication due to lumbar spinal stenosis: Plan: I was able to have a [id number] conversation with her insurance carrier yesterday afternoon. We reviewed the case and they have authorized her to p roceed with surgery. She will be made n.p.o. after midnight Sunday and plan for surgery Sunday. Admission and Anticipated Discharge Date Admission Date: May 27, 2021 Subjective Patient continues to have back and right leg pain and weakness Results & Data ([facility]) Vital Signs (Past 12 Hours) Vital Signs Temp Pulse Resp BP Pulse Ox 06/04/21 08:06 36.4 C L 80 18 139/76 95 06/03/21 22:40 36.9 C 85 16 94/61 L 92
[2021-06-04] MEDS: MIRTAZAPINE TAB 15 MG TAB PO PRN (20:22)
[2021-06-04] MEDS: PRAVASTATIN SOD 20 MG TAB PO SCH (20:22)
[2021-06-04] MEDS: PANTOprazole 40 MG TAB PO SCH (20:22)
[2021-06-04] MEDS: CITALOPRAM 40 MG TAB PO SCH (20:22)
[2021-06-05] MEDS: SENNA 8.6 MG TAB PO SCH (08:09)
[2021-06-05] MEDS: CALCIUM CARBONATE 1250MG TAB PO SCH (08:10)
--- NOTE | 2021-06-05 08:21 | Hospitalist Progress Note ---
Date of Service June 05, 2021 Assessment & Plan (1) Intractable low back pain: Plan: 71 year old female past medical history of lumbar spinal stenosis s/p fusion, hypothyroidism, GERD, osteoarthritis, and sleep apnea admitted for intractable lower back pain. Intractable low back pain: -MRI with re-demonstration of moderate canal stenosis L3-L4, severe neuroforaminal stenosis L2-L3 -Chronic back pain exacerbation 2/2 chronic stenosis at lumbar spine vs decompression. -Orthopedic consulted; awaiting decompressive L2-L3 surgery. -Dr. Joiner had success with getting surgery approved, surgery to take place potentially Sunday. NPO midnight 06/06. -Otherwise, continue to manage pain with Tylenol, Toradol, hydrocodone PRN. Constipation: -Patient with difficulty having bowel movement. -On Dilaudid for pain, may be contributing to difficulty with bowel movement. -Bowel movement this AM, loose. Miralax and Senna PRN. Hypothyroidism: -Last TSH 2.3 on 05/02/21. -Continue home [place] Thyroid Prediabetes: -Last A1c 6.3 on 05/02/21. -On regular diet. Continue glucose checks. GERD: -Continued pantoprazole home medication. Iron deficiency anemia: -continue to monitor CBC and symptoms of lightheaded/dizziness. Hyperlipidemia: -Continue home pravastatin. Depression with anxiety: -Continued home citalopram and mirtazapine. DVT prophylaxis: None: Lovenox held prior to surgery x4 days Dispo: Pending recuperation from decompressive surgery FEN/GI: Regular diet (2) Hypothyroidism: (3) Prediabetes: (4) Iron deficiency anemia: (5) Hyperlipidemia: Admission and Anticipated Discharge Date Admission Date: May 27, 2021 Supervising Physician Co-Signing Physician Notes Resident Physician Supervision Note: I independently interviewed and examined the patient and verified the garcia history and physical, reviewed labs and image studies and agree with resident Dr. Venegas findings and care plan. Subjective Patient seen at the bedside this morning. Patient feeling same as yesterday, no new developments, just awaiting surgery. Patient had a bowel movement this morning that was loose. Denies fevers, chills, shortness of breath, palpitations. Physical Exam Constitutional: WD/WN, vitals as above Eyes: PERRL, conjunctivae normal, anicteric sclerae Respiratory: normal respiratory effort, lungs clear to auscultation Cardiovascular: RRR, no murmur, no edema Gastrointestinal (Abdomen): normal bowel sounds, soft, nontender, no hepatosplenomegaly Musculoskeletal: Bilateral tenderness at the gluteal muscles. Neurologic: normal touch/pain/proprioception Psychiatric: A+Ox3, euthymic affect Results & Data Results & Data ([facility]) Vital Signs (Past 12 Hours) Vital Signs Temp Pulse Resp BP BP Pulse Ox 06/05/21 08:15 36.3 C L 82 18 157/86 H 96 06/04/21 22:46 36.6 C 81 16 131/82 95 Resident Activity Tracking Resident Involvement: Resident Care Provided Care Provided: Adult Hospital Medicine (1) Hyperlipidemia Hyperlipidemia type: mixed hyperlipidemia Qualified Code(s): E78.2 - Mixed hyperlipidemia (2) Hypothyroidism Hypothyroidism type: acquired Qualified Code(s): E03.9 - Hypothyroidism, unspecified
[2021-06-05] MEDS ORDERED: SENNA 8.6 MG TAB PO PRN (10:39)
[2021-06-05] MEDS: HYDROcodone/ACETAMINOPHEN 10/325 TAB PO PRN ×2 (11:47→20:51)
[2021-06-05] MEDS: PRAVASTATIN SOD 20 MG TAB PO SCH (20:51)
[2021-06-05] MEDS: MIRTAZAPINE TAB 15 MG TAB PO PRN (20:51)
[2021-06-05] MEDS: PANTOprazole 40 MG TAB PO SCH (20:52)
[2021-06-05] MEDS: CITALOPRAM 40 MG TAB PO SCH (20:52)
[2021-06-06] MEDS: ARMOUR THYROID 30 MG TAB PO SCH (06:10)
[2021-06-06] MEDS ORDERED: fentaNYL citrate 100 MCG/2 ML VIAL ONE (06:47)
[2021-06-06] MEDS ORDERED: ONDANSETRON INJ 2 MG/ML 2 ML VIAL ONE (06:47)
[2021-06-06] MEDS ORDERED: PROPOFOL IV EMULSION 10 MG/ML 20 ML VIAL IV ONE (06:47)
[2021-06-06] MEDS ORDERED: ROCURONIUM BROMIDE 10 MG/ML 5 ML VIAL IV ONE (06:47)
[2021-06-06] MEDS ORDERED: DEXAMETHASONE SOD INJ 4 MG/ML VIAL ONE (06:47)
[2021-06-06] MEDS ORDERED: LIDOCAINE 2% 2 ML VIAL/AMP(20MG/ML) INFIL ONE (06:47)
[2021-06-06] MEDS: CALCIUM CARBONATE 1250MG TAB PO SCH (06:50)
[2021-06-06] MEDS ORDERED: EPINEPHrine INJ 1 MG/ML AMP ONE (07:04)
[2021-06-06] MEDS ORDERED: BUPIVACAINE 0.5 % 5 MG/1 ML MPF 30ML VIAL ONE (07:05)
[2021-06-06] MEDS ORDERED: ATROPINE SULFATE 0.1 MG/ML 10ML SYR IV PRN (07:28)
[2021-06-06] MEDS ORDERED: PROMETHAZINE HCL 6.25 MG in SODIUM CHLORIDE 0.9% 50 ML IV PRN (07:28)
[2021-06-06] MEDS ORDERED: LABETALOL HCL IV 5 MG/ML 20ML IV PRN (07:28)
[2021-06-06] MEDS ORDERED: ONDANSETRON INJ 2 MG/ML 2 ML VIAL IV PRN ×2 (07:28→12:06)
--- NOTE | 2021-06-06 07:42 | History & Physical Bridge Note ---
Date of Service June 06, 2021 History & Physical Bridge Note I have examined the patient, reviewed the History & Physical and in the interval since the performance of the History & Physical I have noted the following changes of clinical significance: no changes noted Lumbar decompression and fusion L2-L3, hardware removal L3-L4.
[2021-06-06] MEDS ORDERED: CLINDAMYCIN 600 MG/54 ML D5W IV ONE (07:43)
[2021-06-06] MEDS ORDERED: PHENYLEPHRINE 100MCG/ML 5ML SYR ONE (08:19)
[2021-06-06] MEDS ORDERED: ePHEDrine sulfate 50 MG/ML SYR ONE (08:19)
[2021-06-06] MEDS ORDERED: HYDROmorphone INJ 2 MG/ML SYR/VIAL ONE (08:19)
[2021-06-06] MEDS ORDERED: NEOSTIGMINE METHYLSULFATE 1 MG/ML 10ML VIAL ONE (09:53)
[2021-06-06] MEDS ORDERED: GLYCOPYRROLATE 0.2 MG/ML VIAL ONE ×2 (09:53→10:06)
--- NOTE | 2021-06-06 10:06 | Operative Report ---
Post Operative Report Pre & Post Diagnosis Operation Date: 05/30/21 12:00 <No data on this case meets the specified criteria> Operation Date: 05/31/21 11:05 <No data on this case meets the specified criteria> Operation Date: 06/01/21 07:00 <No data on this case meets the specified criteria> Operation Date: 06/06/21 07:45 Pre-Op Diagnosis: Moderate canal stenosis L3-L4, severe neuroforaminal stenosis L2-L3 Post-Op Diagnosis: Moderate canal stenosis L3-L4, severe neuroforaminal stenosis L2-L3 I identified the patient and participated in the time-out.: Yes Procedure Operation Date: 05/30/21 12:00 <No data on this case meets the specified criteria> Operation Date: 05/31/21 11:05 <No data on this case meets the specified criteria> Operation Date: 06/01/21 07:00 <No data on this case meets the specified criteria> Operation Date: 06/06/21 07:45 Actual Procedures #1 removal of posterior instrumentation L3-L4. #2 exploration of fusion L3-L4. #3 lumbar decompression with bilateral medial facetectomies and foraminotomies L1-L2 L2-L3. #4 posterior spinal fusion L2-L3. #5 placement posterior instrumentation L2-L3. #6 interbody fusion L2-L3. #7 placement of peek cage 12 x 26 mm at L2-L3. #8 placement locally harvested morselized autograft in the posterior gutters. #9 placement infuse collagen sponge, and master graft in the posterior lateral gutters and I factor in the interbody space. Surgeon David Joiner, Splitter Operator Josselin Yepez Estimated Blood Loss 200 Findings See Below Patient is 5 foot 6 inches tall weighing over 113 kg with a BMI in excess of 40. Patient's body habitus did contribute to significant technical difficulty requiring her deepest retractors and longest instruments in order to perform her procedure. This at least 50% increased operative time. Specimens None Indications This is a 71-year-old female who presents with severe bilateral leg pain and quad deficit. She failed extensive course of nonoperative care and requires urgent decompression fusion. Description of Procedure Patient was met with identified informed consent obtained. Patient was then ta edward to the operative suite underwent ablation placed in a prone position the [facility] top Freddie frame. All bony prominences well-padded eyes inspected to ensure no external pressure placed upon the. This point the lumbar spine was prepped and draped in a sterile fashion. Sharp dissection with the assistance of Bovie cautery performed down to and exposing the lamina and transverse processes of L2 and instrumentation at L3-L4 bilaterally. And then proceeded move the hardware bilaterally explore the fusion mass noting it to be intact. Informed complete laminectomy of L2 partial laminectomy L1 including bilateral medial facetectomies and foraminotomies addressing severe lateral recess and foraminal stenosis. Pedicle screws were then placed in L2-L3-L4 bilaterally with assistance of fluoroscopy and the proper sized jacqueline placed. By way of a transforaminal portion left complete discectomy was performed endplates curetted to subcortical being bone and a 12 x 26 mm peek cage filled I factor tapped in position. The rods and locked in final position bilaterally. The transverse processes of L to L3 burred to subcortical bleeding bone. Infuse collagen sponge master graft lobe autograft was placed in the posterior gutters. 15 round JEAN CLAUDE drain inserted. The incision was then closed with 1 Vicryl the fascia 2-0 Vicryl subcutaneously and 4 Monocryl for final skin closure. Steri-Strip sterile dressings placed. Patient waken taken to PACU stable condition. Please note spinal cord monitoring was utilized at the procedure no changes noted. Lastly Josselin Yepez was present at the entire surgery involved the patient positioning complex portions of the surgery and final skin closure. I attest to the content of the Intraoperative Record and any orders documented therein. Any exceptions are noted below.
[2021-06-06] MEDS: HYDROmorphone INJ 1 MG/ML SYRINGE IV PRN ×8 (10:38→11:19)
[2021-06-06] MEDS ORDERED: FLOSEAL HEMOSTATIC MATRIX 10ML TOP ONE (11:55)
[2021-06-06] MEDS ORDERED: METOCLOPRAMIDE HCL INJ 5 MG/ML 2 ML VIAL IV PRN (12:06)
[2021-06-06] MEDS ORDERED: hydrOXYzine HCl 25 MG TAB PO PRN (12:06)
[2021-06-06] MEDS ORDERED: LORazepam 0.5 MG TAB PO PRN (12:06)
[2021-06-06] MEDS ORDERED: LORazepam 0.5 MG/1 ML VIAL IV PRN (12:06)
[2021-06-06] MEDS ORDERED: MAGNESIUM HYDROXIDE SUSP 30 ML UDC PO PRN (12:06)
[2021-06-06] MEDS ORDERED: DO NOT ADMINISTER PNEUMOCOCCAL VACCINE PRN (12:06)
[2021-06-06] MEDS ORDERED: DO NOT ADMINISTER FLU VACCINE PRN (12:06)
[2021-06-06] MEDS ORDERED: PROMETHAZINE HCL 12.5 MG in SODIUM CHLORIDE 0.9% 50 ML IV PRN (12:06)
[2021-06-06] MEDS ORDERED: FAMOTIDINE 20 MG TAB PO PRN (12:06)
[2021-06-06] MEDS ORDERED: HYDROmorphone INJ 1 MG/ML SYRINGE IV PRN (12:06)
[2021-06-06] MEDS ORDERED: ALUMINUM/MAGNESIUM SUSP 30 ML UDC PO PRN (12:06)
[2021-06-06] MEDS ORDERED: HYDROmorphone INJ 0.5 MG/0.5 ML SYR IV PRN (12:06)
[2021-06-06] MEDS ORDERED: NALOXONE HCL 0.4 MG/1 ML VIAL/CARP IV PRN (12:06)
[2021-06-06] MEDS ORDERED: ACETAMINOPHEN 1,000 MG/100 ML VIAL IV PRN (12:06)
[2021-06-06] MEDS ORDERED: ACETAMINOPHEN 500 MG TAB PO PRN (12:06)
[2021-06-06] MEDS ORDERED: diphenhydrAMINE Capsule 25 MG CAP PO PRN (12:06)
[2021-06-06] MEDS ORDERED: ONDANSETRON 4 MG OD TAB PO PRN (12:06)
[2021-06-06] MEDS ORDERED: bisacodyL 10 MG SUPP PR PRN (12:06)
[2021-06-06] MEDS ORDERED: SOD PHOSPHATE/SOD BIPHOSPHATE ENEMA 132 ML BTL PR PRN (12:06)
--- NOTE | 2021-06-06 12:08 | Fluoroscopy Report ---
FL lumbar spine 2-3V CLINICAL HISTORY: L2-L3 FUSION TECHNIQUE: 2 views were obtained with the C-arm in the OR with the above procedure. Total fluoroscopy time was 16.5 seconds. Total skin dose was 14.47 mGy. Comparison: None available at the time of this dictation. FINDINGS/IMPRESSION: Intraoperative images of L2-L3 decompression and fusion and revision of L4-L5 fi xation hardware were obtained. Please correlate with intraoperative fluoroscopy and operative report. ACT 112: Negative or not required by law. Electronically signed by: Rick Paige M.D. 06/06/2021 12:07 PM
[2021-06-06] MEDS: LACTATED RINGER'S 1,000 ML IV SCH ×2 (12:09→18:34)
[2021-06-06] MEDS: KETOROLAC TROMETHAMINE 15 MG/ML VIAL IV SCH ×2 (13:25→20:11)
--- NOTE | 2021-06-06 13:38 | Anesthesiology Progress Note ---
Date of Service June 06, 2021 Anesthesia Post Procedure Vital Signs Vital Signs: Temp Pulse Pulse Resp BP BP Pulse Ox 06/06/21 13:03 37.1 C 79 16 104/70 96 06/06/21 12:32 36.6 C 76 18 102/68 95 06/06/21 11:30 72 14 110/79 97 06/06/21 11:20 62 12 110/68 99 06/06/21 11:10 36.4 C L 68 12 118/79 95 06/06/21 11:00 66 14 109/73 92 06/06/21 10:50 68 14 117/77 95 06/06/21 10:40 74 16 106/66 95 06/06/21 10:30 77 16 137/79 98 06/06/21 10:23 36.4 C L 90 14 131/87 98 06/06/21 07:16 36.4 C L 80 18 137/86 97 06/05/21 22:12 37.0 C 77 16 114/69 93 06/05/21 15:58 36.8 C 80 18 138/80 95 Pain Intensity Right Back: Pain Intensity: 44 Lower Back: Pain Intensity: 4 Bilateral Hip: Pain Intensity: 4 Back: Pain Intensity: 5 Transfer of Care Handoff Completed per policy Notes Mental Status: alert / awake / arousable Patient Amnestic to Procedure: Yes Nausea / Vomiting: adequately controlled Pain: adequately controlled Airway Patency, RR, SpO2: stable & adequate BP & HR: stable & adequate Hydration State: stable & adequate Anesthetic Complications: no major complications apparent
--- NOTE | 2021-06-06 16:46 | Hospitalist Progress Note ---
Date of Service June 06, 2021 Assessment & Plan (1) Intractable low back pain: Plan: 71 year old female past medical history of lumbar spinal stenosis s/p fusion, hypothyroidism, GERD, osteoarthritis, and sleep apnea admitted for intractable lower back pain. Intractable low back pain: -MRI with re-demonstration of moderate canal stenosis L3-L4, severe neuroforaminal stenosis L2-L3 -Chronic back pain exacerbation 2/2 chronic stenosis at lumbar spine vs decompression. -Orthopedic consulted - S/P Decompression/Fusion on 06/06 -Continue pain and bowel regimen Constipation: -Patient with difficulty having bowel movement -Bowel movement - loose on 06/05; Continue bowel regimen Hypothyroidism: -Last TSH 2.3 on 05/02/21. -Continue home [place] Thyroid Prediabetes: -Last A1c 6.3 on 05/02/21. -On regular diet; recommend routine monitoring as outpatient GERD: -Continued pantoprazole Iron deficiency anemia: -continue to monitor CBC and symptoms of lightheaded/dizziness. Hyperlipidemia: -Continue home pravastatin. Depression with anxiety: -Continued home citalopram and mirtazapine. Dispo: Pending recuperation from decompressive surgery PT/OT (2) Hypothyroidism: (3) Prediabetes: (4) Iron deficiency anemia: (5) Hyperlipidemia: Admission and Anticipated Discharge Date Admission Date: May 27, 2021 Subjective Patient seen postoperatively. Reports just tired but reporting pain is currently controlled. She verbalizes no new complaints at this time Review of Systems Review of Systems: All systems reviewed & are unremarkable except as noted in Subjective Physical Exam Physical Exam: PHYSICAL EXAM General Appearance: WDWN in NAD who is A&O x 3 HEENT: Head is normocephalic/atraumatic; Hearing grossly intact; Mucous membranes moist Neck: Supple; Trachea midline; Neg JVD Heart: RRR with no M/G/R Lungs: CTA in all lung ashley bilaterally; Respirations unlabored; Neg accessory muscle use Abdomen: Soft, non-tender, non-distended; Positive BS x 4 quadrants Extremities: Neg cyanosis or edema Neurological: Speech clear Psychiatric: Appropriate mood/affect Skin: Normal Color; Warm/Dry Results & Data Results & Data ([facility]) Vital Signs (Past 12 Hours) Vital Signs Temp Pulse Pulse Resp BP Pulse Ox 06/06/21 15:13 36.4 C L 80 16 103/64 94 06/06/21 14:09 36.8 C 74 16 103/67 95 06/06/21 13:03 37.1 C 79 16 104/70 96 06/06/21 12:32 36.6 C 76 18 102/68 95 06/06/21 11:30 72 14 110/79 97 06/06/21 11:20 62 12 110/68 99 06/06/21 11:10 36.4 C L 68 12 118/79 95 06/06/21 11:00 66 14 109/73 92 06/06/21 10:50 68 14 117/77 95 06/06/21 10:40 74 16 106/66 95 06/06/21 10:30 77 16 137/79 98 06/06/21 10:23 36.4 C L 90 14 131/87 98 06/06/21 07:16 36.4 C L 80 18 137/86 97 PG Care Time/CCT Total # of Minutes Spent Total Time Spent with Patient: Total time spent is greater than 50% in coordination of care (as documented) at patient's floor/unit and/or counseling patient: Coding Level of Care Code 03095 Subseq Hosp Care Lvl 3 Diagnoses Intractable low back pain M54.59 Hypothyroidism E03.9 Hypothyroidism type: acquired Prediabetes R73.03 Iron deficiency anemia D50.9 Hyperlipidemia E78.2 Hyperlipidemia type: mixed hyperlipidemia (1) Hypothyroidism Hypothyroidism type: acquired Qualified Code(s): E03.9 - Hypothyroidism, unspecified (2) Hyperlipidemia Hyperlipidemia type: mixed hyperlipidemia Qualified Code(s): E78.2 - Mixed hyperlipidemia
[2021-06-06] MEDS: CLINDAMYCIN 600 MG in DEXTROSE 5% 50 ML IV SCH (16:59)
[2021-06-06] MEDS: CITALOPRAM 40 MG TAB PO SCH (20:44)
[2021-06-06] MEDS: DOCUSATE SODIUM/SENNA 50/8.6MG TAB PO SCH (20:44)
[2021-06-06] MEDS: PRAVASTATIN SOD 20 MG TAB PO SCH (20:45)
[2021-06-06] MEDS: PANTOprazole 40 MG TAB PO SCH (20:45)
[2021-06-06] MEDS: MIRTAZAPINE TAB 15 MG TAB PO PRN (20:45)
[2021-06-06] MEDS: HYDROcodone/ACETAMINOPHEN 10/325 TAB PO PRN (22:54)
[2021-06-07] MEDS: CLINDAMYCIN 600 MG in DEXTROSE 5% 50 ML IV SCH (00:46)
[2021-06-07] MEDS: KETOROLAC TROMETHAMINE 15 MG/ML VIAL IV SCH ×2 (01:41→09:39)
[2021-06-07] MEDS: LACTATED RINGER'S 1,000 ML IV SCH (02:02)
[2021-06-07] MEDS: POLYETHYLENE (MIRALAX) 17 GM PACK PO SCH ×4 (06:05→23:23)
[2021-06-07 07:11] LABS: Eosinophils # (auto) 0.01 K/uL (0-0.5); Eosinophils % (auto) 0.1 %; Hemoglobin 9.2 g/dL (12.0-16.0); Immature Granulocytes # (auto) 0.05 K/uL (0.00-0.02); Immature Granulocytes % (auto) 0.4 %; Lymphocytes # (auto) 0.95 K/uL (1.2-3.4); Lymphocytes % (auto) 8.5 %; Mean Corpuscular Hemoglobin 32.7 pg (25-34); Mean Corpuscular Hgb Conc 34.1 g/dL (32-36); Mean Corpuscular Volume 96.1 fL (80-100); Mean Platelet Volume 9.5 fL (7.4-10.4); Monocytes # (auto) 0.79 K/uL (0.11-0.59); Neutrophils # (auto) 9.43 K/uL (1.4-6.5); Platelet Count 237 K/uL (130-400); RDW Coefficient of Variation 13.6 % (11.5-14.5); RDW Standard Deviation 47.7 fL (36.4-46.3); Red Blood Count 2.81 M/uL (4.2-5.4); White Blood Count 11.23 K/uL (4.8-10.8)
[2021-06-07 07:46] LABS: BUN Creatinine Ratio 20.2 (10-20); Calcium 8.6 mg/dl (8.5-10.1); Creatinine Clr Calc Pharmacy 73.9 ml/min; Est GFR (African American) 76.1 ml/min; Est GFR (Non-African American) 65.6 ml/min
[2021-06-07] MEDS: CALCIUM CARBONATE 1250MG TAB PO SCH (09:39)
[2021-06-07] MEDS: dexAMETHasone 8 MG in SYRINGE 0 ML IV SCH (09:39)
[2021-06-07] MEDS: oxyCODONE HCL IR 5 MG TAB (IMMEDIATE RELEASE) PO PRN ×2 (11:08→21:02)
--- NOTE | 2021-06-07 12:03 | Orthopedic Progress Note ---
Date of Service June 07, 2021 Assessment & Plan (1) Neurogenic claudication due to lumbar spinal stenosis: Plan: At this time continue physical therapy monitor JEAN CLAUDE output hopefully discharge home in the next day or so. Admission and Anticipated Discharge Date Admission Date: May 27, 2021 Subjective Patient back pain is controlled leg pain markedly improved Physical Exam Physical Exam: Patient is in the chair at the bedside. She appears comfortable. She has good strength testing. Results & Data ([facility]) Vital Signs (Past 12 Hours) Vital Signs Temp Pulse Pulse Resp BP Pulse Ox 06/07/21 07:28 36.7 C 82 18 123/68 97 06/07/21 01:34 36.6 C 90 16 105/62 93
--- NOTE | 2021-06-07 12:22 | Hospitalist Progress Note ---
Date of Service June 07, 2021 Assessment & Plan (1) Intractable low back pain: Plan: 71 year old female past medical history of lumbar spinal stenosis s/p fusion, hypothyroidism, GERD, osteoarthritis, and sleep apnea admitted for intractable lower back pain. Intractable low back pain: IMPROVING POST-OP -MRI with re-demonstration of moderate canal stenosis L3-L4, severe neuroforaminal stenosis L2-L3 -Chronic back pain exacerbation 2/2 chronic stenosis at lumbar spine vs decompression. -Orthopedic consulted - S/P Decompression/Fusion on 06/06 -- Doing well post-operatively - pain much improved; monitoring JEAN CLAUDE output - possible D/C tomorrow or next day -Continue pain and bowel regimen Constipation: -Patient with difficulty having bowel movement -Bowel movement - loose on 06/05; Continue bowel regimen Hypothyroidism: -Last TSH 2.3 on 05/02/21. -Continue home [place] Thyroid Prediabetes: -Last A1c 6.3 on 05/02/21. -On regular diet; recommend routine monitoring as outpatient GERD: -Continued pantoprazole Iron deficiency anemia: -- Hgb 9.2 which is down from 11 however asymptomatic and vital stable Hyperlipidemia: -Continue home pravastatin. Depression with anxiety: -Continued home citalopram and mirtazapine. Dispo: PT/OT recommending home; case manangement following; likely D/C in 1-2 days (2) Hypothyroidism: (3) Prediabetes: (4) Iron deficiency anemia: (5) Hyperlipidemia: Admission and Anticipated Discharge Date Admission Date: May 27, 2021 Subjective Pt looks very well today. Reports doing well from a pain perspective and has already participated in therapy and walked the halls. Much improvement in presenting symptoms since surgery. Still working on bowel movements and hopefully with more activity this will happen. She is passing flatus. Tolerating a diet without issue. Verbalizes no new issues. Review of Systems Review of Systems: All systems reviewed & are unremarkable except as noted in Subjective Physical Exam Physical Exam: PHYSICAL EXAM General Appearance: WDWN in NAD who is A&O x 3 HEENT: Head is normocephalic/atraumatic; Hearing grossly intact; Mucous membranes moist Neck: Supple; Trachea midline; Neg JVD Heart: RRR with no M/G/R Lungs: CTA in all lung ashley bilaterally; Respirations unlabored; Neg accessory muscle use Abdomen: Soft, non-tender, non-distended; Positive BS x 4 quadrants Extremities: Neg cyanosis or edema Neurological: Speech clear Psychiatric: Appropriate mood/affect Skin: Normal Color; Warm/Dry Results & Data Results & Data ([facility]) Vital Signs (Past 12 Hours) Vital Signs Temp Pulse Pulse Resp BP Pulse Ox 06/07/21 12:13 36.6 C 82 16 157/92 H 96 06/07/21 07:28 36.7 C 82 18 123/68 97 06/07/21 01:34 36.6 C 90 16 105/62 93 PG Care Time/CCT Total # of Minutes Spent Total Time Spent with Patient: Total time spent is greater than 50% in coordination of care (as documented) at patient's floor/unit and/or counseling patient: Coding Level of Care Code 60854 Subseq Hosp Care Lvl 3 Diagnoses Intractable low back pain M54.59 Hypothyroidism E03.9 Hypothyroidism type: acquired Prediabetes R73.03 Iron deficiency anemia D50.9 Hyperlipidemia E78.2 Hyperlipidemia type: mixed hyperlipidemia (1) Hypothyroidism Hypothyroidism type: acquired Qualified Code(s): E03.9 - Hypothyroidism, unspecified (2) Hyperlipidemia Hyperlipidemia type: mixed hyperlipidemia Qualified Code(s): E78.2 - Mixed hyperlipidemia
[2021-06-07] MEDS: MIRTAZAPINE TAB 15 MG TAB PO PRN (21:02)
[2021-06-07] MEDS: PRAVASTATIN SOD 20 MG TAB PO SCH (21:03)
[2021-06-07] MEDS: PANTOprazole 40 MG TAB PO SCH (21:03)
[2021-06-07] MEDS: CITALOPRAM 40 MG TAB PO SCH (21:03)
[2021-06-07] MEDS: DOCUSATE SODIUM/SENNA 50/8.6MG TAB PO SCH (21:03)
[2021-06-08] MEDS: oxyCODONE HCL IR 5 MG TAB (IMMEDIATE RELEASE) PO PRN ×3 (05:58→20:25)
[2021-06-08] MEDS: ARMOUR THYROID 30 MG TAB PO SCH (05:58)
[2021-06-08] MEDS: POLYETHYLENE (MIRALAX) 17 GM PACK PO SCH ×4 (05:58→23:52)
[2021-06-08 08:27] LABS: Hematocrit (blood only) 26.4 % (37-47); Hemoglobin 9.1 g/dL (12.0-16.0); Mean Corpuscular Hemoglobin 32.6 pg (25-34); Mean Corpuscular Hgb Conc 34.5 g/dL (32-36); Mean Corpuscular Volume 94.6 fL (80-100); Mean Platelet Volume 9.5 fL (7.4-10.4); Platelet Count 248 K/uL (130-400); RDW Coefficient of Variation 13.7 % (11.5-14.5); RDW Standard Deviation 47.5 fL (36.4-46.3); Red Blood Count 2.79 M/uL (4.2-5.4); White Blood Count 9.98 K/uL (4.8-10.8)
[2021-06-08 08:39] LABS: BUN Creatinine Ratio 15.6 (10-20); Calcium 8.3 mg/dl (8.5-10.1); Creatinine Clr Calc Pharmacy 82.3 ml/min; Est GFR (African American) 86.7 ml/min; Est GFR (Non-African American) 74.8 ml/min
[2021-06-08] MEDS: dexAMETHasone 8 MG in SYRINGE 0 ML IV SCH ×2 (09:09→10:36)
[2021-06-08] MEDS: CALCIUM CARBONATE 1250MG TAB PO SCH (09:09)
--- NOTE | 2021-06-08 16:19 | Orthopedic Progress Note ---
Date of Service June 08, 2021 Assessment & Plan (1) Neurogenic claudication due to lumbar spinal stenosis: Plan: This time we will continue physical therapy and monitor JEAN CLAUDE output. Anticipate discharge home tomorrow. Admission and Anticipated Discharge Date Admission Date: May 27, 2021 Subjective Patient's back pain is controlled leg symptoms markedly improved. Physical Exam Physical Exam: On exam patient is sitting at the bedside. Is good strength testing. Appears comfortable. Results & Data ([facility]) Vital Signs (Past 12 Hours) Vital Signs Temp Pulse Resp BP Pulse Ox 06/08/21 14:22 36.7 C 89 16 119/75 96 06/08/21 07:02 36.6 C 78 16 121/79 97
[2021-06-08] MEDS: CITALOPRAM 40 MG TAB PO SCH (20:20)
[2021-06-08] MEDS: DOCUSATE SODIUM/SENNA 50/8.6MG TAB PO SCH (20:21)
[2021-06-08] MEDS: PANTOprazole 40 MG TAB PO SCH (20:21)
[2021-06-08] MEDS: PRAVASTATIN SOD 20 MG TAB PO SCH (20:21)
[2021-06-08] MEDS: MIRTAZAPINE TAB 15 MG TAB PO PRN (20:22)
--- NOTE | 2021-06-08 20:22 | Hospitalist Progress Note ---
Date of Service June 08, 2021 Assessment & Plan (1) Intractable low back pain: Plan: 71 year old female past medical history of lumbar spinal stenosis s/p fusion, hypothyroidism, GERD, osteoarthritis, and sleep apnea admitted for intractable lower back pain. Intractable low back pain: IMPROVING POST-OP -MRI with re-demonstration of moderate canal stenosis L3-L4, severe neuroforaminal stenosis L2-L3 -Chronic back pain exacerbation 2/2 chronic stenosis at lumbar spine vs decompression. -Orthopedic consulted - S/P Decompression/Fusion on 06/06 -- Doing well post-operatively - pain much improved; monitoring JEAN CLAUDE output - possible D/C tomorrow -Continue pain and bowel regimen Constipation: -Patient with difficulty having bowel movement -Bowel movement - loose on 06/05; Continue bowel regimen Hypothyroidism: -Last TSH 2.3 on 05/02/21. -Continue home [place] Thyroid Prediabetes: -Last A1c 6.3 on 05/02/21. -On regular diet; recommend routine monitoring as outpatient GERD: -Continued pantoprazole Iron deficiency anemia: -- Hgb 9.2 which is down from 11 however asymptomatic and vital stable Hyperlipidemia: -Continue home pravastatin. Depression with anxiety: -Continued home citalopram and mirtazapine. Dispo: PT/OT recommending home; case manangement following; likely D/C tomorrow (2) Hypothyroidism: (3) Prediabetes: (4) Iron deficiency anemia: (5) Hyperlipidemia: Admission and Anticipated Discharge Date Admission Date: May 27, 2021 Subjective Continues to do well and pain controlled. Was ambulating to bathroom to get washed up today. She is tolerating a diet without issue. Verbalizes no new complaints. Anticipating home tomorrow Review of Systems Review of Systems: All systems reviewed & are unremarkable except as noted in Subjective Physical Exam Physical Exam: PHYSICAL EXAM General Appearance: WDWN in NAD who is A&O x 3 HEENT: Head is normocephalic/atraumatic; Hearing grossly intact; Mucous membranes moist Neck: Supple; Trachea midline; Neg JVD Heart: RRR with no M/G/R Lungs: CTA in all lung ashley bilaterally; Respirations unlabored; Neg accessory muscle use Abdomen: Soft, non-tender, non-distended; Positive BS x 4 quadrants Extremities: Neg cyanosis or edema Neurological: Speech clear Psychiatric: Appropriate mood/affect Skin: Normal Color; Warm/Dry Results & Data Results & Data ([facility]) Vital Signs (Past 12 Hours) Vital Signs Temp Pulse Resp BP Pulse Ox 06/08/21 14:22 36.7 C 89 16 119/75 96 PG Care Time/CCT Total # of Minutes Spent Total Time Spent with Patient: Total time spent is greater than 50% in coordination of care (as documented) at patient's floor/unit and/or counseling patient: Coding Level of Care Code 33872 Subseq Hosp Care Lvl 2 Diagnoses Intractable low back pain M54.59 Hypothyroidism E03.9 Hypothyroidism type: acquired Prediabetes R73.03 Iron deficiency anemia D50.9 Hyperlipidemia E78.2 Hyperlipidemia type: mixed hyperlipidemia (1) Hypothyroidism Hypothyroidism type: acquired Qualified Code(s): E03.9 - Hypothyroidism, unspecified (2) Hyperlipidemia Hyperlipidemia type: mixed hyperlipidemia Qualified Code(s): E78.2 - Mixed hyperlipidemia
[2021-06-09] MEDS: POLYETHYLENE (MIRALAX) 17 GM PACK PO SCH (05:42)
[2021-06-09] MEDS: dexAMETHasone 8 MG in SYRINGE 0 ML IV SCH (07:55)
[2021-06-09] MEDS: CALCIUM CARBONATE 1250MG TAB PO SCH (07:55)
[2021-06-09] MEDS: oxyCODONE HCL IR 5 MG TAB (IMMEDIATE RELEASE) PO PRN (09:04)
--- NOTE | 2021-06-09 17:56 | Discharge Summary ---
Date of Service June 09, 2021 Admission HPI Per Admitting Provider 71 year old female with past medical history of lumbar spinal stenosis s/p fusion, hypothyroidism, GERD, osteoarthritis, and sleep apnea presenting to the ED with exacerbation of her chronic lower back pain. Patient has had a history of multiple surgeries to her back in the past. In 2008 she had L4-L5 and S1 fusion and in 2016 had multiple screws at the level of around L2-L3. After the L2-L3 surgery a screw or two fell out of place and her L5 became fractured causing her a lot of pain. She went back for surgery to fix this and had temporary resolution. She has had recurring issues with back pain over the past few months with worsening of the pain over the past few weeks. She currently sees pain management for the pain where she has received steroid injections and trial of oral steroid without relief. Last Sunday she went to get an epidural and found slight relief for a few days but the pain came back. Sunday she was given Toradol with no relief. She called the office back today and was told to come to the ED for the worsening pain. Her pain upon entering the ED was an 8/10 at the bilateral gluteus muscles and radiated down to the right knee. After receiving Dilaudid her pain had mildly let up to where it was bearable and the pain at the right leg had regressed to proximal anterior thigh. Denies fevers, chills, shortness of breath, numbness or tingling or loss of sensation, bowel incontinence, muscle spasm sensation. Patient says she has had urinary incontinence for a couple weeks where upon standing to go to the bathroom she can't stop the urine from coming out. She wears pads to help with this and finds by the time she makes it to the bathroom her pad and pants are soaked. Patient denies loss of control of bowel movements or loss of sensation. Principal Diagnosis Neurogenic Claudication due to Lumbar Spinal Stenosis Discharge Exam PHYSICAL EXAM General Appearance: WDWN in NAD who is A&O x 3 HEENT: Head is normocephalic/atraumatic; Hearing grossly intact; Mucous membranes moist Neck: Supple; Trachea midline; Neg JVD Heart: RRR with no M/G/R Lungs: CTA in all lung ashley bilaterally; Respirations unlabored; Neg accessory muscle use Abdomen: Soft, non-tender, non-distended; Positive BS x 4 quadrants Extremities: Neg cyanosis or edema Neurological: Speech clear Psychiatric: Appropriate mood/affect Skin: Normal Color; Warm/Dry Discharge Data Allergies Allergy/AdvReac Type Severity Reaction Status Date / Time erythromycin base Allergy Unknown RASH Verified 05/23/21 14:21 fish oil Allergy Unknown sweat, Verified 05/23/21 14:21 nausea, dizzy Penicillins Allergy Unknown RED RASH Verified 05/23/21 14:21 ITCHING tramadol Allergy Unknown rash/hives Verified 05/23/21 14:21 Consultations 05/25/21 18:29 ED Decision to Admit Stat 05/25/21 23:31 Consult Orthopedic Surgery Routine Procedures Performed Operation Date: 05/30/21 12:00 <No data on this case meets the specified criteria> Operation Date: 05/31/21 11:05 <No data on this case meets the specified criteria> Operation Date: 06/01/21 07:00 <No data on this case meets the specified criteria> Operation Date: 06/06/21 07:45 Actual Procedures p Decompression Fusion L2-L3 with bone morphogenic protein, spinal cord monitoring(Not Applicable) - David Joiner DO s Removal of Hardware L3-4(Not Applicable) - David Joiner DO Ordered Studies Lumbar Spine MRI 05/25/21 16:05 MR lumbar spine wo con CLINICAL HISTORY: lower back pain radiating into bilateral legs TECHNIQUE: Multiplanar sequences through the lumbar spine were obtained, without intravenous contrast. Comparison: None available at the time of this dictation. FINDINGS: The alignment is anatomical. Multilevel degenerative changes are seen. Vertebral plana of T12 is noted. Posterior fixation hardware is seen spanning L3-L4. L1-L2: No significant disc bulge. No canal stenosis. No neuroforaminal stenosis. L2-L3: Bilateral facet arthropathy is seen. No canal stenosis. Moderate to severe neuroforaminal stenosis. L3-L4: Facet arthropathy and posterior disc bulge is seen. Moderate canal stenosis. Mild neuroforaminal stenosis. L4-L5: No significant disc bulge. No canal stenosis. No neuroforaminal stenosis. L5-S1: No significant disc bulge. No canal stenosis. No neuroforaminal stenosis. The spinal ligaments are intact, without evidence of disruption or abnormal signal intensity. The spinal cord is normal in signal intensity and there is no evidence of cord contusion. There is no evidence of an extradural, intradural, extramedullary or intramedullary lesion. Visualized soft tissues are normal. IMPRESSION: 1. Postsurgical changes are unchanged. Old vertebral plana of T12 is again seen. A not entirely evaluated with view of this image, there is noted to be moderate spinal stenosis at this level. 2. Redemonstration of moderate canal stenosis at L3-L4 and moderate to severe neuroforaminal stenosis at L2-L3. ACT 112: Negative or not required by law. Electronically signed by: Rick Paige M.D. 05/25/2021 5:50 PM Spine Flexion/Extension X-Ray 05/26/21 07:55 XR lumbar spine flex/ext only CLINICAL HISTORY: standing films, leg pain. Low back pain. COMPARISON STUDY: Lumbar spine MRI 05/25/2021. Lumbar spine radiographs 01/11/2019. FINDINGS: There is L3-L4 posterior decompression and fusion with pedicle screws and rods. The hardware appears intact. Disc spacers are again noted at L4-5 and L5-S1 mild disc space narrowing at L2-L3, unchanged. Vertebral plana deformity at T12 is again noted. This demonstrates up to 4 mm of retropulsion the posterior superior corner with moderate central canal narrowing at this level. No acute fractures identified within the lumbar spine. The sacrum appears intact. The alignment remains intact throughout flexion and extension. IMPRESSION: 1. Alignment remains intact throughout flexion and extension. 2. Old T12 severe compression deformity with 4 mm of retropulsion and moderate central canal narrowing. This remains unchanged. 3. Postoperative changes as described above. The hardware is intact. ACT 112: Negative or not required by law. Electronically signed by: Vj Hutchinson M.D. 05/26/2021 1:21 PM Lumbar Spine X-Ray 06/06/21 00:00 FL lumbar spine 2-3V CLINICAL HISTORY: L2-L3 FUSION TECHNIQUE: 2 views were obtained with the C-arm in the OR with the above procedure. Total fluoroscopy time was 16.5 seconds. Total skin dose was 14.47 mGy. Comparison: None available at the time of this dictation. FINDINGS/IMPRESSION: Intraoperative images of L2-L3 decompression and fusion and revision of L4-L5 fixation hardware were obtained. Please correlate with intraoperative fluoroscopy and operative report. ACT 112: Negative or not required by law. Electronically signed by: Rick Paige M.D. 06/06/2021 12:07 PM Hospital Course (1) Intractable low back pain: 71 year old female past medical history of lumbar spinal stenosis s/p fusion, hypothyroidism, GERD, osteoarthritis, and sleep apnea admitted for intractable lower back pain. Intractable low back pain: IMPROVED POST-OP -MRI with re-demonstration of moderate canal stenosis L3-L4, severe neuroforaminal stenosis L2-L3 -Chronic back pain exacerbation 2/2 chronic stenosis at lumbar spine vs decompression. -Orthopedic consulted - S/P Decompression/Fusion on 06/06 -- Did well post-operatively - pain much improved -Continue pain and bowel regimen Constipation: -Patient with difficulty having bowel movement - but moved bowels prior to D/C with no abdominal pain and tolerating Hypothyroidism: -Last TSH 2.3 on 05/02/21. -Continue home [place] Thyroid Prediabetes: -Last A1c 6.3 on 05/02/21. -On regular diet; recommend routine monitoring as outpatient GERD: -Continued pantoprazole Iron deficiency anemia: -- Hgb 9.2 which is down from 11 however asymptomatic and vitals stable Hyperlipidemia: -Continue home pravastatin. Depression with anxiety: -Continued home citalopram and mirtazapine. Dispo: Discharged home with F/U with Dr. Joiner as scheduled (2) Hypothyroidism: (3) Prediabetes: (4) Iron deficiency anemia: (5) Hyperlipidemia: Total Time Total Time Spent Total Time Spent (In Minutes): Spent greater than 30 minutes preparing patient for discharge. This includes discussion with patient/family, assessment, intervention, medication reconciliation, and coordination of care. Discharge Plan Discharge Items Patient Disposition: Home - Self-Care Reason For Visit: LOWER BACK PAIN, HIP/LEG PAIN Discharge Diagnosis: Lumbar spinal stenosis with neurogenic claudication Activity: As commented below Non-emergency contact: Primary Care Provider Call non-emergency contact if: you have any medication questions Follow-up/Referrals: Lina Jones DO [Primary Care Provider] - David Joiner DO [Surgeon] - 06/22/21 10:30 am Diet: Regular Addtl Attending Provider Instructions: ACTIVITY RECOMMENDATIONS: SELF CARE INSTRUCTIONS AFTER THORACIC/LUMBAR FUSIONS 1. You may walk to your tolerance. It is good exercise for your legs and back. Expect some back and intermittent leg aches and pains. 2. You may perform "counter-top" level activities (make a sandwich, marta with a project, etc.). 3. No bending or lifting of more than 10 pounds or back twisting of any nature (roll like a log when turning in bed). 4. You may ride in a car for 20-30 minutes at a time. No driving until after your first visit with your doctor. 5. Frequent changes of position and restricting sitting to 30 minutes at a time will help limit the amount of back spasms and stiffness you may experience. 6. You may discontinue the use of ambulatory aids (cane, crutches, etc.) once your strength and confidence allow. 7. 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 Do not take a tub bath, sit in a hot tub or go into a swimming pool until after your first recheck in the office. SPECIAL CARE INSTRUCTIONS: VERY IMPORTANT TO READ AND REVIEW A. Your surgical incision has been closed with a cosmetic suture under the skin that will dissolve in about 6 weeks. In 14 days, you can use a pair of clean scissors and cut the suture that is left outside of the skin at the ends of your incision. 1. The small skin tapes can be removed 7 days after surgery if they have not fallen off by that point. 2. You may keep the wound open to air as much as possible to promote healing after post-op day number 5 unless told otherwise by your doctor. 3. If you think the wound looks like it is becoming infected (redness or worsening drainage) and/or you are experiencing fever, chill or worsening back pain and muscle spasms, contact the office so that we may evaluate you as soon as possible. B. Complications are uncommon, but please contact us if you have any signs or symptoms of: 1. wound infection (fever higher than 102.5 degrees F, redness, separation of wound, drainage, or increasing pain from the incision) 2. blood clots in legs (pain, swelling, redness and warmth in legs) 3. urinary tract infection (fever higher than 102.5 degrees F, burning upon urination or increased frequency of urination) 4. nerve problems (inability to walk on your toes or heels, numbness, loss of bowel or bladder control) 5. any other symptoms that concern you C. Please call the office at if you have any concerns or questions about your operation or recovery. D. No smoking! Smoking drastically decreases the chance of a solid fusion. E. Do not take any anti-inflammatory medications (Indocin, Advil, Motrin, Aspirin, Naprosyn, etc.) as these may inhibit the chance of a solid fusion. Tylenol is okay to take for pain. MANAGING PAIN AFTER SPINAL SURGERY 1. Narcotic medication is intended for short-term use and will be provided for surgical pain. Surgical pain usually lasts for a period of 4-6 weeks. Narcotic medication includes Percocet, Vicodin, Darvocet, Tylenol #3 or Lortab. 2. Longer-term pain is more appropriately treated with non-narcotic medication such as Tylenol ES. 3. Muscle spasm is not appropriately treated with narcotics. Muscle relaxers such as Soma, Flexeril or Skelaxin can be used along with Tylenol ES. 4. Remember that we all live with some "aches and pains". This is not unusual or uncommon after an injury or as we get older. a. Back pain is expected and may include muscle spasms for 4 to 6 weeks after surgery. The pain should gradually improve. If the pain worsens for no apparent reason, please contact the office. b. Intermittent leg pain may also be experienced and should not be concerned about unless it worsens for no apparent reason. If so, please contact the office. 5. We will provide appropriate medication within the normal guidelines of their prescribed use. We will also be very cautious and aware of potential abuse and extended duration of patients' medication needs. a. Pain medications are for your comfort and to assist with sleep and rest so that the tissue can heal. They are not provided in order to return to normal activity and should not be used through the day. To do so or worsening pain at night can result from ongoing tissue damage and development of tolerance to the prescribed medicine. 6. Please allow 2-3 days to process refills. Prescriptions will not be mailed but must be picked up at the office. FOLLOW UP VISIT: Keep your scheduled follow-up appointment. Any questions, please call the office at . Pending Studies at Discharge: No Stand-Alone Forms: My [facility], Opioid Pain Management, Smoking Cessation Medications and DC Order Prescriptions: New oxycodone 5 mg tablet 5 mg PO Q6H PRN (Reason: pain, severe) Qty: 30 RF: 0 Continued calcium carbonate [Calcium 600] 600 mg calcium (1,500 mg) tablet 600 mg PO QAM RF: 0 esomeprazole magnesium [Nexium] 20 mg capsule,delayed release(DR/EC) 20 mg PO HS Qty: 90 RF: 1 hydrocodone-acetaminophen 10-325 mg tablet 1 tab PO Q6H PRN (Reason: pain) Qty: 28 RF: 0 fluticasone propionate [Flonase Allergy Relief] 50 mcg/actuation spray,suspension 2 spray INTRANASAL UD PRN (Reason: Allergy Symptoms) Qty: 16 RF: 5 citalopram 40 mg tablet 40 mg PO DAILY Qty: 90 RF: 1 pravastatin 20 mg tablet 20 mg PO HS Qty: 90 RF: 1 cholecalciferol (vitamin D3) [Vitamin D3] 50 mcg (2,000 unit) capsule 2,000 unit PO DAILY RF: 0 mirtazapine [Remeron] 15 mg tablet 15 mg PO HS PRN (Reason: sleep) Qty: 30 RF: 3 albuterol sulfate 90 mcg/actuation Hfa Aerosol Inhaler 2 puff INHALATION Q6H PRN (Reason: Shortness Of Breath) RF: 0 Discontinued ketorolac 10 mg tablet 10 mg PO Q6H PRN (Reason: pain) 5 Days Qty: 20 RF: 0 No Action thyroid (pork) [[place] Thyroid] 15 mg tablet 15 mg PO .COMPLEX Qty: 90 RF: 1 Discharge Orders: Discharge Order (Routine); Ordered 06/09/21 Ordered By: David Clayton/Other Patient Handouts: DVT Post Op Prevention Admission Data Admit Date/Time: 05/27/21 13:37 Attending Provider: Dvaid Joiner Admit Provider: David Joiner Primary Care Provider: Lina Jones. Other Providers: Mg Monte ; David Joiner Other Interventions: Discharge Summary Assessment (RN) Last Done: 06/09/21 11:02 Supervising Physician Co-Signing Physician Notes Attending note: patient seen and examined with Katina Talavera PA-C. I agree with her discharge summary. I personally reviewed the labs and imaging findings. patient doing well after surgery, cleared for discharge by Dr. Joiner - Lumbar spinal stenosis with radiculopathy, claudication doing well with therapy, pain is controlled, vitals and labs stable discharge to home, follow up with Dr. Joiner Coding Level of Care Code D/C DAY MANAGEMENT >30 MINS Diagnoses Intractable low back pain M54.59 Hypothyroidism E03.9 Hypothyroidism type: acquired Prediabetes R73.03 Iron deficiency anemia D50.9 Hyperlipidemia E78.2 Hyperlipidemia type: mixed hyperlipidemia
== END 2021-06-09 13:30 | disposition home or self-care (01) | DRG 455 ==
LOC: ED 12:40 → 3N 12:40 → SUATTDRO 21:40 → 3N 23:01 → SUATTDRO 05-27 13:37